=== PATIENT | female | born 1960 | race Caucasian/White ===

== ENCOUNTER → 2016-07-04 | Outpatient (CLI) | payer OTHER ==
[~2016-07-04] MED LIST: OMEP40CA36 PO
--- NOTE | 2016-07-04 13:16 | Diagnostic Imaging Report ---
Bilateral screening mammogram. The current study was also evaluated with a Computer Aided Detection (CAD) system. INDICATION: Screening. No current complaints stated on the questionnaire. COMPARISON: 06/28/15. FINDINGS: The breasts are composed of heterogeneously dense parenchyma which may decrease mammographic sensitivity. Benign-appearing calcifications are seen. Allowing for technique and positional differences, no suspicious change is seen. IMPRESSION: No significant change. ACR BI-RADS Category 2: Benign findings. Result letter will be mailed to the patient. Note: At least 10% of breast cancer is not imaged by mammography. Dictated by: Dictated on workstation # [id number]
== END ==
LOC: RAD 07:18
PROVIDERS: ATTEND Family Medicine
DX: Z12.31 Encounter for screening mammogram for malignant neoplasm of breast (principal)
CPT/HCPCS: 77067

== ENCOUNTER → 2017-02-19 | Outpatient (CLI) | payer OTHER | LOC: CARD 10:13 | PROVIDERS: ATTEND Internal Medicine Cardiovascular Disease | DX: R07.89 Other chest pain (principal); R06.00 Dyspnea, unspecified; R00.2 Palpitations; E78.2 Mixed hyperlipidemia | CPT/HCPCS: 93306 ==

== ENCOUNTER → 2017-07-05 | Outpatient (CLI) | payer OTHER ==
--- NOTE | 2017-07-06 06:51 | Diagnostic Imaging Report ---
INDICATION: Routine screening. COMPARISON: Prior exam from 08/20/2012. EXAMINATION: 2D and 3D bilateral screening mammography with CAD was performed. FINDINGS: Scattered fibroglandular densities are identified, bilaterally. The right breast is unremarkable. There has been decrease in size and number of previously noted circumscribed masses in the left breast since prior mammogram. Stable circumscribed lesion in the upper inner left breast is noted. No spiculated mass is identified. No malignant appearing microcalcifications are seen. The axillae are unremarkable. IMPRESSION: BI-RADS category 2 No mammographic features suspicious for malignancy are identified. ACR BI-RADS Category 2: Benign findings. Result letter will be mailed to the patient. Note: At least 10% of breast cancer is not imaged by mammography. Dictated by: Dictated on workstation # [id number]
== END ==
LOC: RAD 07:30
PROVIDERS: ATTEND Family Medicine
DX: Z12.31 Encounter for screening mammogram for malignant neoplasm of breast (principal)
CPT/HCPCS: 77067

== ENCOUNTER → 2018-07-08 | Outpatient (CLI) | payer OTHER ==
--- NOTE | 2018-07-08 12:37 | Diagnostic Imaging Report ---
INDICATION: Routine screening. COMPARISON: 07/05/2017 and 07/04/2016. TECHNIQUE: 2D and 3D bilateral screening mammography was performed with CAD. FINDINGS: Scattered fibroglandular densities are identified bilaterally. The parenchymal pattern is stable. No mass or malignant appearing microcalcifications are seen. The axillae are unremarkable. IMPRESSION: No mammographic features suspicious for malignancy are identified. ACR BI-RADS Category 1: Negative. Result letter will be mailed to the patient. Note: At least 10% of breast cancer is not imaged by mammography. Dictated by: Dictated on workstation # [id number]
== END ==
LOC: RAD 07:27
PROVIDERS: ATTEND Family Medicine
DX: Z12.31 Encounter for screening mammogram for malignant neoplasm of breast (principal)
CPT/HCPCS: 77067

== ENCOUNTER 2018-10-09 20:44 | Outpatient (CLI) | payer OTHER | END 2018-10-10 06:43 | disposition home or self-care (01) | LOC: SLEEP 20:44 | PROVIDERS: ATTEND Nurse Practitioner Family | DX: G47.33 Obstructive sleep apnea (adult) (pediatric) (principal); R00.2 Palpitations | CPT/HCPCS: 95811 ==

== ENCOUNTER 2019-03-07 02:27 | Emergency (ER) | payer OTHER ==
[~2019-03-07] VITALS: Ht 167.7 cm; Wt 100.9 kg
--- NOTE | 2019-03-07 02:42 | ED Chest Pain ---
General Chief Complaint: Chest Pain Stated Complaint: CP Source: patient Exam Limitations: no limitations History of Present Illness Date Seen by Provider: Mar 07, 2019 Time Seen by Provider: 02:29 Initial Comments Patient presents to ER by EMS with chief complaint of chest pain woke her up from sleep at about midnight. She describes it as cold all over her chest nonradiating. No shoulder or jaw involvement. No numbness or tingling. She did have some nausea. She has a history of GERD. No history of coronary disease but she does follow with Dr. Hess for pulmonary hypertension. She follows with Dr. Adrian for primary care. She does not take blood thinners. She was given 325 mg of aspirin and 2 doses of Zofran 4 mg each on route by [facility]. She doesn't smoke drink or use drugs. She has no history of hypertension but she does have hyperlipidemia. She does not have hypothyroidism, diabetes. No history of smoking. No history of coronary disease, stents, heart attacks, caths. No recent surgeries or trauma. Not laid up in bed. She's not been sick with anything. She does take omeprazole daily and escitalopram was started recently by her primary care doctor for anxiety. No hypoxia or tachycardia per EMS. Allergies and Home Medications Allergies Coded Allergies: No Known Allergies (Unverified Allergy, Unknown, 06/10/14) Patient Home Medication List Home Medication List Reviewed: Yes Review of Systems Review of Systems Constitutional: No chills, No fever, No malaise EENTM: No Blurred Vision, No Double Vision Respiratory: Denies Cough, Denies Orthopnea, Denies Shortness of Air Cardiovascular: See HPI, Chest Pain; Denies Edema, Denies Irregular Heart Rate, Denies Lightheadedness, Denies Palpitations, Denies Syncope Gastrointestinal: Denies Constipated, Denies Diarrhea, Denies Nausea Genitourinary: Denies Burning, Denies Discharge Musculoskeletal: No back pain, No joint pain Psychiatric/Neurological: See HPI, Anxiety; Denies Depressed Past Qfarzhk-Xxqpxj-Tccyzr Hx Patient Social History Alcohol Use: Denies Use Recreational Drug Use: No Smoking Status: Never a Smoker Recent Foreign Travel: No Contact w/Someone Who Travel: No Physical Exam Vital Signs Vital Signs - First Documented 03/07/19 02:28 Temp 36.8 Pulse 81 Resp 18 B/P (MAP) 152/77 (102) O2 Delivery Room Air Capillary Refill : Height, Weight, BMI Height: 5'6.00" Weight: 230lbs. oz. 104.613419zy; BMI Method: General Appearance: No Apparent Distress, WD/WN HEENT: PERRL/EOMI, Normal ENT Inspection, Pharynx Normal, Moist Mucous Membranes Neck: Full Range of Motion, Normal Inspection, Non Tender Respiratory: Chest Non Tender, Lungs Clear, Normal Breath Sounds, No Accessory Muscle Use, No Respiratory Distress Cardiovascular: Regular Rate, Rhythm, No Edema, Normal Peripheral Pulses Gastrointestinal: Normal Bowel Sounds, Non Tender, Soft Extremity: Normal Capillary Refill, Normal Inspection, No Pedal Edema Neurologic/Psychiatric: Alert, Oriented x3, No Motor/Sensory Deficits Skin: Normal Color, Warm/Dry Progress/Results/Core Measures Results/Orders Lab Results Laboratory Tests Test 03/07/19 02:35 03/07/19 05:35 Range/Units White Blood Count 6.2 4.3-11.0 10^3/uL Red Blood Count 4.49 4.35-5.85 10^6/uL Hemoglobin 13.3 11.5-16.0 G/DL Hematocrit 41 35-52 % Mean Corpuscular Volume 91 80-99 FL Mean Corpuscular Hemoglobin 30 25-34 PG Mean Corpuscular Hemoglobin Concent 33 32-36 G/DL Red Cell Distribution Width 12.9 10.0-14.5 % Platelet Count 234 130-400 10^3/uL Mean Platelet Volume 8.4 7.4-10.4 FL Neutrophils (%) (Auto) 63 42-75 % Lymphocytes (%) (Auto) 24 12-44 % Monocytes (%) (Auto) 8 0-12 % Eosinophils (%) (Auto) 4 0-10 % Basophils (%) (Auto) 1 0-10 % Neutrophils # (Auto) 3.9 1.8-7.8 X 10^3 Lymphocytes # (Auto) 1.5 1.0-4.0 X 10^3 Monocytes # (Auto) 0.5 0.0-1.0 X 10^3 Eosinophils # (Auto) 0.2 0.0-0.3 10^3/uL Basophils # (Auto) 0.0 0.0-0.1 10^3/uL Prothrombin Time 13.1 12.2-14.7 SEC INR Comment 1.0 0.8-1.4 Activated Partial Thromboplast Time 29 24-35 SEC Sodium Level 139 135-145 MMOL/L Potassium Level 3.6 3.6-5.0 MMOL/L Chloride Level 102 98-107 MMOL/L Carbon Dioxide Level 24 21-32 MMOL/L Anion Gap 13 5-14 MMOL/L Blood Urea Nitrogen 20 H 7-18 MG/DL Creatinine 0.82 0.60-1.30 MG/DL Estimat Glomerular Filtration Rate > 60 BUN/Creatinine Ratio 24 Glucose Level 125 H 70-105 MG/DL Calcium Level 8.9 8.5-10.1 MG/DL Corrected Calcium 8.7 8.5-10.1 MG/DL Magnesium Level 2.0 1.6-2.4 MG/DL Total Bilirubin 0.3 0.1-1.0 MG/DL Aspartate Amino Transf (AST/SGOT) 31 5-34 U/L Alanine Aminotransferase (ALT/SGPT) 36 0-55 U/L Alkaline Phosphatase 107 40-136 U/L Myoglobin 40.7 10.0-92.0 NG/ML Troponin I < 0.028 < 0.028 <0.028 NG/ML Total Protein 7.4 6.4-8.2 GM/DL Albumin 4.3 3.2-4.5 GM/DL Lipase 18 8-78 U/L My Orders Orders - LORENZO LI Cbc With Automated Diff (03/07/19 02:35) Magnesium (03/07/19 02:35) Chest 1 View, Ap/Pa Only (03/07/19 02:35) Ekg Tracing (03/07/19 02:35) Comprehensive Metabolic Panel (03/07/19 02:35) Myoglobin Serum (03/07/19 02:35) Protime With Inr (03/07/19 02:35) Partial Thromboplastin Time (03/07/19 02:35) O2 (03/07/19 02:35) Monitor-Rhythm Ecg Trace Only (03/07/19 02:35) Lipid Panel (03/08/19 06:00) Ed Iv/Invasive Line Start (03/07/19 02:35) Lipase (03/07/19 02:35) Troponin I (03/07/19 02:35) Troponin I (03/07/19 05:30) Ondansetron Injection (Zofran Injectio (03/07/19 06:30) Lidocaine 2% Viscous 15 Ml (Xylocaine Vi (03/07/19 06:30) Famotidine Tablet (Pepcid Tablet) (03/07/19 06:19) Antacid Suspension (Mylanta Suspension (03/07/19 06:30) Vital Signs/I&O 03/07/19 03/07/19 02:28 02:28 Temp 36.8 Pulse 81 Resp 18 B/P (MAP) 152/77 (102) O2 Delivery Room Air Room Air Progress Progress Note #1: Time: 02:43 Progress Note Chest pain workup. She is received aspirin. She says her pain has come and gone 3 times since calling [facility]. If she experiences pain again we will attempt a GI cocktail. She has a strong history of GERD. No history of coronary disease. She is not having any respiratory symptoms. She does not have tachycardia or hypoxia or subjective dyspnea and no previous history to support pulmonary embolism. Echocardiogram from [address] Hess demonstrates normal cavity and wall thickness with an EF 55-60%, mild regurgitation of the mitral valve and mild to moderate regurgitation and tricuspid valve. The previously noted patent foramen ovale was not seen on the study. Progress Note #2: Time: 04:01 Progress Note Patient remains asymptomatic. Low risk 0.91.7% 30-day MACE Repeat troponin at 3 hours and if negative, discharge home with outpatient follow-up. 529 Initial ECG Impression Date: Mar 07, 2019 Initial ECG Impression Time: 02:37 Initial ECG Rate: 78 Initial ECG Rhythm: Normal Sinus Initial ECG Intervals: QT (474) Initial ECG Impression: Normal, Nonspecific Changes Comment Normal sinus rhythm without ST elevation or depression EKG : EKG Time: 05:53 Rate: 63 Rhythm: Normal Sinus Intervals: QT (467) ECG Comparisson: Unchanged ECG Impression: Normal Comment No clinically relevant ST elevation or depression. Diagnostic Imaging Diagonstic Imaging: Xray Plain Films/CT/US/NM/MRI: chest (1v) Comments No acute cardiopulmonary processes on a 1 view chest x-ray Reviewed: Reviewed by Me Departure Impression Primary Impression: Chest pain Qualified Codes: R07.9 - Chest pain, unspecified Disposition: 01 HOME, SELF-CARE Condition: Stable Departure-Patient Inst. Decision time for Depature: 06:22 Referrals: KAREN GONZALEZ DO (PCP/Family) Primary Care Physician Patient Instructions: Chest Pain (DC) Add. 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 Return to the ER if you have sustained chest pain, shortness of breath or other worrisome symptoms. All discharge instructions reviewed with patient and/or family. Voiced understanding. LORENZO LI Mar 07, 2019 02:41
[2019-03-07 02:43] LABS: BASOPHILS % (AUTO) 1 % (0-10); EOSINOPHILS # (AUTO) 0.2 10^3/uL (0.0-0.3); EOSINOPHILS % (AUTO) 4 % (0-10); HEMATOCRIT 41 % (35-52); HEMOGLOBIN 13.3 G/DL (11.5-16.0); LYMPHOCYTES # (AUTO) 1.5 X 10^3 (1.0-4.0); LYMPHOCYTES % (AUTO) 24 % (12-44); MEAN CORPUSCULAR HEMOGLOBIN 30 PG (25-34); MEAN CORPUSCULAR HGB CONC 33 G/DL (32-36); MEAN CORPUSCULAR VOLUME 91 FL (80-99); MEAN PLATELET VOLUME 8.4 FL (7.4-10.4); MONOCYTES # (AUTO) 0.5 X 10^3 (0.0-1.0); MONOCYTES % (AUTO) 8 % (0-12); NEUTROPHILS # (AUTO) 3.9 X 10^3 (1.8-7.8); NEUTROPHILS % (AUTO) 63 % (42-75); PLATELET COUNT 234 10^3/uL (130-400); RED CELL DISTRIBUTION WIDTH 12.9 % (10.0-14.5); WHITE BLOOD COUNT 6.2 10^3/uL (4.3-11.0)
[2019-03-07 02:54] LABS: PROTHROMBIN TIME PATIENT 13.1 SEC (12.2-14.7)
[2019-03-07 03:04] LABS: ALANINE AMINOTRANSFERASE 36 U/L (0-55); ALBUMIN 4.3 GM/DL (3.2-4.5); ALKALINE PHOSPHATASE 107 U/L (40-136); BILIRUBIN,TOTAL 0.3 MG/DL (0.1-1.0); BUN/CREATININE RATIO 24; CALCIUM 8.9 MG/DL (8.5-10.1); CARBON DIOXIDE 24 MMOL/L (21-32); CHLORIDE 102 MMOL/L (98-107); CREATININE SERUM 0.82 MG/DL (0.60-1.30); GFR ESTIMATED > 60; GLUCOSE 125 MG/DL (70-105); LIPASE 18 U/L (8-78); POTASSIUM 3.6 MMOL/L (3.6-5.0); SODIUM 139 MMOL/L (135-145); TOTAL PROTEIN 7.4 GM/DL (6.4-8.2)
[2019-03-07] MEDS ORDERED: FAMOTIDINE 20 MG (PEPCID) TABLET PO STA (06:19)
[2019-03-07] MEDS ORDERED: ONDANSETRON 4 MG/2 ML (SDV) Z0FRAN IVP ONE (06:30)
[2019-03-07] MEDS ORDERED: ANTACID SUSP 30 ML UDC (MYLANTA) PO ONE (06:30)
[2019-03-07] MEDS ORDERED: LIDOCAINE 2% VISCOUS 15 ML UDC PO ONE (06:30)
--- NOTE | 2019-03-07 06:40 | Diagnostic Imaging Report ---
INDICATION: Chest pain. Portable chest 2:55 AM Heart size and pulmonary vascularity are normal. Lungs are clear. There are no effusions or pneumothoraces. IMPRESSION: Negative chest. Dictated by: Dictated on workstation # [id number]
[2019-03-07 07:00] VITALS: BP 65/77
== END 2019-03-07 07:04 | disposition home or self-care (01) ==
LOC: EDUNIT# 02:27 → ER 02:28
DX: R07.9 Chest pain, unspecified (principal); K21.9 Gastro-esophageal reflux disease without esophagitis
CPT/HCPCS: 36415; 71045; 80053; 83690; 83735; 83874; 84484; 85025; 85610; 85730; 93005; 93041; 96374

== ENCOUNTER 2019-06-29 06:45 | Emergency (ER) | payer OTHER ==
[~2019-06-29] VITALS: Ht 170.1 cm; Wt 98.8 kg
[2019-06-29] MEDS ORDERED: LIDOCAINE 2% VISCOUS 15 ML UDC PO ONE (07:00)
[2019-06-29] MEDS ORDERED: ONDANSETRON 4 MG/2 ML (SDV) Z0FRAN IVP ONE (07:00)
[2019-06-29] MEDS ORDERED: ANTACID SUSP 30 ML UDC (MYLANTA) PO ONE (07:00)
[2019-06-29] MEDS ORDERED: ASPIRIN 81 MG CHEW (CHILDREN'S ASA) PO ONE (07:00)
[2019-06-29 07:03] LABS: BASOPHILS % (AUTO) 0 % (0-10); EOSINOPHILS # (AUTO) 0.1 10^3/uL (0.0-0.3); EOSINOPHILS % (AUTO) 2 % (0-10); HEMATOCRIT 44 % (35-52); HEMOGLOBIN 14.4 G/DL (11.5-16.0); LYMPHOCYTES # (AUTO) 1.2 X 10^3 (1.0-4.0); LYMPHOCYTES % (AUTO) 25 % (12-44); MEAN CORPUSCULAR HEMOGLOBIN 30 PG (25-34); MEAN CORPUSCULAR HGB CONC 33 G/DL (32-36); MEAN CORPUSCULAR VOLUME 92 FL (80-99); MEAN PLATELET VOLUME 8.4 FL (7.4-10.4); MONOCYTES # (AUTO) 0.3 X 10^3 (0.0-1.0); MONOCYTES % (AUTO) 5 % (0-12); NEUTROPHILS # (AUTO) 3.2 X 10^3 (1.8-7.8); NEUTROPHILS % (AUTO) 67 % (42-75); PLATELET COUNT 260 10^3/uL (130-400); RED CELL DISTRIBUTION WIDTH 13.4 % (10.0-14.5); WHITE BLOOD COUNT 4.7 10^3/uL (4.3-11.0)
[2019-06-29 07:13] LABS: INR 0.8 (0.8-1.4); PROTHROMBIN TIME PATIENT 11.7 SEC (12.2-14.7)
[2019-06-29 07:20] LABS: ALANINE AMINOTRANSFERASE 26 U/L (0-55); ALBUMIN 4.5 GM/DL (3.2-4.5); ALKALINE PHOSPHATASE 94 U/L (40-136); BILIRUBIN,TOTAL 0.4 MG/DL (0.1-1.0); BUN/CREATININE RATIO 17; CALCIUM 9.5 MG/DL (8.5-10.1); CARBON DIOXIDE 28 MMOL/L (21-32); CHLORIDE 103 MMOL/L (98-107); CREATININE SERUM 0.88 MG/DL (0.60-1.30); GFR ESTIMATED > 60; GLUCOSE 122 MG/DL (70-105); MAGNESIUM 2.2 MG/DL (1.6-2.4); POTASSIUM 3.8 MMOL/L (3.6-5.0); SODIUM 142 MMOL/L (135-145)
--- NOTE | 2019-06-29 07:24 | ED Chest Pain ---
General Chief Complaint: Chest Pain Stated Complaint: CP, ARM NUMBNESS Nursing Triage Note: Pt c/o chest pain that began at approximately 0230 this morning. Pt reports nausea and radiating pain into back. 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 Pt does reports feeling extra anxious at this time due to multiple reasons. Nursing Sepsis Screen: No Definite Risk Source: patient, old records Exam Limitations: no limitations History of Present Illness Date Seen by Provider: Jun 29, 2019 Time Seen by Provider: 06:47 Initial Comments This 59-year-old woman presents to the emergency room with complaints of a chest discomfort or pressure this started around 02:30 and has been intermittent since that time. Pain radiated to her back. She reports feeling nauseated and having clammy hands at the time. She denies any fever, cough, or shortness of breath. Her pain was 9/10 at its worst and was 5/10 during initial assessment. She also reports history of acid reflux. She took aspirin 162 mg at home. She reports being under much stress recently and recently being started on Lexapro. She has history of pulmonary hypertension for which she sees Dr. Hess. Dr. Tejeda is her primary care provider. Review of chart reveals a stress test in 2015 negative for ischemia and an echocardiogram in 2015 showing diastolic dysfunction. Allergies and Home Medications Allergies Coded Allergies: No Known Allergies (Unverified Allergy, Unknown, 06/10/14) Patient Home Medication List Home Medication List Reviewed: Yes Review of Systems Review of Systems Constitutional: no symptoms reported EENTM: No Symptoms Reported Respiratory: No Symptoms Reported Cardiovascular: See HPI Gastrointestinal: See HPI Genitourinary: No Symptoms Reported Musculoskeletal: no symptoms reported Skin: no symptoms reported Psychiatric/Neurological: See HPI Endocrine: No Symptoms Reported Hematologic/Lymphatic: No Symptoms Reported Past Hkmpotf-Wkiyfq-Oxgtbs Hx Past Med/Social Hx: Reviewed Nursing Past Med/Soc Hx Patient Social History Alcohol Use: Denies Use Recreational Drug Use: No 2nd Hand Smoke Exposure: No Recent Foreign Travel: No Contact w/Someone Who Travel: No Recent Infectious Disease Expo: No Recent Hopitalizations: No Seasonal Allergies Seasonal Allergies: Yes Past Medical History Surgeries: Yes Gallbladder Respiratory: Yes (NON-COMPLIANT WITH CPAP; PULMONARY HTN) Sleep Apnea Cardiac: Yes (pulmonary hypertension) High Cholesterol Neurological: No : No Genitourinary: No Gastrointestinal: Yes Gastroesophageal Reflux, Ulcer Musculoskeletal: No Endocrine: No HEENT: No Cancer: No Psychosocial: Yes Anxiety Integumentary: No Blood Disorders: No Adverse Reaction/Blood Tranf: No Physical Exam Vital Signs Vital Signs - First Documented 06/29/19 06:50 Temp 36.8 Pulse 80 Resp 12 B/P (MAP) 149/82 (104) Pulse Ox 96 O2 Delivery Room Air Capillary Refill : Less Than 3 Seconds Height, Weight, BMI Height: 5'6.00" Weight: 230lbs. oz. 104.868116or; 34.00 BMI Method: General Appearance: WD/WN, Anxious HEENT: PERRL/EOMI, Normal ENT Inspection, Other (oropharynx somewhat dry) Neck: Normal Inspection; No JVD Respiratory: Chest Non Tender, Lungs Clear, Normal Breath Sounds, No Accessory Muscle Use, No Respiratory Distress Cardiovascular: Regular Rate, Rhythm, No Edema, No Murmur Gastrointestinal: Normal Bowel Sounds, Non Tender, Soft Extremity: Normal Inspection, No Calf Tenderness, No Pedal Edema Neurologic/Psychiatric: Alert, Oriented x3, No Motor/Sensory Deficits, wage conciliator II- XII Norm as Tested, Other (mildly anxious) Skin: Normal Color, Warm/Dry Progress/Results/Core Measures Results/Orders Lab Results Laboratory Tests Test 06/29/19 06:50 06/29/19 08:50 Range/Units White Blood Count 4.7 4.3-11.0 10^3/uL Red Blood Count 4.80 4.35-5.85 10^6/uL Hemoglobin 14.4 11.5-16.0 G/DL Hematocrit 44 35-52 % Mean Corpuscular Volume 92 80-99 FL Mean Corpuscular Hemoglobin 30 25-34 PG Mean Corpuscular Hemoglobin Concent 33 32-36 G/DL Red Cell Distribution Width 13.4 10.0-14.5 % Platelet Count 260 130-400 10^3/uL Mean Platelet Volume 8.4 7.4-10.4 FL Neutrophils (%) (Auto) 67 42-75 % Lymphocytes (%) (Auto) 25 12-44 % Monocytes (%) (Auto) 5 0-12 % Eosinophils (%) (Auto) 2 0-10 % Basophils (%) (Auto) 0 0-10 % Neutrophils # (Auto) 3.2 1.8-7.8 X 10^3 Lymphocytes # (Auto) 1.2 1.0-4.0 X 10^3 Monocytes # (Auto) 0.3 0.0-1.0 X 10^3 Eosinophils # (Auto) 0.1 0.0-0.3 10^3/uL Basophils # (Auto) 0.0 0.0-0.1 10^3/uL Prothrombin Time 11.7 L 12.2-14.7 SEC INR Comment 0.8 0.8-1.4 Activated Partial Thromboplast Time 33 24-35 SEC Sodium Level 142 135-145 MMOL/L Potassium Level 3.8 3.6-5.0 MMOL/L Chloride Level 103 98-107 MMOL/L Carbon Dioxide Level 28 21-32 MMOL/L Anion Gap 11 5-14 MMOL/L Blood Urea Nitrogen 15 7-18 MG/DL Creatinine 0.88 0.60-1.30 MG/DL Estimat Glomerular Filtration Rate > 60 BUN/Creatinine Ratio 17 Glucose Level 122 H 70-105 MG/DL Calcium Level 9.5 8.5-10.1 MG/DL Corrected Calcium 9.1 8.5-10.1 MG/DL Magnesium Level 2.2 1.6-2.4 MG/DL Total Bilirubin 0.4 0.1-1.0 MG/DL Aspartate Amino Transf (AST/SGOT) 26 5-34 U/L Alanine Aminotransferase (ALT/SGPT) 26 0-55 U/L Alkaline Phosphatase 94 40-136 U/L Myoglobin 34.4 10.0-92.0 NG/ML Troponin I < 0.028 < 0.028 <0.028 NG/ML Total Protein 8.0 6.4-8.2 GM/DL Albumin 4.5 3.2-4.5 GM/DL My Orders Orders - KT CORDOBA MD Cbc With Automated Diff (06/29/19 06:48) Magnesium (06/29/19 06:48) Chest 1 View, Ap/Pa Only (06/29/19 06:48) Ekg Tracing (06/29/19 06:48) Comprehensive Metabolic Panel (06/29/19 06:48) Myoglobin Serum (06/29/19 06:48) Protime With Inr (06/29/19 06:48) Partial Thromboplastin Time (06/29/19 06:48) O2 (06/29/19 06:48) Monitor-Rhythm Ecg Trace Only (06/29/19 06:48) Ed Iv/Invasive Line Start (06/29/19 06:48) Troponin I (06/29/19 06:48) Aspirin Chewable Tablet (Baby Aspirin Ch (06/29/19 07:00) Lidocaine 2% Viscous 15 Ml (Xylocaine Vi (06/29/19 07:00) Antacid Suspension (Mylanta Suspension (06/29/19 07:00) Ondansetron Injection (Zofran Injectio (06/29/19 07:00) Famotidine Injection (Pepcid Injection) (06/29/19 07:30) Troponin I (06/29/19 08:50) Medications Given in ED Current Medications Medications Dose Ordered Sig/Hyacinth Route Start Time Stop Time Status Last Admin Dose Admin Al Hydrox/Mg Hydrox/Simethicone 30 ml ONCE ONCE PO 06/29/19 07:00 06/29/19 07:01 DC 06/29/19 07:00 30 ML Aspirin 162 mg ONCE ONCE PO 06/29/19 07:00 06/29/19 07:01 DC 06/29/19 07:00 162 MG Famotidine 20 mg ONCE ONCE IVP 06/29/19 07:30 06/29/19 07:31 DC 06/29/19 07:23 20 MG Lidocaine HCl 15 ml ONCE ONCE PO 06/29/19 07:00 06/29/19 07:01 DC 06/29/19 07:00 15 ML Ondansetron HCl 4 mg ONCE ONCE IVP 06/29/19 07:00 06/29/19 07:01 DC 06/29/19 07:00 4 MG Vital Signs/I&O 06/29/19 06/29/19 06/29/19 06:50 06:50 09:30 Temp 36.8 36.3 Pulse 80 64 Resp 12 15 B/P (MAP) 149/82 (104) 132/77 Pulse Ox 96 97 O2 Delivery Room Air Room Air Room Air Blood Pressure Mean: 104 Progress Progress Note #1: Time: 07:21 Progress Note Patient received aspirin 162 mg to chew. She also received Zofran and a GI cocktail. This reduced her pain down to 2/10. Workup is pending. Pepcid was added. Progress Note #2: Time: 07:47 Progress Note Workup so far is unremarkable. I have discussed findings with the patient. She is still feeling well. We will obtain a 2 hour troponin and anticipate discharge home if normal. Progress Note #3: Progress Note 2 hour troponin was normal. Patient was feeling well and ready for discharge. Initial ECG Impression Date: Jun 29, 2019 Initial ECG Impression Time: 06:53 Initial ECG Rate: 71 Initial ECG Rhythm: Normal Sinus Initial ECG Impression: Normal Comment Normal sinus rhythm with no ST elevation or depression. No axis deviation. Automated read states nonspecific intraventricular conduction delay. Diagnostic Imaging Diagonstic Imaging: Xray Plain Films/CT/US/NM/MRI: chest Comments Chest x-ray viewed by me and report reviewed. See report below: NAME: SURESH NIELSON [facility] REC#: [id number] PT STATUS: REG ER : 1960 PHYSICIAN: KT CORDOBA MD ADMIT DATE: 06/29/19/ER Draft Date of Exam:06/29/19 CHEST 1 VIEW, AP/PA ONLY INDICATION: Chest pain FINDINGS: The heart and lungs appeared normal. No pleural pathology. IMPRESSION: Negative Dictated on workstation # [id number] Dict: [id number]/29/[id number] Trans: 06/29/19 0726 [id number] Interpreted by: MADIHA GARCIA Departure Impression Primary Impression: Chest pain Qualified Codes: R07.9 - Chest pain, unspecified Disposition: 01 HOME, SELF-CARE Condition: Improved Departure-Patient Inst. Referrals: KAREN TEJEDA DO (PCP/Family) Primary Care Physician Patient Instructions: Chest Pain, Acid Reflux (Gastroesophageal Reflux Disease), Adult (DC) Add. Discharge Instructions: It is possible your pain is related to acid reflux. Add Pepcid (famotidine) 20 mg twice daily to your medications for the next 2 weeks. Avoid the following: Eating large meals, eating close to bedtime, caffeine, carbonation, citrus fruits and juices, tomato products, alcohol, tobacco, chocolate, spicy foods, fatty or greasy foods, mints, NSAID medications such as ibuprofen or naproxen, or anything else you know irritates your stomach. Follow-up with your primary care provider and video player mechanic within the next week. Return to care if you have worsening or persistent symptoms. All discharge instructions reviewed with patient and/or family. Voiced understanding. Copy Copies To 1: KAREN TEJEDA DO Copies To 2: REMIGIO HESS MD, JOSHUA T MD Jun 29, 2019 07:24
--- NOTE | 2019-06-29 07:27 | Diagnostic Imaging Report ---
INDICATION: Chest pain FINDINGS: The heart and lungs appeared normal. No pleural pathology. IMPRESSION: Negative Dictated by: Dictated on workstation # [id number]
[2019-06-29] MEDS ORDERED: FAMOTIDINE 20MG/2ML IV (PEPCID) IVP ONE (07:30)
[2019-06-29 09:30] VITALS: BP 132/77
== END 2019-06-29 09:30 | disposition home or self-care (01) ==
LOC: EDUNIT# 06:45 → ER 06:47
DX: R07.89 Other chest pain (principal); G47.30 Sleep apnea, unspecified; Z91.19 Patient's noncompliance with other medical treatment and regimen; Z79.82 Long term (current) use of aspirin
CPT/HCPCS: 36415; 71045; 80053; 83735; 83874; 84484; 85025; 85610; 85730; 93005; 93041

== ENCOUNTER 2019-07-01 10:09 | Observation (INO) | payer OTHER ==
[~2019-07-01] VITALS: Ht 170 cm; Wt 100.0 kg
[2019-07-01] VITALS (9 sets, daily range): BP systolic 109–154; BP diastolic 51–81
[2019-07-01] MEDS ORDERED: PATIENT MAY USE OWN MEDS, ALL PO SCH (10:15)
[2019-07-01] MEDS ORDERED: ONDANSETRON 4 MG/2 ML (SDV) Z0FRAN IVP PRN (10:15)
[2019-07-01] MEDS ORDERED: NITROGLYCERIN 0.4 MG SL TABS BTL 25'S SL PRN (10:15)
[2019-07-01] MEDS ORDERED: PANTOPRAZOLE 40 MG (PROTONIX) VIAL IV ONE (10:15)
[2019-07-01] MEDS ORDERED: ACETAMINOPHEN 325 MG TABLET PO PRN (10:30)
--- NOTE | 2019-07-01 10:49 | Consultation-Cardiology ---
HPI-Cardiology Cardiology Consultation Date of Consultation 07/01/19 Date of Admission Time Seen by Provider: 10:44 HPI Patient is a 59 year old female with history of KEKE, HTP, anxiety. Presented to Dr. Tejeda's office today with complaints of chest pain. Patient was seen and evaluated in ER on 06/29/2019 for chest pain, workup was negative at the time. Reports she has had intermittent chest pain for the past month. Describes it as dull ache in center of chest with radiation to back and both arms, rating pain 5/10. Denies any jaw pain, nausea, dizziness or lightheadedness. Last episode of chest pain was while walking into hospital. Denies any active chest pain at this time. Home Medications & Allergies Allergies: Coded Allergies: No Known Allergies (Unverified Allergy, Unknown, 06/10/14) Home Medication List Reviewed: Yes LAF-[id number]-Kfjsyw Hx Patient Social History Alcohol Use: Denies Use Smoking Status: Never a Smoker 2nd Hand Smoke Exposure: No Recent Foreign Travel: No Recent Hopitalizations: No Past Medical History KEKE, HTP, Anxiety Family Medical History Significant Family History: No Pertinent Family Hx Review of Systems-General Review of Systems Constitutional: no symptoms reported, see HPI; No diaphoresis, No dizziness, No fever, No malaise, No weakness EENTM: see HPI, no symptoms reported; No blurred vision, No double vision, No vision loss Respiratory: see HPI; No cough, No dyspnea on exertion, No short of breath Cardiovascular: see HPI, chest pain, palpitations; No syncope Gastrointestinal: No abdominal pain, No constipation Genitourinary: No dysuria, No frequency Musculoskeletal: No back pain, No joint pain Skin: No lesions, No rash Psychiatric/Neurological: Anxiety Physical Exam Physical Exam Vital Signs Vital Signs - First Documented 07/01/19 10:30 Temp 37.2 Pulse 75 Resp 33 B/P (MAP) 154/81 (105) Pulse Ox 99 O2 Delivery Room Air Capillary Refill : Height, Weight, BMI Height: 5'6.00" Weight: 230lbs. oz. 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 Was evaluated in the ER on 06/29/2019. Reports continued to have frequent episodes of chest pain over the past 48 hours. Last stress test done in 2014. EKG did not show any acute abnormality, patient still having recurrent chest pain, discussed the management plan recommended cardiac catheterization possible PTCA Palpitations, infrequent. Holter monitor done in the past did not show any arrhythmia at this time, echocardiogram was done in February 2017 at was normal. Anxiety-managed by PCP Possible atrial septal defect with [id number] shunt noted on echocardiogram from May 2013. Asymptomatic. Repeat echocardiogram in 2014 and 2017 did not show the presence of ASD, continue to monitor Pulmonary hypertension, PA pressure was 30 mmHg February 2017. Patient has had pulmonary evaluation with normal PFTs. Diagnosed with obstructive sleep apnea, maintained on C Pap. Followed and managed by Dr. Leiva Mild obstructive sleep apnea, on C Pap Hyperlipidemia, patient is maintained on simvastatin, I will evaluate lipid profile Gastroesophageal reflux disease, managed by primary care physician. Thank you for allowing us to participate in the management of Ms. Luna. This is Maryam Kitchen PA-C, as a scribe for Dr. Hess. Patient was seen and evaluated with Maryam, examination performed, management plan was discussed, agree with the current scribed note, I made few changes to the note using Italic font Patient was seen and evaluated, still having active chest pain on and off, discussed with Dr. TEJEDA the management plan, this is her second trip to the hospital for recurrent chest pain over the past 48 hours. On examination lungs were clear to auscultation, heart is regular, recommended cardiac catheterization possible PTCA Cardiac catheterization was carried out showing nonobstructive disease, normal left ventricular function, normal aortic arch Okay for discharge from cardiology standpoint MARYAM GABRIEL Jul 01, 2019 10:49 am REMIGIO HESS MD Jul 01, 2019 12:56 pm
[2019-07-01 10:51] LABS: BASOPHILS % (AUTO) 1 % (0-10); EOSINOPHILS # (AUTO) 0.1 10^3/uL (0.0-0.3); EOSINOPHILS % (AUTO) 3 % (0-10); HEMATOCRIT 43 % (35-52); LYMPHOCYTES % (AUTO) 26 % (12-44); MEAN CORPUSCULAR HEMOGLOBIN 30 PG (25-34); MEAN CORPUSCULAR HGB CONC 32 G/DL (32-36); MEAN CORPUSCULAR VOLUME 92 FL (80-99); MEAN PLATELET VOLUME 8.6 FL (7.4-10.4); MONOCYTES # (AUTO) 0.4 X 10^3 (0.0-1.0); MONOCYTES % (AUTO) 9 % (0-12); NEUTROPHILS # (AUTO) 2.4 X 10^3 (1.8-7.8); NEUTROPHILS % (AUTO) 62 % (42-75); PLATELET COUNT 247 10^3/uL (130-400); RED CELL DISTRIBUTION WIDTH 13.4 % (10.0-14.5); WHITE BLOOD COUNT 3.8 10^3/uL (4.3-11.0)
--- NOTE | 2019-07-01 10:57 | Diagnostic Imaging Report ---
EXAMINATION: Chest 1 view HISTORY: Chest pain COMPARISON: 06/29/2019 FINDINGS: The lungs are clear without edema or pneumonia. No pleural effusion or pneumothorax. Heart size is normal. IMPRESSION: 1. Clear lungs. Dictated by: Dictated on workstation # [id number]
[2019-07-01 11:07] LABS: INR 0.9 (0.8-1.4); PROTHROMBIN TIME PATIENT 12.5 SEC (12.2-14.7)
[2019-07-01 11:16] LABS: BUN/CREATININE RATIO 19; CARBON DIOXIDE 26 MMOL/L (21-32); CHLORIDE 101 MMOL/L (98-107); POTASSIUM 3.9 MMOL/L (3.6-5.0); SODIUM 140 MMOL/L (135-145)
[2019-07-01 11:17] LABS: ALANINE AMINOTRANSFERASE 25 U/L (0-55); ALBUMIN 4.4 GM/DL (3.2-4.5); ALKALINE PHOSPHATASE 87 U/L (40-136); BILIRUBIN,TOTAL 0.8 MG/DL (0.1-1.0); CALCIUM 9.6 MG/DL (8.5-10.1); CREATINE KINASE 38 U/L (29-168); GFR ESTIMATED > 60; GLUCOSE 108 MG/DL (70-105); TOTAL PROTEIN 7.9 GM/DL (6.4-8.2)
[2019-07-01] MEDS: NS IV 1000 ML 1,000 ML IV SCH ×2 (11:30→13:51)
[2019-07-01] MEDS ORDERED: fentaNYL INJECTION 100 MCG/2 ML AMP ONE (11:43)
[2019-07-01] MEDS ORDERED: MIDAZOLAM 5 MG/5 ML (VERSED) VIAL ONE (11:43)
[2019-07-01] MEDS: ENOXAPARIN 40 MG/0.4 ML (LOVENOX) SYR SC SCH ×2 (11:44→11:55)
[2019-07-01] MEDS ORDERED: HEParin (CATH LAB) 2,000 ML IV ONE (11:50)
[2019-07-01] MEDS ORDERED: LIDOCAINE 1% INJ 20 ML 20 ML VIAL ONE (11:50)
[2019-07-01] MEDS ORDERED: ALPRAZolam 0.25 MG (XANAX) TAB PO PRN (12:00)
[2019-07-01] MEDS ORDERED: NS IV 1000 ML 1,000 ML ONE (12:09)
[2019-07-01] MEDS ORDERED: VERAPAMIL 5 MG/2 ML (CALAN) VIAL IV ONE (12:18)
[2019-07-01] MEDS ORDERED: HEParin 1000 UNIT/ML (10ML VIAL) FOR BOLUS ONE (12:18)
[2019-07-01] MEDS ORDERED: NITRO DRIP 25000 MCG/D5W 250 ML IV ONE (12:18)
--- NOTE | 2019-07-01 12:57 | Cardiac Procedure Note-CS/ASA ---
Pre-Procedure Note Pre-Op Procedure Note H&P Reviewed The H&P was reviewed, patient examined and no changes noted. Date H&P Reviewed: Jul 01, 2019 Time H&P Reviewed: 12:56 Conscious Sedation Pre-Proced Time 12:57 ASA Score 3 For ASA 3 and 4: Consider anesthesia and medical clearance. Also, for patients with a history of failed moderate sedation consider anesthesia. Airway Lungs Heart ASA score ASA 1: a normal healthy patient ASA 2: a patient with a mild systemic disease (mid diabetes, controlled hypertension, obesity x ASA 3: a patient with a severe systemic disease that limits activity (angina, COPD, prior Myocardial infarction) ASA 4: a patient with an incapacitating disease that is a constant threat to life (CHF, renal failure) ASA 5: a moribund patient not expected to survive 24 hrs. (ruptured aneurysm) ASA 6: a declared brain- patient whose organs are being harvested. For emergent operations, add the letter E after the classification Mallampati Classification Grade 3 Sedation Plan Analgesia, Amnesia, Plan communicated to team members, Discussed options with patient/fam, Discussed risks with patient/fam The patient is an appropriate candidate to undergo the planned procedure, sedation, and anesthesia. The patient immediately re-assessed prior to indication. REMIGIO JOINER MD Jul 01, 2019 12:57 pm
--- NOTE | 2019-07-01 13:03 | Cardiac Cath Report ---
Cardiac Cath Report Physician (s)/Fiberglass Autobody Repairer (s) Physician REMIGIO JOINER MD Pre-Procedure Diagnosis Pre-Procedure Diagnosis: chest pain Post-Procedure Note Procedure Start Date: Jul 01, 2019 Procedure Start Time: 12:58 Name of Procedure: Left heart catheterization Left ventriculogram Aortic arch angiogram Findings/Procedure Note PROCEDURE NOTE: 59-year-old lady with history of hypertension, seen in the emergency room on June 28 for chest pain radiating to her arm, went to Dr. Ileana sales and has been having recurrent chest pain, sent for direct admission on my evaluation she was still having waxing and waning chest pain, decided to proceed with cardiac catheterization, after evaluating her coronary anatomy and noticing that her coronaries are normal I was concerned about having aortic cause for her significant chest pain, I evaluated aortic arch angiogram. After explaining the procedure to the patient, all pros and cons were explained, all questions were answered. The patient signed the consent and then she was placed on the cardiac catheterization laboratory. Groin was prepped SL fashion local anesthesia was used. Sheath placed in the right radial, [place] catheter was used advanced to the left ventricular cavity, left ventricular gram was done, we'll to the coronaries and selective angiogram to the left and right coronary system was done and then it was pulled to the aortic arch and aortic arch angiogram was done At the end of the procedure the sheath was removed. Vascular bandage was used FINDINGS: Hemodynamics LV 116/9, end-diastolic pressure of 9 Aorta on mean of 72 ANATOMY: Left Main is free of obstructive disease Left Anterior Descending is slightly tortuous with no obstructive disease Left Circumflex has no significant obstructive disease Right Coronory Artery is dominant artery with mild disease nonobstructive disease LV Gram was done showing normal left ventricular size and systolic function estimated ejection fraction 60 percent Aorta evaluation done with aortic arch arteriogram showing normal aortic arch, no dissection or aneurysm, normal origin of the right innominate artery, left carotid and left subclavian arteries CONCLUSION: 1. Mild coronary artery disease nonobstructive disease 2. Normal left ventricular size and systolic function estimated ejection fraction 60 percent, normal left ventricular end-diastolic pressure 3. Normal aortic arch and great vessels of the neck DISCUSSION AND RECOMMENDATION: Mild coronary artery disease nonobstructive disease does not explain the recurrent chest pain, her pain is probably noncardiac Anesthesia Type: Conscious Sedation Estimated blood loss (mL): 5 ml Contrast Amount: 50 ml Total Radiation Dose: 99 mGy Post-Procedure Diagnosis Post-operative diagnosis: Chest pain Hypertension Anxiety Palpitation REMIGIO JOINER MD Jul 01, 2019 1:02 pm
[2019-07-01] MEDS ORDERED: ELDE1CAP PO (14:11)
[2019-07-01] MEDS ORDERED: SIMV20TA26 PO (14:11)
[2019-07-01] MEDS ORDERED: FEXO1TAB43 PO (14:11)
[2019-07-01] MEDS ORDERED: CALC-987 PO (14:11)
[2019-07-01] MEDS ORDERED: ESCI10TA55 PO (14:11)
[2019-07-01] MEDS ORDERED: PANT40TA3 PO (14:11)
[2019-07-01] MEDS ORDERED: INUL1TAB4 PO (14:11)
[2019-07-01] MEDS ORDERED: ASPI-983 PO (14:11)
--- NOTE | 2019-07-01 14:13 | NUR ---
SPOKE WITH THE PT AND WENT THRU THE EXT MED HISTORY TO COMPLETE THE MED REC TRAZODONE 50MG IS LISTED ON THE EXT MED HISTORY FROM FEB 2019- HOWEVER THE PT SAID SHE WAS NOT CURRENTLY USING AT THIS TIME. OTC MEDS MERRITT D PRN ASPIRIN ELDERBERRY CALCIUM W/ VIT D FIBER GUMMY
--- NOTE | 2019-07-01 16:40 | Short Stay Summary ---
History of Present Illness History of Present Illness Reason for visit/HPI This is a 59 year old female seen in my office for an ER followup for chest pain. She was instructed to add pepcid at bedtime and a followup appointment to rule out a cardiac etiology was scheduled with Dr. Hess for later this week. However, on her way home, she started experiencing chest pain radiating down both arms so she returned to my office and was directly admitted to the cardiac floor with cardiac consult. Date of Admission Jul 01, 2019 at 10:17 Date of Discharge Time Seen by Provider: 11:00 Attending Physician Naya Gonzalez DO Admitting Physician Naya Gonzalez DO Consult Allergies and Home Medications Allergies Coded Allergies: No Known Allergies (Unverified Allergy, Unknown, 06/10/14) Home Medications Aspirin 81 Mg Tablet.dr, 81 MG PO DAILY, (Reported) Escitalopram Oxalate 10 Mg Tablet, 10 MG PO 1200, (Reported) Fexofenadine/Pseudoephedrine 1 Each Tab.er.24h, 1 EACH PO DAILY PRN for CONGESTION/ALLERGIES, (Reported) Pantoprazole Sodium 40 Mg Tablet.dr, 40 MG PO BID, (Reported) Simvastatin 20 Mg Tablet, 20 MG PO HS, (Reported) Patient Home Medication List Home Medication List Reviewed: Yes Past Zytlfxe-Otwdez-Amjoac Hx Patient Social History Marrital Status: single Employed/Student: employed Alcohol Use: Denies Use Recreational Drug Use: No Smoking Status: Never a Smoker 2nd Hand Smoke Exposure: No Physical Abuse Screen: No Sexual Abuse: No Recent Foreign Travel: No Contact w/other who traveled: No Recent Hopitalizations: No Recent Infectious Disease Expo: No Seasonal Allergies Seasonal Allergies: Yes Surgeries Yes (CARPAL TUNNEL R) Gallbladder Respiratory Yes (NON-COMPLIANT WITH CPAP; PULMONARY HTN) Cardiovascular Yes (pulmonary hypertension) High Cholesterol Neurological No Genitourinary No Gastrointestinal Yes Gastroesophageal Reflux, Ulcer Musculoskeletal Yes Arthritis Endocrine History of Endocrine Disorders: No HEENT History of HEENT Disorders: No Cancer No Psychosocial History of Psychiatric Problem: Yes Behavioral Health Disorders: Anxiety Integumentary History of Skin or Integumenta: No Blood Transfusions History of Blood Disorders: No Adverse Reaction to a Blood Tr: No Family Medical History Significant Family History: No Pertinent Family Hx Family Hx: Alzheimer's disease 19 FATHER Hypertension 19 MOTHER Thyroid disease 19 MOTHER Review of Systems Constitutional: weakness EENTM: No see HPI, No no symptoms reported, No ear discharge, No hearing loss, No ear pain, No blurred vision, No double vision, No eye pain, No tearing, No vision loss, No dental problems, No hoarseness, No mouth pain, No mouth swelling, No epistaxis, No nose congestion, No nose pain, No throat pain, No throat swelling, No other Respiratory: No no symptoms reported, No see HPI, No cough, No dyspnea on exertion, No hemoptysis, No orthopnea, No phlegm, No short of breath, No stridor, No wheezing, No other Cardiovascular: chest pain Gastrointestinal: heartburn Genitourinary: No no symptoms reported, No see HPI, No decreased output, No discharge, No dysuria, No frequency, No hematuria, No hesitancy, No incontinence, No nocturia, No pain, No other Musculoskeletal: back pain Skin: No no symptoms reported, No see HPI, No change in color, No change in hair/nails, No dryness, No hx of skin cancer, No lesions, No lumps, No pruritus, No rash, No other Psychiatric/Neurological: Anxiety Physical Exam Vital Signs Vital Signs - First Documented 07/01/19 10:30 Temp 37.2 Pulse 75 Resp 33 B/P (MAP) 154/81 (105) Pulse Ox 99 O2 Delivery Room Air Capillary Refill : Height, Weight, BMI Height: 5'6.00" Weight: 230lbs. oz. 104.920473jp; 34.60 BMI Method: General Appearance: Mild Distress HEENT: Normal ENT Inspection Neck: Supple Respiratory: Lungs Clear Cardiovascular: Regular Rate, Rhythm Gastrointestinal: Normal Bowel Sounds, Non Tender, Soft Rectal: Deferred Back: No CVA Tenderness Extremity: Non Tender, No Calf Tenderness, No Pedal Edema Neurologic/Psychiatric: Alert, Oriented x3 Skin: Warm/Dry Comments Laboratory Tests 07/01/19 10:44: White Blood Count 3.8L, Red Blood Count 4.69, Hemoglobin 14.0, Hematocrit 43, Mean Corpuscular Volume 92, Mean Corpuscular Hemoglobin 30, Mean Corpuscular Hemoglobin Concent 32, Red Cell Distribution Width 13.4, Platelet Count 247, Mean Platelet Volume 8.6, Neutrophils (%) (Auto) 62, Lymphocytes (%) (Auto) 26, Monocytes (%) (Auto) 9, Eosinophils (%) (Auto) 3, Basophils (%) (Auto) 1, Neutrophils # (Auto) 2.4, Lymphocytes # (Auto) 1.0, Monocytes # (Auto) 0.4, Eosinophils # (Auto) 0.1, Basophils # (Auto) 0.0, Prothrombin Time 12.5, INR Comment 0.9, Activated Partial Thromboplast Time 29, Sodium Level 140, Potassium Level 3.9, Chloride Level 101, Carbon Dioxide Level 26, Anion Gap 13, Blood Urea Nitrogen 17, Creatinine 0.90, Estimat Glomerular Filtration Rate > 60, BUN/Creatinine Ratio 19, Glucose Level 108H, Calcium Level 9.6, Corrected Calcium 9.3, Total Bilirubin 0.8, Aspartate Amino Transf (AST/SGOT) 30, Alanine Aminotransferase (ALT/SGPT) 25, Alkaline Phosphatase 87, Total Creatine Kinase 38, Myoglobin 38.1, Troponin I < 0.028, Total Protein 7.9, Albumin 4.4 Clinical Quality Measures DVT/VTE Risk/Contraindication: Risk Factor Score Per Nursin RFS Level Per Nursing on Admit: 2=Moderate Short Stay Diagnosis Discharge Diagnosis-Short Stay Final Discharge Diagnosis: 1. Chest Pain, noncardiac in etiology--likely GI or anxiety 2. Nonobstructive Coronary Artery Disease--medical management 3. Hypertension 4. GERD 5. Anxiety Conclusion Labs Laboratory Tests 07/01/19 10:44: White Blood Count 3.8L, Red Blood Count 4.69, Hemoglobin 14.0, Hematocrit 43, Mean Corpuscular Volume 92, Mean Corpuscular Hemoglobin 30, Mean Corpuscular Hemoglobin Concent 32, Red Cell Distribution Width 13.4, Platelet Count 247, Mean Platelet Volume 8.6, Neutrophils (%) (Auto) 62, Lymphocytes (%) (Auto) 26, Monocytes (%) (Auto) 9, Eosinophils (%) (Auto) 3, Basophils (%) (Auto) 1, Neutrophils # (Auto) 2.4, Lymphocytes # (Auto) 1.0, Monocytes # (Auto) 0.4, Eosinophils # (Auto) 0.1, Basophils # (Auto) 0.0, Prothrombin Time 12.5, INR Comment 0.9, Activated Partial Thromboplast Time 29, Sodium Level 140, Potassium Level 3.9, Chloride Level 101, Carbon Dioxide Level 26, Anion Gap 13, Blood Urea Nitrogen 17, Creatinine 0.90, Estimat Glomerular Filtration Rate > 60, BUN/Creatinine Ratio 19, Glucose Level 108H, Calcium Level 9.6, Corrected Calcium 9.3, Total Bilirubin 0.8, Aspartate Amino Transf (AST/SGOT) 30, Alanine Aminotransferase (ALT/SGPT) 25, Alkaline Phosphatase 87, Total Creatine Kinase 38, Myoglobin 38.1, Troponin I < 0.028, Total Protein 7.9, Albumin 4.4 Conclusion/Plan This is a 59 year old female directly admitted from my office with complaint of chest pain radiating to both arms. She was admitted to the cardiac stepdown floor with negative EKG and negative cardiac enzymes. However, due to this being her second visit in 2 days for chest pain with ongoing symptoms, she was taken directly for a cardiac catheterization. This showed mild nonobstructive coronary artery disease so it was decided she could be discharged home. She was given IV protonix to cover for GI etiology and we did discuss further workup to include EGD at a later date. She will add pepcid at bedtime until her followup. We did discuss anxiety as an etiology as well and may need to increase her lexapro dose if she continues to have symptoms. NAYA GONZALEZ DO Jul 01, 2019 16:40
[2019-07-02] MEDS ORDERED: ASPIRIN E.C. 81 MG (ECOTRIN) TAB PO SCH (09:00)
[2019-07-02] MEDS ORDERED: PANTOPRAZOLE 40 MG (PROTONIX) VIAL IV SCH (09:00)
== END 2019-07-01 17:15 | disposition home or self-care (01) ==
LOC: ICU 10:17
PROVIDERS: ADMIT Family Medicine; ATTEND Family Medicine
DX: R07.9 Chest pain, unspecified (principal); I25.10 Atherosclerotic heart disease of native coronary artery without angina pectoris; I10 Essential (primary) hypertension; I27.20 Pulmonary hypertension, unspecified; K21.9 Gastro-esophageal reflux disease without esophagitis; G47.33 Obstructive sleep apnea (adult) (pediatric); E78.00 Pure hypercholesterolemia, unspecified; E78.5 Hyperlipidemia, unspecified; M19.90 Unspecified osteoarthritis, unspecified site; F41.9 Anxiety disorder, unspecified; Z99.89 Dependence on other enabling machines and devices; Z79.82 Long term (current) use of aspirin; Z79.899 Other long term (current) drug therapy
CPT/HCPCS: 36221; 36415; 71045; 80053; 82550; 83874; 84484; 85025; 85610; 85730; 93005; 93306; 93458

== ENCOUNTER → 2019-08-12 | Outpatient (CLI) | payer OTHER ==
[~2019-08-12] MED LIST changes: +ASPI-983 PO; +CALC-987 PO; +ELDE1CAP PO; +ESCI10TA55 PO; +FEXO1TAB43 PO; +INUL1TAB4 PO; +PANT40TA3 PO; +SIMV20TA26 PO
--- NOTE | 2019-08-12 13:55 | Diagnostic Imaging Report ---
INDICATION: Routine screening. COMPARISON: 07/08/2018 and 07/05/2017. TECHNIQUE: 2D and 3D bilateral screening mammography was performed with CAD. FINDINGS: Both breasts remain heterogeneously dense, limiting the sensitivity of mammography. The parenchymal pattern is stable. No mass or malignant appearing microcalcifications are seen. The axillae are unremarkable. IMPRESSION: No mammographic features suspicious for malignancy are identified. ACR BI-RADS Category 1: Negative. Result letter will be mailed to the patient. Note: At least 10% of breast cancer is not imaged by mammography. Dictated by: Dictated on workstation # [id number]
== END ==
LOC: RAD 07:23
PROVIDERS: ATTEND Family Medicine
DX: Z12.31 Encounter for screening mammogram for malignant neoplasm of breast (principal)
CPT/HCPCS: 77063; 77067

== ENCOUNTER 2019-09-22 05:31 | Outpatient (RCR) | payer OTHER ==
[~2019-09-22] VITALS: Ht 170.2 cm; Wt 102.7 kg
[~2019-09-22 05:31] MED LIST changes: +FAMO-119 PO; +FLUO10CA29 PO
== END 2019-09-22 11:02 | disposition home or self-care (01) ==
LOC: PREOP 05:31
PROVIDERS: ATTEND Surgery
DX: Z01.812 Encounter for preprocedural laboratory examination (principal); K21.9 Gastro-esophageal reflux disease without esophagitis; Z20.828 Contact with and (suspected) exposure to other viral communicable diseases
CPT/HCPCS: 87635

== ENCOUNTER 2019-09-24 09:31 | Day surgery (SDC) | payer OTHER ==
--- NOTE | 2019-09-10 22:17 | HISTORY AND PHYSICAL ---
DATE OF SERVICE: ADMITTING PRIMARY CARE PHYSICIAN: Dr. Tejeda. HISTORY OF PRESENT ILLNESS: The patient is a 59-year-old female who has had a longstanding history of gastroesophageal reflux disease; however, has worsened significantly in the past year. She states that she has had chest pain that was so severe that she went to the Emergency Department on three separate occasions and underwent a cardiac workup, which has been negative. She then underwent a cardiac catheterization 07/01/2019 which did not show any significant stenosis. She states that she also has developed a mild dysphagia and does have difficulty swallowing of some specific types of foods on occasion. PAST MEDICAL HISTORY: Gastroesophageal reflux disease, sleep apnea, pulmonary hypertension, hypercholesterolemia. PAST SURGICAL HISTORY: Laparoscopic cholecystectomy in 1998. Bilateral carpal tunnel release in 2019. ALLERGIES: No known drug allergies. MEDICATIONS: Protonix 40 mg daily, Pepcid 20 mg b.i.d., simvastatin daily, Prozac 10 mg daily, aspirin 81 mg daily. SOCIAL HISTORY: Negative smoke, negative alcohol. FAMILY HISTORY: Mother, sister, brother, hypertension. VITAL SIGNS: Stable, currently 226.7 pounds at 5 feet 7 inches. REVIEW OF SYSTEMS: Well-nourished female, in no acute distress. She is not experiencing any shortness of breath or difficulty breathing. No chest pain, palpitations, diaphoresis. No nausea, vomiting with intermittent episodes of epigastric sharp pain as well as intermittent episodes of dysphagia. No hematemesis, no coffee ground emesis. No diarrhea or constipation. No red blood per rectum, no dark tarry stools. No fever or chills. No recent inadvertent weight loss. All other review of systems negative. PHYSICAL EXAMINATION: CHEST: Clear. Good breath sounds bilaterally. HEART: Regular, no murmurs. EXTREMITIES: No lower extremity edema, negative Homans sign. HEENT: No scleral icterus. NECK: No cervical lymphadenopathy. ABDOMEN: Soft, nontender, nondistended. No hernias. SKIN: Warm, dry. ASSESSMENT AND PLAN: A 59-year-old female with significant gastroesophageal reflux disease as well as dysphagia. We will proceed with an EGD as well as biopsies and possible balloon dilatation. Job ID: [id number] DocumentID: [id number] Dictated Date: 09/09/2019 15:49:20 Rails Developer Date: 09/09/2019 16:10:00 Dictated By: FÁTIMA VEE MD
[~2019-09-24] VITALS: Ht 170.2 cm; Wt 102.7 kg
[2019-09-24] MEDS ORDERED: LACTATED RINGERS 1,000 ML IV STA (09:37)
[2019-09-24] MEDS ORDERED: LACTATED RINGERS 1,000 ML IV ONE (09:38)
[2019-09-24] MEDS ORDERED: HURRICAINE EXT TUBE (BENZOCAINE) XX PRN (09:45)
--- NOTE | 2019-09-24 09:46 | Progress Note-Pre Operative ---
Pre-Operative Progress Note H&P Reviewed The H&P was reviewed, patient examined and no changes noted. Date Seen by Provider: Sep 24, 2019 Time Seen by Provider: :40 Date H&P Reviewed: Sep 24, 2019 Time H&P Reviewed: 09:40 Pre-Operative Diagnosis: GERD, dysphagia FÁTIMA VEE MD Sep 24, 2019 09:46
--- NOTE | 2019-09-24 09:47 | Discharge Inst-Surgical ---
D/C Lap Instructions-NANDA Follow Up Activity as tolerated High Fiber Diet 25g or more per day Avoid Alcohol, Caffeine, Spicy [place] and Acid foods. Drink 64 fluid oz or more of fluids per day. Symptoms to Report: Fever over 101 degree F, Nausea/Vomiting If any problems/questions: Contact your physician or go to Emergency Room FÁTIMA VEE MD Sep 24, 2019 09:47
[2019-09-24 09:55] VITALS: BP 135/73
[2019-09-24] MEDS ORDERED: HYDROcodone/APAP 5 MG/325 MG (LORTAB) TAB PO PRN (10:00)
[2019-09-24] MEDS ORDERED: ACETAMINOPHEN 325 MG TABLET PO PRN (10:00)
[2019-09-24] MEDS ORDERED: morphine INJ 10 MG/ML 1ML (SYR OR VIAL) IVP PRN ×2 (10:00)
[2019-09-24] MEDS ORDERED: ONDANSETRON 4 MG/2 ML (SDV) Z0FRAN IVP PRN (10:00)
[2019-09-24] MEDS ORDERED: MIDAZOLAM 2 MG/2 ML (VERSED) VIAL ONE (10:09)
[2019-09-24] MEDS ORDERED: PROPOFOL INJECTION 50 ML IV ONE (10:09)
--- OUTSIDE RECORDS SUMMARY | 2019-09-24 10:27 | XMS REPORT | CCD ---
Author Author Nadya Tejeda D.O. 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 Technician Name Role Phone PP Unavailable CCM Unavailable Summary Purpose Interface Exchange Insurance Providers Payer name Policy type / Coverage type Covered green party ID Effective Begin Date Effective End Date [employer] Commercial Insurance [id number] Unknown Family history Sister Diagnosis Age At Onset Hyperthyroidism Unknown Brother Diagnosis Age At Onset Hypothryroidism Unknown Grandfather Diagnosis Age At Onset Myocardial infarction Unknown Mother Diagnosis Age At Onset Hypertension Unknown Hypothryroidism Unknown Osteoarthritis Unknown Parkinson's disease Unknown Dementia Unknown Grandfather Diagnosis Age At Onset Myocardial infarction Unknown Father Diagnosis Age At Onset Alzheimer's Disease Unknown Social History Social History Element Codes Description Effective Dates Marital status Unknown 11/10/2015 Number of children Unknown 1 11/10/2015 Employment Unknown Currently employed [employer] 11/10/[address]: 996761623 Has never smoked or chewed tobacco 11/10/[address]: 603502550 Never drinks alcohol 2015 Has the patient ever used illegal drugs? Unknown Has nev er used illegal drugs 11/10/2015 Allergies, Adverse Reactions, Alerts Substance Reaction Codes Entered Date Inactivated Date Status * NO KNOWN DRUG ALLERGIES Unknown 11/10/2015 No Inactiv e Date Active * NO KNOWN FOOD ALLERGIES Unknown 11/10/2015 No Inactiv e Date Active * NO KNOWN ENVIRONMENTAL ALLERGIES Unknown 11/10/2015 N o Inactive Date Active Problems Condition Codes Effective Dates Condition Status Encounter for screening mammogram for malignant neopla sm of breast ICD-9: V76.12 ICD-10: Z12.31 06/08/2016 Active Epigastric pain ICD-9: 789.06 ICD-10: R10.13 03/11/2019 Active Chest pain ICD-9: 786.50 ICD-10: R07.9 07/01/2019 Active Gastro-esophageal reflux disease without esophagitis I CD-9: 530.81 ICD-10: K21.9 11/09/2015 Active Generalized anxiety disorder ICD-9: 300.02 ICD-10: F41.1 05/15/2019 Active Influenza A ICD-9: 487.1 ICD-10: J10.1 04/21/2019 Active Insomnia ICD-9: 780.52 ICD-10: G47.00 01/02/2019 Active Stress reaction ICD-9: 308.9 ICD-10: F43.0 01/02/2019 Active Encounter for general adult medical examination withou t abnormal findings ICD-9: V70.9 ICD-10: Z00.00 02/23/2016 Active Obstructive sleep apnea (adult) (pediatric) ICD-9: 327 .23 ICD-10: G47.33 11/09/2015 Active URI, ACUTE ICD-9: 465.9 ICD-10: J06.9 02/23/2016 Active Dizziness and giddiness ICD-9: 780.4 ICD-10: R42 02/13/2018 Active Mixed hyperlipidemia ICD-9: 272.4 ICD-10: E78.2 11/09/2015 Active Acute sinusitis, unspecified ICD-9: 461.9 ICD-10: J01.90 04/24/2017 Active Viral infection, unspecified ICD-9: 079.99 ICD-10: B34.9 04/24/2017 Active Encounter for gynecological examination (general) (routine) without abnormal findings ICD-9: V72.31 ICD-10: Z01.419 02/23/2016 Active Other seasonal allergic rhinitis ICD-9: 477.9 ICD-10: J30.2 11/29/2015 Active Allergic rhinitis due to pollen ICD-9: 477.9 ICD-10: J30.1 11/09/2015 Active Medications Medication Codes Instructions Start Date Stop Date Status Fill Instructions pantoprazole 40 mg tablet,delayed release RxNorm: 335051 1 Tablet(s) Oral two times a day 08/06/2019 10/04/2019 Active famotidine 20 mg tablet RxNorm: 888207 2 Tablet(s) Oral QPM rep laces 40mg dose 07/31/2019 10/28/2019 Active famotidine 20 mg tablet RxNorm: 052254 2 Tablet(s) Oral QPM rep laces 40mg dose 07/31/2019 07/30/2019 Inactive famotidine 40 mg tablet RxNorm: 704276 TAKE 1 TABLET BY MOUTH I N THE EVENING 07/23/2019 09/20/2019 Active famotidine 40 mg tablet RxNorm: 712101 1 Tablet(s) Oral QPM 020 07/22/2019 Inactive pantoprazole 40 mg tablet,delayed release RxNorm: 912724 TAKE 1 TABLET BY MOUTH TWICE DAILY 06/03/2019 08/05/2019 Inactive Tamiflu 75 mg capsule RxNorm: 692664 1 Capsule(s) Oral two time s a day 04/21/2019 04/26/2019 Inactive pantoprazole 40 mg tablet,delayed release RxNorm: 128084 1 Tablet(s) Oral two times a day replaces omeprazole 03/11/2019 05/10/2019 Inactive escitalopram 10 mg tablet RxNorm: 480155 1 Tablet(s) Oral QD re places 5mg dose 02/06/2019 08/05/2019 Inactive trazodone 50 mg tablet RxNorm: 343662 1-2 Tablet(s) Ora l QPM as needed for sleep 02/06/2019 03/07/2019 Inactive escitalopram 5 mg tablet RxNorm: 878309 1 Tablet(s) Oral QAM 201802/05/2019 Inactive trazodone 50 mg tablet RxNorm: 936776 1-2 Tablet(s) Ora l QPM as needed for sleep 01/02/2019 02/05/2019 Inactive omeprazole 20 mg capsule,delayed release RxNorm: 716534 1 Capsu le(s) PO QD 07/04/2018 06/30/2019 Inactive omeprazole 20 mg capsule,delayed release RxNorm: 724987 1 Capsu le(s) PO QD 04/03/2018 07/01/2018 Inactive omeprazole 20 mg capsule,delayed release RxNorm: 637118 1 Capsu le(s) PO QD 04/03/2018 01/01/2019 Inactive omeprazole 20 mg capsule,delayed release RxNorm: 033493 1 Capsu le(s) PO QD 12/05/2017 03/04/2018 Inactive omeprazole 20 mg capsule,delayed release RxNorm: 255054 1 Capsu le(s) PO QD 09/06/2017 04/03/2018 Inactive Augmentin 875 mg-125 mg tablet RxNorm: 776880 1 Tablet(s) PO BID 05/03/2017 Inactive omeprazole 20 mg capsule,delayed release RxNorm: 920912 1 Capsu le(s) PO QD 04/19/2017 08/16/2017 Inactive omeprazole 20 mg capsule,delayed release RxNorm: 777603 1 Capsule(s) PO QD replaces 40mg daily- due for refill 03/14/2017 04/19/2017 Inactive omeprazole 20 mg capsule,delayed release RxNorm: 126601 1 Capsule(s) PO QD replaces 40mg daily 11/30/2016 02/27/2017 Inactive omeprazole 20 mg capsule,delayed release RxNorm: 351137 1 Capsule(s) PO QD replaces 40mg daily 05/03/2016 10/29/2016 Inactive cetirizine 1 mg/mL oral solution RxNorm: 3807866 1.25 Mi lliliter(s) PO QHS for runny nose 02/24/2016 02/23/2016 Inactive Ce-D 12 Hour 60 mg-120 mg tablet,extended release RxNor m: 508356 1 Tablet(s) PO BID as needed 11/30/2015 No Stop Date Active omeprazole 20 mg capsule,delayed release RxNorm: 565594 1 Capsule(s) PO QD replaces 40mg daily 11/10/2015 03/08/2016 Inactive Ce Allergy 180 mg tablet RxNorm: 234496 1 Tablet(s) PO QD No Sta rt Date Active Aspirin Child 81 mg chewable tablet RxNorm: 072828 1 Tablet(s) PO QD No Start Date Active simvastatin 20 mg tablet RxNorm: 771632 1 Tablet(s) PO QD No Start Da te Active omeprazole 40 mg capsule,delayed release RxNorm: 131846 1 Capsu le(s) PO QD No Start Date 11/09/2015 Inactive Medication Administered No Medication Administered data Immunizations No Immunization data Results Observation Observation Code Item Item Code Result Date S ervice Location THYROID STIMULATING HORMONE 09084 TSH 3.245 uIU/mL 12/27/2018 Unknown GFR CALC 1304210 GFR Afr Amr >60 mL/min 12/27/2018 Unknow n GFR CALC 6784903 GFR Non Afr Amr >60 mL/min 12/27/2018 Un known FREE T4 86404 T4 Free 0.88 ng/dL 12/27/2018 Unknown [facility] 62110 Cholesterol 157 mg/dL 12/27/2018 Unkno wn [facility] GROUP 52413 Triglyceride 44 mg/dL 12/27/2018 Unkn own [facility] 48449 HDL CHOLESTEROL 61 mg/dL 12/27/2018 U nknown [facility] 92743 Chol/HDL Ratio 2.57 ratio 12/27/2018 U nknown [facility] 08600 NON-HDL Chol 96 mg/dL 12/27/2018 Unkn own [facility] 30790 LDL Cholesterol 87 mg/dL 12/27/2018 U nknown COMPREHENSIVE METABOLIC 75385 AST 19 U/L 2018 Unknown COMPREHENSIVE METABOLIC 27277 ALT 13 U/L 2018 Unknown COMPREHENSIVE METABOLIC 25654 BUN 22 mg/dL 2018 Unknown COMPREHENSIVE METABOLIC 56308 ALBUMIN 4.2 g/dL 2018 Unknown COMPREHENSIVE METABOLIC 98596 CHLORIDE 103 mmol/L 12/27 Unknown COMPREHENSIVE METABOLIC 57998 Bili Total 0.5 mg/dL 12/27 Unknown COMPREHENSIVE METABOLIC 09561 ALK PHOS 101 U/L 2018 Unknown COMPREHENSIVE METABOLIC 76271 SODIUM 141 mmol/L 12/27 Unknown COMPREHENSIVE METABOLIC 34403 CREATININE 0.76 mg/dL 12/04 Unknown COMPREHENSIVE METABOLIC 30352 CALCIUM 9.3 mg/dL 2018 Unknown COMPREHENSIVE METABOLIC 64451 POTASSIUM 3.6 mmol/L 12/27 Unknown COMPREHENSIVE METABOLIC 72444 Total Protein 7.4 g/dL Unknown COMPREHENSIVE METABOLIC 35248 Glucose 86 mg/dL 2018 Unknown COMPREHENSIVE METABOLIC 54821 Bicarbonate 31 mmol/L 12/04 Unknown COMPREHENSIVE METABOLIC 19906 AGAP 7 mmol/L 2018 Unknown COMPLETE BLOOD COUNT 4015655 WBC 4.2 10e9/L 12/28/19 19 Unknown COMPLETE BLOOD COUNT [id number] RBC 4.55 10e12/L 2018 Unknown COMPLETE BLOOD COUNT 5805560 HEMOGLOBIN 13.7 g/dL 12/28/19 19 Unknown COMPLETE BLOOD COUNT 3577229 HEMATOCRIT 42.4 % 12/28/19 19 Unknown COMPLETE BLOOD COUNT [id number] MCV 93.2 fL 9 Unknown COMPLETE BLOOD COUNT 5998212 MCH 30.1 pg 9 Unknown COMPLETE BLOOD COUNT 4692912 MCHC 32.3 g/dL 9 Unknown COMPLETE BLOOD COUNT 8304110 PLATELET COUNT 272 10e9/L Unknown COMPLETE BLOOD COUNT 9212092 Mean Plt Volume 8.9 fL Unknown COMPLETE BLOOD COUNT 0443922 Neut Auto 50.9 % 9 Unknown COMPLETE BLOOD COUNT [id number] Lymph Auto 35.1 % 12/28/19 19 Unknown COMPLETE BLOOD COUNT 9353704 [place] Auto 9.6 % 9 Unknown COMPLETE BLOOD COUNT 2414700 RDW 12.7 % 9 Unknown COMPLETE BLOOD COUNT 0565667 Eos Auto 4.2 % 9 Unknown COMPLETE BLOOD COUNT 4166213 Baso Auto 0.2 % 9 Unknown COMPLETE BLOOD COUNT 8417743 Neutrophil Abs 2.14 10e9/L Unknown COMPLETE BLOOD COUNT 0310149 Lymphocyte Abs 1.47 10e9/L Unknown COMPLETE BLOOD COUNT 8000134 Monocyte Abs 0.40 10e9/L 12/04 Unknown COMPLETE BLOOD COUNT [id number] Eosinophil Abs 0.18 10e9/L Unknown COMPLETE BLOOD COUNT 6464983 RDW-SD 42.1 fL 9 Unknown COMPLETE BLOOD COUNT 6396529 Basophil Abs 0.01 10e9/L 12/04 Unknown GFR CALC 3106829 GFR Non Afr Amr >60 mL/min 12/21/2016 Un known GFR CALC 3964118 GFR Afr Amr >60 mL/min 12/21/2016 Unknow n COMPLETE BLOOD COUNT 8119038 WBC 3.6 10e9/L 12/22/19 17 Unknown COMPLETE BLOOD COUNT 3298891 RBC 4.57 10e12/L 2016 Unknown COMPLETE BLOOD COUNT 2851629 HEMOGLOBIN 13.8 g/dL 12/22/19 17 Unknown COMPLETE BLOOD COUNT 1706697 HEMATOCRIT 42.4 % 12/22/19 17 Unknown COMPLETE BLOOD COUNT 1988763 MCV 92.8 fL 7 Unknown COMPLETE BLOOD COUNT 8541114 MCH 30.2 pg 7 Unknown COMPLETE BLOOD COUNT 7092934 MCHC 32.5 g/dL 7 Unknown COMPLETE BLOOD COUNT 5498793 PLATELET COUNT 225 10e9/L Unknown COMPLETE BLOOD COUNT 4332952 Mean Plt Volume 9.0 fL Unknown COMPLETE BLOOD COUNT 3452478 Neut Auto 45.6 % 7 Unknown COMPLETE BLOOD COUNT 0766648 Lymph Auto 37.3 % 12/22/19 17 Unknown COMPLETE BLOOD COUNT 7664709 [place] Auto 11.0 % 7 Unknown COMPLETE BLOOD COUNT 7432419 Eos Auto 5.5 % 7 Unknown COMPLETE BLOOD COUNT 0790739 RDW 12.6 % 7 Unknown COMPLETE BLOOD COUNT 2647032 Baso Auto 0.6 % 7 Unknown COMPLETE BLOOD COUNT 0296125 Neutrophil Abs 1.64 10e9/L Unknown COMPLETE BLOOD COUNT 3931030 Lymphocyte Abs 1.34 10e9/L Unknown COMPLETE BLOOD COUNT 9085106 Monocyte Abs 0.40 10e9/L 12/03 Unknown COMPLETE BLOOD COUNT 5785845 Eosinophil Abs 0.20 10e9/L Unknown COMPLETE BLOOD COUNT 8986989 Basophil Abs 0.02 10e9/L 12/03 Unknown COMPLETE BLOOD COUNT 0986838 RDW-SD 42.0 fL 7 Unknown THYROID STIMULATING HORMONE 14439 TSH 3.423 uIU/mL 12/21/2016 Unknown COMPREHENSIVE METABOLIC 01693 AST 23 U/L 2016 Unknown COMPREHENSIVE METABOLIC 38208 ALT 18 U/L 2016 Unknown COMPREHENSIVE METABOLIC 77055 BUN 21 mg/dL 2016 Unknown COMPREHENSIVE METABOLIC 63667 ALBUMIN 4.4 g/dL 2016 Unknown COMPREHENSIVE METABOLIC 22185 CHLORIDE 103 mmol/L 12/21 Unknown COMPREHENSIVE METABOLIC 51246 Bili Total 0.7 mg/dL 12/21 Unknown COMPREHENSIVE METABOLIC 61725 ALK PHOS 86 U/L 2016 Unknown COMPREHENSIVE METABOLIC 71402 SODIUM 141 mmol/L 12/21 Unknown COMPREHENSIVE METABOLIC 83281 CREATININE 0.75 mg/dL 12/03 Unknown COMPREHENSIVE METABOLIC 82858 CALCIUM 9.2 mg/dL 2016 Unknown COMPREHENSIVE METABOLIC 64139 POTASSIUM 3.8 mmol/L 12/21 Unknown COMPREHENSIVE METABOLIC 49115 Total Protein 7.3 g/dL Unknown COMPREHENSIVE METABOLIC 26689 Glucose 95 mg/dL 2016 Unknown COMPREHENSIVE METABOLIC 55446 Bicarbonate 32 mmol/L 12/03 Unknown COMPREHENSIVE METABOLIC 27844 AGAP 6 mmol/L 2016 Unknown LIPID GROUP 88189 Cholesterol 154 mg/dL 12/21/2016 Unkno wn LIPID GROUP 31708 Triglyceride 51 mg/dL 12/21/2016 Unkn own LIPID GROUP 79696 HDL CHOLESTEROL 61 mg/dL 12/21/2016 U nknown LIPID GROUP 25931 Chol/HDL Ratio 2.52 ratio 12/21/2016 U nknown LIPID GROUP 02410 NON-HDL Chol 93 mg/dL 12/21/2016 Unkn own LIPID GROUP 56315 LDL Cholesterol 83 mg/dL 12/21/2016 U nknown Procedures Procedure Codes Date INFLUENZA ASSAY W/OPTIC CPT-4: 77846 04/21/2019 INFLUENZA ASSAY W/OPTIC CPT-4: 35401 04/24/2017 SPECIMEN HANDLING OFFICE-LAB CPT-4: 18508 02/24/2016 THER/PROPH/DIAG INJ SC/IM CPT-4: 15409 11/30/2015 TRIAMCINOLONE ACET INJ NOS CPT-4: J3301 11/30/2015 DEXAMETHASONE SODIUM PHOS CPT-4: J1100 11/30/2015 Vital Signs Date Vital 07/01/2019 Blood Pressure 1: 130/86 Code: 8480-6 BMI: 35.0 Code: 91838-1 Heart Rate 1: 60 bpm Height: 5'6" Respiratory Rate: 20 bpm SpO2: 98% Tempera ture: 36.8 (C) / 98.2 (F) Weight: 220 lbs 05/15/2019 Heart Rate 1: 64 bpm Respiratory Rate: 20 bpm Te mperature: 36.8 (C) / 98.2 (F) Weight: 218 lbs 04/21/2019 Blood Pressure 1: 128/78 Code: 8480-6 Heart Rate 1: 80 bpm Respiratory Rate: 20 bpm SpO2: 94% Temperature: 38.0 (C) / 100.4 (F) W eight: 216 lbs 03/11/2019 Blood Pressure 1: 130/68 Code: 8480-6 Heart Rate 1: 72 bpm Respiratory Rate: 20 bpm SpO2: 97% Temperature: 37.3 (C) / 99.2 (F) We ight: 219 lbs 02/06/2019 Blood Pressure 1: 132/78 Code: 8480-6 Heart Rate 1: 60 bpm Respiratory Rate: 16 bpm SpO2: 98% Temperature: 36.7 (C) / 98.1 (F) We ight: 218 lbs 01/02/2019 Blood Pressure 1: 124/72 Code: 8480-6 BMI: 35.1 Code: 74189-6 Heart Rate 1: 64 bpm Height: 5'6" Respiratory Rate: 18 bpm SpO2: 96% Tempera ture: 36.8 (C) / 98.2 (F) Weight: 221 lbs 02/13/2018 Blood Pressure 1: 138/82 Code: 8480-6 BMI: 34.5 Code: 23015-2 Heart Rate 1: 68 bpm Height: 5'7" Respiratory Rate: 18 bpm SpO2: 97% Tempera ture: 36.8 (C) / 98.2 (F) Weight: 220 lbs 04/24/2017 Blood Pressure 1: 126/78 Code: 8480-6 BMI: 35.4 Code: 14875-1 Heart Rate 1: 84 bpm Height: 5'7" Respiratory Rate: 22 bpm SpO2: 95% Tempera ture: 36.9 (C) / 98.4 (F) Weight: 226 lbs 02/24/2016 Blood Pressure 1: 128/78 Code: 8480-6 BMI: 35.6 Code: 97746-1 Heart Rate 1: 68 bpm Height: 5'7" Respiratory Rate: 20 bpm SpO2: 97% Tempera ture: 36.7 (C) / 98.1 (F) Weight: 227 lbs 11/30/2015 Blood Pressure 1: 128/78 Code: 8480-6 BMI: 36.0 Code: 27334-2 Heart Rate 1: 76 bpm Height: 5'7" Respiratory Rate: 20 bpm SpO2: 97% Tempera ture: 37.1 (C) / 98.7 (F) Weight: 230 lbs 11/10/2015 Blood Pressure 1: 136/82 Code: 8480-6 BMI: 36.0 Code: 82595-8 Heart Rate 1: 80 bpm Height: 5'7" Respiratory Rate: 20 bpm Temperature: 36 .6 (C) / 97.9 (F) Weight: 230 lbs Functional Status No Functional Status data Reason For Visit Reason For Visit Effective Dates Notes follow up 07/03/2019 Hospital fwup follow up 07/01/2019 ER fwup follow up 05/15/2019 cough 04/21/2019 follow up 03/11/2019 ER fwup insomnia 02/06/2019 well woman exam (40-65 years) 01/02/2019 Annual Wel lness, last normal mammogram 5-7-19 well woman exam (40-65 years) 02/13/2018 Last nikko l mammogram 5-3-18 postnasal drip 04/24/2017 well woman exam (40-65 years) 02/24/2016 Last nikko l mammogram June 2015 sinus congestion 11/30/2015 ~generic 11/10/2015 New Patient---establ ishing visit Encounters Encounter Performer Location Codes Date ([id number]) OFFICE/OUTPATIENT VISIT EST Diagnosis: Epigastric pain[ICD10: R10.13] [facility] CPT[facility]: 33008 07/03/2019 ([id number]) OFFICE/OUTPATIENT VISIT EST Diagnosis: Generalized anxiety disorder[ICD10: F41.1] Karen CAMACHO [facility] CPT-4: 61687 05/15/2019 ([id number]) OFFICE/OUTPATIENT VISIT EST Diagnosis: Influenza A[ICD10: J10.1] Karen MCCLELLAND [facility] CPT-4: 97834 04/21/2019 ([id number]) OFFICE/OUTPATIENT VISIT EST Diagnosis: Epigastric pain[ICD10: R10.13] Diagnosis: Gastro-esophageal reflux disease without esophagitis[ICD10: K21.9] Karen TEJEDA [facility] CPT-4: 13234 03/11/2019 ([id number]) OFFICE/OUTPATIENT VISIT EST Diagnosis: Stress reaction[ICD10: F43.0] Diagnosis: Insomnia[ICD10: G47.00] Karen CAMARILLO [facility] CPT-4: 69821 02/06/2019 ([id number]) PREV VISIT EST AGE 40-64 Diagnosis: Encounter for general adult medical examination without abnormal findings[ICD10: Z00.00] Diagnosis: Obstructive sleep apnea (adult) (pediatric)[ICD10: G47.33] Diagnosis: Stress reaction[ICD10: F43.0] Diagnosis: URI, ACUTE[ICD10: J06.9] Diagnosis: Insomnia[ICD10: G47.00] Karen JONES JocelinRuss JANICE SIMI [facility] CPT-4: 15232 01/02/2019 ([id number]) PREV VISIT EST AGE 40-64 Diagnosis: Encounter for general adult medical examination without abnormal findings[ICD10: Z00.00] Diagnosis: Gastro-esophageal reflux disease without esophagitis[ICD10: K21.9] Diagnosis: Obstructive sleep apnea (adult) (pediatric)[ICD10: G47.33] Diagnosis: Mixed hyperlipidemia[ICD10: E78.2] Diagnosis: Dizziness and giddiness[ICD10: R42] Karen STANLEY JocelinRuss JANICE SIMI [facility] CPT-4: 32896 02/13/2018 OFFICE/OUTPATIENT VISIT EST Diagnosis: Acute sinusitis, unspecified[ICD10: J01.90] Diagnosis: Viral infection, unspecified[ICD10: B34.9] Jodie Tran KAREN JocelinRuss JANICE SIMI [facility] CPT-4: 69808 04/24/2017 ([id number]) PREV VISIT EST AGE 40-64 Diagnosis: Encounter for general adult medical examination without abnormal findings[ICD10: Z00.00] Diagnosis: Encounter for gynecological examination (general) (routine) without abnormal findings[ICD10: Z01.419] Diagnosis: URI, ACUTE[ICD10: J06.9] Karen Kingsley [facility] CPT-4: 06551 02/24/2016 ([id number]) OFFICE/OUTPATIENT VISIT EST Diagnosis: Other seasonal allergic rhinitis[ICD10: J30.2] Regina Sagastume KAREN JocelinRuss JANICE SIMI [facility] CPT-4: 91645 11/30/2015 OFFICE/OUTPATIENT VISIT NEW Diagnosis: Mixed hyperlipidemia[ICD10: E78.2] Diagnosis: Gastro-esophageal reflux disease without esophagitis[ICD10: K21.9] Diagnosis: Allergic rhinitis due to pollen[ICD10: J30.1] Diagnosis: Obstructive sleep apnea (adult) (pediatric)[ICD10: G47.33] Karen JONES JocelinRuss TEJEDA DO [facility] CPT-4: 95228 11/10/2015 Plan of Care Planned Activity Notes Codes Status Date Care Plan: MAMMOGRAM SCREENING LOINC : 2 6347-5 Pending 08/05/2019 Visit Diagnosis Plan: Epigastric pain Discussion: Cont inue pantoprazole and pepcid q HS May use maalox prn Referral for EGD ICD-9 : 789.06 ICD-10 : R10.13 07/03/2019 Appointment: Karen Tejeda WPtel: [address] [place], [place] [phone] TELEMEDICINE 07/03/2019 Care Plan: Referral Order SNOMED-CT : 30 0564202 Pending 07/03/2019 Visit Diagnosis Plan: Gastro-esophageal reflux disease without esophagitis Discussion: Add Pepcid 40mg po q PM May need EGD if Cardiac Workup normal ICD-9 : 530.81 ICD-10 : K21.9 07/01/2019 Visit Diagnosis Plan: Chest pain Discussion: To Dr. Babatunde cid for any further workup Addendum: Came back to office with chest pain so was directly admitted to the hospital with Dr. Hess to consult Discussion: To Dr. Hess for any further workup ICD-9 : 786.50 ICD-10 : R07.9 07/01/2019 Appointment: Karen Tejedatel: [address] [place], [place] [phone] confirmed FOLLOW UP 07/01/2019 Patient Education: famotidine- [employer] Coupon [id number] https://www.[employer]!.[employer]/resources/getResource/61/[email or web address]-jl Completed 07/01/2019 Visit Diagnosis Plan: Generalized anxiety disorder Dis cussion: Restart lexapro at 5mg daily for 4 days then go to 10mg daily Recheck at end of school year ICD-9 : 300.02 ICD-10 : F41.1 05/15/2019 Appointment: [facility]eda [facility]el[facility] [facility] 05/15/2019 Visit Diagnosis Plan: Influenza A Discussion: Tamiflu Supportive card Notify if worsening No work for full 5 days from symptoms and fever free at least 24hrs ICD-9 : 487.1 ICD-10 : J10.1 04/21/2019 Appointment: Karen Tejeda WPtel: [address] [place], [place] [phone] ACUTE ILLNESS 04/21/2019 Patient Education: Tamiflu- [employer] Coupon [id number] https://www.[employer]!/resources/getResource/61/[email or web address] Completed 04/21/2019 Visit Diagnosis Plan: Gastro-esophageal reflux disease without esophagitis Diet: GERD diet ICD-9 : 530.81 ICD-10 : K21.9 03/11/2019 Visit Diagnosis Plan: Epigastric pain Discussion: Baron ge omeprazole to pantoprazole 40mg po BID ICD-9 : 789.06 ICD-10 : R10.13 03/11/2019 Appointment: Karen Tejeda WPtel: [address] [place], [place] [phone] US FOLLOW UP 03/11/2019 Patient Education: pantoprazole- [employer] Coupon [phone] https://www.[employer]!/resources/getResource/61/[email or web address]-i9 Completed 03/11/2019 Visit Diagnosis Plan: Insomnia Discussion: Stable on t razadone ICD-9 : 780.52 ICD-10 : G47.00 02/06/2019 Visit Diagnosis Plan: Stress reaction Discussion: Incr ease escitalopram to 10mg daily Follow Up: 3 months ICD-9 : 308.9 ICD-10 : F43.0 02/06/2019 Appointment: Karen Tejeda WPtel: [address] [place], [place] [address] US FOLLOW UP 02/06/2019 Patient Education: escitalopram oxalate- [employer] Co upon [id number] https://www.[employer]!/resources/getResource/61/7q917n79-[email or web address]-517a-[email or web address] Completed 02/06/2019 Patient Education: trazodone- [employer] Coupon [phone] [id number] https://www.[employer]/sample[employer]ine/resources/getResource/61/y8h54zw3-c29n-0322-fv Completed 02/06/2019 Patient Education: escitalopram oxalate- [employer] Co upon [id number] https://www.[employer]/resources/getResource/61/[email or web address]-u6 Completed 02/06/2019 Visit Diagnosis Plan: Obstructive sleep apnea (adult) (pediatric) Discussion: Retry CPAP once sleeping pills helping ICD-9 : 327.23 ICD-10 : G47.33 01/02/2019 Visit Diagnosis Plan: Stress reaction Discussion: Lewis pro 5mg po q AM Follow Up: 1 months ICD-9 : 308.9 ICD-10 : F43.0 01/02/2019 Visit Diagnosis Plan: URI, ACUTE Discussion: Supportiv e care Restart ce daily ICD-9 : 465.9 ICD-10 : J06.9 01/02/2019 Visit Diagnosis Plan: Encounter for [facility] adult medical examination without abnormal findings Discussion: Mediterranean diet Combinati on of cardio and weight bearing exercise Defers flu shot Fasting lab discussed ICD-9 : V70.9 ICD-10 : Z00.00 01/02/2019 Visit Diagnosis Plan: Insomnia Discussion: Trial of tr azadone 50mg 1-2 po q HS prn sleep ICD-9 : 780.52 ICD-10 : G47.00 01/02/2019 Appointment: Karen Tejeda WPtel: [address] [facility] Annual Well Visit 01/02/2019 Patient Education: trazodone- [employer] Coupon [id number] https://www.[employer]!/resources/getResource/61/[email or web address]-nv Completed 01/02/2019 Patient Education: escitalopram oxalate- [employer] Co upon [id number] https://www.[employer]/sample[employer]ine/resources/getResource/61/3224613q-[email or web address]-45 Completed 01/02/2019 Visit Diagnosis Plan: Gastro-esophageal reflux disease without esophagitis Discussion: Stable on omeprazole ICD-9 : 530.81 ICD-10 : K21.9 02/13/2018 Visit Diagnosis Plan: Encounter for gene ral adult medical examination without abnormal findings Discussion: Mammo up to date Defers flu shot Mediterranean diet Recommend add weght bearing exercise Update fasting lab Had Mammogram in July Colonoscopy up to date ICD-9 : V70.9 ICD-10 : Z00.00 02/13/2018 Visit Diagnosis Plan: Obstructive sleep apnea (adult) (pediatric) Discussion: Discussed importance of using this routinely ICD-9 : 327.23 ICD-10 : G47.33 02/13/2018 Visit Diagnosis Plan: Dizziness and giddiness Discussi on: Discussed may be BP or BS related Will await lab results ICD-9 : 780.4 ICD-10 : R42 02/13/2018 Appointment: Karen Tejeda WPtel: [facility] Well Visit 02/13/2018 Patient Education: Patient Medication Summary Completed 06/06/2017 Care Plan: MAMMOGRAM BOTH BREASTS LOINC : 89478-2 Pending 06/06/2017 Visit Diagnosis Plan: Acute sinusitis, unspecified Dis cussion: augmentin for symptom relief. instructed to use humidifier at home, hot steam from shower for relief and tylenol/ibuprofen for pain or fever. saline up nares often. take probiotic or consume yogurt to reduce risk of yeast infection. call or rtc if new or worsening symptoms. take ce d to assist with drainage production. ICD-9 : 461.9 ICD-10 : J01.90 04/24/2017 Appointment: Jodie Tran [address] [place], [place] [id number] ACUTE ILLNESS 04/24/2017 Patient Education: Patient Medication Summary Completed 04/24/2017 Patient Education: Patient Medication Summary Completed 12/08/2016 Care Plan: COMPREH[place] : 92521-2 Pending 12/08/2016 Care Plan: ASSAY THYROID STIM HORMONE Pen ding 12/08/2016 Care Plan: LIPID PANEL LOINC : [id number] Pending 12/08/2016 Care Plan: CBC Pending 12/08/2016 Patient Education: Patient Medication Summary Completed 06/08/2016 Care Plan: MAMMOGRAM SCREENING LOINC : 2 6347-5 Pending 06/08/2016 Visit Plan: Supportive care. Rest, Fluid s, Tylenol/Motrin prn fever or bodyaches. Notify if worsening symptoms. Pap done Due for Mammogram in June Obtain fasting lab from December Fwup prn and 1 year for yearly 02/24/2016 Appointment: Karen Tejeda WPtel: [address] [place] [address] 02/22 confirmed~sl PAP 02/24/2016 Patient Education: Patient Medication Summary Completed 02/24/2016 Visit Plan: Injection as above Rx for al legra-d Benadryl at HS Nasal rinses, steroid nasal sprays Mucinex Vicks, humidifier, vitamin C, rest, fluids Follow up PRN 11/30/2015 Appointment: Regina Sagastume [address] [place] [address] ACUTE ILLNESS 11/30/2015 Patient Education: Patient Medication Summary Completed 11/30/2015 Patient Education: [facility] - Saving AutoInj - 18-64 - Dynamic Maura l ID Completed 11/30/2015 Referral: Sunil Hatch WPtel: [address] [place] [address] Referral Appointment Confirmed 11/23/2015 Visit Plan: Needs pap Mammogram is up-to -date Due for fasting lab in December Colonoscopy referral to Dr. Hatch Decrease omeprazole to 40mg alternating with 20mg every other day for 1month then decrease to 20mg daily--notify if reflux symptoms increase with decreased dose Return in February for Pap smear Fwup with Dr. Leiva and Dr. Hess in December as scheduled Discused diet/exercise weight loss 11/10/2015 Appointment: Karen Tejeda WPtel: [address] 11/08lm ~sl11/09 CONFIRMED~sl NEW PATIENT 11/09 Patient Education: Patient Medication Summary Completed 11/10/2015 Patient Education: [facility] - Saving AutoInj - 18-64 - Dynamic Maura l ID Completed 11/10/2015 Referral: Sunil Hatch WPtel: [address] [place], [place] [id number] [place] Referral Appointment Requested Instructions Comment . Supportive care. Rest, Fluids, Tyleno l/Motrin prn fever or bodyaches. Notify if worsening symptoms. Pap done Due for Mammogram in June Obtain fasting lab from December Fwup prn and 1 year for yearly . Injection as above Rx for ce-d Benadryl at HS Nasal rinses, steroid nasal sprays Mucinex Vicks, humidifier, vitamin C, rest, fluids Follow up PRN . Needs pap Mammogram is up-to-date Due for fasting lab in December Colonoscopy referral to Dr. Hatch Decrease omeprazole to 40mg alternating with 20mg every other day for 1month then decrease to 20mg daily--notify if reflux symptoms increase with decreased dose Return in February for Pap smear Fwup with Dr. Leiva and Dr. Hess in December as scheduled Discused diet/exercise weight loss Medical Equipment No Medical Equipment data Health Concerns Section Health Concerns data not found Goals Section Goals data not found Interventions Section Interventions data not found Health Status Evaluations/Outcomes Section Health Status Evaluations/Outcomes data not found Advance Directives No Advance Directive data
--- OUTSIDE RECORDS SUMMARY | 2019-09-24 10:28 | XMS REPORT | CCD ---
Author Author Nadya Tejeda D.O. Organization [facility] Address [address] [place] [address] Phone Care Team Providers Care Digital Sales Planner Name Role Phone PP Unavailable CCM Unavailable Summary Purpose Interface Exchange Insurance Providers Payer name Policy type / Coverage type Covered republican ID Effective Begin Date Effective End Date AETNA Commercial Insurance [id number] Unknown Family history Sister Diagnosis Age At [...] Unknown 1 11/10/2015 Employment Unknown Currently employed [employer] 11/10/[address]: 299540265 Has never smoked or chewed tobacco 11/10/[address]: 322842178 Never drinks alcohol 2015 Has the patient [...] Start Date Stop Date Status Fill Instructions famotidine 20 mg tablet RxNorm: 401765 2 Tablet(s) Oral QPM rep laces 40mg dose 07/31/2019 10/28/2019 Active famotidine 20 mg tablet RxNorm: 952420 2 Tablet(s) Oral QPM rep laces 40mg dose 07/31/2019 07/30/2019 Inactive famotidine 40 mg tablet RxNorm: 910030 TAKE 1 TABLET BY MOUTH I N THE EVENING 07/23/2019 09/20/2019 Active famotidine 40 mg tablet RxNorm: 014682 1 Tablet(s) Oral QPM 020 07/22/2019 Inactive pantoprazole 40 mg tablet,delayed release RxNorm: 344664 TAKE 1 TABLET BY MOUTH TWICE DAILY 06/03/2019 08/01/2019 Inactive Tamiflu 75 mg capsule RxNorm: 815910 1 Capsule(s) Oral two time s a day 04/21/2019 04/26/2019 Inactive pantoprazole 40 mg tablet,delayed release RxNorm: 301894 1 Tablet(s) Oral two times a day replaces omeprazole 03/11/2019 05/10/2019 Inactive escitalopram 10 mg tablet RxNorm: 284738 1 Tablet(s) Oral QD re places 5mg dose 02/06/2019 08/05/2019 Inactive trazodone 50 mg tablet RxNorm: 639199 1-2 Tablet(s) Ora l QPM as needed for sleep 02/06/2019 03/07/2019 Inactive escitalopram 5 mg tablet RxNorm: 476487 1 Tablet(s) Oral QAM 201802/05/2019 Inactive trazodone 50 mg tablet RxNorm: 860629 1-2 Tablet(s) Ora l QPM as needed for sleep 01/02/2019 02/05/2019 Inactive omeprazole 20 mg capsule,delayed release RxNorm: 215497 1 Capsu le(s) PO QD 07/04/2018 06/30/2019 Inactive omeprazole 20 mg capsule,delayed release RxNorm: 578020 1 Capsu le(s) PO QD 04/03/2018 07/01/2018 Inactive omeprazole 20 mg capsule,delayed release RxNorm: 626989 1 Capsu le(s) PO QD 04/03/2018 01/01/2019 Inactive omeprazole 20 mg capsule,delayed release RxNorm: 448738 1 Capsu le(s) PO QD 12/05/2017 03/04/2018 Inactive omeprazole 20 mg capsule,delayed release RxNorm: 631974 1 Capsu le(s) PO QD 09/06/2017 04/03/2018 Inactive Augmentin 875 mg-125 mg tablet RxNorm: 282667 1 Tablet(s) PO BID 05/03/2017 Inactive omeprazole 20 mg capsule,delayed release RxNorm: 770078 1 Capsu le(s) PO QD 04/19/2017 08/16/2017 Inactive omeprazole 20 mg capsule,delayed release RxNorm: 722282 1 Capsule(s) PO QD replaces 40mg daily- due for refill 03/14/2017 04/19/2017 Inactive omeprazole 20 mg capsule,delayed release RxNorm: 190558 1 Capsule(s) PO QD replaces 40mg daily 11/30/2016 02/27/2017 Inactive omeprazole 20 mg capsule,delayed release RxNorm: 391214 1 Capsule(s) PO QD replaces 40mg daily 05/03/2016 10/29/2016 Inactive cetirizine 1 mg/mL oral solution RxNorm: 7312639 1.25 Mi lliliter(s) PO QHS for runny nose 02/24/2016 02/23/2016 Inactive Ce-D 12 Hour 60 mg-120 mg tablet,extended release RxNor m: 217793 1 Tablet(s) PO BID as needed 11/30/2015 No Stop Date Active omeprazole 20 mg capsule,delayed release RxNorm: 735157 1 Capsule(s) PO QD replaces 40mg daily 11/10/2015 03/08/2016 Inactive Ce Allergy 180 mg tablet RxNorm: 421366 1 Tablet(s) PO QD No Sta rt Date Active Aspirin Child 81 mg chewable tablet RxNorm: 134983 1 Tablet(s) PO QD No Start Date Active simvastatin 20 mg tablet RxNorm: 635296 1 Tablet(s) PO QD No Start Da te Active omeprazole 40 mg capsule,delayed release RxNorm: 981146 1 Capsu le(s) PO QD No Start Date 11/09/2015 Inactive Medication Administered No Medication Administered data Immunizations No Immunization data Results Observation Observation Code Item Item Code Result Date S ervice Location THYROID STIMULATING HORMONE 13343 TSH 3.245 uIU/mL 12/27/2018 Unknown GFR CALC 8515322 GFR Non Afr Amr >60 mL/min 12/27/2018 Un known GFR CALC 6804024 GFR Afr Amr >60 mL/min 12/27/2018 Unknow n FREE T4 14266 T4 Free 0.88 ng/dL 12/27/2018 Unknown L[facility] GROUP 21624 Cholesterol 157 mg/dL 12/27/2018 Unkno wn [facility] 98663 Triglyceride 44 mg/dL 12/27/2018 Unkn own [facility] 04650 HDL CHOLESTEROL 61 mg/dL 12/27/2018 U nknown [facility] 16298 Chol/HDL Ratio 2.57 ratio 12/27/2018 U nknown [facility] 78224 NON-HDL Chol 96 mg/dL 12/27/2018 Unkn own [facility] 94380 LDL Cholesterol 87 mg/dL 12/27/2018 U nknown COMPREHENSIVE METABOLIC 88140 AST 19 U/L 2018 Unknown COMPREHENSIVE METABOLIC 65169 ALT 13 U/L 2018 Unknown COMPREHENSIVE METABOLIC 86214 BUN 22 mg/dL 2018 Unknown COMPREHENSIVE METABOLIC 27432 ALBUMIN 4.2 g/dL 2018 Unknown COMPREHENSIVE METABOLIC 14958 CHLORIDE 103 mmol/L 12/27 Unknown COMPREHENSIVE METABOLIC 32531 Bili Total 0.5 mg/dL 12/27 Unknown COMPREHENSIVE METABOLIC 41553 ALK PHOS 101 U/L 2018 Unknown COMPREHENSIVE METABOLIC 04758 SODIUM 141 mmol/L 12/27 Unknown COMPREHENSIVE METABOLIC 29205 CREATININE 0.76 mg/dL 12/04 Unknown COMPREHENSIVE METABOLIC 38601 CALCIUM 9.3 mg/dL 2018 Unknown COMPREHENSIVE METABOLIC 31322 POTASSIUM 3.6 mmol/L 12/27 Unknown COMPREHENSIVE METABOLIC 76240 Total Protein 7.4 g/dL Unknown COMPREHENSIVE METABOLIC 86044 Glucose 86 mg/dL 2018 Unknown COMPREHENSIVE METABOLIC 66037 Bicarbonate 31 mmol/L 12/04 Unknown COMPREHENSIVE METABOLIC 38765 AGAP 7 mmol/L 2018 Unknown COMPLETE BLOOD COUNT 8232033 WBC 4.2 10e9/L 12/28/19 19 Unknown COMPLETE BLOOD COUNT [id number] RBC 4.55 10e12/L 2018 Unknown COMPLETE BLOOD COUNT 0298424 HEMOGLOBIN 13.7 g/dL 12/28/19 19 Unknown COMPLETE BLOOD COUNT 8733162 HEMATOCRIT 42.4 % 12/28/19 19 Unknown COMPLETE BLOOD COUNT 9230846 MCV 93.2 fL 9 Unknown COMPLETE BLOOD COUNT 1378308 MCH 30.1 pg 9 Unknown COMPLETE BLOOD COUNT 0347538 MCHC 32.3 g/dL 9 Unknown COMPLETE BLOOD COUNT 6435047 PLATELET COUNT 272 10e9/L Unknown COMPLETE BLOOD COUNT 0263484 Mean Plt Volume 8.9 fL Unknown COMPLETE BLOOD COUNT 6556032 Neut Auto 50.9 % 9 Unknown COMPLETE BLOOD COUNT 0839608 Lymph Auto 35.1 % 12/28/19 19 Unknown COMPLETE BLOOD COUNT [id number] [place] Auto 9.6 % 9 Unknown COMPLETE BLOOD COUNT 8624304 RDW 12.7 % 9 Unknown COMPLETE BLOOD COUNT 4678653 Eos Auto 4.2 % 9 Unknown COMPLETE BLOOD COUNT 0825963 Baso Auto 0.2 % 9 Unknown COMPLETE BLOOD COUNT 0666269 Neutrophil Abs 2.14 10e9/L Unknown COMPLETE BLOOD COUNT 2436117 Lymphocyte Abs 1.47 10e9/L Unknown COMPLETE BLOOD COUNT 7555363 Monocyte Abs 0.40 10e9/L 12/04 Unknown COMPLETE BLOOD COUNT 6472575 Eosinophil Abs 0.18 10e9/L Unknown COMPLETE BLOOD COUNT 6910615 RDW-SD 42.1 fL 9 Unknown COMPLETE BLOOD COUNT 8850863 Basophil Abs 0.01 10e9/L 12/04 Unknown GFR CALC 2878749 GFR Afr Amr >60 mL/min 12/21/2016 Unknow n GFR CALC 1417978 GFR Non Afr Amr >60 mL/min 12/21/2016 Un known COMPLETE BLOOD COUNT 4018081 WBC 3.6 10e9/L 12/22/19 17 Unknown COMPLETE BLOOD COUNT 7618118 RBC 4.57 10e12/L 2016 Unknown COMPLETE BLOOD COUNT 8700830 HEMOGLOBIN 13.8 g/dL 12/22/19 17 Unknown COMPLETE BLOOD COUNT 8496053 HEMATOCRIT 42.4 % 12/22/19 17 Unknown COMPLETE BLOOD COUNT 0284024 MCV 92.8 fL 7 Unknown COMPLETE BLOOD COUNT 1669555 MCH 30.2 pg 7 Unknown COMPLETE BLOOD COUNT 0378385 MCHC 32.5 g/dL 7 Unknown COMPLETE BLOOD COUNT 1725200 PLATELET COUNT 225 10e9/L Unknown COMPLETE BLOOD COUNT 4815435 Mean Plt Volume 9.0 fL Unknown COMPLETE BLOOD COUNT 4121755 Neut Auto 45.6 % 7 Unknown COMPLETE BLOOD COUNT 7771148 Lymph Auto 37.3 % 12/22/19 17 Unknown COMPLETE BLOOD COUNT 5369750 [place] Auto 11.0 % 7 Unknown COMPLETE BLOOD COUNT 6247440 Eos Auto 5.5 % 7 Unknown COMPLETE BLOOD COUNT 7930183 RDW 12.6 % 7 Unknown COMPLETE BLOOD COUNT 6849906 Baso Auto 0.6 % 7 Unknown COMPLETE BLOOD COUNT 2808335 Neutrophil Abs 1.64 10e9/L Unknown COMPLETE BLOOD COUNT 0935615 Lymphocyte Abs 1.34 10e9/L Unknown COMPLETE BLOOD COUNT 8793998 Monocyte Abs 0.40 10e9/L 12/03 Unknown COMPLETE BLOOD COUNT 6997612 Eosinophil Abs 0.20 10e9/L Unknown COMPLETE BLOOD COUNT 4471558 RDW-SD 42.0 fL 7 Unknown COMPLETE BLOOD COUNT 4253430 Basophil Abs 0.02 10e9/L 12/03 Unknown THYROID STIMULATING HORMONE 74322 TSH 3.423 uIU/mL 12/21/2016 Unknown COMPREHENSIVE METABOLIC 70966 AST 23 U/L 2016 Unknown COMPREHENSIVE METABOLIC 38978 ALT 18 U/L 2016 Unknown COMPREHENSIVE METABOLIC 30276 BUN 21 mg/dL 2016 Unknown COMPREHENSIVE METABOLIC 60386 ALBUMIN 4.4 g/dL 2016 Unknown COMPREHENSIVE METABOLIC 47726 CHLORIDE 103 mmol/L 12/21 Unknown COMPREHENSIVE METABOLIC 24002 Bili Total 0.7 mg/dL 12/21 Unknown COMPREHENSIVE METABOLIC 32412 ALK PHOS 86 U/L 2016 Unknown COMPREHENSIVE METABOLIC 75263 SODIUM 141 mmol/L 12/21 Unknown COMPREHENSIVE METABOLIC 84040 CREATININE 0.75 mg/dL 12/03 Unknown COMPREHENSIVE METABOLIC 53990 CALCIUM 9.2 mg/dL 2016 Unknown COMPREHENSIVE METABOLIC 82842 POTASSIUM 3.8 mmol/L 12/21 Unknown COMPREHENSIVE METABOLIC 47681 Total Protein 7.3 g/dL Unknown COMPREHENSIVE METABOLIC 90326 Glucose 95 mg/dL 2016 Unknown COMPREHENSIVE METABOLIC 14790 Bicarbonate 32 mmol/L 12/03 Unknown COMPREHENSIVE METABOLIC 66290 AGAP 6 mmol/L 2016 Unknown LIPID GROUP 44529 Cholesterol 154 mg/dL 12/21/2016 Unkno wn LIPID GROUP 68457 Triglyceride 51 mg/dL 12/21/2016 Unkn own LIPID GROUP 44573 HDL CHOLESTEROL 61 mg/dL 12/21/2016 U nknown LIPID GROUP 38502 Chol/HDL Ratio 2.52 ratio 12/21/2016 U nknown LIPID GROUP 41558 NON-HDL Chol 93 mg/dL 12/21/2016 Unkn own LIPID GROUP 48405 LDL Cholesterol 83 mg/dL 12/21/2016 U nknown Procedures Procedure Codes Date INFLUENZA ASSAY W/OPTIC CPT-4: 38044 04/21/2019 INFLUENZA ASSAY W/OPTIC CPT-4: 19547 04/24/2017 SPECIMEN HANDLING OFFICE-LAB CPT-4: 27674 02/24/2016 THER/PROPH/DIAG INJ SC/IM CPT-4: 84266 11/30/2015 TRIAMCINOLONE ACET INJ NOS CPT-4: J3301 11/30/2015 DEXAMETHASONE SODIUM PHOS CPT-4: J1100 11/30/2015 Vital Signs Date Vital 07/01/2019 Blood Pressure 1: 130/86 Code: 8480-6 BMI: 35.0 Code: 56270-8 Heart Rate 1: 60 bpm Height: 5'6" [...] 1: 124/72 Code: 8480-6 BMI: 35.1 Code: 12324-2 Heart Rate 1: 64 bpm Height: 5'6" Respiratory Rate: 18 bpm SpO2: 96% Tempera ture: 36.8 (C) / 98.2 (F) Weight: 221 lbs 02/13/2018 Blood Pressure 1: 138/82 Code: 8480-6 BMI: 34.5 Code: 82783-4 Heart Rate 1: 68 bpm Height: 5'7" Respiratory Rate: 18 bpm SpO2: 97% Tempera ture: 36.8 (C) / 98.2 (F) Weight: 220 lbs 04/24/2017 Blood Pressure 1: 126/78 Code: 8480-6 BMI: 35.4 Code: 79468-4 Heart Rate 1: 84 bpm Height: 5'7" Respiratory Rate: 22 bpm SpO2: 95% Tempera ture: 36.9 (C) / 98.4 (F) Weight: 226 lbs 02/24/2016 Blood Pressure 1: 128/78 Code: 8480-6 BMI: 35.6 Code: 88114-3 Heart Rate 1: 68 bpm Height: 5'7" Respiratory Rate: 20 bpm SpO2: 97% Tempera ture: 36.7 (C) / 98.1 (F) Weight: 227 lbs 11/30/2015 Blood Pressure 1: 128/78 Code: 8480-6 BMI: 36.0 Code: 60733-1 Heart Rate 1: 76 bpm Height: 5'7" Respiratory Rate: 20 bpm SpO2: 97% Tempera ture: 37.1 (C) / 98.7 (F) Weight: 230 lbs 11/10/2015 Blood Pressure 1: 136/82 Code: 8480-6 BMI: 36.0 Code: 70621-4 Heart Rate 1: 80 bpm Height: 5'7" [...] visit Encounters Encounter Performer Location Codes Date (63886) OFFICE/OUTPATIENT VISIT EST Diagnosis: Epigastric pain[ICD10: R10.13] Naya Tejeda [facility] CPT-4: 95297 07/03/2019 ([id number]) OFFICE/OUTPATIENT VISIT EST Diagnosis: Generalized anxiety disorder[ICD10: F41.1] Naya Kingsley SALAZARKACIER [employer] CPT-4: 35193 05/15/2019 ([id number]) OFFICE/OUTPATIENT VISIT EST Diagnosis: Influenza A[ICD10: J10.1] Naya JONES SRuss SALAZAR NDEChristiane [employer] [place] CPT-4: 44789 04/21/2019 ([id number]) OFFICE/OUTPATIENT VISIT EST Diagnosis: Epigastric pain[ICD10: R10.13] Diagnosis: Gastro-esophageal reflux disease without esophagitis[ICD10: K21.9] Naya Kingsley SooliganNDER [employer] [place] CPT-4: 08804 03/11/2019 ([id number]) OFFICE/OUTPATIENT VISIT EST Diagnosis: Stress reaction[ICD10: F43.0] Diagnosis: Insomnia[ICD10: G47.00] Naya JONES JocelinRuss SALAZARND [employer] CPT-4: 67786 02/06/2019 ([id number]) PREV VISIT EST AGE 40-64 Diagnosis: Encounter for general adult medical examination without abnormal findings[ICD10: Z00.00] Diagnosis: Obstructive sleep apnea (adult) (pediatric)[ICD10: G47.33] Diagnosis: Stress reaction[ICD10: F43.0] Diagnosis: URI, ACUTE[ICD10: J06.9] Diagnosis: Insomnia[ICD10: G47.00] Naya Salazarkacirosy CAMARILLO [employer] CPT-4: 56544 01/02/2019 ([id number]) PREV VISIT EST AGE 40-64 Diagnosis: Encounter for general adult medical examination without abnormal findings[ICD10: Z00.00] Diagnosis: Gastro-esophageal reflux disease without esophagitis[ICD10: K21.9] Diagnosis: Obstructive sleep apnea (adult) (pediatric)[ICD10: G47.33] Diagnosis: Mixed hyperlipidemia[ICD10: E78.2] Diagnosis: Dizziness and giddiness[ICD10: R42] Naya CEDEÑOLokesh TEJEDA [employer] [place] CPT-4: 59206 02/13/2018 OFFICE/OUTPATIENT VISIT EST Diagnosis: Acute sinusitis, unspecified[ICD10: J01.90] Diagnosis: Viral infection, unspecified[ICD10: B34.9] Jodie CAMACHO [employer] [place] CPT-4: 63292 04/24/2017 ([id number]) PREV VISIT EST AGE 40-64 Diagnosis: Encounter for general adult medical examination without abnormal findings[ICD10: Z00.00] Diagnosis: Encounter for gynecological examination (general) (routine) without abnormal findings[ICD10: Z01.419] Diagnosis: URI, ACUTE[ICD10: J06.9] Naya Orendrosy CEDEÑONAYA Teetee GODOY [employer] [facility] CPT-4: 76276 02/24/2016 ([id number]) OFFICE/OUTPATIENT VISIT EST Diagnosis: Other seasonal allergic rhinitis[ICD10: J30.2] Regina Sagastume NAYA Teetee TEJEDA [employer] [place] CPT-4: 78062 11/30/2015 OFFICE/OUTPATIENT VISIT NEW Diagnosis: Mixed hyperlipidemia[ICD10: E78.2] Diagnosis: Gastro-esophageal reflux disease without esophagitis[ICD10: K21.9] Diagnosis: Allergic rhinitis due to pollen[ICD10: J30.1] Diagnosis: Obstructive sleep apnea (adult) (pediatric)[ICD10: G47.33] Naya Camachorosy CEDEÑONAYA Teetee TEJEDA [employer] [place] CPT-4: 64002 11/10/2015 Plan of Care Planned Activity Notes Codes Status Date Care Plan: MAMMOGRAM SCREENING LOINC : 2 6347-5 Pending 08/05/2019 Visit Diagnosis Plan: Epigastric pain Discussion: Cont inue pantoprazole and pepcid q HS May use maalox prn Referral for EGD ICD-9 : 789.06 ICD-10 : R10.13 07/03/2019 Appointment: Naya Tejeda WPtel: [address] [place] [address] [place] TELEMEDICINE 07/03/2019 Care Plan: Referral Order SNOMED-CT : 30 [id number] Pending 07/03/2019 Visit Diagnosis Plan: Gastro-esophageal reflux disease without esophagitis Discussion: Add Pepcid 40mg po q PM May need EGD if Cardiac Workup normal ICD-9 : 530.81 ICD-10 : K21.9 07/01/2019 Visit Diagnosis Plan: Chest pain Discussion: To Dr. Babatunde cid for any further workup Addendum: Came back to office with chest pain so was directly admitted to the hospital with Dr. Hses to consult Discussion: To Dr. Hess for any further workup ICD-9 : 786.50 ICD-10 : R07.9 07/01/2019 Appointment: Naya Tejeda WPtel: [address] [place] [address] [place] confirmed FOLLOW UP 07/01/2019 Patient Education: famotidine- [employer] Coupon [id number] https://www.[email or web address]/samplemd/resources/getResource/61/[email or web address]-cr Completed 07/01/2019 Visit Diagnosis Plan: Generalized anxiety disorder Dis cussion: Restart lexapro at 5mg daily for 4 days then go to 10mg daily Recheck at end of school year ICD-9 : 300.02 ICD-10 : F41.1 05/15/2019 Appointment: Naya Tejeda WPtel: [address] [place], [place] [phone] [place] FOLLOW UP 05/15/2019 Visit Diagnosis Plan: Influenza A Discussion: Tamiflu Supportive card Notify if worsening No work for full 5 days from symptoms and fever free at least 24hrs ICD-9 : 487.1 ICD-10 : J10.1 04/21/2019 Appointment: Naya Tejeda WPtel: [address] [place], [place] [address] ACUTE ILLNESS 04/21/2019 Patient Education: Tamiflu- [employer] Coupon [id number] https://www.[employer]/Zollo/resources/getResource/61/[email or web address] Completed 04/21/2019 Visit Diagnosis Plan: Gastro-esophageal reflux disease without esophagitis Diet: GERD diet ICD-9 : 530.81 ICD-10 : K21.9 03/11/2019 Visit Diagnosis Plan: Epigastric pain Discussion: Baron ge omeprazole to pantoprazole 40mg po BID ICD-9 : 789.06 ICD-10 : R10.13 03/11/2019 Appointment: Naya Tejeda WPtel: [address] [place] [address] FOLLOW UP 03/11/2019 Patient Education: pantoprazole- [employer] Coupon [id number] https://www.[employer]/Zollo/resources/getResource/61/[email or web address]-[email or web address] Completed 03/11/2019 Visit Diagnosis Plan: Insomnia Discussion: Stable on t razadone ICD-9 : 780.52 ICD-10 : G47.00 02/06/2019 Visit Diagnosis Plan: Stress reaction Discussion: Incr ease escitalopram to 10mg daily Follow Up: 3 months ICD-9 : 308.9 ICD-10 : F43.0 02/06/2019 Appointment: Naya Tejeda WPtel: [address] [place], [place] [id number] [place] FOLLOW UP 02/06/2019 Patient Education: escitalopram oxalate- [employer] Co upon [id number] https://www.[employer]/Zollo/resources/getResource/61/2r410n02-l3jn-350j-21 Completed 02/06/2019 Patient Education: trazodone- [employer] Coupon [id number] https://www.[employer]/Zollo/resources/getResource/61/i6v97zu9-e50n-4688-iv Completed 02/06/2019 Patient Education: escitalopram oxalate- [employer] Co upon [id number] https://www.[employer]ollo/resources/getResource/61/83jw6542-8i0h-6txy-p4 Completed 02/06/2019 Visit Diagnosis Plan: Obstructive sleep apnea (adult) (pediatric) Discussion: Retry CPAP once sleeping pills helping ICD-9 : 327.23 ICD-10 : G47.33 01/02/2019 Visit Diagnosis Plan: Stress reaction Discussion: [place] pro 5mg po q AM Follow Up: 1 months ICD-9 : 308.9 ICD-10 : F43.0 01/02/2019 Visit Diagnosis Plan: URI, ACUTE Discussion: Supportiv e care Restart ce daily ICD-9 : 465.9 ICD-10 : J06.9 01/02/2019 Visit Diagnosis Plan: Encounter for [facility] adult medical examination without abnormal findings Discussion: Mediterranean diet Combinati on of cardio and weight bearing exercise Defers flu shot Fasting lab discussed ICD-9 : V70.9 ICD-10 : Z00.00 01/02/2019 Visit Diagnosis Plan: Insomnia Discussion: Trial of tr azadone 50mg 1-2 po q HS prn sleep ICD-9 : 780.52 ICD-10 : G47.00 01/02/2019 Appointment: Naya Tejeda WPtel: [phone] [facility] Annual Well Visit 01/02/2019 Patient Education: trazodone- [employer] Coupon [id number] https://www.[employer]ollo/resources/getResource/61/9b3r46g5-h58g-57ua-vy Completed 01/02/2019 Patient Education: escitalopram oxalate- [employer] Co upon [id number] https://www.[employer]/Zollo/resources/getResource/61/9205648b-2617-981o-58 Completed 01/02/2019 Visit Diagnosis Plan: Gastro-esophageal reflux [...] : 780.4 ICD-10 : R42 02/13/2018 Appointment: Naya Tejeda WPtel: [phone] [facility] Annual Well Visit 02/13/2018 Patient Education: Patient Medication Summary Completed 06/06/2017 Care Plan: MAMMOGRAM BOTH BREASTS LOINC : 11226-9 Pending 06/06/2017 Visit Diagnosis Plan: Acute sinusitis, [...] ICD-10 : J01.90 04/24/2017 Appointment: Jodie Tran [address] [place], [place] [id number] ACUTE ILLNESS 04/24/2017 Patient Education: Patient Medication Summary Completed 04/24/2017 Patient Education: Patient Medication Summary Completed 12/08/2016 Care Plan: COMPREHEN METABOLIC PANEL [place] NC : 00513-7 Pending 12/08/2016 Care Plan: ASSAY THYROID STIM HORMONE Pen ding 12/08/2016 Care Plan: LIPID PANEL LOINC : 01993-6 Pending 12/08/2016 Care Plan: CBC Pending 12/08/2016 Patient Education: Patient Medication Summary Completed 06/08/2016 Care Plan: MAMMOGRAM SCREENING LOINC : 2 6347-5 Pending 06/08/2016 Visit Plan: Supportive care. Rest, Fluid s, Tylenol/Motrin prn fever or bodyaches. Notify if worsening symptoms. Pap done Due for Mammogram in June Obtain fasting lab from December Fwup prn and 1 year for yearly 02/24/2016 Appointment: Naya Tejeda WPtel: [phone] [facility] [place] 02/22 confirmed~sl PAP 02/24/2016 Patient Education: Patient Medication Summary Completed 02/24/2016 Visit Plan: Injection as above Rx for al legra-d Benadryl at HS Nasal rinses, steroid nasal sprays Mucinex Vicks, humidifier, vitamin C, rest, fluids Follow up PRN 11/30/2015 Appointment: Regina Sagastume [address] ACUTE ILLNESS 11/30/2015 Patient Education: Patient Medication Summary Completed 11/30/2015 Patient Education: [facility] - Saving AutoInj - 18-64 - Dynamic Maura l ID Completed 11/30/2015 Referral: Sunil Hatch WPtel: [address] Referral Appointment Confirmed 11/23/2015 Visit Plan: Needs [...] scheduled Discused diet/exercise weight loss 11/10/2015 Appointment: Naya Tejeda WPtel: [phone] [facility] [place] 11/08lm ~sl11/09 CONFIRMED~sl NEW PATIENT 11/09 Patient Education: Patient Medication Summary Completed 11/10/2015 Patient Education: [facility] - Saving AutoInj - 18-64 - Dynamic Maura l ID Completed 11/10/2015 Referral: Sunil Hatch WPtel: [address] Referral Appointment Requested Instructions Comment . Supportive [...]
--- OUTSIDE RECORDS SUMMARY | 2019-09-24 10:28 | XMS REPORT | CCD ---
Author Author Naday Tejeda D.O. Organization [facility]JEDA DO [facility] Address [address] [place] [address] Phone Care Team Providers Care Road Conductor Name Role Phone PP Unavailable CCM Unavailable Summary Purpose Interface Exchange Insurance Providers Payer name Policy type / Coverage type Covered green party ID Effective Begin Date Effective End Date [employer] Commercial Insurance [id number] Unknown Family history Sister Diagnosis Age At [...] Unknown 1 11/10/2015 Employment Unknown Currently employed Plated 11/10/[address]: 577705815 Has never smoked or chewed tobacco 11/10/[address]: 012794195 Never drinks alcohol 2015 Has the patient [...] Problems Condition Codes Effective Dates Condition Status Epigastric pain ICD-9: 789.06 ICD-10: R10.13 03/11/2019 [...] ACUTE ICD-9: 465.9 ICD-10: J06.9 02/23/2016 Active Encounter for screening mammogram for malignant neopla sm of breast ICD-9: V76.12 ICD-10: Z12.31 06/08/2016 Active Dizziness and giddiness ICD-9: 780.4 ICD-10: [...] Date Stop Date Status Fill Instructions famotidine 40 mg tablet RxNorm: 685434 TAKE 1 TABLET BY MOUTH I N THE EVENING 07/23/2019 09/20/2019 Active famotidine 40 mg tablet RxNorm: 899253 1 Tablet(s) Oral QPM 06/30/ 020 07/22/2019 Inactive pantoprazole 40 mg tablet,delayed release RxNorm: 904461 TAKE 1 TABLET BY MOUTH TWICE DAILY 06/03/2019 08/01/2019 Active Tamiflu 75 mg capsule RxNorm: 203466 1 Capsule(s) Oral two time s a day 04/21/2019 04/26/2019 Inactive pantoprazole 40 mg tablet,delayed release RxNorm: 018342 1 Tablet(s) Oral two times a day replaces omeprazole 03/11/2019 05/10/2019 Inactive escitalopram 10 mg tablet RxNorm: 718957 1 Tablet(s) Oral QD re places 5mg dose 02/06/2019 08/05/2019 Active trazodone 50 mg tablet RxNorm: 977579 1-2 Tablet(s) Ora l QPM as needed for sleep 02/06/2019 03/07/2019 Inactive escitalopram 5 mg tablet RxNorm: 624790 1 Tablet(s) Oral QAM 201802/05/2019 Inactive trazodone 50 mg tablet RxNorm: 014061 1-2 Tablet(s) Ora l QPM as needed for sleep 01/02/2019 02/05/2019 Inactive omeprazole 20 mg capsule,delayed release RxNorm: 804027 1 Capsu le(s) PO QD 07/04/2018 06/30/2019 Inactive omeprazole 20 mg capsule,delayed release RxNorm: 363748 1 Capsu le(s) PO QD 04/03/2018 07/01/2018 Inactive omeprazole 20 mg capsule,delayed release RxNorm: 610285 1 Capsu le(s) PO QD 04/03/2018 01/01/2019 Inactive omeprazole 20 mg capsule,delayed release RxNorm: 320265 1 Capsu le(s) PO QD 12/05/2017 03/04/2018 Inactive omeprazole 20 mg capsule,delayed release RxNorm: 079308 1 Capsu le(s) PO QD 09/06/2017 04/03/2018 Inactive Augmentin 875 mg-125 mg tablet RxNorm: 066137 1 Tablet(s) PO BID 05/03/2017 Inactive omeprazole 20 mg capsule,delayed release RxNorm: 472917 1 Capsu le(s) PO QD 04/19/2017 08/16/2017 Inactive omeprazole 20 mg capsule,delayed release RxNorm: 571755 1 Capsule(s) PO QD replaces 40mg daily- due for refill 03/14/2017 04/19/2017 Inactive omeprazole 20 mg capsule,delayed release RxNorm: 256848 1 Capsule(s) PO QD replaces 40mg daily 11/30/2016 02/27/2017 Inactive omeprazole 20 mg capsule,delayed release RxNorm: 196775 1 Capsule(s) PO QD replaces 40mg daily 05/03/2016 10/29/2016 Inactive cetirizine 1 mg/mL oral solution RxNorm: 1654683 1.25 Mi lliliter(s) PO QHS for runny nose 02/24/2016 02/23/2016 Inactive Ce-D 12 Hour 60 mg-120 mg tablet,extended release RxNor m: 971497 1 Tablet(s) PO BID as needed 11/30/2015 No Stop Date Active omeprazole 20 mg capsule,delayed release RxNorm: 378559 1 Capsule(s) PO QD replaces 40mg daily 11/10/2015 03/08/2016 Inactive Ce Allergy 180 mg tablet RxNorm: 790855 1 Tablet(s) PO QD No Sta rt Date Active Aspirin Child 81 mg chewable tablet RxNorm: 010534 1 Tablet(s) PO QD No Start Date Active simvastatin 20 mg tablet RxNorm: 700554 1 Tablet(s) PO QD No Start Da te Active omeprazole 40 mg capsule,delayed release RxNorm: 765162 1 Capsu le(s) PO QD No Start Date 11/09/2015 Inactive Medication Administered No Medication Administered data Immunizations No Immunization data Results Observation Observation Code Item Item Code Result Date S [facility] Location THYROID STIMULATING HORMONE 05316 TSH 3.245 uIU/mL 12/27/2018 Unknown GFR CALC 5734865 GFR Non Afr Amr >60 mL/min 12/27/2018 Un known GFR CALC 2907207 GFR Afr Amr >60 mL/min 12/27/2018 Unknow n FREE T4 91326 T4 Free 0.88 ng/dL 12/27/2018 Unknown [facility] 22570 Cholesterol 157 mg/dL 12/27/2018 Unkno wn [facility] 38509 Triglyceride 44 mg/dL 12/27/2018 Unkn own [facility] 54129 HDL CHOLESTEROL 61 mg/dL 12/27/2018 U nknown [facility] 45776 Chol/HDL Ratio 2.57 ratio 12/27/2018 U nknown [facility] 00649 NON-HDL Chol 96 mg/dL 12/27/2018 Unkn own [facility] 01485 LDL Cholesterol 87 mg/dL 12/27/2018 U nknown COMPREHENSIVE METABOLIC 24128 AST 19 U/L 2018 Unknown COMPREHENSIVE METABOLIC 60811 ALT 13 U/L 2018 Unknown COMPREHENSIVE METABOLIC 46783 BUN 22 mg/dL 2018 Unknown COMPREHENSIVE METABOLIC 22005 ALBUMIN 4.2 g/dL 2018 Unknown COMPREHENSIVE METABOLIC 24067 CHLORIDE 103 mmol/L 12/27 Unknown COMPREHENSIVE METABOLIC 61875 Bili Total 0.5 mg/dL 12/27 Unknown COMPREHENSIVE METABOLIC 38184 ALK PHOS 101 U/L 2018 Unknown COMPREHENSIVE METABOLIC 47095 SODIUM 141 mmol/L 12/27 Unknown COMPREHENSIVE METABOLIC 93796 CREATININE 0.76 mg/dL 12/04 Unknown COMPREHENSIVE METABOLIC 17947 CALCIUM 9.3 mg/dL 2018 Unknown COMPREHENSIVE METABOLIC 37808 POTASSIUM 3.6 mmol/L 12/27 Unknown COMPREHENSIVE METABOLIC 04430 Total Protein 7.4 g/dL Unknown COMPREHENSIVE METABOLIC 37877 Glucose 86 mg/dL 2018 Unknown COMPREHENSIVE METABOLIC 68928 Bicarbonate 31 mmol/L 12/04 Unknown COMPREHENSIVE METABOLIC 75775 AGAP 7 mmol/L 2018 Unknown COMPLETE BLOOD COUNT 5553101 WBC 4.2 10e9/L 12/28/19 19 Unknown COMPLETE BLOOD COUNT 5244701 RBC 4.55 10e12/L 2018 Unknown COMPLETE BLOOD COUNT 7448562 HEMOGLOBIN 13.7 g/dL 12/28/19 19 Unknown COMPLETE BLOOD COUNT 9477505 HEMATOCRIT 42.4 % 12/28/19 19 Unknown COMPLETE BLOOD COUNT 8511043 MCV 93.2 fL 9 Unknown COMPLETE BLOOD COUNT 5559863 MCH 30.1 pg 9 Unknown COMPLETE BLOOD COUNT 1801478 MCHC 32.3 g/dL 9 Unknown COMPLETE BLOOD COUNT 3690610 PLATELET COUNT 272 10e9/L Unknown COMPLETE BLOOD COUNT 2943366 Mean Plt Volume 8.9 fL Unknown COMPLETE BLOOD COUNT 6354535 Neut Auto 50.9 % 9 Unknown COMPLETE BLOOD COUNT 9020811 Lymph Auto 35.1 % 12/28/19 19 Unknown COMPLETE BLOOD COUNT 7938678 [place] Auto 9.6 % 9 Unknown COMPLETE BLOOD COUNT 1209099 RDW 12.7 % 9 Unknown COMPLETE BLOOD COUNT 9208311 Eos Auto 4.2 % 9 Unknown COMPLETE BLOOD COUNT 4646439 Baso Auto 0.2 % 9 Unknown COMPLETE BLOOD COUNT 3265817 Neutrophil Abs 2.14 10e9/L Unknown COMPLETE BLOOD COUNT 3272400 Lymphocyte Abs 1.47 10e9/L Unknown COMPLETE BLOOD COUNT 3410017 Monocyte Abs 0.40 10e9/L 12/04 Unknown COMPLETE BLOOD COUNT 5875968 Eosinophil Abs 0.18 10e9/L Unknown COMPLETE BLOOD COUNT 4776227 RDW-SD 42.1 fL 9 Unknown COMPLETE BLOOD COUNT 7940001 Basophil Abs 0.01 10e9/L 12/04 Unknown GFR CALC 9789239 GFR Non Afr Amr >60 mL/min 12/21/2016 Un known GFR CALC 3974884 GFR Afr Amr >60 mL/min 12/21/2016 Unknow n COMPLETE BLOOD COUNT 2900055 WBC 3.6 10e9/L 12/22/19 17 Unknown COMPLETE BLOOD COUNT 3154890 RBC 4.57 10e12/L 2016 Unknown COMPLETE BLOOD COUNT 3065778 HEMOGLOBIN 13.8 g/dL 12/22/19 17 Unknown COMPLETE BLOOD COUNT 3952404 HEMATOCRIT 42.4 % 12/22/19 17 Unknown COMPLETE BLOOD COUNT 2233264 MCV 92.8 fL 7 Unknown COMPLETE BLOOD COUNT 7628342 MCH 30.2 pg 7 Unknown COMPLETE BLOOD COUNT 0122468 MCHC 32.5 g/dL 7 Unknown COMPLETE BLOOD COUNT 1579733 PLATELET COUNT 225 10e9/L Unknown COMPLETE BLOOD COUNT 7610825 Mean Plt Volume 9.0 fL Unknown COMPLETE BLOOD COUNT 0392167 Neut Auto 45.6 % 7 Unknown COMPLETE BLOOD COUNT 0477638 Lymph Auto 37.3 % 12/22/19 17 Unknown COMPLETE BLOOD COUNT 5859999 [place] Auto 11.0 % 7 Unknown COMPLETE BLOOD COUNT 6737645 Eos Auto 5.5 % 7 Unknown COMPLETE BLOOD COUNT 1074207 RDW 12.6 % 7 Unknown COMPLETE BLOOD COUNT 2644832 Baso Auto 0.6 % 7 Unknown COMPLETE BLOOD COUNT 3695517 Neutrophil Abs 1.64 10e9/L Unknown COMPLETE BLOOD COUNT 6836139 Lymphocyte Abs 1.34 10e9/L Unknown COMPLETE BLOOD COUNT 1953240 Monocyte Abs 0.40 10e9/L 12/03 Unknown COMPLETE BLOOD COUNT 6138143 Eosinophil Abs 0.20 10e9/L Unknown COMPLETE BLOOD COUNT 3355681 Basophil Abs 0.02 10e9/L 12/03 Unknown COMPLETE BLOOD COUNT 6077029 RDW-SD 42.0 fL 7 Unknown THYROID STIMULATING HORMONE 86822 TSH 3.423 uIU/mL 12/21/2016 Unknown COMPREHENSIVE METABOLIC 45783 AST 23 U/L 2016 Unknown COMPREHENSIVE METABOLIC 31663 ALT 18 U/L 2016 Unknown COMPREHENSIVE METABOLIC 52441 BUN 21 mg/dL 2016 Unknown COMPREHENSIVE METABOLIC 87435 ALBUMIN 4.4 g/dL 2016 Unknown COMPREHENSIVE METABOLIC 29586 CHLORIDE 103 mmol/L 12/21 Unknown COMPREHENSIVE METABOLIC 69249 Bili Total 0.7 mg/dL 12/21 Unknown COMPREHENSIVE METABOLIC 08030 ALK PHOS 86 U/L 2016 Unknown COMPREHENSIVE METABOLIC 42182 SODIUM 141 mmol/L 12/21 Unknown COMPREHENSIVE METABOLIC 59680 CREATININE 0.75 mg/dL 12/03 Unknown COMPREHENSIVE METABOLIC 25641 CALCIUM 9.2 mg/dL 2016 Unknown COMPREHENSIVE METABOLIC 05534 POTASSIUM 3.8 mmol/L 12/21 Unknown COMPREHENSIVE METABOLIC 82148 Total Protein 7.3 g/dL Unknown COMPREHENSIVE METABOLIC 36466 Glucose 95 mg/dL 2016 Unknown COMPREHENSIVE METABOLIC 61795 Bicarbonate 32 mmol/L 12/03 Unknown COMPREHENSIVE METABOLIC 40768 AGAP 6 mmol/L 2016 Unknown LIPID GROUP 48246 Cholesterol 154 mg/dL 12/21/2016 Unkno wn LIPID GROUP 51964 Triglyceride 51 mg/dL 12/21/2016 Unkn own LIPID GROUP 09541 HDL CHOLESTEROL 61 mg/dL 12/21/2016 U nknown LIPID GROUP 81093 Chol/HDL Ratio 2.52 ratio 12/21/2016 U nknown LIP[facility] GROUP 32245 NON-HDL Chol 93 mg/dL 12/21/2016 Unkn own [facility] GROUP 98255 LDL Cholesterol 83 mg/dL 12/21/2016 U nknown Procedures Procedure Codes Date INFLUENZA ASSAY W/OPTIC CPT-4: 99078 04/21/2019 INFLUENZA ASSAY W/OPTIC CPT-4: 33751 04/24/2017 SPECIMEN HANDLING OFFICE-LAB CPT-4: 76980 02/24/2016 THER/PROPH/DIAG INJ SC/IM CPT-4: 19057 11/30/2015 TRIAMCINOLONE ACET INJ NOS CPT-4: J3301 11/30/2015 DEXAMETHASONE SODIUM PHOS CPT-4: J1100 11/30/2015 Vital Signs Date Vital 07/01/2019 Blood Pressure 1: 130/86 Code: 8480-6 BMI: 35.0 Code: 59730-2 Heart Rate 1: 60 bpm Height: 5'6" [...] 1: 124/72 Code: 8480-6 BMI: 35.1 Code: 79757-9 Heart Rate 1: 64 bpm Height: 5'6" Respiratory Rate: 18 bpm SpO2: 96% Tempera ture: 36.8 (C) / 98.2 (F) Weight: 221 lbs 02/13/2018 Blood Pressure 1: 138/82 Code: 8480-6 BMI: 34.5 Code: 85997-8 Heart Rate 1: 68 bpm Height: 5'7" Respiratory Rate: 18 bpm SpO2: 97% Tempera ture: 36.8 (C) / 98.2 (F) Weight: 220 lbs 04/24/2017 Blood Pressure 1: 126/78 Code: 8480-6 BMI: 35.4 Code: 89380-7 Heart Rate 1: 84 bpm Height: 5'7" Respiratory Rate: 22 bpm SpO2: 95% Tempera ture: 36.9 (C) / 98.4 (F) Weight: 226 lbs 02/24/2016 Blood Pressure 1: 128/78 Code: 8480-6 BMI: 35.6 Code: 74805-6 Heart Rate 1: 68 bpm Height: 5'7" Respiratory Rate: 20 bpm SpO2: 97% Tempera ture: 36.7 (C) / 98.1 (F) Weight: 227 lbs 11/30/2015 Blood Pressure 1: 128/78 Code: 8480-6 BMI: 36.0 Code: 96712-9 Heart Rate 1: 76 bpm Height: 5'7" Respiratory Rate: 20 bpm SpO2: 97% Tempera ture: 37.1 (C) / 98.7 (F) Weight: 230 lbs 11/10/2015 Blood Pressure 1: 136/82 Code: 8480-6 BMI: 36.0 Code: 50416-2 Heart Rate 1: 80 bpm Height: 5'7" [...] 01/02/2019 Annual Wel lness, last normal mammogram 07-09-19 well woman exam (40-65 years) 02/13/2018 Last nikko l mammogram 18 postnasal drip 04/24/2017 well woman exam (40-65 years) 02/24/2016 Last nikko l mammogram June 2015 sinus congestion 11/30/2015 ~generic 11/10/2015 New Patient---establ ishing visit Encounters Encounter Performer Location Codes Date ([id number]) OFFICE/OUTPATIENT VISIT EST Diagnosis: Epigastric pain[ICD10: R10.13] Naya Tejeda [facility] CPT-4: 74870 07/03/2019 ([id number]) OFFICE/OUTPATIENT VISIT EST Diagnosis: Generalized anxiety disorder[ICD10: F41.1] Naya HDEZNDER [facility] CPT-4: 14562 05/15/2019 ([id number]) OFFICE/OUTPATIENT VISIT EST Diagnosis: Influenza A[ICD10: J10.1] Naya HDEZ NDER DO [facility] CPT-4: 09294 04/21/2019 ([id number]) OFFICE/OUTPATIENT VISIT EST Diagnosis: Epigastric pain[ICD10: R10.13] Diagnosis: Gastro-esophageal reflux disease without esophagitis[ICD10: K21.9] Naya HDEZNDER [facility] CPT-4: 35800 03/11/2019 ([id number]) OFFICE/OUTPATIENT VISIT EST Diagnosis: Stress reaction[ICD10: F43.0] Diagnosis: Insomnia[ICD10: G47.00] Naya HDEZND ER [facility] CPT-4: 39970 02/06/2019 ([id number]) PREV VISIT EST AGE 40-64 Diagnosis: Encounter for general adult medical examination without abnormal findings[ICD10: Z00.00] Diagnosis: Obstructive sleep apnea (adult) (pediatric)[ICD10: G47.33] Diagnosis: Stress reaction[ICD10: F43.0] Diagnosis: URI, ACUTE[ICD10: J06.9] Diagnosis: Insomnia[ICD10: G47.00] Naya HDEZND ER [facility] CPT-4: 07948 01/02/2019 ([id number]) PREV VISIT EST AGE 40-64 Diagnosis: Encounter for general adult medical examination without abnormal findings[ICD10: Z00.00] Diagnosis: Gastro-esophageal reflux disease without esophagitis[ICD10: K21.9] Diagnosis: Obstructive sleep apnea (adult) (pediatric)[ICD10: G47.33] Diagnosis: Mixed hyperlipidemia[ICD10: E78.2] Diagnosis: Dizziness and giddiness[ICD10: R42] Naya STANLEY JocelinRuss CARLOS [facility] CPT-4: 19120 02/13/2018 OFFICE/OUTPATIENT VISIT EST Diagnosis: Acute sinusitis, unspecified[ICD10: J01.90] Diagnosis: Viral infection, unspecified[ICD10: B34.9] Jodie Tran NAYA JocelinRuss CARLOS [facility] CPT-4: 03424 04/24/2017 ([id number]) PREV VISIT EST AGE 40-64 Diagnosis: Encounter for general adult medical examination without abnormal findings[ICD10: Z00.00] Diagnosis: Encounter for gynecological examination (general) (routine) without abnormal findings[ICD10: Z01.419] Diagnosis: URI, ACUTE[ICD10: J06.9] Naya JONES JocelinRuss REJI GODOY [facility] CPT-4: 39213 02/24/2016 ([id number]) OFFICE/OUTPATIENT VISIT EST Diagnosis: Other seasonal allergic rhinitis[ICD10: J30.2] Regina Sagastume NAYA JocelinRuss CARLOS [facility] CPT-4: 60697 11/30/2015 OFFICE/OUTPATIENT VISIT NEW Diagnosis: Mixed hyperlipidemia[ICD10: E78.2] Diagnosis: Gastro-esophageal reflux disease without esophagitis[ICD10: K21.9] Diagnosis: Allergic rhinitis due to pollen[ICD10: J30.1] Diagnosis: Obstructive sleep apnea (adult) (pediatric)[ICD10: G47.33] Naya JONES JocelinRuss CARLOS [facility] CPT-4: 77068 11/10/2015 Plan of Care Planned Activity Notes Codes Status Date Visit Diagnosis Plan: Epigastric pain Discussion: Cont inue pantoprazole and pepcid q HS May use maalox prn Referral for EGD ICD-9 : 789.06 ICD-10 : R10.13 07/03/2019 Appointment: [facility] Tejeda [facility] [phone] [facility] [facility] 07/03/2019 Care Plan: Referral Order SNOMED-CT : 30 [id number] Pending 07/03/2019 Visit Diagnosis Plan: Gastro-esophageal reflux [...] : R07.9 07/01/2019 Appointment: Naya Tejeda WPtel: [address] [place] [address] confirmed FOLLOW UP 07/01/2019 Patient Education: famotidine- [employer] Coupon [id number] https://www.apta.me/[employer]/resources/getResource/61/53q96660-q42z-0461-ol Completed 07/01/2019 Visit Diagnosis Plan: Generalized anxiety disorder Dis cussion: Restart lexapro at 5mg daily for 4 days then go to 10mg daily Recheck at end of school year ICD-9 : 300.02 ICD-10 : F41.1 05/15/2019 Appointment: Naya Tejeda WPtel: [address] [place] [address] [place] FOLLOW UP 05/15/2019 Visit Diagnosis Plan: Influenza A Discussion: Tamiflu Supportive card Notify if worsening No work for full 5 days from symptoms and fever free at least 24hrs ICD-9 : 487.1 ICD-10 : J10.1 04/21/2019 Appointment: Naya Tejeda WPtel: [address] [place] [address] ACUTE ILLNESS 04/21/2019 Patient Education: Tamiflu- [employer] Coupon [id number] https://www.apta.me/[employer]/resources/getResource/61/o054bk6j-7701-06f3-1h Completed 04/21/2019 Visit Diagnosis Plan: Gastro-esophageal reflux disease without esophagitis Diet: GERD diet ICD-9 : 530.81 ICD-10 : K21.9 03/11/2019 Visit Diagnosis Plan: Epigastric pain Discussion: Baron ge omeprazole to pantoprazole 40mg po BID ICD-9 : 789.06 ICD-10 : R10.13 03/11/2019 Appointment: Naya Tejeda WPtel: [address] [place], [place] [id number] FOLLOW UP 03/11/2019 Patient Education: pantoprazole- [employer] Coupon [id number] https://www.apta.me/[employer]/resources/getResource/61/76482089-76a4-5b60-b9 Completed 03/11/2019 Visit Diagnosis Plan: Insomnia Discussion: Stable on t razadone ICD-9 : 780.52 ICD-10 : G47.00 02/06/2019 Visit Diagnosis Plan: Stress reaction Discussion: Incr ease escitalopram to 10mg daily Follow Up: 3 months ICD-9 : 308.9 ICD-10 : F43.0 02/06/2019 Appointment: Naya Tejeda WPtel: [address] [place], [place] [id number] [place] FOLLOW UP 02/06/2019 Patient Education: escitalopram oxalate- [employer] Co upon [id number] https://www.apta.me/[employer]/resources/getResource/61/1p984s10-g7uk-629o-48 Completed 02/06/2019 Patient Education: trazodone- [employer] Coupon [id number] https://www.apta.me/[employer]/resources/getResource/61/b4v18sv5-g63k-8935-yg Completed 02/06/2019 Patient Education: escitalopram oxalate- [employer] Co upon [id number] https://www.apta.me/[employer]/resources/getResource/61/52ds3192-1e3q-9dmm-u7 Completed 02/06/2019 Visit Diagnosis Plan: Obstructive sleep apnea (adult) (pediatric) Discussion: Retry CPAP once sleeping pills helping ICD-9 : 327.23 ICD-10 : G47.33 01/02/2019 Visit Diagnosis Plan: Stress reaction Discussion: Russell pro 5mg po q AM Follow Up: 1 months ICD-9 : 308.9 ICD-10 : F43.0 01/02/2019 Visit Diagnosis Plan: URI, ACUTE Discussion: Supportiv e care Restart ce daily ICD-9 : 465.9 ICD-10 : J06.9 01/02/2019 Visit Diagnosis Plan: Encounter for gene ral [...] G47.00 01/02/2019 Appointment: Naya Tejeda WPtel: [phone] [facility] Annual Well Visit 01/02/2019 Patient Education: trazodone- [employer] Coupon [id number] https://www.apta.me/[employer]/resources/getResource/61/3y2i66q9-r03v-85tk-fq Completed 01/02/2019 Patient Education: escitalopram oxalate- [employer] Co upon [id number] https://www.apta.me/[employer]/resources/getResource/61/6104520w-4548-315l-96 Completed 01/02/2019 Visit Diagnosis Plan: Gastro-esophageal reflux [...] R42 02/13/2018 Appointment: Naya Tejeda WPtel: [phone] [facility] Annual Well Visit 02/13/2018 Patient Education: Patient Medication Summary Completed 06/06/2017 Care Plan: MAMMOGRAM BOTH BREASTS LOINC : 35700-0 Pending 06/06/2017 Visit Diagnosis Plan: Acute sinusitis, [...] ICD-10 : J01.90 04/24/2017 Appointment: Jodie Tran [address] [place] [address] ACUTE ILLNESS 04/24/2017 Patient Education: Patient Medication Summary Completed 04/24/2017 Patient Education: Patient Medication Summary Completed 12/08/2016 Care Plan: [place] : 82[address]-0 Pending 12/08/2016 Care Plan: ASSAY THYROID STIM HORMONE Pen ding 12/08/2016 Care Plan: LIPID PANEL LOINC : 22007-2 Pending 12/08/2016 Care Plan: CBC Pending 12/08/2016 [...] yearly 02/24/2016 Appointment: Naya Tejeda WPtel: [phone] [facility] [place] 02/22 confirmed~sl PAP 02/24/2016 Patient Education: Patient Medication Summary Completed 02/24/2016 Visit Plan: Injection as above Rx for al legra-d Benadryl at HS Nasal rinses, steroid nasal sprays Mucinex Vicks, humidifier, vitamin C, rest, fluids Follow up PRN 11/30/2015 Appointment: MiteshRegina [address] ACUTE ILLNESS 11/30/2015 Patient Education: Patient Medication Summary Completed 11/30/2015 Patient Education: [facility] - Saving AutoInj - 18-64 - Dynamic Maura l ID Completed 11/30/2015 Referral: Sunil Hatch WPtel: [address] [place] [address] Referral Appointment Confirmed 11/23/2015 Visit Plan: Needs [...] weight loss 11/10/2015 Appointment: Naya Tejeda WPtel: [address] [place] [address] 11/08lm ~sl11/09 CONFIRMED~sl NEW PATIENT 11/09 Patient Education: Patient Medication Summary Completed 11/10/2015 Patient Education: [facility] - Saving AutoInj - 18-64 - Dynamic Maura l ID Completed 11/10/2015 Referral: Sunil Hatch WPtel: [phone] [address] [place] Referral Appointment Requested Instructions Comment . [...]
--- OUTSIDE RECORDS SUMMARY | 2019-09-24 10:28 | XMS REPORT | CCD ---
Author Author Nadya Tejeda D.O. Organization [facility] Address [address] [place] [address] Phone Care Team Providers Care Remote Sensing Advisor Name Role Phone PP Unavailable CCM Unavailable Summary Purpose Interface Exchange Insurance Providers Payer name Policy type / Coverage type Covered democrat ID Effective Begin Date Effective End Date A[employer] Commercial Insurance [id number] Unknown Family history Sister Diagnosis Age At [...] Unknown 1 11/10/2015 Employment Unknown Currently employed [employer] 11/10/[address]: 009486232 Has never smoked or chewed tobacco 11/10/[address]: 670633965 Never drinks alcohol 2015 Has the patient [...] Fill Instructions famotidine 20 mg tablet RxNorm: 353975 2 Tablet(s) Oral QPM rep laces 40mg dose 07/31/2019 10/28/2019 Active famotidine 20 mg tablet RxNorm: 254868 2 Tablet(s) Oral QPM rep laces 40mg dose 07/31/2019 07/30/2019 Inactive famotidine 40 mg tablet RxNorm: 826166 TAKE 1 TABLET BY MOUTH I N THE EVENING 07/23/2019 09/20/2019 Active famotidine 40 mg tablet RxNorm: 375165 1 Tablet(s) Oral QPM 020 07/22/2019 Inactive pantoprazole 40 mg tablet,delayed release RxNorm: 208873 TAKE 1 TABLET BY MOUTH TWICE DAILY 06/03/2019 08/01/2019 Active Tamiflu 75 mg capsule RxNorm: 799425 1 Capsule(s) Oral two time s a day 04/21/2019 04/26/2019 Inactive pantoprazole 40 mg tablet,delayed release RxNorm: 341500 1 Tablet(s) Oral two times a day replaces omeprazole 03/11/2019 05/10/2019 Inactive escitalopram 10 mg tablet RxNorm: 741176 1 Tablet(s) Oral QD re places 5mg dose 02/06/2019 08/05/2019 Active trazodone 50 mg tablet RxNorm: 912679 1-2 Tablet(s) Ora l QPM as needed for sleep 02/06/2019 03/07/2019 Inactive escitalopram 5 mg tablet RxNorm: 382993 1 Tablet(s) Oral QAM 201802/05/2019 Inactive trazodone 50 mg tablet RxNorm: 162068 1-2 Tablet(s) Ora l QPM as needed for sleep 01/02/2019 02/05/2019 Inactive omeprazole 20 mg capsule,delayed release RxNorm: 514798 1 Capsu le(s) PO QD 07/04/2018 06/30/2019 Inactive omeprazole 20 mg capsule,delayed release RxNorm: 109440 1 Capsu le(s) PO QD 04/03/2018 07/01/2018 Inactive omeprazole 20 mg capsule,delayed release RxNorm: 147813 1 Capsu le(s) PO QD 04/03/2018 01/01/2019 Inactive omeprazole 20 mg capsule,delayed release RxNorm: 421657 1 Capsu le(s) PO QD 12/05/2017 03/04/2018 Inactive omeprazole 20 mg capsule,delayed release RxNorm: 178077 1 Capsu le(s) PO QD 09/06/2017 04/03/2018 Inactive Augmentin 875 mg-125 mg tablet RxNorm: 400771 1 Tablet(s) PO BID 05/03/2017 Inactive omeprazole 20 mg capsule,delayed release RxNorm: 605506 1 Capsu le(s) PO QD 04/19/2017 08/16/2017 Inactive omeprazole 20 mg capsule,delayed release RxNorm: 297789 1 Capsule(s) PO QD replaces 40mg daily- due for refill 03/14/2017 04/19/2017 Inactive omeprazole 20 mg capsule,delayed release RxNorm: 716233 1 Capsule(s) PO QD replaces 40mg daily 11/30/2016 02/27/2017 Inactive omeprazole 20 mg capsule,delayed release RxNorm: 047776 1 Capsule(s) PO QD replaces 40mg daily 05/03/2016 10/29/2016 Inactive cetirizine 1 mg/mL oral solution RxNorm: 0958010 1.25 Mi lliliter(s) PO QHS for runny nose 02/24/2016 02/23/2016 Inactive Ce-D 12 Hour 60 mg-120 mg tablet,extended release RxNor m: 246004 1 Tablet(s) PO BID as needed 11/30/2015 No Stop Date Active omeprazole 20 mg capsule,delayed release RxNorm: 084412 1 Capsule(s) PO QD replaces 40mg daily 11/10/2015 03/08/2016 Inactive Ce Allergy 180 mg tablet RxNorm: 003427 1 Tablet(s) PO QD No Sta rt Date Active Aspirin Child 81 mg chewable tablet RxNorm: 298904 1 Tablet(s) PO QD No Start Date Active simvastatin 20 mg tablet RxNorm: 459370 1 Tablet(s) PO QD No Start Da te Active omeprazole 40 mg capsule,delayed release RxNorm: 808624 1 Capsu le(s) PO QD No Start Date 11/09/2015 Inactive Medication Administered No Medication Administered data Immunizations No Immunization data Results Observation Observation Code Item Item Code Result Date S ervice Location THYROID STIMULATING HORMONE 45305 TSH 3.245 uIU/mL 12/27/2018 Unknown GFR CALC 7142062 GFR Non Afr Amr >60 mL/min 12/27/2018 Un known GFR CALC 2467507 GFR Afr Amr >60 mL/min 12/27/2018 Unknow n FREE T4 21581 T4 Free 0.88 ng/dL 12/27/2018 Unknown LIP[facility] 93727 Cholesterol 157 mg/dL 12/27/2018 Unkno wn LIP[facility] GROUP 93627 Triglyceride 44 mg/dL 12/27/2018 Unkn own LIP[facility] GROUP 68938 HDL CHOLESTEROL 61 mg/dL 12/27/2018 U nknown L[facility] GROUP 32843 Chol/HDL Ratio 2.57 ratio 12/27/2018 U nknown LIP[facility] GROUP 92935 NON-HDL Chol 96 mg/dL 12/27/2018 Unkn own [facility] 74000 LDL Cholesterol 87 mg/dL 12/27/2018 U nknown COMPREHENSIVE METABOLIC 66750 AST 19 U/L 2018 Unknown COMPREHENSIVE METABOLIC 16731 ALT 13 U/L 2018 Unknown COMPREHENSIVE METABOLIC 95321 BUN 22 mg/dL 2018 Unknown COMPREHENSIVE METABOLIC 49361 ALBUMIN 4.2 g/dL 2018 Unknown COMPREHENSIVE METABOLIC 93101 CHLORIDE 103 mmol/L 12/27 Unknown COMPREHENSIVE METABOLIC 33113 Bili Total 0.5 mg/dL 12/27 Unknown COMPREHENSIVE METABOLIC 77676 ALK PHOS 101 U/L 2018 Unknown COMPREHENSIVE METABOLIC 63914 SODIUM 141 mmol/L 12/27 Unknown COMPREHENSIVE METABOLIC 06171 CREATININE 0.76 mg/dL 12/04 Unknown COMPREHENSIVE METABOLIC 48439 CALCIUM 9.3 mg/dL 2018 Unknown COMPREHENSIVE METABOLIC 30772 POTASSIUM 3.6 mmol/L 12/27 Unknown COMPREHENSIVE METABOLIC 42841 Total Protein 7.4 g/dL Unknown COMPREHENSIVE METABOLIC 35151 Glucose 86 mg/dL 2018 Unknown COMPREHENSIVE METABOLIC 29233 Bicarbonate 31 mmol/L 12/04 Unknown COMPREHENSIVE METABOLIC 32471 AGAP 7 mmol/L 2018 Unknown COMPLETE BLOOD COUNT 6705508 WBC 4.2 10e9/L 12/28/19 19 Unknown COMPLETE BLOOD COUNT 7367946 RBC 4.55 10e12/L 2018 Unknown COMPLETE BLOOD COUNT [id number] HEMOGLOBIN 13.7 g/dL 12/28/19 19 Unknown COMPLETE BLOOD COUNT [id number] HEMATOCRIT 42.4 % 12/28/19 19 Unknown COMPLETE BLOOD COUNT 1665248 MCV 93.2 fL 9 Unknown COMPLETE BLOOD COUNT 3458331 MCH 30.1 pg 9 Unknown COMPLETE BLOOD COUNT 2072774 MCHC 32.3 g/dL 9 Unknown COMPLETE BLOOD COUNT 0603326 PLATELET COUNT 272 10e9/L Unknown COMPLETE BLOOD COUNT 8338384 Mean Plt Volume 8.9 fL Unknown COMPLETE BLOOD COUNT 5338537 Neut Auto 50.9 % 9 Unknown COMPLETE BLOOD COUNT 2268143 Lymph Auto 35.1 % 12/28/19 19 Unknown COMPLETE BLOOD COUNT 1581316 [place] Auto 9.6 % 9 Unknown COMPLETE BLOOD COUNT 0826096 Eos Auto 4.2 % 9 Unknown COMPLETE BLOOD COUNT 6819110 RDW 12.7 % 9 Unknown COMPLETE BLOOD COUNT 7056486 Baso Auto 0.2 % 9 Unknown COMPLETE BLOOD COUNT 1255794 Neutrophil Abs 2.14 10e9/L Unknown COMPLETE BLOOD COUNT 8728604 Lymphocyte Abs 1.47 10e9/L Unknown COMPLETE BLOOD COUNT 9841323 Monocyte Abs 0.40 10e9/L 12/04 Unknown COMPLETE BLOOD COUNT [id number] Eosinophil Abs 0.18 10e9/L Unknown COMPLETE BLOOD COUNT [id number] Basophil Abs 0.01 10e9/L 12/04 Unknown COMPLETE BLOOD COUNT 0288249 RDW-SD 42.1 fL 9 Unknown GFR CALC [id number] GFR Non Afr Amr >60 mL/min 12/21/2016 Un known GFR CALC 2468425 GFR Afr Amr >60 mL/min 12/21/2016 Unknow n COMPLETE BLOOD COUNT 5903433 WBC 3.6 10e9/L 12/22/19 17 Unknown COMPLETE BLOOD COUNT 3412250 RBC 4.57 10e12/L 2016 Unknown COMPLETE BLOOD COUNT 1672335 HEMOGLOBIN 13.8 g/dL 12/22/19 17 Unknown COMPLETE BLOOD COUNT [id number] HEMATOCRIT 42.4 % 12/22/19 17 Unknown COMPLETE BLOOD COUNT 7277659 MCV 92.8 fL 7 Unknown COMPLETE BLOOD COUNT 0308338 MCH 30.2 pg 7 Unknown COMPLETE BLOOD COUNT 4128029 MCHC 32.5 g/dL 7 Unknown COMPLETE BLOOD COUNT 8893439 PLATELET COUNT 225 10e9/L Unknown COMPLETE BLOOD COUNT 8941896 Mean Plt Volume 9.0 fL Unknown COMPLETE BLOOD COUNT 8965320 Neut Auto 45.6 % 7 Unknown COMPLETE BLOOD COUNT 4489780 Lymph Auto 37.3 % 12/22/19 17 Unknown COMPLETE BLOOD COUNT 9354295 [place] Auto 11.0 % 7 Unknown COMPLETE BLOOD COUNT 5438643 RDW 12.6 % 7 Unknown COMPLETE BLOOD COUNT 0148338 Eos Auto 5.5 % 7 Unknown COMPLETE BLOOD COUNT 5236471 Baso Auto 0.6 % 7 Unknown COMPLETE BLOOD COUNT 0659511 Neutrophil Abs 1.64 10e9/L Unknown COMPLETE BLOOD COUNT 8950730 Lymphocyte Abs 1.34 10e9/L Unknown COMPLETE BLOOD COUNT 8172431 Monocyte Abs 0.40 10e9/L 12/03 Unknown COMPLETE BLOOD COUNT 1654475 Eosinophil Abs 0.20 10e9/L Unknown COMPLETE BLOOD COUNT 8916944 Basophil Abs 0.02 10e9/L 12/03 Unknown COMPLETE BLOOD COUNT 4992746 RDW-SD 42.0 fL 7 Unknown THYROID STIMULATING HORMONE 21726 TSH 3.423 uIU/mL 12/21/2016 Unknown COMPREHENSIVE METABOLIC 40283 AST 23 U/L 2016 Unknown COMPREHENSIVE METABOLIC 91252 ALT 18 U/L 2016 Unknown COMPREHENSIVE METABOLIC 07864 BUN 21 mg/dL 2016 Unknown COMPREHENSIVE METABOLIC 82540 ALBUMIN 4.4 g/dL 2016 Unknown COMPREHENSIVE METABOLIC 43746 CHLORIDE 103 mmol/L 12/21 Unknown COMPREHENSIVE METABOLIC 27965 Bili Total 0.7 mg/dL 12/21 Unknown COMPREHENSIVE METABOLIC 25573 ALK PHOS 86 U/L 2016 Unknown COMPREHENSIVE METABOLIC 00155 SODIUM 141 mmol/L 12/21 Unknown COMPREHENSIVE METABOLIC 15605 CREATININE 0.75 mg/dL 12/03 Unknown COMPREHENSIVE METABOLIC 47900 CALCIUM 9.2 mg/dL 2016 Unknown COMPREHENSIVE METABOLIC 76174 POTASSIUM 3.8 mmol/L 12/21 Unknown COMPREHENSIVE METABOLIC 18558 Total Protein 7.3 g/dL Unknown COMPREHENSIVE METABOLIC 40907 Glucose 95 mg/dL 2016 Unknown COMPREHENSIVE METABOLIC 63014 Bicarbonate 32 mmol/L 12/03 Unknown COMPREHENSIVE METABOLIC 98805 AGAP 6 mmol/L 2016 Unknown LIPID GROUP 15767 Cholesterol 154 mg/dL 12/21/2016 Unkno wn LIPID GROUP 98936 Triglyceride 51 mg/dL 12/21/2016 Unkn own LIPID GROUP 10622 HDL CHOLESTEROL 61 mg/dL 12/21/2016 U nknown LIPID GROUP 03474 Chol/HDL Ratio 2.52 ratio 12/21/2016 U nknown LIPID GROUP 45009 NON-HDL Chol 93 mg/dL 12/21/2016 Unkn own LIPID GROUP 51279 LDL Cholesterol 83 mg/dL 12/21/2016 U nknown Procedures Procedure Codes Date INFLUENZA ASSAY W/OPTIC CPT-4: 42885 04/21/2019 INFLUENZA ASSAY W/OPTIC CPT-4: 40821 04/24/2017 SPECIMEN HANDLING OFFICE-LAB CPT-4: 67506 02/24/2016 THER/PROPH/DIAG INJ SC/IM CPT-4: 24361 11/30/2015 TRIAMCINOLONE ACET INJ NOS CPT-4: J3301 11/30/2015 DEXAMETHASONE SODIUM PHOS CPT-4: J1100 11/30/2015 Vital Signs Date Vital 07/01/2019 Blood Pressure 1: 130/86 Code: 8480-6 BMI: 35.0 Code: 50887-4 Heart Rate 1: 60 bpm Height: 5'6" [...] 1: 124/72 Code: 8480-6 BMI: 35.1 Code: 01883-3 Heart Rate 1: 64 bpm Height: 5'6" Respiratory Rate: 18 bpm SpO2: 96% Tempera ture: 36.8 (C) / 98.2 (F) Weight: 221 lbs 02/13/2018 Blood Pressure 1: 138/82 Code: 8480-6 BMI: 34.5 Code: 05900-7 Heart Rate 1: 68 bpm Height: 5'7" Respiratory Rate: 18 bpm SpO2: 97% Tempera ture: 36.8 (C) / 98.2 (F) Weight: 220 lbs 04/24/2017 Blood Pressure 1: 126/78 Code: 8480-6 BMI: 35.4 Code: 92122-4 Heart Rate 1: 84 bpm Height: 5'7" Respiratory Rate: 22 bpm SpO2: 95% Tempera ture: 36.9 (C) / 98.4 (F) Weight: 226 lbs 02/24/2016 Blood Pressure 1: 128/78 Code: 8480-6 BMI: 35.6 Code: 09049-3 Heart Rate 1: 68 bpm Height: 5'7" Respiratory Rate: 20 bpm SpO2: 97% Tempera ture: 36.7 (C) / 98.1 (F) Weight: 227 lbs 11/30/2015 Blood Pressure 1: 128/78 Code: 8480-6 BMI: 36.0 Code: 62055-6 Heart Rate 1: 76 bpm Height: 5'7" Respiratory Rate: 20 bpm SpO2: 97% Tempera ture: 37.1 (C) / 98.7 (F) Weight: 230 lbs 11/10/2015 Blood Pressure 1: 136/82 Code: 8480-6 BMI: 36.0 Code: 37599-9 Heart Rate 1: 80 bpm Height: 5'7" [...] visit Encounters Encounter Performer Location Codes Date ([id number]) OFFICE/OUTPATIENT VISIT EST Diagnosis: Epigastric pain[ICD10: R10.13] Naya Tejeda [facility] CPT-4: 42579 07/03/2019 ([id number]) OFFICE/OUTPATIENT VISIT EST Diagnosis: Generalized anxiety disorder[ICD10: F41.1] Naya Kingsley [employer]ETTYANNEER [employer] CPT-4: 55255 05/15/2019 ([id number]) OFFICE/OUTPATIENT VISIT EST Diagnosis: Influenza A[ICD10: J10.1] Naay JONES SRuss KETTY NDEChristiane [facility] CPT-4: 21442 04/21/2019 ([id number]) OFFICE/OUTPATIENT VISIT EST Diagnosis: Epigastric pain[ICD10: R10.13] Diagnosis: Gastro-esophageal reflux disease without esophagitis[ICD10: K21.9] Naya Kingsley [employer] CPT-4: 02343 03/11/2019 ([id number]) OFFICE/OUTPATIENT VISIT EST Diagnosis: Stress reaction[ICD10: F43.0] Diagnosis: Insomnia[ICD10: G47.00] Naya JONES JocelinRuss KETTYND [facility] CPT-4: 01276 02/06/2019 ([id number]) PREV VISIT EST AGE 40-64 Diagnosis: Encounter for general adult medical examination without abnormal findings[ICD10: Z00.00] Diagnosis: Obstructive sleep apnea (adult) (pediatric)[ICD10: G47.33] Diagnosis: Stress reaction[ICD10: F43.0] Diagnosis: URI, ACUTE[ICD10: J06.9] Diagnosis: Insomnia[ICD10: G47.00] Naya Ileana CAMARILLO [facility] CPT-4: 49513 01/02/2019 ([id number]) PREV VISIT EST AGE 40-64 Diagnosis: Encounter for general adult medical examination without abnormal findings[ICD10: Z00.00] Diagnosis: Gastro-esophageal reflux disease without esophagitis[ICD10: K21.9] Diagnosis: Obstructive sleep apnea (adult) (pediatric)[ICD10: G47.33] Diagnosis: Mixed hyperlipidemia[ICD10: E78.2] Diagnosis: Dizziness and giddiness[ICD10: R42] Naya CEDEÑOLokesh TEJEDA [facility] CPT-4: 80004 02/13/2018 OFFICE/OUTPATIENT VISIT EST Diagnosis: Acute sinusitis, unspecified[ICD10: J01.90] Diagnosis: Viral infection, unspecified[ICD10: B34.9] Jodie CAMACHO [facility] CPT-4: 52714 04/24/2017 ([id number]) PREV VISIT EST AGE 40-64 Diagnosis: Encounter for general adult medical examination without abnormal findings[ICD10: Z00.00] Diagnosis: Encounter for gynecological examination (general) (routine) without abnormal findings[ICD10: Z01.419] Diagnosis: URI, ACUTE[ICD10: J06.9] Naya Orendrosy CEDEÑONAYA [employer] [facility] CPT-4: 60621 02/24/2016 ([id number]) OFFICE/OUTPATIENT VISIT EST Diagnosis: Other seasonal allergic rhinitis[ICD10: J30.2] Regina Sagastume NAYA Teetee CAMACHO [employer] CPT-4: 91900 11/30/2015 OFFICE/OUTPATIENT VISIT NEW Diagnosis: Mixed hyperlipidemia[ICD10: E78.2] Diagnosis: Gastro-esophageal reflux disease without esophagitis[ICD10: K21.9] Diagnosis: Allergic rhinitis due to pollen[ICD10: J30.1] Diagnosis: Obstructive sleep apnea (adult) (pediatric)[ICD10: G47.33] Naya Camachorosy CEDEÑONAYA Teetee TEJEDA [facility] CPT-4: 59235 11/10/2015 Plan of Care Planned Activity Notes Codes Status Date Visit Diagnosis Plan: Epigastric pain Discussion: Cont inue pantoprazole and pepcid q HS May use maalox prn Referral for EGD ICD-9 : 789.06 ICD-10 : R10.13 07/03/2019 Appointment: Naya Tejedatel: [address] [place], [place] [phone] [place] TELEMEDICINE 07/03/2019 Care Plan: Referral Order SNOMED-CT : 30 [id number] Pending 07/03/2019 Visit Diagnosis Plan: Chest pain Discussion: To Dr. Babatunde cid for any further workup Addendum: Came back to office with chest pain so was directly admitted to the hospital with Dr. Hess to consult Discussion: To Dr. Hess for any further workup ICD-9 : 786.50 ICD-10 : R07.9 07/01/2019 Visit Diagnosis Plan: Gastro-esophageal reflux disease without esophagitis Discussion: Add Pepcid 40mg po q PM May need EGD if Cardiac Workup normal ICD-9 : 530.81 ICD-10 : K21.9 07/01/2019 Appointment: Naya Tejeda WPtel: [address] [place], [place] [phone] [place] confirmed FOLLOW UP 07/01/2019 Patient Education: famotidine- [employer] Coupon [id number] https://www.[employer]/resources/getResource/61/[email or web address]-pz Completed 07/01/2019 Visit Diagnosis Plan: Generalized anxiety disorder Dis cussion: Restart lexapro at 5mg daily for 4 days then go to 10mg daily Recheck at end of school year ICD-9 : 300.02 ICD-10 : F41.1 05/15/2019 Appointment: Naya Tejedatel: [address] [place], [place] [phone] [place] FOLLOW UP 05/15/2019 Visit Diagnosis Plan: Influenza A Discussion: Tamiflu Supportive card Notify if worsening No work for full 5 days from symptoms and fever free at least 24hrs ICD-9 : 487.1 ICD-10 : J10.1 04/21/2019 Appointment: Naya Tejeda WPtel: [address] [place], [place] [id number] ACUTE ILLNESS 04/21/2019 Patient Education: Tamiflu- [employer] Coupon [id number] https://www.[employer]/resources/getResource/61/[email or web address] Completed 04/21/2019 Visit Diagnosis Plan: Epigastric pain Discussion: Baron ge omeprazole to pantoprazole 40mg po BID ICD-9 : 789.06 ICD-10 : R10.13 03/11/2019 Visit Diagnosis Plan: Gastro-esophageal reflux disease without esophagitis Diet: GERD diet ICD-9 : 530.81 ICD-10 : K21.9 03/11/2019 Appointment: Naya Tejeda WPtel: [address] [place] [address] FOLLOW UP 03/11/2019 Patient Education: pantoprazole- [employer] Coupon [phone] [id number] https://www.[employer]/resources/getResource/61/[email or web address]-[email or web address] Completed 03/11/2019 Visit Diagnosis Plan: Stress reaction Discussion: Incr ease escitalopram to 10mg daily Follow Up: 3 months ICD-9 : 308.9 ICD-10 : F43.0 02/06/2019 Visit Diagnosis Plan: Insomnia Discussion: Stable on t razadone ICD-9 : 780.52 ICD-10 : G47.00 02/06/2019 Appointment: Naya Tejeda WPtel: [address] [place], [place] [phone] [place] FOLLOW UP 02/06/2019 Patient Education: escitalopram oxalate- [employer] Co upon [id number] https://www.[employer]/resources/getResource/61/5z714c27-r7pf-294j-[email or web address] Completed 02/06/2019 Patient Education: trazodone- [employer] Coupon [id number] https://www.[employer]/resources/getResource/61/v1v14zt9-[email or web address]-4963-ec Completed 02/06/2019 Patient Education: escitalopram oxalate- [employer] Co upon [id number] https://www.[employer]/resources/getResource/61/[email or web address]-9sry-d5 Completed 02/06/2019 Visit Diagnosis Plan: Obstructive sleep apnea (adult) (pediatric) Discussion: Retry CPAP once sleeping pills helping ICD-9 : 327.23 ICD-10 : G47.33 01/02/2019 Visit Diagnosis Plan: Insomnia Discussion: Trial of tr azadone 50mg 1-2 po q HS prn sleep ICD-9 : 780.52 ICD-10 : G47.00 01/02/2019 Visit Diagnosis Plan: Encounter for [facility] adult medical examination without abnormal findings Discussion: Mediterranean diet Combinati on of cardio and weight bearing exercise Defers flu shot Fasting lab discussed ICD-9 : V70.9 ICD-10 : Z00.00 01/02/2019 Visit Diagnosis Plan: Stress reaction Discussion: Russell pro 5mg po q AM Follow Up: 1 months ICD-9 : 308.9 ICD-10 : F43.0 01/02/2019 Visit Diagnosis Plan: URI, ACUTE Discussion: Supportiv e care Restart ce daily ICD-9 : 465.9 ICD-10 : J06.9 01/02/2019 Appointment: [facility] [phone] [id number] [facility] 01/02/2019 Patient Education: trazodone- [employer] Coupon [id number] https://www.[employer]/resources/getResource/61/[email or web address]-[email or web address]-ka Completed 01/02/2019 Patient Education: escitalopram oxalate- [employer] Co upon [id number] https://www.[employer]/resources/getResource/61/9119361f-9499-384z-29 Completed 01/02/2019 Visit Diagnosis Plan: Gastro-esophageal reflux disease without esophagitis Discussion: Stable on omeprazole ICD-9 : 530.81 ICD-10 : K21.9 02/13/2018 Visit Diagnosis Plan: Obstructive sleep apnea (adult) (pediatric) Discussion: Discussed importance of using this routinely ICD-9 : 327.23 ICD-10 : G47.33 02/13/2018 Visit Diagnosis Plan: Dizziness and giddiness Discussi on: Discussed may be BP or BS related Will await lab results ICD-9 : 780.4 ICD-10 : R42 02/13/2018 Visit Diagnosis Plan: Encounter for [facility] adult medical examination without abnormal findings Discussion: Mammo up to date Defers flu shot Mediterranean diet Recommend add weght bearing exercise Update fasting lab Had Mammogram in July Colonoscopy up to date ICD-9 : V70.9 ICD-10 : Z00.00 02/13/2018 Appointment: Naya Tejeda WPtel: [phone] Annual Well Visit 02/13/2018 Patient Education: Patient Medication Summary Completed 06/06/2017 Care Plan: MAMMOGRAM BOTH BREASTS LOINC : 36408-1 Pending 06/06/2017 Visit Diagnosis Plan: Acute sinusitis, [...] ICD-10 : J01.90 04/24/2017 Appointment: Jodie Tran [address] [place] [address] ACUTE ILLNESS 04/24/2017 Patient Education: Patient Medication Summary Completed 04/24/2017 Patient Education: Patient Medication Summary Completed 12/08/2016 Care Plan: COMPREHEN METAB[place] : 13522-6 Pending 12/08/2016 Care Plan: ASSAY THYROID STIM HORMONE Pen ding 12/08/2016 Care Plan: LIPID PANEL LOINC : 24090-8 Pending 12/08/2016 Care Plan: CBC Pending 12/08/2016 [...] for yearly 02/24/2016 Appointment: Naya Tejeda WPtel: [address] [place] [address] [place] 02/22 confirmed~sl PAP 02/24/2016 Patient Education: Patient Medication Summary Completed 02/24/2016 Visit Plan: Injection as above Rx for al legra-d Benadryl at HS Nasal rinses, steroid nasal sprays Mucinex Vicks, humidifier, vitamin C, rest, fluids Follow up PRN 11/30/2015 Appointment: Mitesh Regina [address] ACUTE ILLNESS 11/30/2015 Patient Education: Patient Medication Summary Completed 11/30/2015 Patient Education: [facility] - Saving AutoInj - 18-64 - Dynamic Maura l ID Completed 11/30/2015 Referral: Sunil Hatch WPtel: [address] [place] [address] Referral Appointment Confirmed 11/23/2015 Visit Plan: Needs [...] weight loss 11/10/2015 Appointment: Naya Tejeda WPtel: [address] [place], [place] [phone] [place] 11/08lm ~sl11/09 CONFIRMED~sl NEW PATIENT 11/09 Patient Education: Patient Medication Summary Completed 11/10/2015 Patient Education: [facility] - Saving AutoInj - 18-64 - Dynamic Maura l ID Completed 11/10/2015 Referral: Sunil Hatch WPtel: [phone] [address] [place] Referral Appointment Requested Instructions Comment . [...]
--- OUTSIDE RECORDS SUMMARY | 2019-09-24 10:28 | XMS REPORT | CCD ---
Author Author Nadya Tejeda D.O. Organization [facility] Address [address] [place] [address] Phone Care Team Providers Care Occupational Therapy Specialist Name Role Phone PP Unavailable CCM Unavailable Summary Purpose Interface Exchange Insurance Providers Payer name Policy type / Coverage type Covered alliance party ID Effective Begin Date Effective End Date [employer] Commercial Insurance [id number] Unknown Family history Sister Diagnosis Age At [...] Unknown 1 11/10/2015 Employment Unknown Currently employed [employer] 11/10/[address]: 107767938 Has never smoked or chewed tobacco 11/10/[address]: 818572959 Never drinks alcohol 2015 Has the patient [...] Fill Instructions famotidine 40 mg tablet RxNorm: 367739 1 Tablet(s) Oral QPM 020 07/31/2019 Active pantoprazole 40 mg tablet,delayed release RxNorm: 347362 TAKE 1 TABLET BY MOUTH TWICE DAILY 06/03/2019 08/01/2019 Active Tamiflu 75 mg capsule RxNorm: 004564 1 Capsule(s) Oral two time s a day 04/21/2019 04/26/2019 Inactive pantoprazole 40 mg tablet,delayed release RxNorm: 894814 1 Tablet(s) Oral two times a day replaces omeprazole 03/11/2019 05/10/2019 Inactive escitalopram 10 mg tablet RxNorm: 108018 1 Tablet(s) Oral QD re places 5mg dose 02/06/2019 08/05/2019 Active trazodone 50 mg tablet RxNorm: 368406 1-2 Tablet(s) Ora l QPM as needed for sleep 02/06/2019 03/07/2019 Inactive escitalopram 5 mg tablet RxNorm: 227799 1 Tablet(s) Oral QAM 201802/05/2019 Inactive trazodone 50 mg tablet RxNorm: 010358 1-2 Tablet(s) Ora l QPM as needed for sleep 01/02/2019 02/05/2019 Inactive omeprazole 20 mg capsule,delayed release RxNorm: 323457 1 Capsu le(s) PO QD 07/04/2018 06/30/2019 Inactive omeprazole 20 mg capsule,delayed release RxNorm: 499347 1 Capsu le(s) PO QD 04/03/2018 07/01/2018 Inactive omeprazole 20 mg capsule,delayed release RxNorm: 215916 1 Capsu le(s) PO QD 04/03/2018 01/01/2019 Inactive omeprazole 20 mg capsule,delayed release RxNorm: 322326 1 Capsu le(s) PO QD 12/05/2017 03/04/2018 Inactive omeprazole 20 mg capsule,delayed release RxNorm: 807378 1 Capsu le(s) PO QD 09/06/2017 04/03/2018 Inactive Augmentin 875 mg-125 mg tablet RxNorm: 594812 1 Tablet(s) PO BID 05/03/2017 Inactive omeprazole 20 mg capsule,delayed release RxNorm: 203862 1 Capsu le(s) PO QD 04/19/2017 08/16/2017 Inactive omeprazole 20 mg capsule,delayed release RxNorm: 429300 1 Capsule(s) PO QD replaces 40mg daily- due for refill 03/14/2017 04/19/2017 Inactive omeprazole 20 mg capsule,delayed release RxNorm: 632804 1 Capsule(s) PO QD replaces 40mg daily 11/30/2016 02/27/2017 Inactive omeprazole 20 mg capsule,delayed release RxNorm: 498635 1 Capsule(s) PO QD replaces 40mg daily 05/03/2016 10/29/2016 Inactive cetirizine 1 mg/mL oral solution RxNorm: 8380815 1.25 Mi lliliter(s) PO QHS for runny nose 02/24/2016 02/23/2016 Inactive Mary-D 12 Hour 60 mg-120 mg tablet,extended release RxNor m: 571757 1 Tablet(s) PO BID as needed 11/30/2015 No Stop Date Active omeprazole 20 mg capsule,delayed release RxNorm: 625799 1 Capsule(s) PO QD replaces 40mg daily 11/10/2015 03/08/2016 Inactive Mary Allergy 180 mg tablet RxNorm: 989063 1 Tablet(s) PO QD No Sta rt Date Active Aspirin Child 81 mg chewable tablet RxNorm: 426891 1 Tablet(s) PO QD No Start Date Active simvastatin 20 mg tablet RxNorm: 847908 1 Tablet(s) PO QD No Start Da te Active omeprazole 40 mg capsule,delayed release RxNorm: 665347 1 Capsu le(s) PO QD No Start Date 11/09/2015 Inactive Medication Administered No Medication Administered data Immunizations No Immunization data Results Observation Observation Code Item Item Code Result Date S vice Location THYROID STIMULATING HORMONE 20948 TSH 3.245 uIU/mL 12/27/2018 Unknown GFR CALC 4576071 GFR Non Afr Amr >60 mL/min 12/27/2018 Un known GFR CALC 2999040 GFR Afr Amr >60 mL/min 12/27/2018 Unknow n FREE T4 61397 T4 Free 0.88 ng/dL 12/27/2018 Unknown [facility] 58586 Cholesterol 157 mg/dL 12/27/2018 Unkno wn [facility] 65353 Triglyceride 44 mg/dL 12/27/2018 Unkn own [facility] 71714 HDL CHOLESTEROL 61 mg/dL 12/27/2018 U nknown [facility] 59276 Chol/HDL Ratio 2.57 ratio 12/27/2018 U nknown [facility] 94406 NON-HDL Chol 96 mg/dL 12/27/2018 Unkn own [facility] 90966 LDL Cholesterol 87 mg/dL 12/27/2018 U nknown COMPREHENSIVE METABOLIC 50438 AST 19 U/L 2018 Unknown COMPREHENSIVE METABOLIC 74865 ALT 13 U/L 2018 Unknown COMPREHENSIVE METABOLIC 08346 BUN 22 mg/dL 2018 Unknown COMPREHENSIVE METABOLIC 87264 ALBUMIN 4.2 g/dL 2018 Unknown COMPREHENSIVE METABOLIC 00975 CHLORIDE 103 mmol/L 12/27 Unknown COMPREHENSIVE METABOLIC 29072 Bili Total 0.5 mg/dL 12/27 Unknown COMPREHENSIVE METABOLIC 69326 ALK PHOS 101 U/L 2018 Unknown COMPREHENSIVE METABOLIC 96595 SODIUM 141 mmol/L 12/27 Unknown COMPREHENSIVE METABOLIC 39040 CREATININE 0.76 mg/dL 12/04 Unknown COMPREHENSIVE METABOLIC 41174 CALCIUM 9.3 mg/dL 2018 Unknown COMPREHENSIVE METABOLIC 99602 POTASSIUM 3.6 mmol/L 12/27 Unknown COMPREHENSIVE METABOLIC 24122 Total Protein 7.4 g/dL Unknown COMPREHENSIVE METABOLIC 62506 Glucose 86 mg/dL 2018 Unknown COMPREHENSIVE METABOLIC 75034 Bicarbonate 31 mmol/L 12/04 Unknown COMPREHENSIVE METABOLIC 90722 AGAP 7 mmol/L 2018 Unknown COMPLETE BLOOD COUNT 2592477 WBC 4.2 10e9/L 12/28/19 19 Unknown COMPLETE BLOOD COUNT [id number] RBC 4.55 10e12/L 2018 Unknown COMPLETE BLOOD COUNT 9682468 HEMOGLOBIN 13.7 g/dL 12/28/19 19 Unknown COMPLETE BLOOD COUNT [id number] HEMATOCRIT 42.4 % 12/28/19 19 Unknown COMPLETE BLOOD COUNT 5379772 MCV 93.2 fL 9 Unknown COMPLETE BLOOD COUNT 3387396 MCH 30.1 pg 9 Unknown COMPLETE BLOOD COUNT 7716116 MCHC 32.3 g/dL 9 Unknown COMPLETE BLOOD COUNT 1194504 PLATELET COUNT 272 10e9/L Unknown COMPLETE BLOOD COUNT 6188458 Mean Plt Volume 8.9 fL Unknown COMPLETE BLOOD COUNT 1336425 Neut Auto 50.9 % 9 Unknown COMPLETE BLOOD COUNT 2811156 Lymph Auto 35.1 % 12/28/19 19 Unknown COMPLETE BLOOD COUNT 9031824 [place] Auto 9.6 % 9 Unknown COMPLETE BLOOD COUNT 1145389 RDW 12.7 % 9 Unknown COMPLETE BLOOD COUNT 2432410 Eos Auto 4.2 % 9 Unknown COMPLETE BLOOD COUNT 0455010 Baso Auto 0.2 % 9 Unknown COMPLETE BLOOD COUNT 4040496 Neutrophil Abs 2.14 10e9/L Unknown COMPLETE BLOOD COUNT 8871430 Lymphocyte Abs 1.47 10e9/L Unknown COMPLETE BLOOD COUNT 6092436 Monocyte Abs 0.40 10e9/L 12/04 Unknown COMPLETE BLOOD COUNT 5996717 Eosinophil Abs 0.18 10e9/L Unknown COMPLETE BLOOD COUNT 1100255 RDW-SD 42.1 fL 9 Unknown COMPLETE BLOOD COUNT 7623644 Basophil Abs 0.01 10e9/L 12/04 Unknown GFR CALC 1285351 GFR Non Afr Amr >60 mL/min 12/21/2016 Un known GFR CALC 2586386 GFR Afr Amr >60 mL/min 12/21/2016 Unknow n COMPLETE BLOOD COUNT 8564933 WBC 3.6 10e9/L 12/22/19 17 Unknown COMPLETE BLOOD COUNT 6557777 RBC 4.57 10e12/L 2016 Unknown COMPLETE BLOOD COUNT 6495251 HEMOGLOBIN 13.8 g/dL 12/22/19 17 Unknown COMPLETE BLOOD COUNT 6733746 HEMATOCRIT 42.4 % 12/22/19 17 Unknown COMPLETE BLOOD COUNT 2063048 MCV 92.8 fL 7 Unknown COMPLETE BLOOD COUNT 7339780 MCH 30.2 pg 7 Unknown COMPLETE BLOOD COUNT 0261396 MCHC 32.5 g/dL 7 Unknown COMPLETE BLOOD COUNT 1769757 PLATELET COUNT 225 10e9/L Unknown COMPLETE BLOOD COUNT 3535022 Mean Plt Volume 9.0 fL Unknown COMPLETE BLOOD COUNT 7922970 Neut Auto 45.6 % 7 Unknown COMPLETE BLOOD COUNT 7499228 Lymph Auto 37.3 % 12/22/19 17 Unknown COMPLETE BLOOD COUNT 5160158 [place] Auto 11.0 % 7 Unknown COMPLETE BLOOD COUNT 1830701 RDW 12.6 % 7 Unknown COMPLETE BLOOD COUNT 6051339 Eos Auto 5.5 % 7 Unknown COMPLETE BLOOD COUNT 0849826 Baso Auto 0.6 % 7 Unknown COMPLETE BLOOD COUNT 8755297 Neutrophil Abs 1.64 10e9/L Unknown COMPLETE BLOOD COUNT 6492585 Lymphocyte Abs 1.34 10e9/L Unknown COMPLETE BLOOD COUNT 3274312 Monocyte Abs 0.40 10e9/L 12/03 Unknown COMPLETE BLOOD COUNT 5096827 Eosinophil Abs 0.20 10e9/L Unknown COMPLETE BLOOD COUNT 9410666 RDW-SD 42.0 fL 7 Unknown COMPLETE BLOOD COUNT 9595219 Basophil Abs 0.02 10e9/L 12/03 Unknown THYROID STIMULATING HORMONE 49857 TSH 3.423 uIU/mL 12/21/2016 Unknown COMPREHENSIVE METABOLIC 27248 AST 23 U/L 2016 Unknown COMPREHENSIVE METABOLIC 44968 ALT 18 U/L 2016 Unknown COMPREHENSIVE METABOLIC 23095 BUN 21 mg/dL 2016 Unknown COMPREHENSIVE METABOLIC 50422 ALBUMIN 4.4 g/dL 2016 Unknown COMPREHENSIVE METABOLIC 62006 CHLORIDE 103 mmol/L 12/21 Unknown COMPREHENSIVE METABOLIC 80230 Bili Total 0.7 mg/dL 12/21 Unknown COMPREHENSIVE METABOLIC 00806 ALK PHOS 86 U/L 2016 Unknown COMPREHENSIVE METABOLIC 63462 SODIUM 141 mmol/L 12/21 Unknown COMPREHENSIVE METABOLIC 72271 CREATININE 0.75 mg/dL 12/03 Unknown COMPREHENSIVE METABOLIC 75764 CALCIUM 9.2 mg/dL 2016 Unknown COMPREHENSIVE METABOLIC 27904 POTASSIUM 3.8 mmol/L 12/21 Unknown COMPREHENSIVE METABOLIC 69199 Total Protein 7.3 g/dL Unknown COMPREHENSIVE METABOLIC 66481 Glucose 95 mg/dL 2016 Unknown COMPREHENSIVE METABOLIC 95328 Bicarbonate 32 mmol/L 12/03 Unknown COMPREHENSIVE METABOLIC 42651 AGAP 6 mmol/L 2016 Unknown LIPID GROUP 70464 Cholesterol 154 mg/dL 12/21/2016 Unkno wn LIPID GROUP 63820 Triglyceride 51 mg/dL 12/21/2016 Unkn own LIPID GROUP 71564 HDL CHOLESTEROL 61 mg/dL 12/21/2016 U nknown LIPID GROUP 66520 Chol/HDL Ratio 2.52 ratio 12/21/2016 U nknown LIPID GROUP 74312 NON-HDL Chol 93 mg/dL 12/21/2016 Unkn own LIPID GROUP 98995 LDL Cholesterol 83 mg/dL 12/21/2016 U nknown Procedures Procedure Codes Date INFLUENZA ASSAY W/OPTIC CPT-4: 60639 04/21/2019 INFLUENZA ASSAY W/OPTIC CPT-4: 18190 04/24/2017 SPECIMEN HANDLING OFFICE-LAB CPT-4: 19843 02/24/2016 THER/PROPH/DIAG INJ SC/IM CPT-4: 26711 11/30/2015 TRIAMCINOLONE ACET INJ NOS CPT-4: J3301 11/30/2015 DEXAMETHASONE SODIUM PHOS CPT-4: J1100 11/30/2015 Vital Signs Date Vital 07/01/2019 Blood Pressure 1: 130/86 Code: 8480-6 BMI: 35.0 Code: 16632-9 Heart Rate 1: 60 bpm Height: 5'6" [...] 1: 124/72 Code: 8480-6 BMI: 35.1 Code: 47663-1 Heart Rate 1: 64 bpm Height: 5'6" Respiratory Rate: 18 bpm SpO2: 96% Tempera ture: 36.8 (C) / 98.2 (F) Weight: 221 lbs 02/13/2018 Blood Pressure 1: 138/82 Code: 8480-6 BMI: 34.5 Code: 26795-8 Heart Rate 1: 68 bpm Height: 5'7" Respiratory Rate: 18 bpm SpO2: 97% Tempera ture: 36.8 (C) / 98.2 (F) Weight: 220 lbs 04/24/2017 Blood Pressure 1: 126/78 Code: 8480-6 BMI: 35.4 Code: 72177-6 Heart Rate 1: 84 bpm Height: 5'7" Respiratory Rate: 22 bpm SpO2: 95% Tempera ture: 36.9 (C) / 98.4 (F) Weight: 226 lbs 02/24/2016 Blood Pressure 1: 128/78 Code: 8480-6 BMI: 35.6 Code: 31699-3 Heart Rate 1: 68 bpm Height: 5'7" Respiratory Rate: 20 bpm SpO2: 97% Tempera ture: 36.7 (C) / 98.1 (F) Weight: 227 lbs 11/30/2015 Blood Pressure 1: 128/78 Code: 8480-6 BMI: 36.0 Code: 00420-6 Heart Rate 1: 76 bpm Height: 5'7" Respiratory Rate: 20 bpm SpO2: 97% Tempera ture: 37.1 (C) / 98.7 (F) Weight: 230 lbs 11/10/2015 Blood Pressure 1: 136/82 Code: 8480-6 BMI: 36.0 Code: 08859-0 Heart Rate 1: 80 bpm Height: 5'7" [...] visit Encounters Encounter Performer Location Codes Date ([id number]) OFFICE/OUTPATIENT VISIT EST Diagnosis: Epigastric pain[ICD10: R10.13] [facility] CPT-[facility]: 21587 07/03/2019 ([id number]) OFFICE/OUTPATIENT VISIT EST Diagnosis: Generalized anxiety disorder[ICD10: F41.1] Karen TEJEDA Quewey CPT-4: 15550 05/15/2019 ([id number]) OFFICE/OUTPATIENT VISIT EST Diagnosis: Influenza A[ICD10: J10.1] Karen [facility] CPT-4: 92797 04/21/2019 ([id number]) OFFICE/OUTPATIENT VISIT EST Diagnosis: Epigastric pain[ICD10: R10.13] Diagnosis: Gastro-esophageal reflux disease without esophagitis[ICD10: K21.9] Karen TEJEDA Quewey CPT-4: 01408 03/11/2019 ([id number]) OFFICE/OUTPATIENT VISIT EST Diagnosis: Stress reaction[ICD10: F43.0] Diagnosis: Insomnia[ICD10: G47.00] Karen CAMACHO [facility] [employer] CPT-4: 25170 02/06/2019 ([id number]) PREV VISIT EST AGE 40-64 Diagnosis: Encounter for general adult medical examination without abnormal findings[ICD10: Z00.00] Diagnosis: Obstructive sleep apnea (adult) (pediatric)[ICD10: G47.33] Diagnosis: Stress reaction[ICD10: F43.0] Diagnosis: URI, ACUTE[ICD10: J06.9] Diagnosis: Insomnia[ICD10: G47.00] Karen CAMACHO [place] CPT-4: 35711 01/02/2019 ([id number]) PREV VISIT EST AGE 40-64 Diagnosis: Encounter for general adult medical examination without abnormal findings[ICD10: Z00.00] Diagnosis: Gastro-esophageal reflux disease without esophagitis[ICD10: K21.9] Diagnosis: Obstructive sleep apnea (adult) (pediatric)[ICD10: G47.33] Diagnosis: Mixed hyperlipidemia[ICD10: E78.2] Diagnosis: Dizziness and giddiness[ICD10: R42] Karen Ileana TEJEDA [employer] [facility] CPT-4: 66175 02/13/2018 OFFICE/OUTPATIENT VISIT EST Diagnosis: Acute sinusitis, unspecified[ICD10: J01.90] Diagnosis: Viral infection, unspecified[ICD10: B34.9] Jodie TEJEDA [employer] [facility] CPT-4: 69616 04/24/2017 ([id number]) PREV VISIT EST AGE 40-64 Diagnosis: Encounter for general adult medical examination without abnormal findings[ICD10: Z00.00] Diagnosis: Encounter for gynecological examination (general) (routine) without abnormal findings[ICD10: Z01.419] Diagnosis: URI, ACUTE[ICD10: J06.9] Karen GODOY [employer] [facility] CPT-4: 94093 02/24/2016 ([id number]) OFFICE/OUTPATIENT VISIT EST Diagnosis: Other seasonal allergic rhinitis[ICD10: J30.2] Regina CAMACHO [employer] [facility] CPT-4: 61420 11/30/2015 OFFICE/OUTPATIENT VISIT NEW Diagnosis: Mixed hyperlipidemia[ICD10: E78.2] Diagnosis: Gastro-esophageal reflux disease without esophagitis[ICD10: K21.9] Diagnosis: Allergic rhinitis due to pollen[ICD10: J30.1] Diagnosis: Obstructive sleep apnea (adult) (pediatric)[ICD10: G47.33] Karen CAMACHO [employer] [facility] CPT-4: 18432 11/10/2015 Plan of Care Planned Activity Notes Codes Status Date Visit Diagnosis Plan: Epigastric pain Discussion: Cont inue pantoprazole and pepcid q HS May use maalox prn Referral for EGD ICD-9 : 789.06 ICD-10 : R10.13 07/03/2019 Care Plan: Referral Order SNOMED-CT : 30 0296200 Pending 07/03/2019 Visit Diagnosis Plan: Gastro-esophageal reflux [...] 786.50 ICD-10 : R07.9 07/01/2019 Appointment: Karen Tejeda WPtel: [address] [place] [address] confirmed FOLLOW UP 07/01/2019 Patient Education: famotidine- [employer] Coupon [id number] https://www.[employer]/sampleNASOFORM/resources/getResource/61/74d25244-v71c-7061-ie Completed 07/01/2019 Visit Diagnosis Plan: Generalized anxiety disorder Dis cussion: Restart lexapro at 5mg daily for 4 days then go to 10mg daily Recheck at end of school year ICD-9 : 300.02 ICD-10 : F41.1 05/15/2019 Appointment: Karen Tejeda WPtel: [address] [place] [address] [place] FOLLOW UP 05/15/2019 Visit Diagnosis Plan: Influenza A Discussion: Tamiflu Supportive card Notify if worsening No work for full 5 days from symptoms and fever free at least 24hrs ICD-9 : 487.1 ICD-10 : J10.1 04/21/2019 Appointment: Karen Tejeda WPtel: [address] [place] [address] ACUTE ILLNESS 04/21/2019 Patient Education: Tamiflu- [employer] Coupon [id number] https://www.[employer] Fashion/samplemd/resources/getResource/61/e200ua7f-3701-52e1-7z Completed 04/21/2019 Visit Diagnosis Plan: Gastro-esophageal reflux disease without esophagitis Diet: GERD diet ICD-9 : 530.81 ICD-10 : K21.9 03/11/2019 Visit Diagnosis Plan: Epigastric pain Discussion: Baron ge omeprazole to pantoprazole 40mg po BID ICD-9 : 789.06 ICD-10 : R10.13 03/11/2019 Appointment: Karen Tejeda WPtel: [address] [place], [place] [address] FOLLOW UP 03/11/2019 Patient Education: pantoprazole- [employer] Coupon [phone] https://www.[employer]ensity/resources/getResource/61/63808826-77c4-2n45-a7 Completed 03/11/2019 Visit Diagnosis Plan: Insomnia Discussion: Stable on t razadone ICD-9 : 780.52 ICD-10 : G47.00 02/06/2019 Visit Diagnosis Plan: Stress reaction Discussion: Incr ease escitalopram to 10mg daily Follow Up: 3 months ICD-9 : 308.9 ICD-10 : F43.0 02/06/2019 Appointment: Karen Tejeda WPtel: [facility] FOLLOW UP 02/06/2019 Patient Education: escitalopram oxalate- [employer] Co upon [id number] https://www.[employer]/Attensity/resources/getResource/61/2y601q03-h2jp-211b-54 Completed 02/06/2019 Patient Education: trazodone- [employer] Coupon [id number] 59 https://www.[employer]/Attensity/resources/getResource/61/n3c74le6-l66b-1989-km Completed 02/06/2019 Patient Education: escitalopram oxalate- [employer] Co upon [id number] https://www.[employer]/Attensity/resources/getResource/61/09ug7527-0r5u-9yze-p8 Completed 02/06/2019 Visit Diagnosis Plan: Obstructive sleep apnea (adult) (pediatric) Discussion: Retry CPAP once sleeping pills helping ICD-9 : 327.23 ICD-10 : G47.33 01/02/2019 Visit Diagnosis Plan: URI, ACUTE Discussion: Supportiv e care Restart mary daily ICD-9 : 465.9 ICD-10 : J06.9 01/02/2019 Visit Diagnosis Plan: Stress reaction Discussion: [place] pro 5mg po q AM Follow Up: 1 months ICD-9 : 308.9 ICD-10 : F43.0 01/02/2019 Visit Diagnosis Plan: Encounter for gene [...] G47.00 01/02/2019 Appointment: [facility]el[facility] [address] [facility] [facility] Well Visit 01/02/2019 Patient Education: trazodone- [employer] Coupon [id number] https://www.[employer]/Attensity/resources/getResource/61/1l1j09a2-v99y-04eb-ws Completed 01/02/2019 Patient Education: escitalopram oxalate- [employer] Co upon [id number] https://www.[employer]/sampleNASOFORM/resources/getResource/61/7583532i-6644-225v-38 Completed 01/02/2019 Visit Diagnosis Plan: Gastro-esophageal reflux [...] : R42 02/13/2018 Appointment: [facility] Te[facility]eda WPtel[facility] [address] [facility] [facility] Well Visit 02/13/2018 Patient Education: Patient Medication Summary Completed 06/06/2017 Care Plan: MAMMOGRAM BOTH BREASTS LOINC : 39534-4 Pending 06/06/2017 Visit Diagnosis Plan: Acute sinusitis, unspecified Dis cussion: augmentin for symptom relief. instructed to use humidifier at home, hot steam from shower for relief and tylenol/ibuprofen for pain or fever. saline up nares often. take probiotic or consume yogurt to reduce risk of yeast infection. call or rtc if new or worsening symptoms. take mary d to assist with drainage production. ICD-9 : 461.9 ICD-10 : J01.90 04/24/2017 Appointment: Jodie Tran [address] [place] [address] ACUTE ILLNESS 04/24/2017 Patient Education: Patient Medication Summary Completed 04/24/2017 Patient Education: Patient Medication Summary Completed 12/08/2016 Care Plan: [place] : [address]-7 Pending 12/08/2016 Care Plan: ASSAY THYROID STIM HORMONE Pen ding 12/08/2016 Care Plan: LIPID PANEL LOINC : 49910-8 Pending 12/08/2016 Care Plan: CBC Pending 12/08/2016 [...] for yearly 02/24/2016 Appointment: [facility]eda [facility]Ptel[facility] [address] [facility] 02/22 confirmed~sl PAP 02/24/2016 Patient Education: Patient Medication Summary Completed 02/24/2016 Visit Plan: Injection as above Rx for al legra-d Benadryl at HS Nasal rinses, steroid nasal sprays Mucinex Vicks, humidifier, vitamin C, rest, fluids Follow up PRN 11/30/2015 Appointment: Regina Sagastume [address] [facility] ACUTE ILLNESS 11/30/2015 Patient Education: Patient Medication Summary Completed 11/30/2015 Patient Education: [facility] - Saving AutoInj - 18-64 - Dynamic Maura l ID Completed 11/30/2015 Referral: Sunil Hatch WPtel: [address] [address] [place] Referral Appointment Confirmed 11/23/2015 Visit Plan: Needs [...] weight loss 11/10/2015 Appointment: Karen Tejeda WPtel: [address] [place] [address] 11/08lm ~sl11/09 CONFIRMED~sl NEW PATIENT 11/09 Patient Education: Patient Medication Summary Completed 11/10/2015 Patient Education: [facility] - Saving AutoInj - 18-64 - Dynamic Maura l ID Completed 11/10/2015 Referral: Sunil Hatch WPtel: [address] [address] [place] Referral Appointment Requested Instructions Comment . Supportive care. Rest, Fluids, Tyleno l/Motrin prn fever or bodyaches. Notify if worsening symptoms. Pap done Due for Mammogram in June Obtain fasting lab from December Fwup prn and 1 year for yearly . Injection as above Rx for mary-d Benadryl at HS Nasal rinses, steroid nasal [...]
--- OUTSIDE RECORDS SUMMARY | 2019-09-24 10:29 | XMS REPORT | CCD ---
Author Author Nadya Tejeda D.O. Organization KAREN TEJEDA DO [facility] Address [address] [place] [address] Phone Care Team Providers Care Field Assistant Name Role Phone PP Unavailable CCM Unavailable Summary Purpose Interface Exchange Insurance Providers Payer name Policy type / Coverage type Covered green party ID Effective Begin Date Effective End Date [employer] Commercial Insurance [id number] Unknown Family history Sister Diagnosis Age At [...] Unknown 1 11/10/2015 Employment Unknown Currently employed [employer] 11/10/[address]: 354813915 Has never smoked or chewed tobacco 11/10/[address]: 205234376 Never drinks alcohol 2015 Has the patient [...] Fill Instructions famotidine 40 mg tablet RxNorm: 830837 1 Tablet(s) Oral QPM 020 07/31/2019 Active pantoprazole 40 mg tablet,delayed release RxNorm: 534387 TAKE 1 TABLET BY MOUTH TWICE DAILY 06/03/2019 08/01/2019 Active Tamiflu 75 mg capsule RxNorm: 938574 1 Capsule(s) Oral two time s a day 04/21/2019 04/26/2019 Inactive pantoprazole 40 mg tablet,delayed release RxNorm: 009012 1 Tablet(s) Oral two times a day replaces omeprazole 03/11/2019 05/10/2019 Inactive escitalopram 10 mg tablet RxNorm: 731341 1 Tablet(s) Oral QD re places 5mg dose 02/06/2019 08/05/2019 Active trazodone 50 mg tablet RxNorm: 396324 1-2 Tablet(s) Ora l QPM as needed for sleep 02/06/2019 03/07/2019 Inactive escitalopram 5 mg tablet RxNorm: 860167 1 Tablet(s) Oral QAM 201802/05/2019 Inactive trazodone 50 mg tablet RxNorm: 959761 1-2 Tablet(s) Ora l QPM as needed for sleep 01/02/2019 02/05/2019 Inactive omeprazole 20 mg capsule,delayed release RxNorm: 680500 1 Capsu le(s) PO QD 07/04/2018 06/30/2019 Inactive omeprazole 20 mg capsule,delayed release RxNorm: 560591 1 Capsu le(s) PO QD 04/03/2018 07/01/2018 Inactive omeprazole 20 mg capsule,delayed release RxNorm: 445917 1 Capsu le(s) PO QD 04/03/2018 01/01/2019 Inactive omeprazole 20 mg capsule,delayed release RxNorm: 780934 1 Capsu le(s) PO QD 12/05/2017 03/04/2018 Inactive omeprazole 20 mg capsule,delayed release RxNorm: 640203 1 Capsu le(s) PO QD 09/06/2017 04/03/2018 Inactive Augmentin 875 mg-125 mg tablet RxNorm: 742641 1 Tablet(s) PO BID 05/03/2017 Inactive omeprazole 20 mg capsule,delayed release RxNorm: 505075 1 Capsu le(s) PO QD 04/19/2017 08/16/2017 Inactive omeprazole 20 mg capsule,delayed release RxNorm: 833179 1 Capsule(s) PO QD replaces 40mg daily- due for refill 03/14/2017 04/19/2017 Inactive omeprazole 20 mg capsule,delayed release RxNorm: 791558 1 Capsule(s) PO QD replaces 40mg daily 11/30/2016 02/27/2017 Inactive omeprazole 20 mg capsule,delayed release RxNorm: 779299 1 Capsule(s) PO QD replaces 40mg daily 05/03/2016 10/29/2016 Inactive cetirizine 1 mg/mL oral solution RxNorm: 8354680 1.25 Mi lliliter(s) PO QHS for runny nose 02/24/2016 02/23/2016 Inactive Mary-D 12 Hour 60 mg-120 mg tablet,extended release RxNor m: 258143 1 Tablet(s) PO BID as needed 11/30/2015 No Stop Date Active omeprazole 20 mg capsule,delayed release RxNorm: 355576 1 Capsule(s) PO QD replaces 40mg daily 11/10/2015 03/08/2016 Inactive Mary Allergy 180 mg tablet RxNorm: 995640 1 Tablet(s) PO QD No Sta rt Date Active Aspirin Child 81 mg chewable tablet RxNorm: 998827 1 Tablet(s) PO QD No Start Date Active simvastatin 20 mg tablet RxNorm: 540618 1 Tablet(s) PO QD No Start Da te Active omeprazole 40 mg capsule,delayed release RxNorm: 857482 1 Capsu le(s) PO QD No Start Date 11/09/2015 Inactive Medication Administered No Medication Administered data Immunizations No Immunization data Results Observation Observation Code Item Item Code Result Date S vice Location THYROID STIMULATING HORMONE 08609 TSH 3.245 uIU/mL 12/27/2018 Unknown GFR CALC 0681924 GFR Non Afr Amr >60 mL/min 12/27/2018 Un known GFR CALC 9553579 GFR Afr Amr >60 mL/min 12/27/2018 Unknow n FREE T4 93667 T4 Free 0.88 ng/dL 12/27/2018 Unknown LIPID GROUP 05641 Cholesterol 157 mg/dL 12/27/2018 Unkno wn LIPID GROUP 44125 Triglyceride 44 mg/dL 12/27/2018 Unkn own LIPID GROUP 44407 HDL CHOLESTEROL 61 mg/dL 12/27/2018 U nknown LIPID GROUP 76854 Chol/HDL Ratio 2.57 ratio 12/27/2018 U nknown LIPID GROUP 89961 NON-HDL Chol 96 mg/dL 12/27/2018 Unkn own LIP[facility] GROUP 07184 LDL Cholesterol 87 mg/dL 12/27/2018 U nknown COMPREHENSIVE METABOLIC 10293 AST 19 U/L 2018 Unknown COMPREHENSIVE METABOLIC 74061 ALT 13 U/L 2018 Unknown COMPREHENSIVE METABOLIC 87101 BUN 22 mg/dL 2018 Unknown COMPREHENSIVE METABOLIC 78581 ALBUMIN 4.2 g/dL 2018 Unknown COMPREHENSIVE METABOLIC 74254 CHLORIDE 103 mmol/L 12/27 Unknown COMPREHENSIVE METABOLIC 70386 Bili Total 0.5 mg/dL 12/27 Unknown COMPREHENSIVE METABOLIC 57579 ALK PHOS 101 U/L 2018 Unknown COMPREHENSIVE METABOLIC 37721 SODIUM 141 mmol/L 12/27 Unknown COMPREHENSIVE METABOLIC 64775 CREATININE 0.76 mg/dL 12/04 Unknown COMPREHENSIVE METABOLIC 17684 CALCIUM 9.3 mg/dL 2018 Unknown COMPREHENSIVE METABOLIC 91607 POTASSIUM 3.6 mmol/L 12/27 Unknown COMPREHENSIVE METABOLIC 76153 Total Protein 7.4 g/dL Unknown COMPREHENSIVE METABOLIC 77972 Glucose 86 mg/dL 2018 Unknown COMPREHENSIVE METABOLIC 81791 Bicarbonate 31 mmol/L 12/04 Unknown COMPREHENSIVE METABOLIC 20367 AGAP 7 mmol/L 2018 Unknown COMPLETE BLOOD COUNT 2679321 WBC 4.2 10e9/L 12/28/19 19 Unknown COMPLETE BLOOD COUNT [id number] RBC 4.55 10e12/L 2018 Unknown COMPLETE BLOOD COUNT 6377512 HEMOGLOBIN 13.7 g/dL 12/28/19 19 Unknown COMPLETE BLOOD COUNT 6443836 HEMATOCRIT 42.4 % 12/28/19 19 Unknown COMPLETE BLOOD COUNT 4169206 MCV 93.2 fL 9 Unknown COMPLETE BLOOD COUNT 3173211 MCH 30.1 pg 9 Unknown COMPLETE BLOOD COUNT 3630474 MCHC 32.3 g/dL 9 Unknown COMPLETE BLOOD COUNT 2521818 PLATELET COUNT 272 10e9/L Unknown COMPLETE BLOOD COUNT 5992509 Mean Plt Volume 8.9 fL Unknown COMPLETE BLOOD COUNT 4104490 Neut Auto 50.9 % 9 Unknown COMPLETE BLOOD COUNT 1015035 Lymph Auto 35.1 % 12/28/19 19 Unknown COMPLETE BLOOD COUNT 1110674 [place] Auto 9.6 % 9 Unknown COMPLETE BLOOD COUNT 8956629 RDW 12.7 % 9 Unknown COMPLETE BLOOD COUNT 1425211 Eos Auto 4.2 % 9 Unknown COMPLETE BLOOD COUNT 8451557 Baso Auto 0.2 % 9 Unknown COMPLETE BLOOD COUNT 3539565 Neutrophil Abs 2.14 10e9/L Unknown COMPLETE BLOOD COUNT 6337120 Lymphocyte Abs 1.47 10e9/L Unknown COMPLETE BLOOD COUNT 0622913 Monocyte Abs 0.40 10e9/L 12/04 Unknown COMPLETE BLOOD COUNT 0204347 Eosinophil Abs 0.18 10e9/L Unknown COMPLETE BLOOD COUNT 7805779 RDW-SD 42.1 fL 9 Unknown COMPLETE BLOOD COUNT 2436850 Basophil Abs 0.01 10e9/L 12/04 Unknown GFR CALC 8881671 GFR Non Afr Amr >60 mL/min 12/21/2016 Un known GFR CALC 8540668 GFR Afr Amr >60 mL/min 12/21/2016 Unknow n COMPLETE BLOOD COUNT 9881960 WBC 3.6 10e9/L 12/22/19 17 Unknown COMPLETE BLOOD COUNT 0598051 RBC 4.57 10e12/L 2016 Unknown COMPLETE BLOOD COUNT 7220463 HEMOGLOBIN 13.8 g/dL 12/22/19 17 Unknown COMPLETE BLOOD COUNT 4454316 HEMATOCRIT 42.4 % 12/22/19 17 Unknown COMPLETE BLOOD COUNT 9349337 MCV 92.8 fL 7 Unknown COMPLETE BLOOD COUNT 8691314 MCH 30.2 pg 7 Unknown COMPLETE BLOOD COUNT 5384855 MCHC 32.5 g/dL 7 Unknown COMPLETE BLOOD COUNT 0244374 PLATELET COUNT 225 10e9/L Unknown COMPLETE BLOOD COUNT 1942403 Mean Plt Volume 9.0 fL Unknown COMPLETE BLOOD COUNT 2927479 Neut Auto 45.6 % 7 Unknown COMPLETE BLOOD COUNT 3308440 Lymph Auto 37.3 % 12/22/19 17 Unknown COMPLETE BLOOD COUNT 6432301 [place] Auto 11.0 % 7 Unknown COMPLETE BLOOD COUNT 6679468 RDW 12.6 % 7 Unknown COMPLETE BLOOD COUNT 3215716 Eos Auto 5.5 % 7 Unknown COMPLETE BLOOD COUNT 9489437 Baso Auto 0.6 % 7 Unknown COMPLETE BLOOD COUNT 9828911 Neutrophil Abs 1.64 10e9/L Unknown COMPLETE BLOOD COUNT 1071765 Lymphocyte Abs 1.34 10e9/L Unknown COMPLETE BLOOD COUNT 9007917 Monocyte Abs 0.40 10e9/L 12/03 Unknown COMPLETE BLOOD COUNT 3361893 Eosinophil Abs 0.20 10e9/L Unknown COMPLETE BLOOD COUNT 0912312 RDW-SD 42.0 fL 7 Unknown COMPLETE BLOOD COUNT 9790462 Basophil Abs 0.02 10e9/L 12/03 Unknown THYROID STIMULATING HORMONE 01155 TSH 3.423 uIU/mL 12/21/2016 Unknown COMPREHENSIVE METABOLIC 58614 AST 23 U/L 2016 Unknown COMPREHENSIVE METABOLIC 01677 ALT 18 U/L 2016 Unknown COMPREHENSIVE METABOLIC 51728 BUN 21 mg/dL 2016 Unknown COMPREHENSIVE METABOLIC 94136 ALBUMIN 4.4 g/dL 2016 Unknown COMPREHENSIVE METABOLIC 95860 CHLORIDE 103 mmol/L 12/21 Unknown COMPREHENSIVE METABOLIC 70835 Bili Total 0.7 mg/dL 12/21 Unknown COMPREHENSIVE METABOLIC 73053 ALK PHOS 86 U/L 2016 Unknown COMPREHENSIVE METABOLIC 38782 SODIUM 141 mmol/L 12/21 Unknown COMPREHENSIVE METABOLIC 46848 CREATININE 0.75 mg/dL 12/03 Unknown COMPREHENSIVE METABOLIC 78547 CALCIUM 9.2 mg/dL 2016 Unknown COMPREHENSIVE METABOLIC 47066 POTASSIUM 3.8 mmol/L 12/21 Unknown COMPREHENSIVE METABOLIC 66323 Total Protein 7.3 g/dL Unknown COMPREHENSIVE METABOLIC 69044 Glucose 95 mg/dL 2016 Unknown COMPREHENSIVE METABOLIC 94183 Bicarbonate 32 mmol/L 12/03 Unknown COMPREHENSIVE METABOLIC 82727 AGAP 6 mmol/L 2016 Unknown LIPID GROUP 46687 Cholesterol 154 mg/dL 12/21/2016 Unkno wn LIPID GROUP 53387 Triglyceride 51 mg/dL 12/21/2016 Unkn own LIPID GROUP 33487 HDL CHOLESTEROL 61 mg/dL 12/21/2016 U nknown LIPID GROUP 85913 Chol/HDL Ratio 2.52 ratio 12/21/2016 U nknown LIPID GROUP 42656 NON-HDL Chol 93 mg/dL 12/21/2016 Unkn own LIPID GROUP 61393 LDL Cholesterol 83 mg/dL 12/21/2016 U nknown Procedures Procedure Codes Date INFLUENZA ASSAY W/OPTIC CPT-4: 02238 04/21/2019 INFLUENZA ASSAY W/OPTIC CPT-4: 62125 04/24/2017 SPECIMEN HANDLING OFFICE-LAB CPT-4: 09879 02/24/2016 THER/PROPH/DIAG INJ SC/IM CPT-4: 36619 11/30/2015 TRIAMCINOLONE ACET INJ NOS CPT-4: J3301 11/30/2015 DEXAMETHASONE SODIUM PHOS CPT-4: J1100 11/30/2015 Vital Signs Date Vital 07/01/2019 Blood Pressure 1: 130/86 Code: 8480-6 BMI: 35.0 Code: 69381-8 Heart Rate 1: 60 bpm Height: 5'6" [...] 1: 124/72 Code: 8480-6 BMI: 35.1 Code: 86675-2 Heart Rate 1: 64 bpm Height: 5'6" Respiratory Rate: 18 bpm SpO2: 96% Tempera ture: 36.8 (C) / 98.2 (F) Weight: 221 lbs 02/13/2018 Blood Pressure 1: 138/82 Code: 8480-6 BMI: 34.5 Code: 47768-2 Heart Rate 1: 68 bpm Height: 5'7" Respiratory Rate: 18 bpm SpO2: 97% Tempera ture: 36.8 (C) / 98.2 (F) Weight: 220 lbs 04/24/2017 Blood Pressure 1: 126/78 Code: 8480-6 BMI: 35.4 Code: 92607-4 Heart Rate 1: 84 bpm Height: 5'7" Respiratory Rate: 22 bpm SpO2: 95% Tempera ture: 36.9 (C) / 98.4 (F) Weight: 226 lbs 02/24/2016 Blood Pressure 1: 128/78 Code: 8480-6 BMI: 35.6 Code: 56721-6 Heart Rate 1: 68 bpm Height: 5'7" Respiratory Rate: 20 bpm SpO2: 97% Tempera ture: 36.7 (C) / 98.1 (F) Weight: 227 lbs 11/30/2015 Blood Pressure 1: 128/78 Code: 8480-6 BMI: 36.0 Code: 76267-6 Heart Rate 1: 76 bpm Height: 5'7" Respiratory Rate: 20 bpm SpO2: 97% Tempera ture: 37.1 (C) / 98.7 (F) Weight: 230 lbs 11/10/2015 Blood Pressure 1: 136/82 Code: 8480-6 BMI: 36.0 Code: 38652-8 Heart Rate 1: 80 bpm Height: 5'7" [...] visit Encounters Encounter Performer Location Codes Date ([id number]) OFFICE/OUTPATIENT VISIT EST Diagnosis: Epigastric pain[ICD10: R10.13] [facility]: 09147 07/03/2019 ([id number]) OFFICE/OUTPATIENT VISIT EST Diagnosis: Generalized anxiety disorder[ICD10: F41.1] Karen TEJEDA [employer] CPT-4: 84408 05/15/2019 ([id number]) OFFICE/OUTPATIENT VISIT EST Diagnosis: Influenza A[ICD10: J10.1] Karen [facility] CPT-4: 10941 04/21/2019 ([id number]) OFFICE/OUTPATIENT VISIT EST Diagnosis: Epigastric pain[ICD10: R10.13] Diagnosis: Gastro-esophageal reflux disease without esophagitis[ICD10: K21.9] Karen TEJEDA [employer] CPT-4: 83415 03/11/2019 ([id number]) OFFICE/OUTPATIENT VISIT EST Diagnosis: Stress reaction[ICD10: F43.0] Diagnosis: Insomnia[ICD10: G47.00] Karen [facility]ACH[facility] CPT-4: 01351 02/06/2019 ([id number]) PREV VISIT EST AGE 40-64 Diagnosis: Encounter for general adult medical examination without abnormal findings[ICD10: Z00.00] Diagnosis: Obstructive sleep apnea (adult) (pediatric)[ICD10: G47.33] Diagnosis: Stress reaction[ICD10: F43.0] Diagnosis: URI, ACUTE[ICD10: J06.9] Diagnosis: Insomnia[ICD10: G47.00] Karen CAMACHO [employer] CPT-4: 96727 01/02/2019 ([id number]) PREV VISIT EST AGE 40-64 Diagnosis: Encounter for general adult medical examination without abnormal findings[ICD10: Z00.00] Diagnosis: Gastro-esophageal reflux disease without esophagitis[ICD10: K21.9] Diagnosis: Obstructive sleep apnea (adult) (pediatric)[ICD10: G47.33] Diagnosis: Mixed hyperlipidemia[ICD10: E78.2] Diagnosis: Dizziness and giddiness[ICD10: R42] Karen Ileana TEJEDA [email or web address] [facility] CPT-4: 31340 02/13/2018 OFFICE/OUTPATIENT VISIT EST Diagnosis: Acute sinusitis, unspecified[ICD10: J01.90] Diagnosis: Viral infection, unspecified[ICD10: B34.9] Jodie TEJEDA [employer] [facility] CPT-4: 61682 04/24/2017 ([id number]) PREV VISIT EST AGE 40-64 Diagnosis: Encounter for general adult medical examination without abnormal findings[ICD10: Z00.00] Diagnosis: Encounter for gynecological examination (general) (routine) without abnormal findings[ICD10: Z01.419] Diagnosis: URI, ACUTE[ICD10: J06.9] Karen GODOY [employer] [facility] CPT-4: 35849 02/24/2016 ([id number]) OFFICE/OUTPATIENT VISIT EST Diagnosis: Other seasonal allergic rhinitis[ICD10: J30.2] Regina CAMACHO [employer] [facility] CPT-4: 56822 11/30/2015 OFFICE/OUTPATIENT VISIT NEW Diagnosis: Mixed hyperlipidemia[ICD10: E78.2] Diagnosis: Gastro-esophageal reflux disease without esophagitis[ICD10: K21.9] Diagnosis: Allergic rhinitis due to pollen[ICD10: J30.1] Diagnosis: Obstructive sleep apnea (adult) (pediatric)[ICD10: G47.33] Karen CAMACHO [employer] [facility] CPT-4: 81895 11/10/2015 Plan of Care Planned Activity Notes Codes Status Date Visit Diagnosis Plan: Epigastric pain Discussion: Cont inue pantoprazole and pepcid q HS May use maalox prn Referral for EGD ICD-9 : 789.06 ICD-10 : R10.13 07/03/2019 Care Plan: Referral Order SNOMED-CT : 30 [id number] Pending 07/03/2019 Visit Diagnosis Plan: Gastro-esophageal reflux [...] : R07.9 07/01/2019 Appointment: Karen Tejeda WPtel: [address] [place] [address] confirmed FOLLOW UP 07/01/2019 Patient Education: famotidine- Opt[employer] Coupon [id number] https://www.[employer]/sampleKurtosys/resources/getResource/61/09l93366-g52u-2246-qa Completed 07/01/2019 Visit Diagnosis Plan: Generalized anxiety disorder Dis cussion: Restart lexapro at 5mg daily for 4 days then go to 10mg daily Recheck at end of school year ICD-9 : 300.02 ICD-10 : F41.1 05/15/2019 Appointment: Karen Tejeda WPtel: [address] [place] [address] [place] FOLLOW UP 05/15/2019 Visit Diagnosis Plan: Influenza A Discussion: Tamiflu Supportive card Notify if worsening No work for full 5 days from symptoms and fever free at least 24hrs ICD-9 : 487.1 ICD-10 : J10.1 04/21/2019 Appointment: Karen Tejeda WPtel: [address] [place] [address] ACUTE ILLNESS 04/21/2019 Patient Education: Tamiflu- [employer] Coupon [id number] https://www.[employer]/samplemd/resources/getResource/61/c213hr0w-8237-70o8-0j Completed 04/21/2019 Visit Diagnosis Plan: Gastro-esophageal reflux disease without esophagitis Diet: GERD diet ICD-9 : 530.81 ICD-10 : K21.9 03/11/2019 Visit Diagnosis Plan: Epigastric pain Discussion: Baron ge omeprazole to pantoprazole 40mg po BID ICD-9 : 789.06 ICD-10 : R10.13 03/11/2019 Appointment: Karen Tejeda WPtel: [address] [place], [place] [address] FOLLOW UP 03/11/2019 Patient Education: pantoprazole- [employer] Coupon [phone] [id number] https://www.[employer]/resources/getResource/61/59537036-28x3-4c60-w9 Completed 03/11/2019 Visit Diagnosis Plan: Insomnia Discussion: Stable on t razadone ICD-9 : 780.52 ICD-10 : G47.00 02/06/2019 Visit Diagnosis Plan: Stress reaction Discussion: Incr ease escitalopram to 10mg daily Follow Up: 3 months ICD-9 : 308.9 ICD-10 : F43.0 02/06/2019 Appointment: Karen Tejeda WPtel: [facility] FOLLOW UP 02/06/2019 Patient Education: escitalopram oxalate- [employer] Co upon [id number] https://www.[employer]/resources/getResource/61/1m864d86-a7ur-965p-19 Completed 02/06/2019 Patient Education: trazodone- [employer] Coupon [id number] 59 https://www.[employer]/resources/getResource/61/s2q53kd2-v08r-5154-fa Completed 02/06/2019 Patient Education: escitalopram oxalate- [employer] Co upon [id number] https://www.[employer]/resources/getResource/61/81kk4130-1q2y-2icv-n1 Completed 02/06/2019 Visit Diagnosis Plan: Obstructive sleep apnea (adult) (pediatric) Discussion: Retry CPAP once sleeping pills helping ICD-9 : 327.23 ICD-10 : G47.33 01/02/2019 Visit Diagnosis Plan: URI, ACUTE Discussion: Supportiv e care Restart mary daily ICD-9 : 465.9 ICD-10 : J06.9 01/02/2019 Visit Diagnosis Plan: Stress reaction Discussion: Burns pro 5mg po q AM Follow Up: [...] G47.00 01/02/2019 [facility]ointment: [facility] [address] [facility] [facility] Visit 01/02/2019 Patient Education: trazodone- [employer] Coupon [id number] https://www.[employer]/resources/getResource/61/6s1q76t8-h57f-37cf-un Completed 01/02/2019 Patient Education: escitalopram oxalate- [employer] Co upon [id number] https://www.[employer]/sampleKurtosys/resources/getResource/61/4564535k-7855-715b-14 Completed 01/02/2019 Visit Diagnosis Plan: Gastro-esophageal reflux [...] R42 02/13/2018 Appointment: [facility]eda [facility]el[facility] [address] [facility] [facility] Well Visit 02/13/2018 Patient Education: Patient Medication Summary Completed 06/06/2017 Care Plan: MAMMOGRAM BOTH BREASTS LOINC : 52146-3 Pending 06/06/2017 Visit Diagnosis Plan: Acute sinusitis, [...] ICD-10 : J01.90 04/24/2017 Appointment: Jodie Tran [address] [place] [address] ACUTE ILLNESS 04/24/2017 Patient Education: Patient Medication Summary Completed 04/24/2017 Patient Education: Patient Medication Summary Completed 12/08/2016 Care Plan: COMPREHEN METABOLIC [place] : 62304-2 Pending 12/08/2016 Care Plan: ASSAY THYROID STIM HORMONE Pen ding 12/08/2016 Care Plan: LIPID PANEL LOINC : 13533-8 Pending 12/08/2016 Care Plan: CBC Pending 12/08/2016 [...] yearly 02/24/2016 Appointment: [facility] Te[facility]eda [facility]Ptel[facility] [address] [facility] 02/22 confirmed~sl PAP 02/24/2016 Patient Education: Patient Medication Summary Completed 02/24/2016 Visit Plan: Injection as above Rx for al legra-d Benadryl at HS Nasal rinses, steroid nasal sprays Mucinex Vicks, humidifier, vitamin C, rest, fluids Follow up PRN 11/30/2015 Appointment: Regina Sagastume [address] [facility] ACUTE ILLNESS 11/30/2015 Patient Education: Patient Medication Summary Completed 11/30/2015 Patient Education: [facility] - Saving AutoInj - 18-64 - Dynamic Maura l ID Completed 11/30/2015 Referral: Sunil Hatch WPtel: [address] [address] [place] Referral Appointment Confirmed 11/23/2015 Visit Plan: [...] weight loss 11/10/2015 Appointment: Karen Tejeda WPtel: [address] [place] [address] 11/08lm ~sl11/09 CONFIRMED~sl NEW PATIENT 11/09 Patient Education: Patient Medication Summary Completed 11/10/2015 Patient Education: [facility] - Saving AutoInj - 18-64 - Dynamic Maura l ID Completed 11/10/2015 Referral: Sunil Hatch WPtel: [address] [address] [place] Referral Appointment Requested Instructions Comment . [...]
--- OUTSIDE RECORDS SUMMARY | 2019-09-24 10:29 | XMS REPORT | CCD ---
Author Author Nadya Tejeda D.O. Organization [facility] Address [address] [place] [address] Phone Care Team Providers Care Component Assembler Supervisor Name Role Phone PP Unavailable CCM Unavailable Summary Purpose Interface Exchange Insurance Providers Payer name Policy type / Coverage type Covered libertarian ID Effective Begin Date Effective End Date AET[employer] Commercial Insurance [id number] Unknown Family history Sister Diagnosis Age At [...] Unknown 1 11/10/2015 Employment Unknown Currently employed [employer] 11/10/[address]: 033868172 Has never smoked or chewed tobacco 11/10/[address]: 358492869 Never drinks alcohol 2015 Has the patient [...] Fill Instructions famotidine 40 mg tablet RxNorm: 113515 1 Tablet(s) Oral QPM 020 07/31/2019 Active pantoprazole 40 mg tablet,delayed release RxNorm: 430432 TAKE 1 TABLET BY MOUTH TWICE DAILY 06/03/2019 08/01/2019 Active Tamiflu 75 mg capsule RxNorm: 589189 1 Capsule(s) Oral two time s a day 04/21/2019 04/26/2019 Inactive pantoprazole 40 mg tablet,delayed release RxNorm: 525043 1 Tablet(s) Oral two times a day replaces omeprazole 03/11/2019 05/10/2019 Inactive escitalopram 10 mg tablet RxNorm: 036160 1 Tablet(s) Oral QD re places 5mg dose 02/06/2019 08/05/2019 Active trazodone 50 mg tablet RxNorm: 630478 1-2 Tablet(s) Ora l QPM as needed for sleep 02/06/2019 03/07/2019 Inactive escitalopram 5 mg tablet RxNorm: 639639 1 Tablet(s) Oral QAM 201802/05/2019 Inactive trazodone 50 mg tablet RxNorm: 613466 1-2 Tablet(s) Ora l QPM as needed for sleep 01/02/2019 02/05/2019 Inactive omeprazole 20 mg capsule,delayed release RxNorm: 457541 1 Capsu le(s) PO QD 07/04/2018 06/30/2019 Inactive omeprazole 20 mg capsule,delayed release RxNorm: 101478 1 Capsu le(s) PO QD 04/03/2018 07/01/2018 Inactive omeprazole 20 mg capsule,delayed release RxNorm: 840220 1 Capsu le(s) PO QD 04/03/2018 01/01/2019 Inactive omeprazole 20 mg capsule,delayed release RxNorm: 591281 1 Capsu le(s) PO QD 12/05/2017 03/04/2018 Inactive omeprazole 20 mg capsule,delayed release RxNorm: 222524 1 Capsu le(s) PO QD 09/06/2017 04/03/2018 Inactive Augmentin 875 mg-125 mg tablet RxNorm: 755585 1 Tablet(s) PO BID 05/03/2017 Inactive omeprazole 20 mg capsule,delayed release RxNorm: 651828 1 Capsu le(s) PO QD 04/19/2017 08/16/2017 Inactive omeprazole 20 mg capsule,delayed release RxNorm: 459599 1 Capsule(s) PO QD replaces 40mg daily- due for refill 03/14/2017 04/19/2017 Inactive omeprazole 20 mg capsule,delayed release RxNorm: 964979 1 Capsule(s) PO QD replaces 40mg daily 11/30/2016 02/27/2017 Inactive omeprazole 20 mg capsule,delayed release RxNorm: 953743 1 Capsule(s) PO QD replaces 40mg daily 05/03/2016 10/29/2016 Inactive cetirizine 1 mg/mL oral solution RxNorm: 9386502 1.25 Mi lliliter(s) PO QHS for runny nose 02/24/2016 02/23/2016 Inactive Mary-D 12 Hour 60 mg-120 mg tablet,extended release RxNor m: 622252 1 Tablet(s) PO BID as needed 11/30/2015 No Stop Date Active omeprazole 20 mg capsule,delayed release RxNorm: 410915 1 Capsule(s) PO QD replaces 40mg daily 11/10/2015 03/08/2016 Inactive Mary Allergy 180 mg tablet RxNorm: 717482 1 Tablet(s) PO QD No Sta rt Date Active Aspirin Child 81 mg chewable tablet RxNorm: 384826 1 Tablet(s) PO QD No Start Date Active simvastatin 20 mg tablet RxNorm: 260588 1 Tablet(s) PO QD No Start Da te Active omeprazole 40 mg capsule,delayed release RxNorm: 175458 1 Capsu le(s) PO QD No Start Date 11/09/2015 Inactive Medication Administered No Medication Administered data Immunizations No Immunization data Results Observation Observation Code Item Item Code Result Date S vice Location THYROID STIMULATING HORMONE 84956 TSH 3.245 uIU/mL 12/27/2018 Unknown GFR CALC 6377264 GFR Non Afr Amr >60 mL/min 12/27/2018 Un known GFR CALC 7612624 GFR Afr Amr >60 mL/min 12/27/2018 Unknow n FREE T4 18960 T4 Free 0.88 ng/dL 12/27/2018 Unknown LIPID GROUP 77459 Cholesterol 157 mg/dL 12/27/2018 Unkno wn LIPID GROUP 17515 Triglyceride 44 mg/dL 12/27/2018 Unkn own L[facility] GROUP 34187 HDL CHOLESTEROL 61 mg/dL 12/27/2018 U nknown LIP[facility] GROUP 99186 Chol/HDL Ratio 2.57 ratio 12/27/2018 U nknown LIP[facility] GROUP 26013 NON-HDL Chol 96 mg/dL 12/27/2018 Unkn own LIP[facility] GROUP 13700 LDL Cholesterol 87 mg/dL 12/27/2018 U nknown COMPREHENSIVE METABOLIC 35029 AST 19 U/L 2018 Unknown COMPREHENSIVE METABOLIC 12413 ALT 13 U/L 2018 Unknown COMPREHENSIVE METABOLIC 34822 BUN 22 mg/dL 2018 Unknown COMPREHENSIVE METABOLIC 65461 ALBUMIN 4.2 g/dL 2018 Unknown COMPREHENSIVE METABOLIC 00591 CHLORIDE 103 mmol/L 12/27 Unknown COMPREHENSIVE METABOLIC 58756 Bili Total 0.5 mg/dL 12/27 Unknown COMPREHENSIVE METABOLIC 50572 ALK PHOS 101 U/L 2018 Unknown COMPREHENSIVE METABOLIC 40332 SODIUM 141 mmol/L 12/27 Unknown COMPREHENSIVE METABOLIC 35013 CREATININE 0.76 mg/dL 12/04 Unknown COMPREHENSIVE METABOLIC 68279 CALCIUM 9.3 mg/dL 2018 Unknown COMPREHENSIVE METABOLIC 37511 POTASSIUM 3.6 mmol/L 12/27 Unknown COMPREHENSIVE METABOLIC 80158 Total Protein 7.4 g/dL Unknown COMPREHENSIVE METABOLIC 46906 Glucose 86 mg/dL 2018 Unknown COMPREHENSIVE METABOLIC 83115 Bicarbonate 31 mmol/L 12/04 Unknown COMPREHENSIVE METABOLIC 34678 AGAP 7 mmol/L 2018 Unknown COMPLETE BLOOD COUNT 5697059 WBC 4.2 10e9/L 12/28/19 19 Unknown COMPLETE BLOOD COUNT 5534803 RBC 4.55 10e12/L 2018 Unknown COMPLETE BLOOD COUNT 5621519 HEMOGLOBIN 13.7 g/dL 12/28/19 19 Unknown COMPLETE BLOOD COUNT 7119898 HEMATOCRIT 42.4 % 12/28/19 19 Unknown COMPLETE BLOOD COUNT 8773002 MCV 93.2 fL 9 Unknown COMPLETE BLOOD COUNT 4672952 MCH 30.1 pg 9 Unknown COMPLETE BLOOD COUNT 4138037 MCHC 32.3 g/dL 9 Unknown COMPLETE BLOOD COUNT 3043120 PLATELET COUNT 272 10e9/L Unknown COMPLETE BLOOD COUNT 1188513 Mean Plt Volume 8.9 fL Unknown COMPLETE BLOOD COUNT 4265166 Neut Auto 50.9 % 9 Unknown COMPLETE BLOOD COUNT [id number] Lymph Auto 35.1 % 12/28/19 19 Unknown COMPLETE BLOOD COUNT 1483596 [place] Auto 9.6 % 9 Unknown COMPLETE BLOOD COUNT 8630108 RDW 12.7 % 9 Unknown COMPLETE BLOOD COUNT 1716120 Eos Auto 4.2 % 9 Unknown COMPLETE BLOOD COUNT 8131376 Baso Auto 0.2 % 9 Unknown COMPLETE BLOOD COUNT 1189489 Neutrophil Abs 2.14 10e9/L Unknown COMPLETE BLOOD COUNT 1333396 Lymphocyte Abs 1.47 10e9/L Unknown COMPLETE BLOOD COUNT 5965290 Monocyte Abs 0.40 10e9/L 12/04 Unknown COMPLETE BLOOD COUNT 0531376 Eosinophil Abs 0.18 10e9/L Unknown COMPLETE BLOOD COUNT 3368344 RDW-SD 42.1 fL 9 Unknown COMPLETE BLOOD COUNT 2599043 Basophil Abs 0.01 10e9/L 12/04 Unknown GFR CALC 3019165 GFR Non Afr Amr >60 mL/min 12/21/2016 Un known GFR CALC 1051207 GFR Afr Amr >60 mL/min 12/21/2016 Unknow n COMPLETE BLOOD COUNT 1873768 WBC 3.6 10e9/L 12/22/19 17 Unknown COMPLETE BLOOD COUNT 4852351 RBC 4.57 10e12/L 2016 Unknown COMPLETE BLOOD COUNT 4421154 HEMOGLOBIN 13.8 g/dL 12/22/19 17 Unknown COMPLETE BLOOD COUNT 7800291 HEMATOCRIT 42.4 % 12/22/19 17 Unknown COMPLETE BLOOD COUNT 2756923 MCV 92.8 fL 7 Unknown COMPLETE BLOOD COUNT 8599797 MCH 30.2 pg 7 Unknown COMPLETE BLOOD COUNT 5331200 MCHC 32.5 g/dL 7 Unknown COMPLETE BLOOD COUNT 8236001 PLATELET COUNT 225 10e9/L Unknown COMPLETE BLOOD COUNT 5758110 Mean Plt Volume 9.0 fL Unknown COMPLETE BLOOD COUNT 6704320 Neut Auto 45.6 % 7 Unknown COMPLETE BLOOD COUNT 1167358 Lymph Auto 37.3 % 12/22/19 17 Unknown COMPLETE BLOOD COUNT 0008733 [place] Auto 11.0 % 7 Unknown COMPLETE BLOOD COUNT 3577877 RDW 12.6 % 7 Unknown COMPLETE BLOOD COUNT 5122905 Eos Auto 5.5 % 7 Unknown COMPLETE BLOOD COUNT 1900836 Baso Auto 0.6 % 7 Unknown COMPLETE BLOOD COUNT 7992688 Neutrophil Abs 1.64 10e9/L Unknown COMPLETE BLOOD COUNT 9379805 Lymphocyte Abs 1.34 10e9/L Unknown COMPLETE BLOOD COUNT 0570882 Monocyte Abs 0.40 10e9/L 12/03 Unknown COMPLETE BLOOD COUNT 9815510 Eosinophil Abs 0.20 10e9/L Unknown COMPLETE BLOOD COUNT 5432937 RDW-SD 42.0 fL 7 Unknown COMPLETE BLOOD COUNT 6165411 Basophil Abs 0.02 10e9/L 12/03 Unknown THYROID STIMULATING HORMONE 81071 TSH 3.423 uIU/mL 12/21/2016 Unknown COMPREHENSIVE METABOLIC 92140 AST 23 U/L 2016 Unknown COMPREHENSIVE METABOLIC 91338 ALT 18 U/L 2016 Unknown COMPREHENSIVE METABOLIC 21840 BUN 21 mg/dL 2016 Unknown COMPREHENSIVE METABOLIC 74697 ALBUMIN 4.4 g/dL 2016 Unknown COMPREHENSIVE METABOLIC 44286 CHLORIDE 103 mmol/L 12/21 Unknown COMPREHENSIVE METABOLIC 34143 Bili Total 0.7 mg/dL 12/21 Unknown COMPREHENSIVE METABOLIC 52365 ALK PHOS 86 U/L 2016 Unknown COMPREHENSIVE METABOLIC 69885 SODIUM 141 mmol/L 12/21 Unknown COMPREHENSIVE METABOLIC 71880 CREATININE 0.75 mg/dL 12/03 Unknown COMPREHENSIVE METABOLIC 17911 CALCIUM 9.2 mg/dL 2016 Unknown COMPREHENSIVE METABOLIC 95988 POTASSIUM 3.8 mmol/L 12/21 Unknown COMPREHENSIVE METABOLIC 93982 Total Protein 7.3 g/dL Unknown COMPREHENSIVE METABOLIC 91036 Glucose 95 mg/dL 2016 Unknown COMPREHENSIVE METABOLIC 70660 Bicarbonate 32 mmol/L 12/03 Unknown COMPREHENSIVE METABOLIC 21647 AGAP 6 mmol/L 2016 Unknown LIPID GROUP 33053 Cholesterol 154 mg/dL 12/21/2016 Unkno wn LIPID GROUP 77078 Triglyceride 51 mg/dL 12/21/2016 Unkn own LIPID GROUP 75462 HDL CHOLESTEROL 61 mg/dL 12/21/2016 U nknown LIPID GROUP 49033 Chol/HDL Ratio 2.52 ratio 12/21/2016 U nknown LIPID GROUP 79906 NON-HDL Chol 93 mg/dL 12/21/2016 Unkn own LIPID GROUP 06519 LDL Cholesterol 83 mg/dL 12/21/2016 U nknown Procedures Procedure Codes Date INFLUENZA ASSAY W/OPTIC CPT-4: 72247 04/21/2019 INFLUENZA ASSAY W/OPTIC CPT-4: 44791 04/24/2017 SPECIMEN HANDLING OFFICE-LAB CPT-4: 84492 02/24/2016 THER/PROPH/DIAG INJ SC/IM CPT-4: 69279 11/30/2015 TRIAMCINOLONE ACET INJ NOS CPT-4: J3301 11/30/2015 DEXAMETHASONE SODIUM PHOS CPT-4: J1100 11/30/2015 Vital Signs Date Vital 07/01/2019 Blood Pressure 1: 130/86 Code: 8480-6 BMI: 35.0 Code: 79884-9 Heart Rate 1: 60 bpm Height: 5'6" [...] 1: 124/72 Code: 8480-6 BMI: 35.1 Code: 83014-1 Heart Rate 1: 64 bpm Height: 5'6" Respiratory Rate: 18 bpm SpO2: 96% Tempera ture: 36.8 (C) / 98.2 (F) Weight: 221 lbs 02/13/2018 Blood Pressure 1: 138/82 Code: 8480-6 BMI: 34.5 Code: 55025-3 Heart Rate 1: 68 bpm Height: 5'7" Respiratory Rate: 18 bpm SpO2: 97% Tempera ture: 36.8 (C) / 98.2 (F) Weight: 220 lbs 04/24/2017 Blood Pressure 1: 126/78 Code: 8480-6 BMI: 35.4 Code: 23410-1 Heart Rate 1: 84 bpm Height: 5'7" Respiratory Rate: 22 bpm SpO2: 95% Tempera ture: 36.9 (C) / 98.4 (F) Weight: 226 lbs 02/24/2016 Blood Pressure 1: 128/78 Code: 8480-6 BMI: 35.6 Code: 41040-3 Heart Rate 1: 68 bpm Height: 5'7" Respiratory Rate: 20 bpm SpO2: 97% Tempera ture: 36.7 (C) / 98.1 (F) Weight: 227 lbs 11/30/2015 Blood Pressure 1: 128/78 Code: 8480-6 BMI: 36.0 Code: 66222-4 Heart Rate 1: 76 bpm Height: 5'7" Respiratory Rate: 20 bpm SpO2: 97% Tempera ture: 37.1 (C) / 98.7 (F) Weight: 230 lbs 11/10/2015 Blood Pressure 1: 136/82 Code: 8480-6 BMI: 36.0 Code: 82373-3 Heart Rate 1: 80 bpm Height: 5'7" [...] visit Encounters Encounter Performer Location Codes Date ([id number]) OFFICE/OUTPATIENT VISIT EST Diagnosis: Epigastric pain[ICD10: R10.13] [facility] CPT-[facility]: 37181 07/03/2019 ([id number]) OFFICE/OUTPATIENT VISIT EST Diagnosis: Generalized anxiety disorder[ICD10: F41.1] Karen TEJEDA [employer] CPT-4: 35687 05/15/2019 ([id number]) OFFICE/OUTPATIENT VISIT EST Diagnosis: Influenza A[ICD10: J10.1] Karen [facility] CPT-4: 12169 04/21/2019 ([id number]) OFFICE/OUTPATIENT VISIT EST Diagnosis: Epigastric pain[ICD10: R10.13] Diagnosis: Gastro-esophageal reflux disease without esophagitis[ICD10: K21.9] Karen TEJEDA [employer] CPT-4: 92455 03/11/2019 ([id number]) OFFICE/OUTPATIENT VISIT EST Diagnosis: Stress reaction[ICD10: F43.0] Diagnosis: Insomnia[ICD10: G47.00] Karen [facility] CPT-4: 64345 02/06/2019 ([id number]) PREV VISIT EST AGE 40-64 Diagnosis: Encounter for general adult medical examination without abnormal findings[ICD10: Z00.00] Diagnosis: Obstructive sleep apnea (adult) (pediatric)[ICD10: G47.33] Diagnosis: Stress reaction[ICD10: F43.0] Diagnosis: URI, ACUTE[ICD10: J06.9] Diagnosis: Insomnia[ICD10: G47.00] Karen CAMACHO [employer] CPT-4: 84006 01/02/2019 ([id number]) PREV VISIT EST AGE 40-64 Diagnosis: Encounter for general adult medical examination without abnormal findings[ICD10: Z00.00] Diagnosis: Gastro-esophageal reflux disease without esophagitis[ICD10: K21.9] Diagnosis: Obstructive sleep apnea (adult) (pediatric)[ICD10: G47.33] Diagnosis: Mixed hyperlipidemia[ICD10: E78.2] Diagnosis: Dizziness and giddiness[ICD10: R42] Karen TEJEDA [employer] CPT-4: 43972 02/13/2018 OFFICE/OUTPATIENT VISIT EST Diagnosis: Acute sinusitis, unspecified[ICD10: J01.90] Diagnosis: Viral infection, unspecified[ICD10: B34.9] Jodie TEJEDA [employer] [facility] CPT-4: 42677 04/24/2017 ([id number]) PREV VISIT EST AGE 40-64 Diagnosis: Encounter for general adult medical examination without abnormal findings[ICD10: Z00.00] Diagnosis: Encounter for gynecological examination (general) (routine) without abnormal findings[ICD10: Z01.419] Diagnosis: URI, ACUTE[ICD10: J06.9] Karen GODOY [employer] CPT-4: 73086 02/24/2016 ([id number]) OFFICE/OUTPATIENT VISIT EST Diagnosis: Other seasonal allergic rhinitis[ICD10: J30.2] Regina TEJEDA [employer] CPT-4: 34958 11/30/2015 OFFICE/OUTPATIENT VISIT NEW Diagnosis: Mixed hyperlipidemia[ICD10: E78.2] Diagnosis: Gastro-esophageal reflux disease without esophagitis[ICD10: K21.9] Diagnosis: Allergic rhinitis due to pollen[ICD10: J30.1] Diagnosis: Obstructive sleep apnea (adult) (pediatric)[ICD10: G47.33] Karen TEJEDA [employer] CPT-4: 62669 11/10/2015 Plan of Care Planned Activity Notes Codes Status Date Visit Diagnosis Plan: Epigastric pain Discussion: Cont inue pantoprazole and pepcid q HS May use maalox prn Referral for EGD ICD-9 : 789.06 ICD-10 : R10.13 07/03/2019 Care Plan: Referral Order SNOMED-CT : 30 9306526 Pending 07/03/2019 Visit Diagnosis Plan: Chest pain [...] : 530.81 ICD-10 : K21.9 07/01/2019 Appointment: Karen Tejeda WPtel: [address] [place] [address] confirmed FOLLOW UP 07/01/2019 Patient Education: famotidine- [employer] Coupon [id number] https://www.[email or web address]/Issuu/resources/getResource/61/[email or web address]-5895-wq Completed 07/01/2019 Visit Diagnosis Plan: Generalized anxiety disorder Dis cussion: Restart lexapro at 5mg daily for 4 days then go to 10mg daily Recheck at end of school year ICD-9 : 300.02 ICD-10 : F41.1 05/15/2019 Appointment: Karen Tejeda WPtel: [address] [place] [address] [place] FOLLOW UP 05/15/2019 Visit Diagnosis Plan: Influenza A Discussion: Tamiflu Supportive card Notify if worsening No work for full 5 days from symptoms and fever free at least 24hrs ICD-9 : 487.1 ICD-10 : J10.1 04/21/2019 Appointment: Karen Tejeda WPtel: [address] [place] [address] ACUTE ILLNESS 04/21/2019 Patient Education: Tamiflu- [employer] Coupon [id number] https://[email or web address]/sampleAssurz/resources/getResource/61/[email or web address] Completed 04/21/2019 Visit Diagnosis Plan: Epigastric pain Discussion: Baron ge omeprazole to pantoprazole 40mg po BID ICD-9 : 789.06 ICD-10 : R10.13 03/11/2019 Visit Diagnosis Plan: Gastro-esophageal reflux disease without esophagitis Diet: GERD diet ICD-9 : 530.81 ICD-10 : K21.9 03/11/2019 Appointment: Karen Tejeda WPtel: [address] [place], [place] [phone] FOLLOW UP 03/11/2019 Patient Education: pantoprazole- [employer] Coupon [phone] https://www.[email or web address]/Issuu/resources/getResource/61/[email or web address]-z6 Completed 03/11/2019 Visit Diagnosis Plan: Stress reaction Discussion: Incr ease escitalopram to 10mg daily Follow Up: 3 months ICD-9 : 308.9 ICD-10 : F43.0 02/06/2019 Visit Diagnosis Plan: Insomnia Discussion: Stable on t razadone ICD-9 : 780.52 ICD-10 : G47.00 02/06/2019 Appointment: Karen Tejeda WPtel: [facility] FOLLOW UP 02/06/2019 Patient Education: escitalopram oxalate- [employer] Co upon [id number] https://www.swiftQueue/Issuu/resources/getResource/61/9m416p14-r6yb-015k-73 Completed 02/06/2019 Patient Education: trazodone- [employer] Coupon [id number] [id number] https://www.swiftQueue/Issuu/resources/getResource/61/v1z22oz2-u35s-4389-lw Completed 02/06/2019 Patient Education: escitalopram oxalate- [employer] Co upon [id number] https://www.swiftQueue/Issuu/resources/getResource/61/30ip3147-7e7w-8gae-o6 Completed 02/06/2019 Visit Diagnosis Plan: Obstructive sleep [...] 01/02/2019 Visit Diagnosis Plan: Stress reaction Discussion: [place] pro 5mg po q AM Follow Up: 1 months ICD-9 : 308.9 ICD-10 : F43.0 01/02/2019 Visit Diagnosis Plan: URI, ACUTE Discussion: Supportiv e care Restart mary daily ICD-9 : 465.9 ICD-10 : J06.9 01/02/2019 Appointment: Karen Tejeda WPtel: [phone] [facility] Annual Well Visit 01/02/2019 Patient Education: trazodone- [employer] Coupon [id number] https://www.swiftQueue/Issuu/resources/getResource/61/4f4a34x1-l67x-57po-vi Completed 01/02/2019 Patient Education: escitalopram oxalate- [employer] Co upon [id number] https://www.swiftQueue/Issuu/resources/getResource/61/8426782m-1792-639p-09 Completed 01/02/2019 Visit Diagnosis Plan: Gastro-esophageal reflux [...] : V70.9 ICD-10 : Z00.00 02/13/2018 [facility]ment[facility] [phone] [facility] [facility] 02/13/2018 Patient Education: Patient Medication Summary Completed 06/06/2017 Care Plan: MAMMOGRAM BOTH BREASTS LOINC : 20962-1 Pending 06/06/2017 Visit Diagnosis Plan: Acute sinusitis, [...] ICD-10 : J01.90 04/24/2017 Appointment: Jodie Tran [address] [place] [address] ACUTE ILLNESS 04/24/2017 Patient Education: Patient Medication Summary Completed 04/24/2017 Patient Education: Patient Medication Summary Completed 12/08/2016 Care Plan: COMPREH[place] : 389[address]-1 Pending 12/08/2016 Care Plan: ASSAY THYROID STIM HORMONE Pen ding 12/08/2016 Care Plan: LIPID PANEL LOINC : 49224-2 Pending 12/08/2016 Care Plan: CBC Pending 12/08/2016 [...] yearly 02/24/2016 Appointment: [facility]eda [facility]el[facility] [address] [facility] 02/22 confirmed~sl PAP 02/24/2016 Patient Education: Patient Medication Summary Completed 02/24/2016 Visit Plan: Injection as above Rx for al legra-d Benadryl at HS Nasal rinses, steroid nasal sprays Mucinex Vicks, humidifier, vitamin C, rest, fluids Follow up PRN 11/30/2015 Appointment: Regina Sagastume [address] [facility] ACUTE ILLNESS 11/30/2015 Patient Education: Patient Medication Summary Completed 11/30/2015 Patient Education: [facility] - Saving AutoInj - 18-64 - Dynamic Maura l ID Completed 11/30/2015 Referral: Sunil Hatch WPtel: [phone] [address] [place] Referral Appointment Confirmed 11/23/2015 Visit Plan: [...] weight loss 11/10/2015 Appointment: Karen Tejeda WPtel: [address] [place] [address] 11/08lm ~sl11/09 CONFIRMED~sl NEW PATIENT 11/09 Patient Education: Patient Medication Summary Completed 11/10/2015 Patient Education: [facility] - Saving AutoInj - 18-64 - Dynamic Maura l ID Completed 11/10/2015 Referral: Sunil Hatch WPtel: [address] [address] [place] Referral Appointment Requested Instructions Comment . [...]
--- OUTSIDE RECORDS SUMMARY | 2019-09-24 10:29 | XMS REPORT | CCD ---
Author Author Nadya Tejeda D.O. 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 Name Role Phone PP Unavailable CCM Unavailable Summary Purpose Interface Exchange Insurance Providers Payer name Policy type / Coverage type Covered green party ID Effective Begin Date Effective End Date [employer] Commercial Insurance [id number] Unknown Family history Sister Diagnosis Age At [...] Unknown 1 11/10/2015 Employment Unknown Currently employed [employer] 11/10/[address]: 912418729 Has never smoked or chewed tobacco 11/10/[address]: 420116694 Never drinks alcohol 2015 Has the patient [...] Fill Instructions famotidine 40 mg tablet RxNorm: 639438 1 Tablet(s) Oral QPM 020 07/31/2019 Active pantoprazole 40 mg tablet,delayed release RxNorm: 748731 TAKE 1 TABLET BY MOUTH TWICE DAILY 06/03/2019 08/01/2019 Active Tamiflu 75 mg capsule RxNorm: 828171 1 Capsule(s) Oral two time s a day 04/21/2019 04/26/2019 Inactive pantoprazole 40 mg tablet,delayed release RxNorm: 279818 1 Tablet(s) Oral two times a day replaces omeprazole 03/11/2019 05/10/2019 Inactive escitalopram 10 mg tablet RxNorm: 317836 1 Tablet(s) Oral QD re places 5mg dose 02/06/2019 08/05/2019 Active trazodone 50 mg tablet RxNorm: 765567 1-2 Tablet(s) Ora l QPM as needed for sleep 02/06/2019 03/07/2019 Inactive escitalopram 5 mg tablet RxNorm: 959599 1 Tablet(s) Oral QAM 201802/05/2019 Inactive trazodone 50 mg tablet RxNorm: 021456 1-2 Tablet(s) Ora l QPM as needed for sleep 01/02/2019 02/05/2019 Inactive omeprazole 20 mg capsule,delayed release RxNorm: 651607 1 Capsu le(s) PO QD 07/04/2018 06/30/2019 Inactive omeprazole 20 mg capsule,delayed release RxNorm: 896879 1 Capsu le(s) PO QD 04/03/2018 07/01/2018 Inactive omeprazole 20 mg capsule,delayed release RxNorm: 320650 1 Capsu le(s) PO QD 04/03/2018 01/01/2019 Inactive omeprazole 20 mg capsule,delayed release RxNorm: 031229 1 Capsu le(s) PO QD 12/05/2017 03/04/2018 Inactive omeprazole 20 mg capsule,delayed release RxNorm: 239545 1 Capsu le(s) PO QD 09/06/2017 04/03/2018 Inactive Augmentin 875 mg-125 mg tablet RxNorm: 991599 1 Tablet(s) PO BID 05/03/2017 Inactive omeprazole 20 mg capsule,delayed release RxNorm: 908793 1 Capsu le(s) PO QD 04/19/2017 08/16/2017 Inactive omeprazole 20 mg capsule,delayed release RxNorm: 309346 1 Capsule(s) PO QD replaces 40mg daily- due for refill 03/14/2017 04/19/2017 Inactive omeprazole 20 mg capsule,delayed release RxNorm: 863310 1 Capsule(s) PO QD replaces 40mg daily 11/30/2016 02/27/2017 Inactive omeprazole 20 mg capsule,delayed release RxNorm: 583348 1 Capsule(s) PO QD replaces 40mg daily 05/03/2016 10/29/2016 Inactive cetirizine 1 mg/mL oral solution RxNorm: 0506594 1.25 Mi lliliter(s) PO QHS for runny nose 02/24/2016 02/23/2016 Inactive Mary-D 12 Hour 60 mg-120 mg tablet,extended release RxNor m: 975085 1 Tablet(s) PO BID as needed 11/30/2015 No Stop Date Active omeprazole 20 mg capsule,delayed release RxNorm: 098906 1 Capsule(s) PO QD replaces 40mg daily 11/10/2015 03/08/2016 Inactive Mary Allergy 180 mg tablet RxNorm: 617529 1 Tablet(s) PO QD No Sta rt Date Active Aspirin Child 81 mg chewable tablet RxNorm: 565752 1 Tablet(s) PO QD No Start Date Active simvastatin 20 mg tablet RxNorm: 568546 1 Tablet(s) PO QD No Start Da te Active omeprazole 40 mg capsule,delayed release RxNorm: 031896 1 Capsu le(s) PO QD No Start Date 11/09/2015 Inactive Medication Administered No Medication Administered data Immunizations No Immunization data Results Observation Observation Code Item Item Code Result Date S vice Location THYROID STIMULATING HORMONE 72170 TSH 3.245 uIU/mL 12/27/2018 Unknown GFR CALC 9137181 GFR Non Afr Amr >60 mL/min 12/27/2018 Un known GFR CALC 6746009 GFR Afr Amr >60 mL/min 12/27/2018 Unknow n FREE T4 47841 T4 Free 0.88 ng/dL 12/27/2018 Unknown LIP[facility] GROUP 14399 Cholesterol 157 mg/dL 12/27/2018 Unkno wn LIP[facility] GROUP 06242 Triglyceride 44 mg/dL 12/27/2018 Unkn own [facility] GROUP 43535 HDL CHOLESTEROL 61 mg/dL 12/27/2018 U nknown [facility] GROUP 30688 Chol/HDL Ratio 2.57 ratio 12/27/2018 U nknown L[facility] GROUP 47609 NON-HDL Chol 96 mg/dL 12/27/2018 Unkn own [facility] GROUP 33147 LDL Cholesterol 87 mg/dL 12/27/2018 U nknown COMPREHENSIVE METABOLIC 93887 AST 19 U/L 2018 Unknown COMPREHENSIVE METABOLIC 08163 ALT 13 U/L 2018 Unknown COMPREHENSIVE METABOLIC 49523 BUN 22 mg/dL 2018 Unknown COMPREHENSIVE METABOLIC 32742 ALBUMIN 4.2 g/dL 2018 Unknown COMPREHENSIVE METABOLIC 27690 CHLORIDE 103 mmol/L 12/27 Unknown COMPREHENSIVE METABOLIC 84193 Bili Total 0.5 mg/dL 12/27 Unknown COMPREHENSIVE METABOLIC 95790 ALK PHOS 101 U/L 2018 Unknown COMPREHENSIVE METABOLIC 00880 SODIUM 141 mmol/L 12/27 Unknown COMPREHENSIVE METABOLIC 46396 CREATININE 0.76 mg/dL 12/04 Unknown COMPREHENSIVE METABOLIC 75448 CALCIUM 9.3 mg/dL 2018 Unknown COMPREHENSIVE METABOLIC 24843 POTASSIUM 3.6 mmol/L 12/27 Unknown COMPREHENSIVE METABOLIC 72709 Total Protein 7.4 g/dL Unknown COMPREHENSIVE METABOLIC 65786 Glucose 86 mg/dL 2018 Unknown COMPREHENSIVE METABOLIC 40905 Bicarbonate 31 mmol/L 12/04 Unknown COMPREHENSIVE METABOLIC 74046 AGAP 7 mmol/L 2018 Unknown COMPLETE BLOOD COUNT 5418955 WBC 4.2 10e9/L 12/28/19 19 Unknown COMPLETE BLOOD COUNT 1509037 RBC 4.55 10e12/L 2018 Unknown COMPLETE BLOOD COUNT 5598293 HEMOGLOBIN 13.7 g/dL 12/28/19 19 Unknown COMPLETE BLOOD COUNT 3619041 HEMATOCRIT 42.4 % 12/28/19 19 Unknown COMPLETE BLOOD COUNT 9378565 MCV 93.2 fL 9 Unknown COMPLETE BLOOD COUNT 7506085 MCH 30.1 pg 9 Unknown COMPLETE BLOOD COUNT 2699155 MCHC 32.3 g/dL 9 Unknown COMPLETE BLOOD COUNT 3383793 PLATELET COUNT 272 10e9/L Unknown COMPLETE BLOOD COUNT 5835863 Mean Plt Volume 8.9 fL Unknown COMPLETE BLOOD COUNT 7231482 Neut Auto 50.9 % 9 Unknown COMPLETE BLOOD COUNT 4617405 Lymph Auto 35.1 % 12/28/19 19 Unknown COMPLETE BLOOD COUNT 1144433 [place] Auto 9.6 % 9 Unknown COMPLETE BLOOD COUNT 1449861 RDW 12.7 % 9 Unknown COMPLETE BLOOD COUNT 6570060 Eos Auto 4.2 % 9 Unknown COMPLETE BLOOD COUNT 4762399 Baso Auto 0.2 % 9 Unknown COMPLETE BLOOD COUNT 4774862 Neutrophil Abs 2.14 10e9/L Unknown COMPLETE BLOOD COUNT 0453699 Lymphocyte Abs 1.47 10e9/L Unknown COMPLETE BLOOD COUNT 6389422 Monocyte Abs 0.40 10e9/L 12/04 Unknown COMPLETE BLOOD COUNT 5409747 Eosinophil Abs 0.18 10e9/L Unknown COMPLETE BLOOD COUNT 0026322 RDW-SD 42.1 fL 9 Unknown COMPLETE BLOOD COUNT 5264219 Basophil Abs 0.01 10e9/L 12/04 Unknown GFR CALC 2118963 GFR Non Afr Amr >60 mL/min 12/21/2016 Un known GFR CALC 6957318 GFR Afr Amr >60 mL/min 12/21/2016 Unknow n COMPLETE BLOOD COUNT 1147845 WBC 3.6 10e9/L 12/22/19 17 Unknown COMPLETE BLOOD COUNT 7098584 RBC 4.57 10e12/L 2016 Unknown COMPLETE BLOOD COUNT 6436153 HEMOGLOBIN 13.8 g/dL 12/22/19 17 Unknown COMPLETE BLOOD COUNT 8815568 HEMATOCRIT 42.4 % 12/22/19 17 Unknown COMPLETE BLOOD COUNT 1444594 MCV 92.8 fL 7 Unknown COMPLETE BLOOD COUNT 5069511 MCH 30.2 pg 7 Unknown COMPLETE BLOOD COUNT 5371767 MCHC 32.5 g/dL 7 Unknown COMPLETE BLOOD COUNT 7438780 PLATELET COUNT 225 10e9/L Unknown COMPLETE BLOOD COUNT 8102921 Mean Plt Volume 9.0 fL Unknown COMPLETE BLOOD COUNT 6277188 Neut Auto 45.6 % 7 Unknown COMPLETE BLOOD COUNT 9075062 Lymph Auto 37.3 % 12/22/19 17 Unknown COMPLETE BLOOD COUNT 0502146 [place] Auto 11.0 % 7 Unknown COMPLETE BLOOD COUNT 0847231 RDW 12.6 % 7 Unknown COMPLETE BLOOD COUNT 9247314 Eos Auto 5.5 % 7 Unknown COMPLETE BLOOD COUNT 8581334 Baso Auto 0.6 % 7 Unknown COMPLETE BLOOD COUNT 5873374 Neutrophil Abs 1.64 10e9/L Unknown COMPLETE BLOOD COUNT 2664470 Lymphocyte Abs 1.34 10e9/L Unknown COMPLETE BLOOD COUNT 0617051 Monocyte Abs 0.40 10e9/L 12/03 Unknown COMPLETE BLOOD COUNT 5871606 Eosinophil Abs 0.20 10e9/L Unknown COMPLETE BLOOD COUNT 2187190 RDW-SD 42.0 fL 7 Unknown COMPLETE BLOOD COUNT 5090114 Basophil Abs 0.02 10e9/L 12/03 Unknown THYROID STIMULATING HORMONE 49505 TSH 3.423 uIU/mL 12/21/2016 Unknown COMPREHENSIVE METABOLIC 40336 AST 23 U/L 2016 Unknown COMPREHENSIVE METABOLIC 14017 ALT 18 U/L 2016 Unknown COMPREHENSIVE METABOLIC 54536 BUN 21 mg/dL 2016 Unknown COMPREHENSIVE METABOLIC 19743 ALBUMIN 4.4 g/dL 2016 Unknown COMPREHENSIVE METABOLIC 34007 CHLORIDE 103 mmol/L 12/21 Unknown COMPREHENSIVE METABOLIC 14444 Bili Total 0.7 mg/dL 12/21 Unknown COMPREHENSIVE METABOLIC 75114 ALK PHOS 86 U/L 2016 Unknown COMPREHENSIVE METABOLIC 32671 SODIUM 141 mmol/L 12/21 Unknown COMPREHENSIVE METABOLIC 37986 CREATININE 0.75 mg/dL 12/03 Unknown COMPREHENSIVE METABOLIC 43440 CALCIUM 9.2 mg/dL 2016 Unknown COMPREHENSIVE METABOLIC 15340 POTASSIUM 3.8 mmol/L 12/21 Unknown COMPREHENSIVE METABOLIC 55155 Total Protein 7.3 g/dL Unknown COMPREHENSIVE METABOLIC 67184 Glucose 95 mg/dL 2016 Unknown COMPREHENSIVE METABOLIC 64806 Bicarbonate 32 mmol/L 12/03 Unknown COMPREHENSIVE METABOLIC 69839 AGAP 6 mmol/L 2016 Unknown LIPID GROUP 86335 Cholesterol 154 mg/dL 12/21/2016 Unkno wn LIPID GROUP 84414 Triglyceride 51 mg/dL 12/21/2016 Unkn own LIPID GROUP 71728 HDL CHOLESTEROL 61 mg/dL 12/21/2016 U nknown LIPID GROUP 01643 Chol/HDL Ratio 2.52 ratio 12/21/2016 U nknown LIPID GROUP 70929 NON-HDL Chol 93 mg/dL 12/21/2016 Unkn own LIPID GROUP 23706 LDL Cholesterol 83 mg/dL 12/21/2016 U nknown Procedures Procedure Codes Date INFLUENZA ASSAY W/OPTIC CPT-4: 52367 04/21/2019 INFLUENZA ASSAY W/OPTIC CPT-4: 58937 04/24/2017 SPECIMEN HANDLING OFFICE-LAB CPT-4: 51923 02/24/2016 THER/PROPH/DIAG INJ SC/IM CPT-4: 73443 11/30/2015 TRIAMCINOLONE ACET INJ NOS CPT-4: J3301 11/30/2015 DEXAMETHASONE SODIUM PHOS CPT-4: J1100 11/30/2015 Vital Signs Date Vital 07/01/2019 Blood Pressure 1: 130/86 Code: 8480-6 BMI: 35.0 Code: 27610-7 Heart Rate 1: 60 bpm Height: 5'6" [...] 1: 124/72 Code: 8480-6 BMI: 35.1 Code: 20135-7 Heart Rate 1: 64 bpm Height: 5'6" Respiratory Rate: 18 bpm SpO2: 96% Tempera ture: 36.8 (C) / 98.2 (F) Weight: 221 lbs 02/13/2018 Blood Pressure 1: 138/82 Code: 8480-6 BMI: 34.5 Code: 57782-6 Heart Rate 1: 68 bpm Height: 5'7" Respiratory Rate: 18 bpm SpO2: 97% Tempera ture: 36.8 (C) / 98.2 (F) Weight: 220 lbs 04/24/2017 Blood Pressure 1: 126/78 Code: 8480-6 BMI: 35.4 Code: 23349-6 Heart Rate 1: 84 bpm Height: 5'7" Respiratory Rate: 22 bpm SpO2: 95% Tempera ture: 36.9 (C) / 98.4 (F) Weight: 226 lbs 02/24/2016 Blood Pressure 1: 128/78 Code: 8480-6 BMI: 35.6 Code: 47735-2 Heart Rate 1: 68 bpm Height: 5'7" Respiratory Rate: 20 bpm SpO2: 97% Tempera ture: 36.7 (C) / 98.1 (F) Weight: 227 lbs 11/30/2015 Blood Pressure 1: 128/78 Code: 8480-6 BMI: 36.0 Code: 05302-3 Heart Rate 1: 76 bpm Height: 5'7" Respiratory Rate: 20 bpm SpO2: 97% Tempera ture: 37.1 (C) / 98.7 (F) Weight: 230 lbs 11/10/2015 Blood Pressure 1: 136/82 Code: 8480-6 BMI: 36.0 Code: 38296-6 Heart Rate 1: 80 bpm Height: 5'7" [...] visit Encounters Encounter Performer Location Codes Date ([id number]) OFFICE/OUTPATIENT VISIT EST Diagnosis: Epigastric pain[ICD10: R10.13] [facility] C[facility]: 72160 07/03/2019 ([id number]) OFFICE/OUTPATIENT VISIT EST Diagnosis: Generalized anxiety disorder[ICD10: F41.1] Karen TEJEDA [employer] CPT-4: 78710 05/15/2019 ([id number]) OFFICE/OUTPATIENT VISIT EST Diagnosis: Influenza A[ICD10: J10.1] Karen MCCLELLAND [facility] CPT-4: 24598 04/21/2019 ([id number]) OFFICE/OUTPATIENT VISIT EST Diagnosis: Epigastric pain[ICD10: R10.13] Diagnosis: Gastro-esophageal reflux disease without esophagitis[ICD10: K21.9] Karen TEJEDA [employer] CPT-4: 11275 03/11/2019 ([id number]) OFFICE/OUTPATIENT VISIT EST Diagnosis: Stress reaction[ICD10: F43.0] Diagnosis: Insomnia[ICD10: G47.00] Karen CAMACHO [facility] [place] CPT-4: 13640 02/06/2019 ([id number]) PREV VISIT EST AGE 40-64 Diagnosis: Encounter for general adult medical examination without abnormal findings[ICD10: Z00.00] Diagnosis: Obstructive sleep apnea (adult) (pediatric)[ICD10: G47.33] Diagnosis: Stress reaction[ICD10: F43.0] Diagnosis: URI, ACUTE[ICD10: J06.9] Diagnosis: Insomnia[ICD10: G47.00] Karen CAMACHO [employer] CPT-4: 24296 01/02/2019 ([id number]) PREV VISIT EST AGE 40-64 Diagnosis: Encounter for general adult medical examination without abnormal findings[ICD10: Z00.00] Diagnosis: Gastro-esophageal reflux disease without esophagitis[ICD10: K21.9] Diagnosis: Obstructive sleep apnea (adult) (pediatric)[ICD10: G47.33] Diagnosis: Mixed hyperlipidemia[ICD10: E78.2] Diagnosis: Dizziness and giddiness[ICD10: R42] Karen Ileana TEJEDA [employer] [facility] CPT-4: 55250 02/13/2018 OFFICE/OUTPATIENT VISIT EST Diagnosis: Acute sinusitis, unspecified[ICD10: J01.90] Diagnosis: Viral infection, unspecified[ICD10: B34.9] Jodie TEJEDA [employer] [facility] CPT-4: 65006 04/24/2017 ([id number]) PREV VISIT EST AGE 40-64 Diagnosis: Encounter for general adult medical examination without abnormal findings[ICD10: Z00.00] Diagnosis: Encounter for gynecological examination (general) (routine) without abnormal findings[ICD10: Z01.419] Diagnosis: URI, ACUTE[ICD10: J06.9] Karen GODOY [employer] [facility] CPT-4: 07929 02/24/2016 ([id number]) OFFICE/OUTPATIENT VISIT EST Diagnosis: Other seasonal allergic rhinitis[ICD10: J30.2] Regina CAMACHO [employer] [facility] CPT-4: 57770 11/30/2015 OFFICE/OUTPATIENT VISIT NEW Diagnosis: Mixed hyperlipidemia[ICD10: E78.2] Diagnosis: Gastro-esophageal reflux disease without esophagitis[ICD10: K21.9] Diagnosis: Allergic rhinitis due to pollen[ICD10: J30.1] Diagnosis: Obstructive sleep apnea (adult) (pediatric)[ICD10: G47.33] Karen CAMACHO [employer] [facility] CPT-4: 29105 11/10/2015 Plan of Care Planned Activity Notes Codes Status Date Visit Diagnosis Plan: Epigastric pain Discussion: Cont inue pantoprazole and pepcid q HS May use maalox prn Referral for EGD ICD-9 : 789.06 ICD-10 : R10.13 07/03/2019 Care Plan: Referral Order SNOMED-CT : 30 6596208 Pending 07/03/2019 Visit Diagnosis Plan: Gastro-esophageal reflux [...] : R07.9 07/01/2019 Appointment: Karen Tejeda WPtel: [address] [place] [address] confirmed FOLLOW UP 07/01/2019 Patient Education: famotidine- [employer] Coupon [id number] https://www.[employer]/sampleEpisencial/resources/getResource/61/12s15475-h80o-3653-ak Completed 07/01/2019 Visit Diagnosis Plan: Generalized anxiety disorder Dis cussion: Restart lexapro at 5mg daily for 4 days then go to 10mg daily Recheck at end of school year ICD-9 : 300.02 ICD-10 : F41.1 05/15/2019 Appointment: Karen Tejeda WPtel: [address] [place] [address] [place] FOLLOW UP 05/15/2019 Visit Diagnosis Plan: Influenza A Discussion: Tamiflu Supportive card Notify if worsening No work for full 5 days from symptoms and fever free at least 24hrs ICD-9 : 487.1 ICD-10 : J10.1 04/21/2019 Appointment: Karen Tejeda WPtel: [address] [place] [address] ACUTE ILLNESS 04/21/2019 Patient Education: Tamiflu- [employer] Coupon [id number] https://www.[employer].Vedantu/samplemd/resources/getResource/61/g400it6a-4271-06c7-5c Completed 04/21/2019 Visit Diagnosis Plan: Gastro-esophageal reflux disease without esophagitis Diet: GERD diet ICD-9 : 530.81 ICD-10 : K21.9 03/11/2019 Visit Diagnosis Plan: Epigastric pain Discussion: Baron ge omeprazole to pantoprazole 40mg po BID ICD-9 : 789.06 ICD-10 : R10.13 03/11/2019 Appointment: Karen Tejeda WPtel: [address] [place], [place] [address] FOLLOW UP 03/11/2019 Patient Education: pantoprazole- [employer] Coupon [phone] [id number] https://www.[employer]/resources/getResource/61/77288840-82k9-1q54-u0 Completed 03/11/2019 Visit Diagnosis Plan: Insomnia Discussion: Stable on t razadone ICD-9 : 780.52 ICD-10 : G47.00 02/06/2019 Visit Diagnosis Plan: Stress reaction Discussion: Incr ease escitalopram to 10mg daily Follow Up: 3 months ICD-9 : 308.9 ICD-10 : F43.0 02/06/2019 Appointment: Karen Tejeda WPtel: [facility] FOLLOW UP 02/06/2019 Patient Education: escitalopram oxalate- [employer] Co upon [id number] https://www.[employer]/resources/getResource/61/2m719s29-p4gw-838e-58 Completed 02/06/2019 Patient Education: trazodone- [employer] Coupon [id number] https://www.[employer]/resources/getResource/61/t9w13ky5-l35l-5991-wi Completed 02/06/2019 Patient Education: escitalopram oxalate- [employer] Co upon [id number] https://www.[employer]/resources/getResource/61/36ml7660-9w9r-6fjw-b4 Completed 02/06/2019 Visit Diagnosis Plan: Obstructive sleep apnea (adult) (pediatric) Discussion: Retry CPAP once sleeping pills helping ICD-9 : 327.23 ICD-10 : G47.33 01/02/2019 Visit Diagnosis Plan: URI, ACUTE Discussion: Supportiv e care Restart mary daily ICD-9 : 465.9 ICD-10 : J06.9 01/02/2019 Visit Diagnosis Plan: Stress reaction Discussion: [place] pro 5mg po q AM Follow Up: [...] G47.00 01/02/2019 Appointment: [facility]el[facility] [address] [facility] [facility] Visit 01/02/2019 Patient Education: trazodone- [employer] Coupon [id number] https://www.[employer]/resources/getResource/61/0u7p38m5-g46m-38kn-bx Completed 01/02/2019 Patient Education: escitalopram oxalate- [employer] Co upon [id number] https://www.[employer]/sampleEpisencial/resources/getResource/61/0919699b-8696-718f-75 Completed 01/02/2019 Visit Diagnosis Plan: Gastro-esophageal reflux [...] R42 02/13/2018 Appointment: [facility]el[facility] [address] [facility] [facility] Visit 02/13/2018 Patient Education: Patient Medication Summary Completed 06/06/2017 Care Plan: MAMMOGRAM BOTH BREASTS LOINC : 54445-6 Pending 06/06/2017 Visit Diagnosis Plan: Acute sinusitis, [...] ICD-10 : J01.90 04/24/2017 Appointment: Jodie Tran [address] [place] [address] ACUTE ILLNESS 04/24/2017 Patient Education: Patient Medication Summary Completed 04/24/2017 Patient Education: Patient Medication Summary Completed 12/08/2016 Care Plan: COMPREHEN METABOLIC PANEL [place] : 55488-1 Pending 12/08/2016 Care Plan: ASSAY THYROID STIM HORMONE Pen ding 12/08/2016 Care Plan: LIPID PANEL LOINC : 62778-0 Pending 12/08/2016 Care Plan: CBC Pending 12/08/2016 [...] yearly 02/24/2016 Appointment: [facility]eda [facility]Ptel[facility] [address] [facility] 02/22 confirmed~sl PAP 02/24/2016 Patient Education: Patient Medication Summary Completed 02/24/2016 Visit Plan: Injection as above Rx for al legra-d Benadryl at HS Nasal rinses, steroid nasal sprays Mucinex Vicks, humidifier, vitamin C, rest, fluids Follow up PRN 11/30/2015 Appointment: Regina Sagastume [address] [facility] ACUTE ILLNESS 11/30/2015 Patient Education: Patient Medication Summary Completed 11/30/2015 Patient Education: [facility] - Saving AutoInj - 18-64 - Dynamic Maura l ID Completed 11/30/2015 Referral: Sunil Hatch WPtel: [address] [address] [place] Referral Appointment Confirmed 11/23/2015 Visit Plan: [...] weight loss 11/10/2015 Appointment: Karen Tejeda WPtel: [address] [place] [address] 11/08lm ~sl11/09 CONFIRMED~sl NEW PATIENT 11/09 Patient Education: Patient Medication Summary Completed 11/10/2015 Patient Education: [facility] - Saving AutoInj - 18-64 - Dynamic Maura l ID Completed 11/10/2015 Referral: Sunil Hatch WPtel: [address] [address] [place] Referral Appointment Requested Instructions Comment . [...]
--- OUTSIDE RECORDS SUMMARY | 2019-09-24 10:30 | XMS REPORT | CCD ---
Author Author Nadya Tejeda D.O. Organization [facility] Address [address] [place] [address] Phone Care Team Providers Care Sleeve Sewer Name Role Phone PP Unavailable CCM Unavailable Summary Purpose Interface Exchange Insurance Providers Payer name Policy type / Coverage type Covered libertarian ID Effective Begin Date Effective End Date [employer] Commercial Insurance [id number] Unknown Family history Sister Diagnosis Age At [...] Unknown 1 11/10/2015 Employment Unknown Currently employed [employer] 11/10/[address]: 007914024 Has never smoked or chewed tobacco 11/10/[address]: 764929556 Never drinks alcohol 2015 Has the patient [...] Problems Condition Codes Effective Dates Condition Status Chest pain ICD-9: 786.50 ICD-10: R07.9 07/01/2019 Active Gastro-esophageal reflux disease without esophagitis I CD-9: 530.81 ICD-10: K21.9 11/09/2015 Active Generalized anxiety disorder ICD-9: 300.02 ICD-10: F41.1 05/15/2019 Active Influenza A ICD-9: 487.1 ICD-10: J10.1 04/21/2019 Active Epigastric pain ICD-9: 789.06 ICD-10: R10.13 03/11/2019 Active Insomnia ICD-9: 780.52 ICD-10: G47.00 01/02/2019 [...] Fill Instructions famotidine 40 mg tablet RxNorm: 615641 1 Tablet(s) Oral QPM 020 07/31/2019 Active pantoprazole 40 mg tablet,delayed release RxNorm: 641646 TAKE 1 TABLET BY MOUTH TWICE DAILY 06/03/2019 08/01/2019 Active Tamiflu 75 mg capsule RxNorm: 075854 1 Capsule(s) Oral two time s a day 04/21/2019 04/26/2019 Inactive pantoprazole 40 mg tablet,delayed release RxNorm: 604190 1 Tablet(s) Oral two times a day replaces omeprazole 03/11/2019 05/10/2019 Inactive escitalopram 10 mg tablet RxNorm: 728191 1 Tablet(s) Oral QD re places 5mg dose 02/06/2019 08/05/2019 Active trazodone 50 mg tablet RxNorm: 734919 1-2 Tablet(s) Ora l QPM as needed for sleep 02/06/2019 03/07/2019 Inactive escitalopram 5 mg tablet RxNorm: 790871 1 Tablet(s) Oral QAM 201802/05/2019 Inactive trazodone 50 mg tablet RxNorm: 165647 1-2 Tablet(s) Ora l QPM as needed for sleep 01/02/2019 02/05/2019 Inactive omeprazole 20 mg capsule,delayed release RxNorm: 899564 1 Capsu le(s) PO QD 07/04/2018 06/30/2019 Inactive omeprazole 20 mg capsule,delayed release RxNorm: 790628 1 Capsu le(s) PO QD 04/03/2018 07/01/2018 Inactive omeprazole 20 mg capsule,delayed release RxNorm: 948948 1 Capsu le(s) PO QD 04/03/2018 01/01/2019 Inactive omeprazole 20 mg capsule,delayed release RxNorm: 921029 1 Capsu le(s) PO QD 12/05/2017 03/04/2018 Inactive omeprazole 20 mg capsule,delayed release RxNorm: 016179 1 Capsu le(s) PO QD 09/06/2017 04/03/2018 Inactive Augmentin 875 mg-125 mg tablet RxNorm: 796336 1 Tablet(s) PO BID 05/03/2017 Inactive omeprazole 20 mg capsule,delayed release RxNorm: 786607 1 Capsu le(s) PO QD 04/19/2017 08/16/2017 Inactive omeprazole 20 mg capsule,delayed release RxNorm: 550441 1 Capsule(s) PO QD replaces 40mg daily- due for refill 03/14/2017 04/19/2017 Inactive omeprazole 20 mg capsule,delayed release RxNorm: 346831 1 Capsule(s) PO QD replaces 40mg daily 11/30/2016 02/27/2017 Inactive omeprazole 20 mg capsule,delayed release RxNorm: 681232 1 Capsule(s) PO QD replaces 40mg daily 05/03/2016 10/29/2016 Inactive cetirizine 1 mg/mL oral solution RxNorm: 9359183 1.25 Mi lliliter(s) PO QHS for runny nose 02/24/2016 02/23/2016 Inactive Ce-D 12 Hour 60 mg-120 mg tablet,extended release RxNor m: 826633 1 Tablet(s) PO BID as needed 11/30/2015 No Stop Date Active omeprazole 20 mg capsule,delayed release RxNorm: 707154 1 Capsule(s) PO QD replaces 40mg daily 11/10/2015 03/08/2016 Inactive Ce Allergy 180 mg tablet RxNorm: 615526 1 Tablet(s) PO QD No Sta rt Date Active Aspirin Child 81 mg chewable tablet RxNorm: 910259 1 Tablet(s) PO QD No Start Date Active simvastatin 20 mg tablet RxNorm: 624764 1 Tablet(s) PO QD No Start Da te Active omeprazole 40 mg capsule,delayed release RxNorm: 852745 1 Capsu le(s) PO QD No Start Date 11/09/2015 Inactive Medication Administered No Medication Administered data Immunizations No Immunization data Results Observation Observation Code Item Item Code Result Date S vice Location THYROID STIMULATING HORMONE 06295 TSH 3.245 uIU/mL 12/27/2018 Unknown GFR CALC 4401813 GFR Non Afr Amr >60 mL/min 12/27/2018 Un known GFR CALC 7207670 GFR Afr Amr >60 mL/min 12/27/2018 Unknow n FREE T4 15235 T4 Free 0.88 ng/dL 12/27/2018 Unknown LIPID GROUP 99329 Cholesterol 157 mg/dL 12/27/2018 Unkno wn L[facility] GROUP 42848 Triglyceride 44 mg/dL 12/27/2018 Unkn own [facility] 33941 HDL CHOLESTEROL 61 mg/dL 12/27/2018 U nknown L[facility] GROUP 31453 Chol/HDL Ratio 2.57 ratio 12/27/2018 U nknown L[facility] GROUP 37389 NON-HDL Chol 96 mg/dL 12/27/2018 Unkn own [facility] GROUP 70092 LDL Cholesterol 87 mg/dL 12/27/2018 U nknown COMPREHENSIVE METABOLIC 77424 AST 19 U/L 2018 Unknown COMPREHENSIVE METABOLIC 38914 ALT 13 U/L 2018 Unknown COMPREHENSIVE METABOLIC 18981 BUN 22 mg/dL 2018 Unknown COMPREHENSIVE METABOLIC 39622 ALBUMIN 4.2 g/dL 2018 Unknown COMPREHENSIVE METABOLIC 57929 CHLORIDE 103 mmol/L 12/27 Unknown COMPREHENSIVE METABOLIC 63944 Bili Total 0.5 mg/dL 12/27 Unknown COMPREHENSIVE METABOLIC 92944 ALK PHOS 101 U/L 2018 Unknown COMPREHENSIVE METABOLIC 10748 SODIUM 141 mmol/L 12/27 Unknown COMPREHENSIVE METABOLIC 58213 CREATININE 0.76 mg/dL 12/04 Unknown COMPREHENSIVE METABOLIC 89505 CALCIUM 9.3 mg/dL 2018 Unknown COMPREHENSIVE METABOLIC 94248 POTASSIUM 3.6 mmol/L 12/27 Unknown COMPREHENSIVE METABOLIC 51289 Total Protein 7.4 g/dL Unknown COMPREHENSIVE METABOLIC 86285 Glucose 86 mg/dL 2018 Unknown COMPREHENSIVE METABOLIC 56723 Bicarbonate 31 mmol/L 12/04 Unknown COMPREHENSIVE METABOLIC 31849 AGAP 7 mmol/L 2018 Unknown COMPLETE BLOOD COUNT 2397010 WBC 4.2 10e9/L 12/28/19 19 Unknown COMPLETE BLOOD COUNT 5108487 RBC 4.55 10e12/L 2018 Unknown COMPLETE BLOOD COUNT 9687813 HEMOGLOBIN 13.7 g/dL 12/28/19 19 Unknown COMPLETE BLOOD COUNT 0875954 HEMATOCRIT 42.4 % 12/28/19 19 Unknown COMPLETE BLOOD COUNT 1093223 MCV 93.2 fL 9 Unknown COMPLETE BLOOD COUNT 6218801 MCH 30.1 pg 9 Unknown COMPLETE BLOOD COUNT 4232200 MCHC 32.3 g/dL 9 Unknown COMPLETE BLOOD COUNT 8893824 PLATELET COUNT 272 10e9/L Unknown COMPLETE BLOOD COUNT 9036883 Mean Plt Volume 8.9 fL Unknown COMPLETE BLOOD COUNT 8381208 Neut Auto 50.9 % 9 Unknown COMPLETE BLOOD COUNT 5030287 Lymph Auto 35.1 % 12/28/19 19 Unknown COMPLETE BLOOD COUNT 1457453 Lynn Auto 9.6 % 9 Unknown COMPLETE BLOOD COUNT 6827439 RDW 12.7 % 9 Unknown COMPLETE BLOOD COUNT 1345554 Eos Auto 4.2 % 9 Unknown COMPLETE BLOOD COUNT 2783206 Baso Auto 0.2 % 9 Unknown COMPLETE BLOOD COUNT 1530666 Neutrophil Abs 2.14 10e9/L Unknown COMPLETE BLOOD COUNT [id number] Lymphocyte Abs 1.47 10e9/L Unknown COMPLETE BLOOD COUNT 8598133 Monocyte Abs 0.40 10e9/L 12/04 Unknown COMPLETE BLOOD COUNT 1021896 Eosinophil Abs 0.18 10e9/L Unknown COMPLETE BLOOD COUNT 8235988 RDW-SD 42.1 fL 9 Unknown COMPLETE BLOOD COUNT 6044926 Basophil Abs 0.01 10e9/L 12/04 Unknown GFR CALC 1310577 GFR Non Afr Amr >60 mL/min 12/21/2016 Un known GFR CALC 5963466 GFR Afr Amr >60 mL/min 12/21/2016 Unknow n COMPLETE BLOOD COUNT 0029819 WBC 3.6 10e9/L 12/22/19 17 Unknown COMPLETE BLOOD COUNT 6751055 RBC 4.57 10e12/L 2016 Unknown COMPLETE BLOOD COUNT 5172207 HEMOGLOBIN 13.8 g/dL 12/22/19 17 Unknown COMPLETE BLOOD COUNT 9485201 HEMATOCRIT 42.4 % 12/22/19 17 Unknown COMPLETE BLOOD COUNT 4342243 MCV 92.8 fL 7 Unknown COMPLETE BLOOD COUNT 4892442 MCH 30.2 pg 7 Unknown COMPLETE BLOOD COUNT 1123283 MCHC 32.5 g/dL 7 Unknown COMPLETE BLOOD COUNT 4175344 PLATELET COUNT 225 10e9/L Unknown COMPLETE BLOOD COUNT 0509543 Mean Plt Volume 9.0 fL Unknown COMPLETE BLOOD COUNT 4796901 Neut Auto 45.6 % 7 Unknown COMPLETE BLOOD COUNT 8691350 Lymph Auto 37.3 % 12/22/19 17 Unknown COMPLETE BLOOD COUNT 4350496 Lynn Auto 11.0 % 7 Unknown COMPLETE BLOOD COUNT 4484710 RDW 12.6 % 7 Unknown COMPLETE BLOOD COUNT 4744263 Eos Auto 5.5 % 7 Unknown COMPLETE BLOOD COUNT 3624867 Baso Auto 0.6 % 7 Unknown COMPLETE BLOOD COUNT 9314788 Neutrophil Abs 1.64 10e9/L Unknown COMPLETE BLOOD COUNT 0820883 Lymphocyte Abs 1.34 10e9/L Unknown COMPLETE BLOOD COUNT 2685215 Monocyte Abs 0.40 10e9/L 12/03 Unknown COMPLETE BLOOD COUNT 1086550 Eosinophil Abs 0.20 10e9/L Unknown COMPLETE BLOOD COUNT 2661513 RDW-SD 42.0 fL 7 Unknown COMPLETE BLOOD COUNT [id number] Basophil Abs 0.02 10e9/L 12/03 Unknown THYROID STIMULATING HORMONE 37867 TSH 3.423 uIU/mL 12/21/2016 Unknown COMPREHENSIVE METABOLIC 06128 AST 23 U/L 2016 Unknown COMPREHENSIVE METABOLIC 00551 ALT 18 U/L 2016 Unknown COMPREHENSIVE METABOLIC 30804 BUN 21 mg/dL 2016 Unknown COMPREHENSIVE METABOLIC 30964 ALBUMIN 4.4 g/dL 2016 Unknown COMPREHENSIVE METABOLIC 98523 CHLORIDE 103 mmol/L 12/21 Unknown COMPREHENSIVE METABOLIC 94054 Bili Total 0.7 mg/dL 12/21 Unknown COMPREHENSIVE METABOLIC 80860 ALK PHOS 86 U/L 2016 Unknown COMPREHENSIVE METABOLIC 20317 SODIUM 141 mmol/L 12/21 Unknown COMPREHENSIVE METABOLIC 50526 CREATININE 0.75 mg/dL 12/03 Unknown COMPREHENSIVE METABOLIC 83653 CALCIUM 9.2 mg/dL 2016 Unknown COMPREHENSIVE METABOLIC 35538 POTASSIUM 3.8 mmol/L 12/21 Unknown COMPREHENSIVE METABOLIC 08455 Total Protein 7.3 g/dL Unknown COMPREHENSIVE METABOLIC 71651 Glucose 95 mg/dL 2016 Unknown COMPREHENSIVE METABOLIC 03488 Bicarbonate 32 mmol/L 12/03 Unknown COMPREHENSIVE METABOLIC 40041 AGAP 6 mmol/L 2016 Unknown LIPID GROUP 45971 Cholesterol 154 mg/dL 12/21/2016 Unkno wn LIPID GROUP 28697 Triglyceride 51 mg/dL 12/21/2016 Unkn own LIPID GROUP 01491 HDL CHOLESTEROL 61 mg/dL 12/21/2016 U nknown LIPID GROUP 64961 Chol/HDL Ratio 2.52 ratio 12/21/2016 U nknown LIPID GROUP 70596 NON-HDL Chol 93 mg/dL 12/21/2016 Unkn own LIPID GROUP 22341 LDL Cholesterol 83 mg/dL 12/21/2016 U nknown Procedures Procedure Codes Date INFLUENZA ASSAY W/OPTIC CPT-4: 54247 04/21/2019 INFLUENZA ASSAY W/OPTIC CPT-4: 82119 04/24/2017 SPECIMEN HANDLING OFFICE-LAB CPT-4: 96553 02/24/2016 THER/PROPH/DIAG INJ SC/IM CPT-4: 52004 11/30/2015 TRIAMCINOLONE ACET INJ NOS CPT-4: J3301 11/30/2015 DEXAMETHASONE SODIUM PHOS CPT-4: J1100 11/30/2015 Vital Signs Date Vital 07/01/2019 Blood Pressure 1: 130/86 Code: 8480-6 BMI: 35.0 Code: 47647-3 Heart Rate 1: 60 bpm Height: 5'6" [...] 1: 124/72 Code: 8480-6 BMI: 35.1 Code: 23119-3 Heart Rate 1: 64 bpm Height: 5'6" Respiratory Rate: 18 bpm SpO2: 96% Tempera ture: 36.8 (C) / 98.2 (F) Weight: 221 lbs 02/13/2018 Blood Pressure 1: 138/82 Code: 8480-6 BMI: 34.5 Code: 12203-0 Heart Rate 1: 68 bpm Height: 5'7" Respiratory Rate: 18 bpm SpO2: 97% Tempera ture: 36.8 (C) / 98.2 (F) Weight: 220 lbs 04/24/2017 Blood Pressure 1: 126/78 Code: 8480-6 BMI: 35.4 Code: 71170-1 Heart Rate 1: 84 bpm Height: 5'7" Respiratory Rate: 22 bpm SpO2: 95% Tempera ture: 36.9 (C) / 98.4 (F) Weight: 226 lbs 02/24/2016 Blood Pressure 1: 128/78 Code: 8480-6 BMI: 35.6 Code: 70812-2 Heart Rate 1: 68 bpm Height: 5'7" Respiratory Rate: 20 bpm SpO2: 97% Tempera ture: 36.7 (C) / 98.1 (F) Weight: 227 lbs 11/30/2015 Blood Pressure 1: 128/78 Code: 8480-6 BMI: 36.0 Code: 51134-0 Heart Rate 1: 76 bpm Height: 5'7" Respiratory Rate: 20 bpm SpO2: 97% Tempera ture: 37.1 (C) / 98.7 (F) Weight: 230 lbs 11/10/2015 Blood Pressure 1: 136/82 Code: 8480-6 BMI: 36.0 Code: 99887-2 Heart Rate 1: 80 bpm Height: 5'7" Respiratory Rate: 20 bpm Temperature: 36 .6 (C) / 97.9 (F) Weight: 230 lbs Functional Status No Functional Status data Reason For Visit Reason For Visit Effective Dates Notes follow up 07/01/2019 ER fwup follow up [...] visit Encounters Encounter Performer Location Codes Date ([id number]) OFFICE/OUTPATIENT VISIT EST Diagnosis: Gastro-esophageal reflux disease without esophagitis[ICD10: K21.9] Diagnosis: Chest pain[ICD10: R07.9] Naya [facility] CPT-4: 19793 07/01/2019 ([id number]) OFFICE/OUTPATIENT VISIT EST Diagnosis: Generalized anxiety disorder[ICD10: F41.1] Naya TEJEDA DO [facility] CPT-4: 42322 05/15/2019 ([id number]) OFFICE/OUTPATIENT VISIT EST Diagnosis: Influenza A[ICD10: J10.1] Naya MCCLELLAND DO [facility] CPT-4: 98692 04/21/2019 ([id number]) OFFICE/OUTPATIENT VISIT EST Diagnosis: Epigastric pain[ICD10: R10.13] Diagnosis: Gastro-esophageal reflux disease without esophagitis[ICD10: K21.9] Naya TEJEDA DO [facility] CPT-4: 67669 03/11/2019 ([id number]) OFFICE/OUTPATIENT VISIT EST Diagnosis: Stress reaction[ICD10: F43.0] Diagnosis: Insomnia[ICD10: G47.00] Naya CAMARILLO [facility] [place] CPT-4: 46227 02/06/2019 ([id number]) PREV VISIT EST AGE 40-64 Diagnosis: Encounter for general adult medical examination without abnormal findings[ICD10: Z00.00] Diagnosis: Obstructive sleep apnea (adult) (pediatric)[ICD10: G47.33] Diagnosis: Stress reaction[ICD10: F43.0] Diagnosis: URI, ACUTE[ICD10: J06.9] Diagnosis: Insomnia[ICD10: G47.00] Naya [facility] CPT-4: 66691 01/02/2019 ([id number]) PREV VISIT EST AGE 40-64 Diagnosis: Encounter for general adult medical examination without abnormal findings[ICD10: Z00.00] Diagnosis: Gastro-esophageal reflux disease without esophagitis[ICD10: K21.9] Diagnosis: Obstructive sleep apnea (adult) (pediatric)[ICD10: G47.33] Diagnosis: Mixed hyperlipidemia[ICD10: E78.2] Diagnosis: Dizziness and giddiness[ICD10: R42] Naya CEDEÑOLokesh TEJEDA [employer] CPT-4: 88366 02/13/2018 OFFICE/OUTPATIENT VISIT EST Diagnosis: Acute sinusitis, unspecified[ICD10: J01.90] Diagnosis: Viral infection, unspecified[ICD10: B34.9] Jodie CEDEÑOLINE Teetee CAMACHO [employer] CPT-4: 85346 04/24/2017 ([id number]) PREV VISIT EST AGE 40-64 Diagnosis: Encounter for general adult medical examination without abnormal findings[ICD10: Z00.00] Diagnosis: Encounter for gynecological examination (general) (routine) without abnormal findings[ICD10: Z01.419] Diagnosis: URI, ACUTE[ICD10: J06.9] Nayaiain Camachorosy CEDEÑONAYA Teetee GODOY [employer] CPT-4: 96016 02/24/2016 ([id number]) OFFICE/OUTPATIENT VISIT EST Diagnosis: Other seasonal allergic rhinitis[ICD10: J30.2] Regina CAMACHO [employer] CPT-4: 01046 11/30/2015 OFFICE/OUTPATIENT VISIT NEW Diagnosis: Mixed hyperlipidemia[ICD10: E78.2] Diagnosis: Gastro-esophageal reflux disease without esophagitis[ICD10: K21.9] Diagnosis: Allergic rhinitis due to pollen[ICD10: J30.1] Diagnosis: Obstructive sleep apnea (adult) (pediatric)[ICD10: G47.33] Naya CAMACHO [employer] CPT-4: 23408 11/10/2015 Plan of Care Planned Activity Notes Codes Status Date Visit Diagnosis Plan: Gastro-esophageal reflux disease without esophagitis Discussion: Add Pepcid 40mg po q PM May need EGD if Cardiac Workup normal ICD-9 : 530.81 ICD-10 : K21.9 07/01/2019 Visit Diagnosis Plan: Chest pain Discussion: To Dr. Babatunde cid for any further workup ICD-9 : 786.50 ICD-10 : R07.9 07/01/2019 Patient Education: famotidine- [employer] Coupon [phone] [email or web address] Completed 07/01/2019 Visit Diagnosis Plan: Generalized anxiety disorder Dis cussion: Restart lexapro at 5mg daily for 4 days then go to 10mg daily Recheck at end of school year ICD-9 : 300.02 ICD-10 : F41.1 05/15/2019 Appointment: Naya Tejeda WPtel: [address] [place] [address] [place] FOLLOW UP 05/15/2019 Visit Diagnosis Plan: Influenza A Discussion: Tamiflu Supportive card Notify if worsening No work for full 5 days from symptoms and fever free at least 24hrs ICD-9 : 487.1 ICD-10 : J10.1 04/21/2019 Appointment: Naya Tejeda WPtel: [address] [place] [address] ACUTE ILLNESS 04/21/2019 Patient Education: Tamiflu- [employer] Coupon [id number] [email or web address] Completed 04/21/2019 Visit Diagnosis Plan: Gastro-esophageal reflux disease without esophagitis Diet: GERD diet ICD-9 : 530.81 ICD-10 : K21.9 03/11/2019 Visit Diagnosis Plan: Epigastric pain Discussion: Baron ge omeprazole to pantoprazole 40mg po BID ICD-9 : 789.06 ICD-10 : R10.13 03/11/2019 Appointment: Naya Tejeda WPtel: [address] [place], [place] [address] [place] FOLLOW UP 03/11/2019 Patient Education: pantoprazole- [employer] Coupon [phone] [email or web address]/getResource/[email or web address] Completed 03/11/2019 Visit Diagnosis Plan: Insomnia Discussion: Stable on t razadone ICD-9 : 780.52 ICD-10 : G47.00 02/06/2019 Visit Diagnosis Plan: Stress reaction Discussion: Incr ease escitalopram to 10mg daily Follow Up: 3 months ICD-9 : 308.9 ICD-10 : F43.0 02/06/2019 Appointment: Naya Tejedatel: [id number] FOLLOW UP 02/06/2019 Patient Education: escitalopram oxalate- [employer] Co upon [id number] https://[email or web address]/getResource/61/[email or web address] Completed 02/06/2019 Patient Education: trazodone- [employer] Coupon [id number] https://[email or web address]/resources/getResource/61/[email or web address]-we Completed 02/06/2019 Patient Education: escitalopram oxalate- [employer] Co upon [id number] https://[email or web address]/resources/getResource/61/[email or web address] Completed 02/06/2019 Visit Diagnosis Plan: Obstructive sleep [...] 01/02/2019 Visit Diagnosis Plan: Encounter for [facility] adult medical examination without abnormal findings Discussion: Mediterranean diet Combinati on of cardio and weight bearing exercise Defers flu shot Fasting lab discussed ICD-9 : V70.9 ICD-10 : Z00.00 01/02/2019 Visit Diagnosis Plan: Insomnia Discussion: Trial of tr azadone 50mg 1-2 po q HS prn sleep ICD-9 : 780.52 ICD-10 : G47.00 01/02/2019 Appointment[facility] [address] [facility] [facility] 01/02/2019 Patient Education: trazodone- [employer] Coupon [id number] [email or web address]://[email or web address]/resources/getResource/61/[email or web address] Completed 01/02/2019 Patient Education: escitalopram oxalate- [employer] Co upon [id number] https://[email or web address]/resources/getResource/61/[email or web address] Completed 01/02/2019 Visit Diagnosis Plan: Gastro-esophageal reflux disease without esophagitis Discussion: Stable on omeprazole ICD-9 : 530.81 ICD-10 : K21.9 02/13/2018 Visit Diagnosis Plan: Encounter for [facility] adult medical examination without abnormal findings [...] R42 02/13/2018 Appointment: [facility]aya Te[facility]eda [facility]el[facility] [phone] [facility] [facility] Well Visit 02/13/2018 Patient Education: Patient Medication Summary Completed 06/06/2017 Care Plan: MAMMOGRAM BOTH BREASTS LOINC : 89726-3 Pending 06/06/2017 Visit Diagnosis Plan: Acute sinusitis, [...] ICD-10 : J01.90 04/24/2017 Appointment: Jodie Tran [address] ACUTE ILLNESS 04/24/2017 Patient Education: Patient Medication Summary Completed 04/24/2017 Patient Education: Patient Medication Summary Completed 12/08/2016 Care Plan: COMPREH[place] METAB[place] : 92603-8 Pending 12/08/2016 Care Plan: ASSAY THYROID STIM HORMONE Pen ding 12/08/2016 Care Plan: LIPID PANEL LOINC : 51173-0 Pending 12/08/2016 Care Plan: CBC Pending 12/08/2016 [...] for yearly 02/24/2016 Appointment: Naya Tejeda WPtel: [address] [place] [address] 02/22 confirmed~sl PAP 02/24/2016 Patient Education: Patient Medication Summary Completed 02/24/2016 Visit Plan: Injection as above Rx for al legra-d Benadryl at HS Nasal rinses, steroid nasal sprays Mucinex Vicks, humidifier, vitamin C, rest, fluids Follow up PRN 11/30/2015 Appointment: Regina Sagastume [address] ACUTE ILLNESS 11/30/2015 Patient Education: Patient Medication Summary Completed 11/30/2015 Patient Education: [facility] - Saving AutoInj - 18-64 - Dynamic Maura l ID Completed 11/30/2015 Referral: Sunil Hatch WPtel: [phone] [address] [place] Referral Appointment Confirmed 11/23/2015 Visit Plan: [...] loss 11/10/2015 Appointment: Naya Tejeda WPtel: [phone] [place] [place] 11/08lm ~sl11/09 CONFIRMED~sl NEW PATIENT 11/09 Patient Education: Patient Medication Summary Completed 11/10/2015 Patient Education: [facility] - Saving AutoInj - 18-64 - Dynamic Maura l ID Completed 11/10/2015 Instructions Comment . Supportive care. Rest, Fluids, [...]
--- OUTSIDE RECORDS SUMMARY | 2019-09-24 10:30 | XMS REPORT | CCD ---
Author Author Nadya Tejeda D.O. Organization [facility] Address [address] [place] [address] Phone Care Team Providers Care Sawmill Hand Name Role Phone PP Unavailable CCM Unavailable Summary Purpose Interface Exchange Insurance Providers Payer name Policy type / Coverage type Covered constitution party ID Effective Begin Date Effective End Date [employer] Commercial Insurance [id number] Unknown Family history Sister Diagnosis Age At [...] Unknown 1 11/10/2015 Employment Unknown Currently employed [employer] 11/10/[address]: 373278520 Has never smoked or chewed tobacco 11/10/[address]: 351337002 Never drinks alcohol 2015 Has the patient [...] Fill Instructions famotidine 40 mg tablet RxNorm: 448291 1 Tablet(s) Oral QPM 020 07/31/2019 Active pantoprazole 40 mg tablet,delayed release RxNorm: 132815 TAKE 1 TABLET BY MOUTH TWICE DAILY 06/03/2019 08/01/2019 Active Tamiflu 75 mg capsule RxNorm: 396777 1 Capsule(s) Oral two time s a day 04/21/2019 04/26/2019 Inactive pantoprazole 40 mg tablet,delayed release RxNorm: 150621 1 Tablet(s) Oral two times a day replaces omeprazole 03/11/2019 05/10/2019 Inactive escitalopram 10 mg tablet RxNorm: 954721 1 Tablet(s) Oral QD re places 5mg dose 02/06/2019 08/05/2019 Active trazodone 50 mg tablet RxNorm: 307559 1-2 Tablet(s) Ora l QPM as needed for sleep 02/06/2019 03/07/2019 Inactive escitalopram 5 mg tablet RxNorm: 351849 1 Tablet(s) Oral QAM 201802/05/2019 Inactive trazodone 50 mg tablet RxNorm: 081257 1-2 Tablet(s) Ora l QPM as needed for sleep 01/02/2019 02/05/2019 Inactive omeprazole 20 mg capsule,delayed release RxNorm: 130384 1 Capsu le(s) PO QD 07/04/2018 06/30/2019 Inactive omeprazole 20 mg capsule,delayed release RxNorm: 470933 1 Capsu le(s) PO QD 04/03/2018 07/01/2018 Inactive omeprazole 20 mg capsule,delayed release RxNorm: 469328 1 Capsu le(s) PO QD 04/03/2018 01/01/2019 Inactive omeprazole 20 mg capsule,delayed release RxNorm: 277248 1 Capsu le(s) PO QD 12/05/2017 03/04/2018 Inactive omeprazole 20 mg capsule,delayed release RxNorm: 123502 1 Capsu le(s) PO QD 09/06/2017 04/03/2018 Inactive Augmentin 875 mg-125 mg tablet RxNorm: 660637 1 Tablet(s) PO BID 05/03/2017 Inactive omeprazole 20 mg capsule,delayed release RxNorm: 684350 1 Capsu le(s) PO QD 04/19/2017 08/16/2017 Inactive omeprazole 20 mg capsule,delayed release RxNorm: 343605 1 Capsule(s) PO QD replaces 40mg daily- due for refill 03/14/2017 04/19/2017 Inactive omeprazole 20 mg capsule,delayed release RxNorm: 160235 1 Capsule(s) PO QD replaces 40mg daily 11/30/2016 02/27/2017 Inactive omeprazole 20 mg capsule,delayed release RxNorm: 011869 1 Capsule(s) PO QD replaces 40mg daily 05/03/2016 10/29/2016 Inactive cetirizine 1 mg/mL oral solution RxNorm: 5947382 1.25 Mi lliliter(s) PO QHS for runny nose 02/24/2016 02/23/2016 Inactive Ce-D 12 Hour 60 mg-120 mg tablet,extended release RxNor m: 119465 1 Tablet(s) PO BID as needed 11/30/2015 No Stop Date Active omeprazole 20 mg capsule,delayed release RxNorm: 460372 1 Capsule(s) PO QD replaces 40mg daily 11/10/2015 03/08/2016 Inactive Ce Allergy 180 mg tablet RxNorm: 429025 1 Tablet(s) PO QD No Sta rt Date Active Aspirin Child 81 mg chewable tablet RxNorm: 765664 1 Tablet(s) PO QD No Start Date Active simvastatin 20 mg tablet RxNorm: 895348 1 Tablet(s) PO QD No Start Da te Active omeprazole 40 mg capsule,delayed release RxNorm: 572427 1 Capsu le(s) PO QD No Start Date 11/09/2015 Inactive Medication Administered No Medication Administered data Immunizations No Immunization data Results Observation Observation Code Item Item Code Result Date S vice Location THYROID STIMULATING HORMONE 61055 TSH 3.245 uIU/mL 12/27/2018 Unknown GFR CALC 1067523 GFR Non Afr Amr >60 mL/min 12/27/2018 Un known GFR CALC 8825994 GFR Afr Amr >60 mL/min 12/27/2018 Unknow n FREE T4 46109 T4 Free 0.88 ng/dL 12/27/2018 Unknown [facility] 34646 Cholesterol 157 mg/dL 12/27/2018 Unkno wn [facility] 72214 Triglyceride 44 mg/dL 12/27/2018 Unkn own [facility] 04285 HDL CHOLESTEROL 61 mg/dL 12/27/2018 U nknown L[facility] GROUP 50120 Chol/HDL Ratio 2.57 ratio 12/27/2018 U nknown [facility] GROUP 57404 NON-HDL Chol 96 mg/dL 12/27/2018 Unkn own [facility] GROUP 93703 LDL Cholesterol 87 mg/dL 12/27/2018 U nknown COMPREHENSIVE METABOLIC 08132 AST 19 U/L 2018 Unknown COMPREHENSIVE METABOLIC 81895 ALT 13 U/L 2018 Unknown COMPREHENSIVE METABOLIC 71716 BUN 22 mg/dL 2018 Unknown COMPREHENSIVE METABOLIC 73518 ALBUMIN 4.2 g/dL 2018 Unknown COMPREHENSIVE METABOLIC 20161 CHLORIDE 103 mmol/L 12/27 Unknown COMPREHENSIVE METABOLIC 81567 Bili Total 0.5 mg/dL 12/27 Unknown COMPREHENSIVE METABOLIC 43603 ALK PHOS 101 U/L 2018 Unknown COMPREHENSIVE METABOLIC 35964 SODIUM 141 mmol/L 12/27 Unknown COMPREHENSIVE METABOLIC 54759 CREATININE 0.76 mg/dL 12/04 Unknown COMPREHENSIVE METABOLIC 19222 CALCIUM 9.3 mg/dL 2018 Unknown COMPREHENSIVE METABOLIC 81201 POTASSIUM 3.6 mmol/L 12/27 Unknown COMPREHENSIVE METABOLIC 23277 Total Protein 7.4 g/dL Unknown COMPREHENSIVE METABOLIC 00595 Glucose 86 mg/dL 2018 Unknown COMPREHENSIVE METABOLIC 15414 Bicarbonate 31 mmol/L 12/04 Unknown COMPREHENSIVE METABOLIC 98283 AGAP 7 mmol/L 2018 Unknown COMPLETE BLOOD COUNT 7961127 WBC 4.2 10e9/L 12/28/19 19 Unknown COMPLETE BLOOD COUNT [id number] RBC 4.55 10e12/L 2018 Unknown COMPLETE BLOOD COUNT 8986193 HEMOGLOBIN 13.7 g/dL 12/28/19 19 Unknown COMPLETE BLOOD COUNT 9775205 HEMATOCRIT 42.4 % 12/28/19 19 Unknown COMPLETE BLOOD COUNT [id number] MCV 93.2 fL 9 Unknown COMPLETE BLOOD COUNT 8590328 MCH 30.1 pg 9 Unknown COMPLETE BLOOD COUNT 0741222 MCHC 32.3 g/dL 9 Unknown COMPLETE BLOOD COUNT 6623383 PLATELET COUNT 272 10e9/L Unknown COMPLETE BLOOD COUNT 4156195 Mean Plt Volume 8.9 fL Unknown COMPLETE BLOOD COUNT 6701953 Neut Auto 50.9 % 9 Unknown COMPLETE BLOOD COUNT [id number] Lymph Auto 35.1 % 12/28/19 19 Unknown COMPLETE BLOOD COUNT 5769199 [place] Auto 9.6 % 9 Unknown COMPLETE BLOOD COUNT 2875332 RDW 12.7 % 9 Unknown COMPLETE BLOOD COUNT 5183718 Eos Auto 4.2 % 9 Unknown COMPLETE BLOOD COUNT 5097306 Baso Auto 0.2 % 9 Unknown COMPLETE BLOOD COUNT 0804841 Neutrophil Abs 2.14 10e9/L Unknown COMPLETE BLOOD COUNT 8425558 Lymphocyte Abs 1.47 10e9/L Unknown COMPLETE BLOOD COUNT 2413800 Monocyte Abs 0.40 10e9/L 12/04 Unknown COMPLETE BLOOD COUNT 7841572 Eosinophil Abs 0.18 10e9/L Unknown COMPLETE BLOOD COUNT 3793299 RDW-SD 42.1 fL 9 Unknown COMPLETE BLOOD COUNT 0922022 Basophil Abs 0.01 10e9/L 12/04 Unknown GFR CALC 3182243 GFR Non Afr Amr >60 mL/min 12/21/2016 Un known GFR CALC 1680727 GFR Afr Amr >60 mL/min 12/21/2016 Unknow n COMPLETE BLOOD COUNT 0684248 WBC 3.6 10e9/L 12/22/19 17 Unknown COMPLETE BLOOD COUNT [id number] RBC 4.57 10e12/L 2016 Unknown COMPLETE BLOOD COUNT 1804866 HEMOGLOBIN 13.8 g/dL 12/22/19 17 Unknown COMPLETE BLOOD COUNT 0139677 HEMATOCRIT 42.4 % 12/22/19 17 Unknown COMPLETE BLOOD COUNT 5277419 MCV 92.8 fL 7 Unknown COMPLETE BLOOD COUNT 4947583 MCH 30.2 pg 7 Unknown COMPLETE BLOOD COUNT 9501196 MCHC 32.5 g/dL 7 Unknown COMPLETE BLOOD COUNT 2041423 PLATELET COUNT 225 10e9/L Unknown COMPLETE BLOOD COUNT 9174432 Mean Plt Volume 9.0 fL Unknown COMPLETE BLOOD COUNT 7767780 Neut Auto 45.6 % 7 Unknown COMPLETE BLOOD COUNT 0015068 Lymph Auto 37.3 % 12/22/19 17 Unknown COMPLETE BLOOD COUNT 1225275 [place] Auto 11.0 % 7 Unknown COMPLETE BLOOD COUNT 0149657 RDW 12.6 % 7 Unknown COMPLETE BLOOD COUNT 3069726 Eos Auto 5.5 % 7 Unknown COMPLETE BLOOD COUNT 4552782 Baso Auto 0.6 % 7 Unknown COMPLETE BLOOD COUNT 6717389 Neutrophil Abs 1.64 10e9/L Unknown COMPLETE BLOOD COUNT 5112017 Lymphocyte Abs 1.34 10e9/L Unknown COMPLETE BLOOD COUNT 5765762 Monocyte Abs 0.40 10e9/L 12/03 Unknown COMPLETE BLOOD COUNT [id number] Eosinophil Abs 0.20 10e9/L Unknown COMPLETE BLOOD COUNT 3507799 RDW-SD 42.0 fL 7 Unknown COMPLETE BLOOD COUNT 6240409 Basophil Abs 0.02 10e9/L 12/03 Unknown THYROID STIMULATING HORMONE 67730 TSH 3.423 uIU/mL 12/21/2016 Unknown COMPREHENSIVE METABOLIC 95038 AST 23 U/L 2016 Unknown COMPREHENSIVE METABOLIC 47225 ALT 18 U/L 2016 Unknown COMPREHENSIVE METABOLIC 04039 BUN 21 mg/dL 2016 Unknown COMPREHENSIVE METABOLIC 88795 ALBUMIN 4.4 g/dL 2016 Unknown COMPREHENSIVE METABOLIC 20869 CHLORIDE 103 mmol/L 12/21 Unknown COMPREHENSIVE METABOLIC 82672 Bili Total 0.7 mg/dL 12/21 Unknown COMPREHENSIVE METABOLIC 45825 ALK PHOS 86 U/L 2016 Unknown COMPREHENSIVE METABOLIC 22101 SODIUM 141 mmol/L 12/21 Unknown COMPREHENSIVE METABOLIC 80801 CREATININE 0.75 mg/dL 12/03 Unknown COMPREHENSIVE METABOLIC 15777 CALCIUM 9.2 mg/dL 2016 Unknown COMPREHENSIVE METABOLIC 85894 POTASSIUM 3.8 mmol/L 12/21 Unknown COMPREHENSIVE METABOLIC 91443 Total Protein 7.3 g/dL Unknown COMPREHENSIVE METABOLIC 60113 Glucose 95 mg/dL 2016 Unknown COMPREHENSIVE METABOLIC 54426 Bicarbonate 32 mmol/L 12/03 Unknown COMPREHENSIVE METABOLIC 25239 AGAP 6 mmol/L 2016 Unknown LIPID GROUP 20940 Cholesterol 154 mg/dL 12/21/2016 Unkno wn LIPID GROUP 80068 Triglyceride 51 mg/dL 12/21/2016 Unkn own LIPID GROUP 45486 HDL CHOLESTEROL 61 mg/dL 12/21/2016 U nknown LIPID GROUP 63445 Chol/HDL Ratio 2.52 ratio 12/21/2016 U nknown LIPID GROUP 65424 NON-HDL Chol 93 mg/dL 12/21/2016 Unkn own LIPID GROUP 05085 LDL Cholesterol 83 mg/dL 12/21/2016 U nknown Procedures Procedure Codes Date INFLUENZA ASSAY W/OPTIC CPT-4: 47622 04/21/2019 INFLUENZA ASSAY W/OPTIC CPT-4: 18548 04/24/2017 SPECIMEN HANDLING OFFICE-LAB CPT-4: 52327 02/24/2016 THER/PROPH/DIAG INJ SC/IM CPT-4: 22253 11/30/2015 TRIAMCINOLONE ACET INJ NOS CPT-4: J3301 11/30/2015 DEXAMETHASONE SODIUM PHOS CPT-4: J1100 11/30/2015 Vital Signs Date Vital 07/01/2019 Blood Pressure 1: 130/86 Code: 8480-6 BMI: 35.0 Code: 04589-1 Heart Rate 1: 60 bpm Height: 5'6" [...] 1: 124/72 Code: 8480-6 BMI: 35.1 Code: 13051-2 Heart Rate 1: 64 bpm Height: 5'6" Respiratory Rate: 18 bpm SpO2: 96% Tempera ture: 36.8 (C) / 98.2 (F) Weight: 221 lbs 02/13/2018 Blood Pressure 1: 138/82 Code: 8480-6 BMI: 34.5 Code: 79265-9 Heart Rate 1: 68 bpm Height: 5'7" Respiratory Rate: 18 bpm SpO2: 97% Tempera ture: 36.8 (C) / 98.2 (F) Weight: 220 lbs 04/24/2017 Blood Pressure 1: 126/78 Code: 8480-6 BMI: 35.4 Code: 39504-0 Heart Rate 1: 84 bpm Height: 5'7" Respiratory Rate: 22 bpm SpO2: 95% Tempera ture: 36.9 (C) / 98.4 (F) Weight: 226 lbs 02/24/2016 Blood Pressure 1: 128/78 Code: 8480-6 BMI: 35.6 Code: 20162-7 Heart Rate 1: 68 bpm Height: 5'7" Respiratory Rate: 20 bpm SpO2: 97% Tempera ture: 36.7 (C) / 98.1 (F) Weight: 227 lbs 11/30/2015 Blood Pressure 1: 128/78 Code: 8480-6 BMI: 36.0 Code: 80449-5 Heart Rate 1: 76 bpm Height: 5'7" Respiratory Rate: 20 bpm SpO2: 97% Tempera ture: 37.1 (C) / 98.7 (F) Weight: 230 lbs 11/10/2015 Blood Pressure 1: 136/82 Code: 8480-6 BMI: 36.0 Code: 22199-5 Heart Rate 1: 80 bpm Height: 5'7" [...] visit Encounters Encounter Performer Location Codes Date ([id number]) OFFICE/OUTPATIENT VISIT EST Diagnosis: Gastro-esophageal reflux disease without esophagitis[ICD10: K21.9] Diagnosis: Chest pain[ICD10: R07.9] Naya GODOY [facility] CPT-4: 23158 07/01/2019 ([id number]) OFFICE/OUTPATIENT VISIT EST Diagnosis: Generalized anxiety disorder[ICD10: F41.1] Naya TEJEDA DO [facility] CPT-4: 22897 05/15/2019 ([id number]) OFFICE/OUTPATIENT VISIT EST Diagnosis: Influenza A[ICD10: J10.1] Naya MCCLELLAND [facility] CPT-4: 95263 04/21/2019 ([id number]) OFFICE/OUTPATIENT VISIT EST Diagnosis: Epigastric pain[ICD10: R10.13] Diagnosis: Gastro-esophageal reflux disease without esophagitis[ICD10: K21.9] Naya TEJEDA [facility] CPT-4: 20885 03/11/2019 ([id number]) OFFICE/OUTPATIENT VISIT EST Diagnosis: Stress reaction[ICD10: F43.0] Diagnosis: Insomnia[ICD10: G47.00] Naya CAMARILLO [facility] CPT-4: 41015 02/06/2019 ([id number]) PREV VISIT EST AGE 40-64 Diagnosis: Encounter for general adult medical examination without abnormal findings[ICD10: Z00.00] Diagnosis: Obstructive sleep apnea (adult) (pediatric)[ICD10: G47.33] Diagnosis: Stress reaction[ICD10: F43.0] Diagnosis: URI, ACUTE[ICD10: J06.9] Diagnosis: Insomnia[ICD10: G47.00] Naya CAMACHO [facility] CPT-4: 43745 01/02/2019 ([id number]) PREV VISIT EST AGE 40-64 Diagnosis: Encounter for general adult medical examination without abnormal findings[ICD10: Z00.00] Diagnosis: Gastro-esophageal reflux disease without esophagitis[ICD10: K21.9] Diagnosis: Obstructive sleep apnea (adult) (pediatric)[ICD10: G47.33] Diagnosis: Mixed hyperlipidemia[ICD10: E78.2] Diagnosis: Dizziness and giddiness[ICD10: R42] Naya CEDEÑOLokesh [facility] CPT-4: 11492 02/13/2018 OFFICE/OUTPATIENT VISIT EST Diagnosis: Acute sinusitis, unspecified[ICD10: J01.90] Diagnosis: Viral infection, unspecified[ICD10: B34.9] Jodie CEDEÑOLINE Teetee [facility] CPT-4: 16368 04/24/2017 ([id number]) PREV VISIT EST AGE 40-64 Diagnosis: Encounter for general adult medical examination without abnormal findings[ICD10: Z00.00] Diagnosis: Encounter for gynecological examination (general) (routine) without abnormal findings[ICD10: Z01.419] Diagnosis: URI, ACUTE[ICD10: J06.9] Nayaiain Camachorosy CEDEÑONAYA Teetee [facility] CPT-4: 98515 02/24/2016 ([id number]) OFFICE/OUTPATIENT VISIT EST Diagnosis: Other seasonal allergic rhinitis[ICD10: J30.2] Regina [facility] CPT-4: 80761 11/30/2015 OFFICE/OUTPATIENT VISIT NEW Diagnosis: Mixed hyperlipidemia[ICD10: E78.2] Diagnosis: Gastro-esophageal reflux disease without esophagitis[ICD10: K21.9] Diagnosis: Allergic rhinitis due to pollen[ICD10: J30.1] Diagnosis: Obstructive sleep apnea (adult) (pediatric)[ICD10: G47.33] Naya [facility] CPT-4: 58357 11/10/2015 Plan of Care Planned Activity Notes [...] R07.9 07/01/2019 Patient Education: famotidine- [employer] Coupon [phone] https://www.samplemd.com/[employer]/resources/getResource/61/00v12021-l00w-1729-dy Completed 07/01/2019 Visit Diagnosis Plan: Generalized anxiety disorder Dis cussion: Restart lexapro at 5mg daily for 4 days then go to 10mg daily Recheck at end of school year ICD-9 : 300.02 ICD-10 : F41.1 05/15/2019 Appointment: Naya Tejeda WPtel: [address] [place] [address] [place] FOLLOW UP 05/15/2019 Visit Diagnosis Plan: Influenza A Discussion: Tamiflu Supportive card Notify if worsening No work for full 5 days from symptoms and fever free at least 24hrs ICD-9 : 487.1 ICD-10 : J10.1 04/21/2019 Appointment: Naya Tejeda WPtel: [address] [place] [address] ACUTE ILLNESS 04/21/2019 Patient Education: Tamiflu- [employer] Coupon [id number] https://www.PageBites/[employer]/resources/getResource/61/e788nb0c-1520-10a6-3j Completed 04/21/2019 Visit Diagnosis Plan: Gastro-esophageal reflux disease without esophagitis Diet: GERD diet ICD-9 : 530.81 ICD-10 : K21.9 03/11/2019 Visit Diagnosis Plan: Epigastric pain Discussion: Baron ge omeprazole to pantoprazole 40mg po BID ICD-9 : 789.06 ICD-10 : R10.13 03/11/2019 Appointment: Naya Tejeda WPtel: [address] [place], [place] [address] [place] FOLLOW UP 03/11/2019 Patient Education: pantoprazole- [employer] Coupon [phone] https://www.PageB[employer]/samplemd/resources/getResource/61/34687075-56w7-0d05-w5 Completed 03/11/2019 Visit Diagnosis Plan: Insomnia Discussion: Stable on t razadone ICD-9 : 780.52 ICD-10 : G47.00 02/06/2019 Visit Diagnosis Plan: Stress reaction Discussion: Incr ease escitalopram to 10mg daily Follow Up: 3 months ICD-9 : 308.9 ICD-10 : F43.0 02/06/2019 Appointment: Naya Tejedatel: [address] [id number] FOLLOW UP 02/06/2019 Patient Education: escitalopram oxalate- [employer] Co upon [id number] https://www.PageBites/[employer]/resources/getResource/61/4t438v91-t9le-574n-57 Completed 02/06/2019 Patient Education: trazodone- [employer] Coupon [phone] https://www.PageBites/[employer]/resources/getResource/61/s1j20to7-u38p-2705-dj Completed 02/06/2019 Patient Education: escitalopram oxalate- [employer] Co upon [id number] https://www.PageB[employer]/resources/getResource/61/47jf2115-5w6l-8eit-s7 Completed 02/06/2019 Visit Diagnosis Plan: Obstructive sleep [...] 01/02/2019 Visit Diagnosis Plan: Encounter for gene [facility] adult medical examination without abnormal findings Discussion: Mediterranean diet Combinati on of cardio and weight bearing exercise Defers flu shot Fasting lab discussed ICD-9 : V70.9 ICD-10 : Z00.00 01/02/2019 Visit Diagnosis Plan: Insomnia Discussion: Trial of tr azadone 50mg 1-2 po q HS prn sleep ICD-9 : 780.52 ICD-10 : G47.00 01/02/2019 Appointment[facility] [address] [id number] [facility] 01/02/2019 Patient Education: trazodone- [employer] Coupon [id number] https://www.PageBites/[employer]/resources/getResource/61/6i5z51w4-n86j-44wl-qh Completed 01/02/2019 Patient Education: escitalopram oxalate- [employer] Co upon [id number] https://www.PageBites/[employer]/resources/getResource/61/2648642h-1992-139x-52 Completed 01/02/2019 Visit Diagnosis Plan: Gastro-esophageal reflux disease without esophagitis Discussion: Stable on omeprazole ICD-9 : 530.81 ICD-10 : K21.9 02/13/2018 Visit Diagnosis Plan: Encounter for [facility] adult medical examination without abnormal findings [...] R42 02/13/2018 Appointment: [facility]eda [facility]el[facility] [address] [facility] [facility] Visit 02/13/2018 Patient Education: Patient Medication Summary Completed 06/06/2017 Care Plan: MAMMOGRAM BOTH BREASTS LOINC : 77807-1 Pending 06/06/2017 Visit Diagnosis Plan: Acute sinusitis, [...] : J01.90 04/24/2017 Appointment: Jodie Tran [address] ACUTE ILLNESS 04/24/2017 Patient Education: Patient Medication Summary Completed 04/24/2017 Patient Education: Patient Medication Summary Completed 12/08/2016 Care Plan: COMPREHEN METABOLIC PANEL [place] : 67018-4 Pending 12/08/2016 Care Plan: ASSAY THYROID STIM HORMONE Pen ding 12/08/2016 Care Plan: LIPID PANEL LOINC : 30467-0 Pending 12/08/2016 Care Plan: CBC Pending 12/08/2016 [...] for yearly 02/24/2016 Appointment: Naya Tejeda WPtel: [address] [place] [address] 02/22 confirmed~sl PAP 02/24/2016 Patient Education: Patient Medication Summary Completed 02/24/2016 Visit Plan: Injection as above Rx for al legra-d Benadryl at HS Nasal rinses, steroid nasal sprays Mucinex Vicks, humidifier, vitamin C, rest, fluids Follow up PRN 11/30/2015 Appointment: Regina Sagastume [address] ACUTE ILLNESS 11/30/2015 Patient Education: Patient Medication Summary Completed 11/30/2015 Patient Education: [facility] - Saving AutoInj - 18-64 - Dynamic Maura l ID Completed 11/30/2015 Referral: Sunil Hatch WPtel: [address] [address] [place] Referral Appointment Confirmed 11/23/2015 Visit Plan: Needs pap Mammogram is up-to -date Due for fasting lab in December Colonoscopy referral to Dr. Htach Decrease omeprazole to 40mg alternating with 20mg [...] Patient Medication Summary Completed 11/10/2015 Patient Education: [facility] - Saving AutoInj - 18-64 - Dynamic [...]
--- OUTSIDE RECORDS SUMMARY | 2019-09-24 10:30 | XMS REPORT | CCD ---
Author Author Nadya Tejeda D.O. Organization [facility] Address [address] [place] [address] Phone Care Team Providers Care Protein Chemist Name Role Phone PP Unavailable CCM Unavailable Summary Purpose Interface Exchange Insurance Providers Payer name Policy type / Coverage type Covered green party ID Effective Begin Date Effective End Date [employer] Commercial Insurance [id number] Unknown Family history Sister Diagnosis Age At [...] Unknown 1 11/10/2015 Employment Unknown Currently employed [employer] 11/10/[address]: 534762647 Has never smoked or chewed tobacco 11/10/[address]: 311733463 Never drinks alcohol 2015 Has the patient [...] Fill Instructions famotidine 40 mg tablet RxNorm: 088091 1 Tablet(s) Oral QPM 020 07/31/2019 Active pantoprazole 40 mg tablet,delayed release RxNorm: 275124 TAKE 1 TABLET BY MOUTH TWICE DAILY 06/03/2019 08/01/2019 Active Tamiflu 75 mg capsule RxNorm: 840578 1 Capsule(s) Oral two time s a day 04/21/2019 04/26/2019 Inactive pantoprazole 40 mg tablet,delayed release RxNorm: 502447 1 Tablet(s) Oral two times a day replaces omeprazole 03/11/2019 05/10/2019 Inactive escitalopram 10 mg tablet RxNorm: 063944 1 Tablet(s) Oral QD re places 5mg dose 02/06/2019 08/05/2019 Active trazodone 50 mg tablet RxNorm: 291260 1-2 Tablet(s) Ora l QPM as needed for sleep 02/06/2019 03/07/2019 Inactive escitalopram 5 mg tablet RxNorm: 208777 1 Tablet(s) Oral QAM 201802/05/2019 Inactive trazodone 50 mg tablet RxNorm: 139027 1-2 Tablet(s) Ora l QPM as needed for sleep 01/02/2019 02/05/2019 Inactive omeprazole 20 mg capsule,delayed release RxNorm: 495606 1 Capsu le(s) PO QD 07/04/2018 06/30/2019 Inactive omeprazole 20 mg capsule,delayed release RxNorm: 767675 1 Capsu le(s) PO QD 04/03/2018 07/01/2018 Inactive omeprazole 20 mg capsule,delayed release RxNorm: 421645 1 Capsu le(s) PO QD 04/03/2018 01/01/2019 Inactive omeprazole 20 mg capsule,delayed release RxNorm: 186683 1 Capsu le(s) PO QD 12/05/2017 03/04/2018 Inactive omeprazole 20 mg capsule,delayed release RxNorm: 951892 1 Capsu le(s) PO QD 09/06/2017 04/03/2018 Inactive Augmentin 875 mg-125 mg tablet RxNorm: 198821 1 Tablet(s) PO BID 05/03/2017 Inactive omeprazole 20 mg capsule,delayed release RxNorm: 710031 1 Capsu le(s) PO QD 04/19/2017 08/16/2017 Inactive omeprazole 20 mg capsule,delayed release RxNorm: 562092 1 Capsule(s) PO QD replaces 40mg daily- due for refill 03/14/2017 04/19/2017 Inactive omeprazole 20 mg capsule,delayed release RxNorm: 733618 1 Capsule(s) PO QD replaces 40mg daily 11/30/2016 02/27/2017 Inactive omeprazole 20 mg capsule,delayed release RxNorm: 655841 1 Capsule(s) PO QD replaces 40mg daily 05/03/2016 10/29/2016 Inactive cetirizine 1 mg/mL oral solution RxNorm: 0600965 1.25 Mi lliliter(s) PO QHS for runny nose 02/24/2016 02/23/2016 Inactive Mary-D 12 Hour 60 mg-120 mg tablet,extended release RxNor m: 128658 1 Tablet(s) PO BID as needed 11/30/2015 No Stop Date Active omeprazole 20 mg capsule,delayed release RxNorm: 448994 1 Capsule(s) PO QD replaces 40mg daily 11/10/2015 03/08/2016 Inactive Mary Allergy 180 mg tablet RxNorm: 700925 1 Tablet(s) PO QD No Sta rt Date Active Aspirin Child 81 mg chewable tablet RxNorm: 317005 1 Tablet(s) PO QD No Start Date Active simvastatin 20 mg tablet RxNorm: 949280 1 Tablet(s) PO QD No Start Da te Active omeprazole 40 mg capsule,delayed release RxNorm: 160594 1 Capsu le(s) PO QD No Start Date 11/09/2015 Inactive Medication Administered No Medication Administered data Immunizations No Immunization data Results Observation Observation Code Item Item Code Result Date S vice Location THYROID STIMULATING HORMONE 06379 TSH 3.245 uIU/mL 12/27/2018 Unknown GFR CALC 9349507 GFR Non Afr Amr >60 mL/min 12/27/2018 Un known GFR CALC 5047847 GFR Afr Amr >60 mL/min 12/27/2018 Unknow n FREE T4 92553 T4 Free 0.88 ng/dL 12/27/2018 Unknown LIPID GROUP 43145 Cholesterol 157 mg/dL 12/27/2018 Unkno wn LIP[facility] GROUP 11001 Triglyceride 44 mg/dL 12/27/2018 Unkn own LIP[facility] GROUP 01323 HDL CHOLESTEROL 61 mg/dL 12/27/2018 U nknown LIP[facility] GROUP 09760 Chol/HDL Ratio 2.57 ratio 12/27/2018 U nknown LIP[facility] GROUP 30100 NON-HDL Chol 96 mg/dL 12/27/2018 Unkn own LIP[facility] GROUP 51299 LDL Cholesterol 87 mg/dL 12/27/2018 U nknown COMPREHENSIVE METABOLIC 64086 AST 19 U/L 2018 Unknown COMPREHENSIVE METABOLIC 39141 ALT 13 U/L 2018 Unknown COMPREHENSIVE METABOLIC 11314 BUN 22 mg/dL 2018 Unknown COMPREHENSIVE METABOLIC 66796 ALBUMIN 4.2 g/dL 2018 Unknown COMPREHENSIVE METABOLIC 34320 CHLORIDE 103 mmol/L 12/27 Unknown COMPREHENSIVE METABOLIC 64627 Bili Total 0.5 mg/dL 12/27 Unknown COMPREHENSIVE METABOLIC 68263 ALK PHOS 101 U/L 2018 Unknown COMPREHENSIVE METABOLIC 14997 SODIUM 141 mmol/L 12/27 Unknown COMPREHENSIVE METABOLIC 54835 CREATININE 0.76 mg/dL 12/04 Unknown COMPREHENSIVE METABOLIC 65217 CALCIUM 9.3 mg/dL 2018 Unknown COMPREHENSIVE METABOLIC 31013 POTASSIUM 3.6 mmol/L 12/27 Unknown COMPREHENSIVE METABOLIC 52787 Total Protein 7.4 g/dL Unknown COMPREHENSIVE METABOLIC 96386 Glucose 86 mg/dL 2018 Unknown COMPREHENSIVE METABOLIC 37375 Bicarbonate 31 mmol/L 12/04 Unknown COMPREHENSIVE METABOLIC 57797 AGAP 7 mmol/L 2018 Unknown COMPLETE BLOOD COUNT 0282540 WBC 4.2 10e9/L 12/28/19 19 Unknown COMPLETE BLOOD COUNT 4850494 RBC 4.55 10e12/L 2018 Unknown COMPLETE BLOOD COUNT 6553413 HEMOGLOBIN 13.7 g/dL 12/28/19 19 Unknown COMPLETE BLOOD COUNT 0895141 HEMATOCRIT 42.4 % 12/28/19 19 Unknown COMPLETE BLOOD COUNT 4241523 MCV 93.2 fL 9 Unknown COMPLETE BLOOD COUNT 4841224 MCH 30.1 pg 9 Unknown COMPLETE BLOOD COUNT 5317800 MCHC 32.3 g/dL 9 Unknown COMPLETE BLOOD COUNT 6579302 PLATELET COUNT 272 10e9/L Unknown COMPLETE BLOOD COUNT 9258020 Mean Plt Volume 8.9 fL Unknown COMPLETE BLOOD COUNT 7698189 Neut Auto 50.9 % 9 Unknown COMPLETE BLOOD COUNT 6525257 Lymph Auto 35.1 % 12/28/19 19 Unknown COMPLETE BLOOD COUNT 1429026 Barnes Auto 9.6 % 9 Unknown COMPLETE BLOOD COUNT 0380547 RDW 12.7 % 9 Unknown COMPLETE BLOOD COUNT 2748347 Eos Auto 4.2 % 9 Unknown COMPLETE BLOOD COUNT 8108988 Baso Auto 0.2 % 9 Unknown COMPLETE BLOOD COUNT 7016567 Neutrophil Abs 2.14 10e9/L Unknown COMPLETE BLOOD COUNT 2383415 Lymphocyte Abs 1.47 10e9/L Unknown COMPLETE BLOOD COUNT 8843745 Monocyte Abs 0.40 10e9/L 12/04 Unknown COMPLETE BLOOD COUNT 3482712 Eosinophil Abs 0.18 10e9/L Unknown COMPLETE BLOOD COUNT 3844164 RDW-SD 42.1 fL 9 Unknown COMPLETE BLOOD COUNT 4153085 Basophil Abs 0.01 10e9/L 12/04 Unknown GFR CALC 2302971 GFR Non Afr Amr >60 mL/min 12/21/2016 Un known GFR CALC 3009260 GFR Afr Amr >60 mL/min 12/21/2016 Unknow n COMPLETE BLOOD COUNT 9498537 WBC 3.6 10e9/L 12/22/19 17 Unknown COMPLETE BLOOD COUNT 5564661 RBC 4.57 10e12/L 2016 Unknown COMPLETE BLOOD COUNT 1352316 HEMOGLOBIN 13.8 g/dL 12/22/19 17 Unknown COMPLETE BLOOD COUNT 4232209 HEMATOCRIT 42.4 % 12/22/19 17 Unknown COMPLETE BLOOD COUNT 0808912 MCV 92.8 fL 7 Unknown COMPLETE BLOOD COUNT 1362760 MCH 30.2 pg 7 Unknown COMPLETE BLOOD COUNT 3533813 MCHC 32.5 g/dL 7 Unknown COMPLETE BLOOD COUNT 5923130 PLATELET COUNT 225 10e9/L Unknown COMPLETE BLOOD COUNT 8682491 Mean Plt Volume 9.0 fL Unknown COMPLETE BLOOD COUNT 3529274 Neut Auto 45.6 % 7 Unknown COMPLETE BLOOD COUNT 8692156 Lymph Auto 37.3 % 12/22/19 17 Unknown COMPLETE BLOOD COUNT 5599545 Barnes Auto 11.0 % 7 Unknown COMPLETE BLOOD COUNT 3020750 RDW 12.6 % 7 Unknown COMPLETE BLOOD COUNT 2643428 Eos Auto 5.5 % 7 Unknown COMPLETE BLOOD COUNT 4331723 Baso Auto 0.6 % 7 Unknown COMPLETE BLOOD COUNT 2446262 Neutrophil Abs 1.64 10e9/L Unknown COMPLETE BLOOD COUNT 6550239 Lymphocyte Abs 1.34 10e9/L Unknown COMPLETE BLOOD COUNT 2883355 Monocyte Abs 0.40 10e9/L 12/03 Unknown COMPLETE BLOOD COUNT 0739482 Eosinophil Abs 0.20 10e9/L Unknown COMPLETE BLOOD COUNT 6073207 RDW-SD 42.0 fL 7 Unknown COMPLETE BLOOD COUNT 5876984 Basophil Abs 0.02 10e9/L 12/03 Unknown THYROID STIMULATING HORMONE 06512 TSH 3.423 uIU/mL 12/21/2016 Unknown COMPREHENSIVE METABOLIC 69023 AST 23 U/L 2016 Unknown COMPREHENSIVE METABOLIC 89867 ALT 18 U/L 2016 Unknown COMPREHENSIVE METABOLIC 55774 BUN 21 mg/dL 2016 Unknown COMPREHENSIVE METABOLIC 37910 ALBUMIN 4.4 g/dL 2016 Unknown COMPREHENSIVE METABOLIC 66883 CHLORIDE 103 mmol/L 12/21 Unknown COMPREHENSIVE METABOLIC 09388 Bili Total 0.7 mg/dL 12/21 Unknown COMPREHENSIVE METABOLIC 61488 ALK PHOS 86 U/L 2016 Unknown COMPREHENSIVE METABOLIC 35202 SODIUM 141 mmol/L 12/21 Unknown COMPREHENSIVE METABOLIC 22300 CREATININE 0.75 mg/dL 12/03 Unknown COMPREHENSIVE METABOLIC 38090 CALCIUM 9.2 mg/dL 2016 Unknown COMPREHENSIVE METABOLIC 50223 POTASSIUM 3.8 mmol/L 12/21 Unknown COMPREHENSIVE METABOLIC 80547 Total Protein 7.3 g/dL Unknown COMPREHENSIVE METABOLIC 50738 Glucose 95 mg/dL 2016 Unknown COMPREHENSIVE METABOLIC 29366 Bicarbonate 32 mmol/L 12/03 Unknown COMPREHENSIVE METABOLIC 95146 AGAP 6 mmol/L 2016 Unknown LIPID GROUP 74158 Cholesterol 154 mg/dL 12/21/2016 Unkno wn LIPID GROUP 29782 Triglyceride 51 mg/dL 12/21/2016 Unkn own LIPID GROUP 96127 HDL CHOLESTEROL 61 mg/dL 12/21/2016 U nknown LIPID GROUP 01626 Chol/HDL Ratio 2.52 ratio 12/21/2016 U nknown LIPID GROUP 12976 NON-HDL Chol 93 mg/dL 12/21/2016 Unkn own LIPID GROUP 66252 LDL Cholesterol 83 mg/dL 12/21/2016 U nknown Procedures Procedure Codes Date INFLUENZA ASSAY W/OPTIC CPT-4: 91310 04/21/2019 INFLUENZA ASSAY W/OPTIC CPT-4: 83647 04/24/2017 SPECIMEN HANDLING OFFICE-LAB CPT-4: 83331 02/24/2016 THER/PROPH/DIAG INJ SC/IM CPT-4: 55415 11/30/2015 TRIAMCINOLONE ACET INJ NOS CPT-4: J3301 11/30/2015 DEXAMETHASONE SODIUM PHOS CPT-4: J1100 11/30/2015 Vital Signs Date Vital 07/01/2019 Blood Pressure 1: 130/86 Code: 8480-6 BMI: 35.0 Code: 93585-6 Heart Rate 1: 60 bpm Height: 5'6" [...] 1: 124/72 Code: 8480-6 BMI: 35.1 Code: 62780-1 Heart Rate 1: 64 bpm Height: 5'6" Respiratory Rate: 18 bpm SpO2: 96% Tempera ture: 36.8 (C) / 98.2 (F) Weight: 221 lbs 02/13/2018 Blood Pressure 1: 138/82 Code: 8480-6 BMI: 34.5 Code: 96449-0 Heart Rate 1: 68 bpm Height: 5'7" Respiratory Rate: 18 bpm SpO2: 97% Tempera ture: 36.8 (C) / 98.2 (F) Weight: 220 lbs 04/24/2017 Blood Pressure 1: 126/78 Code: 8480-6 BMI: 35.4 Code: 28859-2 Heart Rate 1: 84 bpm Height: 5'7" Respiratory Rate: 22 bpm SpO2: 95% Tempera ture: 36.9 (C) / 98.4 (F) Weight: 226 lbs 02/24/2016 Blood Pressure 1: 128/78 Code: 8480-6 BMI: 35.6 Code: 06031-9 Heart Rate 1: 68 bpm Height: 5'7" Respiratory Rate: 20 bpm SpO2: 97% Tempera ture: 36.7 (C) / 98.1 (F) Weight: 227 lbs 11/30/2015 Blood Pressure 1: 128/78 Code: 8480-6 BMI: 36.0 Code: 80781-1 Heart Rate 1: 76 bpm Height: 5'7" Respiratory Rate: 20 bpm SpO2: 97% Tempera ture: 37.1 (C) / 98.7 (F) Weight: 230 lbs 11/10/2015 Blood Pressure 1: 136/82 Code: 8480-6 BMI: 36.0 Code: 77999-4 Heart Rate 1: 80 bpm Height: 5'7" [...] visit Encounters Encounter Performer Location Codes Date ([id number]) OFFICE/OUTPATIENT VISIT EST Diagnosis: Generalized anxiety disorder[ICD10: F41.1] Karen [facility]EDA [facility] CPT-4: 62232 05/15/2019 ([id number]) OFFICE/OUTPATIENT VISIT EST Diagnosis: Influenza A[ICD10: J10.1] Karen MCCLELLAND [facility] CPT-4: 70560 04/21/2019 ([id number]) OFFICE/OUTPATIENT VISIT EST Diagnosis: Epigastric pain[ICD10: R10.13] Diagnosis: Gastro-esophageal reflux disease without esophagitis[ICD10: K21.9] Karen TE[facility]EDA [facility] CPT-4: 98276 03/11/2019 ([id number]) OFFICE/OUTPATIENT VISIT EST Diagnosis: Stress reaction[ICD10: F43.0] Diagnosis: Insomnia[ICD10: G47.00] Karen CAMARILLO [facility] CPT-4: 41217 02/06/2019 ([id number]) PREV VISIT EST AGE 40-64 Diagnosis: Encounter for general adult medical examination without abnormal findings[ICD10: Z00.00] Diagnosis: Obstructive sleep apnea (adult) (pediatric)[ICD10: G47.33] Diagnosis: Stress reaction[ICD10: F43.0] Diagnosis: URI, ACUTE[ICD10: J06.9] Diagnosis: Insomnia[ICD10: G47.00] Karen CAMARILLO [facility] CPT-4: 13435 01/02/2019 ([id number]) PREV VISIT EST AGE 40-64 Diagnosis: Encounter for general adult medical examination without abnormal findings[ICD10: Z00.00] Diagnosis: Gastro-esophageal reflux disease without esophagitis[ICD10: K21.9] Diagnosis: Obstructive sleep apnea (adult) (pediatric)[ICD10: G47.33] Diagnosis: Mixed hyperlipidemia[ICD10: E78.2] Diagnosis: Dizziness and giddiness[ICD10: R42] Karen SKINNERJOSE L TEJEDA [facility] CPT-4: 25145 02/13/2018 OFFICE/OUTPATIENT VISIT EST Diagnosis: Acute sinusitis, unspecified[ICD10: J01.90] Diagnosis: Viral infection, unspecified[ICD10: B34.9] Jodie TEJEDA [facility] CPT-4: 79253 04/24/2017 ([id number]) PREV VISIT EST AGE 40-64 Diagnosis: Encounter for general adult medical examination without abnormal findings[ICD10: Z00.00] Diagnosis: Encounter for gynecological examination (general) (routine) without abnormal findings[ICD10: Z01.419] Diagnosis: URI, ACUTE[ICD10: J06.9] Karen GODOY [facility] CPT-4: 70643 02/24/2016 ([id number]) OFFICE/OUTPATIENT VISIT EST Diagnosis: Other seasonal allergic rhinitis[ICD10: J30.2] Regina TEJEDA [facility] CPT-4: 69096 11/30/2015 OFFICE/OUTPATIENT VISIT NEW Diagnosis: Mixed hyperlipidemia[ICD10: E78.2] Diagnosis: Gastro-esophageal reflux disease without esophagitis[ICD10: K21.9] Diagnosis: Allergic rhinitis due to pollen[ICD10: J30.1] Diagnosis: Obstructive sleep apnea (adult) (pediatric)[ICD10: G47.33] Karen TEJEDA [facility] CPT-4: 46262 11/10/2015 Plan of Care Planned Activity Notes [...] R07.9 07/01/2019 Patient Education: famotidine- [facility] Coupon [id number] https://www.Accord.[employer] the [employer]/sampleClipboard/resources/getResource/61/99y47298-i14f-5527-pm Completed 07/01/2019 Visit Diagnosis Plan: Generalized anxiety disorder Dis cussion: Restart lexapro at 5mg daily for 4 days then go to 10mg daily Recheck at end of school year ICD-9 : 300.02 ICD-10 : F41.1 05/15/2019 Appointment: Karen Tejeda WPtel: [address] [place] [address] US FOLLOW UP 05/15/2019 Visit Diagnosis Plan: Influenza A Discussion: Tamiflu Supportive card Notify if worsening No work for full 5 days from symptoms and fever free at least 24hrs ICD-9 : 487.1 ICD-10 : J10.1 04/21/2019 Appointment: Karen Tejeda WPtel: [address] [place] [address] ACUTE ILLNESS 04/21/2019 Patient Education: Tamiflu- [facility] Coupon [id number] https://www.Vigme/[employer]ord/resources/getResource/61/r090do2x-0567-09x8-9e Completed 04/21/2019 Visit Diagnosis Plan: Gastro-esophageal reflux disease without esophagitis Diet: GERD diet ICD-9 : 530.81 ICD-10 : K21.9 03/11/2019 Visit Diagnosis Plan: Epigastric pain Discussion: Baron ge omeprazole to pantoprazole 40mg po BID ICD-9 : 789.06 ICD-10 : R10.13 03/11/2019 Appointment: Karen Tejeda WPtel: [address] [place], [place] [id number] [place] FOLLOW UP 03/11/2019 Patient Education: pantoprazole- [facility] Coupon [phone] [id number] https://www.Vigme/Kakoonamd/resources/getResource/61/72816849-41w4-0g39-e8 Completed 03/11/2019 Visit Diagnosis Plan: Insomnia Discussion: Stable on t razadone ICD-9 : 780.52 ICD-10 : G47.00 02/06/2019 Visit Diagnosis Plan: Stress reaction Discussion: Incr ease escitalopram to 10mg daily Follow Up: 3 months ICD-9 : 308.9 ICD-10 : F43.0 02/06/2019 Appointment: Karen Tejeda WPtel: [phone] [facility] FOLLOW UP 02/06/2019 Patient Education: escitalopram oxalate- [facility] Co upon [id number] https://www.Vigme/sampleClipboard/resources/getResource/61/1l272i55-p7ql-684h-97 Completed 02/06/2019 Patient Education: trazodone- [employer] Coupon [id number] https://www.Vigme/[employer]ord/resources/getResource/61/d5z23ol1-n44k-7068-et Completed 02/06/2019 Patient Education: escitalopram oxalate- [facility] Co upon [id number] https://www.Vigme/[employer]/resources/getResource/61/52be2425-9r1d-5ulv-s9 Completed 02/06/2019 Visit Diagnosis Plan: Obstructive sleep [...] F43.0 01/02/2019 Visit Diagnosis Plan: [facility] without abnormal findings Discussion: Mediterranean diet Combinati on of cardio and weight bearing exercise Defers flu shot Fasting lab discussed ICD-9 : V70.9 ICD-10 : Z00.00 01/02/2019 Visit Diagnosis Plan: Insomnia Discussion: Trial of tr azadone 50mg 1-2 po q HS prn sleep ICD-9 : 780.52 ICD-10 : G47.00 01/02/2019 Appointment: [facility] [phone] [facility] [facility] 01/02/2019 Patient Education: trazodone- [employer] Coupon [id number] https://www.[employer]ord.[employer]/samplemd/resources/getResource/61/6v0l96i5-w19p-58it-ti Completed 01/02/2019 Patient Education: escitalopram oxalate- [employer] Co upon [id number] https://www.[employer]ord.[employer]/sampleClipboard/resources/getResource/61/4618323g-1314-901v-67 Completed 01/02/2019 Visit Diagnosis Plan: Gastro-esophageal reflux disease without esophagitis Discussion: Stable on omeprazole ICD-9 : 530.81 ICD-10 : K21.9 02/13/2018 Visit Diagnosis Plan: Encounter for gene [facility] adult medical examination without abnormal findings Discussion: [...] R42 02/13/2018 Appointment: [facility]eda [facility]el[facility] [phone] [facility] [facility] Visit 02/13/2018 Patient Education: Patient Medication Summary Completed 06/06/2017 Care Plan: MAMMOGRAM BOTH BREASTS LOINC : 66745-0 Pending 06/06/2017 Visit Diagnosis Plan: Acute sinusitis, [...] : J01.90 04/24/2017 Appointment: Jodie Tran [address] ACUTE ILLNESS 04/24/2017 Patient Education: Patient Medication Summary Completed 04/24/2017 Patient Education: Patient Medication Summary Completed 12/08/2016 Care Plan: COMPREHEN METABOL[place] : 62304-1 Pending 12/08/2016 Care Plan: ASSAY THYROID STIM HORMONE Pen ding 12/08/2016 Care Plan: LIPID PANEL LOINC : 56429-5 Pending 12/08/2016 Care Plan: CBC Pending 12/08/2016 [...] for yearly 02/24/2016 Appointment: Karen Tejeda WPtel: [address] [place] [address] 02/22 confirmed~sl PAP 02/24/2016 Patient Education: Patient Medication Summary Completed 02/24/2016 Visit Plan: Injection as above Rx for al legra-d Benadryl at HS Nasal rinses, steroid nasal sprays Mucinex Vicks, humidifier, vitamin C, rest, fluids Follow up PRN 11/30/2015 Appointment: Regina Sagastume [address] ACUTE ILLNESS 11/30/2015 Patient Education: Patient Medication Summary Completed 11/30/2015 Patient Education: [facility] - Saving AutoInj - 18-64 - Dynamic Maura l ID Completed 11/30/2015 Referral: Sunil Hatch WPtel: [address] Referral Appointment Confirmed 11/23/2015 Visit Plan: [...] scheduled Discused diet/exercise weight loss 11/10/2015 Appointment[facility] LeonardorosyKaren [facility]el[phone] [id number] 11/08lm ~sl11/09 CONFIRMED~sl NEW PATIENT 11/09 Patient Education: Patient Medication Summary Completed 11/10/2015 Patient Education: [facility] - Saving AutoInj - 18-64 - Dynamic [...]
--- OUTSIDE RECORDS SUMMARY | 2019-09-24 10:30 | XMS REPORT | CCD ---
Author Author Nadya Tejeda D.O. Organization [facility] Address [address] [place] [address] Phone Care Team Providers Care Infant Nanny Name Role Phone PP Unavailable CCM Unavailable Summary Purpose Interface Exchange Insurance Providers Payer name Policy type / Coverage type Covered republican ID Effective Begin Date Effective End Date A[employer] Commercial Insurance [id number] Unknown Family history Sister Diagnosis Age At [...] Unknown 1 11/10/2015 Employment Unknown Currently employed [employer] 11/10/[address]: 760107018 Has never smoked or chewed tobacco 11/10/[address]: 280551183 Never drinks alcohol 2015 Has the patient [...] Fill Instructions famotidine 40 mg tablet RxNorm: 737207 1 Tablet(s) Oral QPM 020 07/31/2019 Active pantoprazole 40 mg tablet,delayed release RxNorm: 721634 TAKE 1 TABLET BY MOUTH TWICE DAILY 06/03/2019 08/01/2019 Active Tamiflu 75 mg capsule RxNorm: 126381 1 Capsule(s) Oral two time s a day 04/21/2019 04/26/2019 Inactive pantoprazole 40 mg tablet,delayed release RxNorm: 680115 1 Tablet(s) Oral two times a day replaces omeprazole 03/11/2019 05/10/2019 Inactive escitalopram 10 mg tablet RxNorm: 218706 1 Tablet(s) Oral QD re places 5mg dose 02/06/2019 08/05/2019 Active trazodone 50 mg tablet RxNorm: 746686 1-2 Tablet(s) Ora l QPM as needed for sleep 02/06/2019 03/07/2019 Inactive escitalopram 5 mg tablet RxNorm: 558476 1 Tablet(s) Oral QAM 201802/05/2019 Inactive trazodone 50 mg tablet RxNorm: 309546 1-2 Tablet(s) Ora l QPM as needed for sleep 01/02/2019 02/05/2019 Inactive omeprazole 20 mg capsule,delayed release RxNorm: 932244 1 Capsu le(s) PO QD 07/04/2018 06/30/2019 Inactive omeprazole 20 mg capsule,delayed release RxNorm: 257676 1 Capsu le(s) PO QD 04/03/2018 07/01/2018 Inactive omeprazole 20 mg capsule,delayed release RxNorm: 727034 1 Capsu le(s) PO QD 04/03/2018 01/01/2019 Inactive omeprazole 20 mg capsule,delayed release RxNorm: 327622 1 Capsu le(s) PO QD 12/05/2017 03/04/2018 Inactive omeprazole 20 mg capsule,delayed release RxNorm: 625092 1 Capsu le(s) PO QD 09/06/2017 04/03/2018 Inactive Augmentin 875 mg-125 mg tablet RxNorm: 360547 1 Tablet(s) PO BID 05/03/2017 Inactive omeprazole 20 mg capsule,delayed release RxNorm: 672470 1 Capsu le(s) PO QD 04/19/2017 08/16/2017 Inactive omeprazole 20 mg capsule,delayed release RxNorm: 034837 1 Capsule(s) PO QD replaces 40mg daily- due for refill 03/14/2017 04/19/2017 Inactive omeprazole 20 mg capsule,delayed release RxNorm: 085973 1 Capsule(s) PO QD replaces 40mg daily 11/30/2016 02/27/2017 Inactive omeprazole 20 mg capsule,delayed release RxNorm: 493427 1 Capsule(s) PO QD replaces 40mg daily 05/03/2016 10/29/2016 Inactive cetirizine 1 mg/mL oral solution RxNorm: 2806882 1.25 Mi lliliter(s) PO QHS for runny nose 02/24/2016 02/23/2016 Inactive Ce-D 12 Hour 60 mg-120 mg tablet,extended release RxNor m: 551225 1 Tablet(s) PO BID as needed 11/30/2015 No Stop Date Active omeprazole 20 mg capsule,delayed release RxNorm: 827098 1 Capsule(s) PO QD replaces 40mg daily 11/10/2015 03/08/2016 Inactive Ce Allergy 180 mg tablet RxNorm: 141376 1 Tablet(s) PO QD No Sta rt Date Active Aspirin Child 81 mg chewable tablet RxNorm: 296065 1 Tablet(s) PO QD No Start Date Active simvastatin 20 mg tablet RxNorm: 192657 1 Tablet(s) PO QD No Start Da te Active omeprazole 40 mg capsule,delayed release RxNorm: 206250 1 Capsu le(s) PO QD No Start Date 11/09/2015 Inactive Medication Administered No Medication Administered data Immunizations No Immunization data Results Observation Observation Code Item Item Code Result Date S vice Location THYROID STIMULATING HORMONE 19243 TSH 3.245 uIU/mL 12/27/2018 Unknown GFR CALC 5004123 GFR Non Afr Amr >60 mL/min 12/27/2018 Un known GFR CALC [id number] GFR Afr Amr >60 mL/min 12/27/2018 Unknow n FREE T4 31594 T4 Free 0.88 ng/dL 12/27/2018 Unknown [facility] 52368 Cholesterol 157 mg/dL 12/27/2018 Unkno wn LIPID GROUP 00434 Triglyceride 44 mg/dL 12/27/2018 Unkn own [facility] 94245 HDL CHOLESTEROL 61 mg/dL 12/27/2018 U nknown [facility] 98896 Chol/HDL Ratio 2.57 ratio 12/27/2018 U nknown [facility] 74760 NON-HDL Chol 96 mg/dL 12/27/2018 Unkn own [facility] 38017 LDL Cholesterol 87 mg/dL 12/27/2018 U nknown COMPREHENSIVE METABOLIC 58767 AST 19 U/L 2018 Unknown COMPREHENSIVE METABOLIC 02019 ALT 13 U/L 2018 Unknown COMPREHENSIVE METABOLIC 45454 BUN 22 mg/dL 2018 Unknown COMPREHENSIVE METABOLIC 87934 ALBUMIN 4.2 g/dL 2018 Unknown COMPREHENSIVE METABOLIC 15578 CHLORIDE 103 mmol/L 12/27 Unknown COMPREHENSIVE METABOLIC 77419 Bili Total 0.5 mg/dL 12/27 Unknown COMPREHENSIVE METABOLIC 23545 ALK PHOS 101 U/L 2018 Unknown COMPREHENSIVE METABOLIC 38807 SODIUM 141 mmol/L 12/27 Unknown COMPREHENSIVE METABOLIC 88137 CREATININE 0.76 mg/dL 12/04 Unknown COMPREHENSIVE METABOLIC 96755 CALCIUM 9.3 mg/dL 2018 Unknown COMPREHENSIVE METABOLIC 09258 POTASSIUM 3.6 mmol/L 12/27 Unknown COMPREHENSIVE METABOLIC 93346 Total Protein 7.4 g/dL Unknown COMPREHENSIVE METABOLIC 62949 Glucose 86 mg/dL 2018 Unknown COMPREHENSIVE METABOLIC 65256 Bicarbonate 31 mmol/L 12/04 Unknown COMPREHENSIVE METABOLIC 45083 AGAP 7 mmol/L 2018 Unknown COMPLETE BLOOD COUNT [id number] WBC 4.2 10e9/L 12/28/19 19 Unknown COMPLETE BLOOD COUNT [id number] RBC 4.55 10e12/L 2018 Unknown COMPLETE BLOOD COUNT 3207604 HEMOGLOBIN 13.7 g/dL 12/28/19 19 Unknown COMPLETE BLOOD COUNT 1360813 HEMATOCRIT 42.4 % 12/28/19 19 Unknown COMPLETE BLOOD COUNT 2834921 MCV 93.2 fL 9 Unknown COMPLETE BLOOD COUNT 2392542 MCH 30.1 pg 9 Unknown COMPLETE BLOOD COUNT 6028111 MCHC 32.3 g/dL 9 Unknown COMPLETE BLOOD COUNT 6120800 PLATELET COUNT 272 10e9/L Unknown COMPLETE BLOOD COUNT 4642516 Mean Plt Volume 8.9 fL Unknown COMPLETE BLOOD COUNT 1369551 Neut Auto 50.9 % 9 Unknown COMPLETE BLOOD COUNT 8805603 Lymph Auto 35.1 % 12/28/19 19 Unknown COMPLETE BLOOD COUNT 1747116 Barrow Auto 9.6 % 9 Unknown COMPLETE BLOOD COUNT 7983527 RDW 12.7 % 9 Unknown COMPLETE BLOOD COUNT 5326735 Eos Auto 4.2 % 9 Unknown COMPLETE BLOOD COUNT 0500725 Baso Auto 0.2 % 9 Unknown COMPLETE BLOOD COUNT 2753430 Neutrophil Abs 2.14 10e9/L Unknown COMPLETE BLOOD COUNT 8062659 Lymphocyte Abs 1.47 10e9/L Unknown COMPLETE BLOOD COUNT [id number] Monocyte Abs 0.40 10e9/L 12/04 Unknown COMPLETE BLOOD COUNT 0909854 Eosinophil Abs 0.18 10e9/L Unknown COMPLETE BLOOD COUNT 7446215 RDW-SD 42.1 fL 9 Unknown COMPLETE BLOOD COUNT 1487059 Basophil Abs 0.01 10e9/L 12/04 Unknown GFR CALC 2348489 GFR Non Afr Amr >60 mL/min 12/21/2016 Un known GFR CALC [id number] GFR Afr Amr >60 mL/min 12/21/2016 Unknow n COMPLETE BLOOD COUNT 5701330 WBC 3.6 10e9/L 12/22/19 17 Unknown COMPLETE BLOOD COUNT 0481384 RBC 4.57 10e12/L 2016 Unknown COMPLETE BLOOD COUNT 8438809 HEMOGLOBIN 13.8 g/dL 12/22/19 17 Unknown COMPLETE BLOOD COUNT 0845613 HEMATOCRIT 42.4 % 12/22/19 17 Unknown COMPLETE BLOOD COUNT 4529473 MCV 92.8 fL 7 Unknown COMPLETE BLOOD COUNT 0760412 MCH 30.2 pg 7 Unknown COMPLETE BLOOD COUNT 0301251 MCHC 32.5 g/dL 7 Unknown COMPLETE BLOOD COUNT 6760848 PLATELET COUNT 225 10e9/L Unknown COMPLETE BLOOD COUNT 3552292 Mean Plt Volume 9.0 fL Unknown COMPLETE BLOOD COUNT 4507135 Neut Auto 45.6 % 7 Unknown COMPLETE BLOOD COUNT 4255594 Lymph Auto 37.3 % 12/22/19 17 Unknown COMPLETE BLOOD COUNT 0108915 Barrow Auto 11.0 % 7 Unknown COMPLETE BLOOD COUNT 9164654 RDW 12.6 % 7 Unknown COMPLETE BLOOD COUNT 6596163 Eos Auto 5.5 % 7 Unknown COMPLETE BLOOD COUNT 0465841 Baso Auto 0.6 % 7 Unknown COMPLETE BLOOD COUNT 6381363 Neutrophil Abs 1.64 10e9/L Unknown COMPLETE BLOOD COUNT 1086067 Lymphocyte Abs 1.34 10e9/L Unknown COMPLETE BLOOD COUNT 4291102 Monocyte Abs 0.40 10e9/L 12/03 Unknown COMPLETE BLOOD COUNT 5011366 Eosinophil Abs 0.20 10e9/L Unknown COMPLETE BLOOD COUNT 9417595 RDW-SD 42.0 fL 7 Unknown COMPLETE BLOOD COUNT 5257210 Basophil Abs 0.02 10e9/L 12/03 Unknown THYROID STIMULATING HORMONE 40662 TSH 3.423 uIU/mL 12/21/2016 Unknown COMPREHENSIVE METABOLIC 08076 AST 23 U/L 2016 Unknown COMPREHENSIVE METABOLIC 41093 ALT 18 U/L 2016 Unknown COMPREHENSIVE METABOLIC 35792 BUN 21 mg/dL 2016 Unknown COMPREHENSIVE METABOLIC 06215 ALBUMIN 4.4 g/dL 2016 Unknown COMPREHENSIVE METABOLIC 97060 CHLORIDE 103 mmol/L 12/21 Unknown COMPREHENSIVE METABOLIC 29649 Bili Total 0.7 mg/dL 12/21 Unknown COMPREHENSIVE METABOLIC 00839 ALK PHOS 86 U/L 2016 Unknown COMPREHENSIVE METABOLIC 32879 SODIUM 141 mmol/L 12/21 Unknown COMPREHENSIVE METABOLIC 70831 CREATININE 0.75 mg/dL 12/03 Unknown COMPREHENSIVE METABOLIC 60900 CALCIUM 9.2 mg/dL 2016 Unknown COMPREHENSIVE METABOLIC 57733 POTASSIUM 3.8 mmol/L 12/21 Unknown COMPREHENSIVE METABOLIC 93358 Total Protein 7.3 g/dL Unknown COMPREHENSIVE METABOLIC 62175 Glucose 95 mg/dL 2016 Unknown COMPREHENSIVE METABOLIC 42298 Bicarbonate 32 mmol/L 12/03 Unknown COMPREHENSIVE METABOLIC 59393 AGAP 6 mmol/L 2016 Unknown LIPID GROUP 91521 Cholesterol 154 mg/dL 12/21/2016 Unkno wn LIPID GROUP 79420 Triglyceride 51 mg/dL 12/21/2016 Unkn own LIPID GROUP 11019 HDL CHOLESTEROL 61 mg/dL 12/21/2016 U nknown LIPID GROUP 30919 Chol/HDL Ratio 2.52 ratio 12/21/2016 U nknown LIPID GROUP 23410 NON-HDL Chol 93 mg/dL 12/21/2016 Unkn own LIPID GROUP 78623 LDL Cholesterol 83 mg/dL 12/21/2016 U nknown Procedures Procedure Codes Date INFLUENZA ASSAY W/OPTIC CPT-4: 68883 04/21/2019 INFLUENZA ASSAY W/OPTIC CPT-4: 86868 04/24/2017 SPECIMEN HANDLING OFFICE-LAB CPT-4: 99995 02/24/2016 THER/PROPH/DIAG INJ SC/IM CPT-4: 70625 11/30/2015 TRIAMCINOLONE ACET INJ NOS CPT-4: J3301 11/30/2015 DEXAMETHASONE SODIUM PHOS CPT-4: J1100 11/30/2015 Vital Signs Date Vital 07/01/2019 Blood Pressure 1: 130/86 Code: 8480-6 BMI: 35.0 Code: 53505-6 Heart Rate 1: 60 bpm Height: 5'6" [...] 1: 124/72 Code: 8480-6 BMI: 35.1 Code: 21020-6 Heart Rate 1: 64 bpm Height: 5'6" Respiratory Rate: 18 bpm SpO2: 96% Tempera ture: 36.8 (C) / 98.2 (F) Weight: 221 lbs 02/13/2018 Blood Pressure 1: 138/82 Code: 8480-6 BMI: 34.5 Code: 21530-2 Heart Rate 1: 68 bpm Height: 5'7" Respiratory Rate: 18 bpm SpO2: 97% Tempera ture: 36.8 (C) / 98.2 (F) Weight: 220 lbs 04/24/2017 Blood Pressure 1: 126/78 Code: 8480-6 BMI: 35.4 Code: 32897-8 Heart Rate 1: 84 bpm Height: 5'7" Respiratory Rate: 22 bpm SpO2: 95% Tempera ture: 36.9 (C) / 98.4 (F) Weight: 226 lbs 02/24/2016 Blood Pressure 1: 128/78 Code: 8480-6 BMI: 35.6 Code: 41048-1 Heart Rate 1: 68 bpm Height: 5'7" Respiratory Rate: 20 bpm SpO2: 97% Tempera ture: 36.7 (C) / 98.1 (F) Weight: 227 lbs 11/30/2015 Blood Pressure 1: 128/78 Code: 8480-6 BMI: 36.0 Code: 77037-2 Heart Rate 1: 76 bpm Height: 5'7" Respiratory Rate: 20 bpm SpO2: 97% Tempera ture: 37.1 (C) / 98.7 (F) Weight: 230 lbs 11/10/2015 Blood Pressure 1: 136/82 Code: 8480-6 BMI: 36.0 Code: 41230-5 Heart Rate 1: 80 bpm Height: 5'7" [...] visit Encounters Encounter Performer Location Codes Date ([id number]) OFFICE/OUTPATIENT VISIT EST Diagnosis: Gastro-esophageal reflux disease without esophagitis[ICD10: K21.9] Diagnosis: Chest pain[ICD10: R07.9] Naya [facility] CPT-4: 66454 07/01/2019 ([id number]) OFFICE/OUTPATIENT VISIT EST Diagnosis: Generalized anxiety disorder[ICD10: F41.1] [facility]aya [facility] CPT-4: 60143 05/15/2019 ([id number]) OFFICE/OUTPATIENT VISIT EST Diagnosis: Influenza A[ICD10: J10.1] Naya [facility] CPT-4: 91282 04/21/2019 ([id number]) OFFICE/OUTPATIENT VISIT EST Diagnosis: Epigastric pain[ICD10: R10.13] Diagnosis: Gastro-esophageal reflux disease without esophagitis[ICD10: K21.9] [facility] CPT-4: 32704 03/11/2019 ([id number]) OFFICE/OUTPATIENT VISIT EST Diagnosis: Stress reaction[ICD10: F43.0] Diagnosis: Insomnia[ICD10: G47.00] Naya [facility] CPT-4: 12645 02/06/2019 ([id number]) PREV VISIT EST AGE 40-64 Diagnosis: Encounter for general adult medical examination without abnormal findings[ICD10: Z00.00] Diagnosis: Obstructive sleep apnea (adult) (pediatric)[ICD10: G47.33] Diagnosis: Stress reaction[ICD10: F43.0] Diagnosis: URI, ACUTE[ICD10: J06.9] Diagnosis: Insomnia[ICD10: G47.00] Naya [facility] CPT-4: 71871 01/02/2019 ([id number]) PREV VISIT EST AGE 40-64 Diagnosis: Encounter for general adult medical examination without abnormal findings[ICD10: Z00.00] Diagnosis: Gastro-esophageal reflux disease without esophagitis[ICD10: K21.9] Diagnosis: Obstructive sleep apnea (adult) (pediatric)[ICD10: G47.33] Diagnosis: Mixed hyperlipidemia[ICD10: E78.2] Diagnosis: Dizziness and giddiness[ICD10: R42] Naya CEDEÑOLokesh [email or web address] CPT-4: 83939 02/13/2018 OFFICE/OUTPATIENT VISIT EST Diagnosis: Acute sinusitis, unspecified[ICD10: J01.90] Diagnosis: Viral infection, unspecified[ICD10: B34.9] Jodie CEDEÑOLINE Teetee [email or web address] CPT-4: 55513 04/24/2017 ([id number]) PREV VISIT EST AGE 40-64 Diagnosis: Encounter for general adult medical examination without abnormal findings[ICD10: Z00.00] Diagnosis: Encounter for gynecological examination (general) (routine) without abnormal findings[ICD10: Z01.419] Diagnosis: URI, ACUTE[ICD10: J06.9] Nayaiain Camachorosy CEDEÑONAYA Teetee [facility] [email or web address] CPT-4: 26602 02/24/2016 ([id number]) OFFICE/OUTPATIENT VISIT EST Diagnosis: Other seasonal allergic rhinitis[ICD10: J30.2] Regina [facility] [email or web address] CPT-4: 40289 11/30/2015 OFFICE/OUTPATIENT VISIT NEW Diagnosis: Mixed hyperlipidemia[ICD10: E78.2] Diagnosis: Gastro-esophageal reflux disease without esophagitis[ICD10: K21.9] Diagnosis: Allergic rhinitis due to pollen[ICD10: J30.1] Diagnosis: Obstructive sleep apnea (adult) (pediatric)[ICD10: G47.33] Naya [email or web address] CPT-4: 01584 11/10/2015 Plan of Care Planned Activity Notes [...] R07.9 07/01/2019 Patient Education: famotidine- [employer] Coupon [id number] https://www.samplemd.com/[employer]/resources/getResource/61/69o74482-m13d-4196-ol Completed 07/01/2019 Visit Diagnosis Plan: Generalized anxiety disorder Dis cussion: Restart lexapro at 5mg daily for 4 days then go to 10mg daily Recheck at end of school year ICD-9 : 300.02 ICD-10 : F41.1 05/15/2019 Appointment: Naya Tejeda WPtel: [address] [place] [address] [place] FOLLOW UP 05/15/2019 Visit Diagnosis Plan: Influenza A Discussion: Tamiflu Supportive card Notify if worsening No work for full 5 days from symptoms and fever free at least 24hrs ICD-9 : 487.1 ICD-10 : J10.1 04/21/2019 Appointment: Naya Tejeda WPtel: [address] [place] [place] [address] ACUTE ILLNESS 04/21/2019 Patient Education: Tamiflu- [employer] Coupon [id number] https://www.[employer]/resources/getResource/61/k532la4b-7113-13r3-6w Completed 04/21/2019 Visit Diagnosis Plan: Gastro-esophageal reflux disease without esophagitis Diet: GERD diet ICD-9 : 530.81 ICD-10 : K21.9 03/11/2019 Visit Diagnosis Plan: Epigastric pain Discussion: Baron ge omeprazole to pantoprazole 40mg po BID ICD-9 : 789.06 ICD-10 : R10.13 03/11/2019 Appointment: Naya Tejeda WPtel: [address] [place], [place] [address] [place] FOLLOW UP 03/11/2019 Patient Education: pantoprazole- [employer] Coupon [phone] [id number] https://www.[employer]/samplemd/resources/getResource/61/47982253-10u9-4h69-x8 Completed 03/11/2019 Visit Diagnosis Plan: Insomnia Discussion: Stable on t razadone ICD-9 : 780.52 ICD-10 : G47.00 02/06/2019 Visit Diagnosis Plan: Stress reaction Discussion: Incr ease escitalopram to 10mg daily Follow Up: 3 months ICD-9 : 308.9 ICD-10 : F43.0 02/06/2019 Appointment: Naya Tejedatel: [address] [id number] FOLLOW UP 02/06/2019 Patient Education: escitalopram oxalate- [employer] Co upon [id number] https://www.[employer]/resources/getResource/61/4v220s08-k5zc-957i-74 Completed 02/06/2019 Patient Education: trazodone- [employer] Coupon [id number] https://www.[employer]/resources/getResource/61/b2n13ov8-i18o-5107-ce Completed 02/06/2019 Patient Education: escitalopram oxalate- [employer] Co upon [id number] https://www.[employer]/resources/getResource/61/32ta4752-1b5l-6isf-e7 Completed 02/06/2019 Visit Diagnosis Plan: Obstructive sleep [...] Visit Diagnosis Plan: Encounter for [facility] adult medical examination without abnormal findings Discussion: Mediterranean diet Combinati on of cardio and weight bearing exercise Defers flu shot Fasting lab discussed ICD-9 : V70.9 ICD-10 : Z00.00 01/02/2019 Visit Diagnosis Plan: Insomnia Discussion: Trial of tr azadone 50mg 1-2 po q HS prn sleep ICD-9 : 780.52 ICD-10 : G47.00 01/02/2019 Appointment[facility] [address] [id number] [facility] 01/02/2019 Patient Education: trazodone- [employer] Coupon [id number] https://www.[employer]/resources/getResource/61/0j2o87c7-a01t-91es-pn Completed 01/02/2019 Patient Education: escitalopram oxalate- [employer] Co upon [id number] https://www.[employer]/resources/getResource/61/0770474z-8728-252j-66 Completed 01/02/2019 Visit Diagnosis Plan: Gastro-esophageal reflux disease without esophagitis Discussion: Stable on omeprazole ICD-9 : 530.81 ICD-10 : K21.9 02/13/2018 Visit Diagnosis Plan: Encounter for [facility] adult medical examination without abnormal findings Discussion: [...] R42 02/13/2018 Appointment: [facility]aya Tejeda WPtel[facility] [address] [facility] [facility] 02/13/2018 Patient Education: Patient Medication Summary Completed 06/06/2017 Care Plan: MAMMOGRAM BOTH BREASTS LOINC : 41489-6 Pending 06/06/2017 Visit Diagnosis Plan: Acute sinusitis, [...] : J01.90 04/24/2017 Appointment: Jodie Tran [address] ACUTE ILLNESS 04/24/2017 Patient Education: Patient Medication Summary Completed 04/24/2017 Patient Education: Patient Medication Summary Completed 12/08/2016 Care Plan: COMPREHEN METABOLIC [place] : 05867-6 Pending 12/08/2016 Care Plan: ASSAY THYROID STIM HORMONE Pen ding 12/08/2016 Care Plan: LIPID PANEL LOINC : 99084-7 Pending 12/08/2016 Care Plan: CBC Pending 12/08/2016 [...] for yearly 02/24/2016 Appointment: Naya Tejeda WPtel: [address] [place] [address] 02/22 confirmed~sl PAP 02/24/2016 Patient Education: Patient Medication Summary Completed 02/24/2016 Visit Plan: Injection as above Rx for al legra-d Benadryl at HS Nasal rinses, steroid nasal sprays Mucinex Vicks, humidifier, vitamin C, rest, fluids Follow up PRN 11/30/2015 Appointment: Regina Sagastume [address] ACUTE ILLNESS 11/30/2015 Patient Education: Patient Medication Summary Completed 11/30/2015 Patient Education: [facility] - Saving AutoInj - 18-64 - Dynamic Maura l ID Completed 11/30/2015 Referral: Sunil Hatch WPtel: [address] [address] [place] Referral Appointment Confirmed 11/23/2015 Visit Plan: [...] 11/10/2015 Patient Education: [facility] - Saving AutoInj - 18-64 - Dynamic [...]
--- OUTSIDE RECORDS SUMMARY | 2019-09-24 10:31 | XMS REPORT | CCD ---
Author Author Nadya Tejeda D.O. Organization [facility] Address [address] [place] [address] Phone Care Team Providers Care Audit Intern Name Role Phone PP Unavailable CCM Unavailable Summary Purpose Interface Exchange Insurance Providers Payer name Policy type / Coverage type Covered democrat ID Effective Begin Date Effective End Date AET[employer] Commercial Insurance [id number] Unknown Family history Sister Diagnosis Age At [...] Unknown 1 11/10/2015 Employment Unknown Currently employed [employer] 11/10/[address]: 087225273 Has never smoked or chewed tobacco 11/10/[address]: 800190555 Never drinks alcohol 2015 Has the patient [...] Problems Condition Codes Effective Dates Condition Status Generalized anxiety disorder ICD-9: 300.02 ICD-10: F41.1 05/15/2019 Active Influenza A ICD-9: 487.1 ICD-10: J10.1 04/21/2019 Active Epigastric pain ICD-9: 789.06 ICD-10: R10.13 03/11/2019 Active Gastro-esophageal reflux disease without esophagitis I CD-9: 530.81 ICD-10: K21.9 11/09/2015 Active Insomnia ICD-9: 780.52 ICD-10: G47.00 01/02/2019 [...] Start Date Stop Date Status Fill Instructions Tamiflu 75 mg capsule RxNorm: 496986 1 Capsule(s) Oral two time s a day 04/21/2019 04/26/2019 Inactive pantoprazole 40 mg tablet,delayed release RxNorm: 743640 1 Tablet(s) Oral two times a day replaces omeprazole 03/11/2019 05/10/2019 Inactive escitalopram 10 mg tablet RxNorm: 597927 1 Tablet(s) Oral QD re places 5mg dose 02/06/2019 08/05/2019 Active trazodone 50 mg tablet RxNorm: 463307 1-2 Tablet(s) Ora l QPM as needed for sleep 02/06/2019 03/07/2019 Inactive escitalopram 5 mg tablet RxNorm: 861060 1 Tablet(s) Oral QAM 201802/05/2019 Inactive trazodone 50 mg tablet RxNorm: 864024 1-2 Tablet(s) Ora l QPM as needed for sleep 01/02/2019 02/05/2019 Inactive omeprazole 20 mg capsule,delayed release RxNorm: 374092 1 Capsu le(s) PO QD 07/04/2018 12/30/2018 Inactive omeprazole 20 mg capsule,delayed release RxNorm: 472473 1 Capsu le(s) PO QD 04/03/2018 07/01/2018 Inactive omeprazole 20 mg capsule,delayed release RxNorm: 384849 1 Capsu le(s) PO QD 04/03/2018 01/01/2019 Inactive omeprazole 20 mg capsule,delayed release RxNorm: 190353 1 Capsu le(s) PO QD 12/05/2017 03/04/2018 Inactive omeprazole 20 mg capsule,delayed release RxNorm: 741186 1 Capsu le(s) PO QD 09/06/2017 04/03/2018 Inactive Augmentin 875 mg-125 mg tablet RxNorm: 280341 1 Tablet(s) PO BID 05/03/2017 Inactive omeprazole 20 mg capsule,delayed release RxNorm: 375473 1 Capsu le(s) PO QD 04/19/2017 08/16/2017 Inactive omeprazole 20 mg capsule,delayed release RxNorm: 045575 1 Capsule(s) PO QD replaces 40mg daily- due for refill 03/14/2017 04/19/2017 Inactive omeprazole 20 mg capsule,delayed release RxNorm: 175743 1 Capsule(s) PO QD replaces 40mg daily 11/30/2016 02/27/2017 Inactive omeprazole 20 mg capsule,delayed release RxNorm: 596422 1 Capsule(s) PO QD replaces 40mg daily 05/03/2016 10/29/2016 Inactive cetirizine 1 mg/mL oral solution RxNorm: 2973281 1.25 Mi lliliter(s) PO QHS for runny nose 02/24/2016 02/23/2016 Inactive Ce-D 12 Hour 60 mg-120 mg tablet,extended release RxNor m: 670514 1 Tablet(s) PO BID as needed 11/30/2015 No Stop Date Active omeprazole 20 mg capsule,delayed release RxNorm: 140838 1 Capsule(s) PO QD replaces 40mg daily 11/10/2015 03/08/2016 Inactive Ce Allergy 180 mg tablet RxNorm: 727760 1 Tablet(s) PO QD No Sta rt Date Active Aspirin Child 81 mg chewable tablet RxNorm: 213064 1 Tablet(s) PO QD No Start Date Active simvastatin 20 mg tablet RxNorm: 232927 1 Tablet(s) PO QD No Start Da te Active omeprazole 40 mg capsule,delayed release RxNorm: 941185 1 Capsu le(s) PO QD No Start Date 11/09/2015 Inactive Medication Administered No Medication Administered data Immunizations No Immunization data Results Observation Observation Code Item Item Code Result Date S [facility] Location THYROID STIMULATING HORMONE 39104 TSH 3.245 uIU/mL 12/27/2018 Unknown GFR CALC 3707230 GFR Non Afr Amr >60 mL/min 12/27/2018 Un known GFR CALC 8769953 GFR Afr Amr >60 mL/min 12/27/2018 Unknow n FREE T4 40613 T4 Free 0.88 ng/dL 12/27/2018 Unknown LIPID GROUP 91503 Cholesterol 157 mg/dL 12/27/2018 Unkno wn LIPID GROUP 46699 Triglyceride 44 mg/dL 12/27/2018 Unkn own LIPID GROUP 09559 HDL CHOLESTEROL 61 mg/dL 12/27/2018 U nknown LIPID GROUP 15794 Chol/HDL Ratio 2.57 ratio 12/27/2018 U nknown LIPID GROUP 45723 NON-HDL Chol 96 mg/dL 12/27/2018 Unkn own LIPID GROUP 34786 LDL Cholesterol 87 mg/dL 12/27/2018 U nknown COMPREHENSIVE METABOLIC 39860 AST 19 U/L 2018 Unknown COMPREHENSIVE METABOLIC 58894 ALT 13 U/L 2018 Unknown COMPREHENSIVE METABOLIC 47041 BUN 22 mg/dL 2018 Unknown COMPREHENSIVE METABOLIC 47384 ALBUMIN 4.2 g/dL 2018 Unknown COMPREHENSIVE METABOLIC 34593 CHLORIDE 103 mmol/L 12/27 Unknown COMPREHENSIVE METABOLIC 63943 Bili Total 0.5 mg/dL 12/27 Unknown COMPREHENSIVE METABOLIC 83443 ALK PHOS 101 U/L 2018 Unknown COMPREHENSIVE METABOLIC 38550 SODIUM 141 mmol/L 12/27 Unknown COMPREHENSIVE METABOLIC 77917 CREATININE 0.76 mg/dL 12/04 Unknown COMPREHENSIVE METABOLIC 88999 CALCIUM 9.3 mg/dL 2018 Unknown COMPREHENSIVE METABOLIC 82229 POTASSIUM 3.6 mmol/L 12/27 Unknown COMPREHENSIVE METABOLIC 06253 Total Protein 7.4 g/dL Unknown COMPREHENSIVE METABOLIC 13587 Glucose 86 mg/dL 2018 Unknown COMPREHENSIVE METABOLIC 50583 Bicarbonate 31 mmol/L 12/04 Unknown COMPREHENSIVE METABOLIC 97549 AGAP 7 mmol/L 2018 Unknown COMPLETE BLOOD COUNT 9011968 WBC 4.2 10e9/L 12/28/19 19 Unknown COMPLETE BLOOD COUNT 7741514 RBC 4.55 10e12/L 2018 Unknown COMPLETE BLOOD COUNT 5194745 HEMOGLOBIN 13.7 g/dL 12/28/19 19 Unknown COMPLETE BLOOD COUNT 2080740 HEMATOCRIT 42.4 % 12/28/19 19 Unknown COMPLETE BLOOD COUNT 8688745 MCV 93.2 fL 9 Unknown COMPLETE BLOOD COUNT 1676552 MCH 30.1 pg 9 Unknown COMPLETE BLOOD COUNT 2177586 MCHC 32.3 g/dL 9 Unknown COMPLETE BLOOD COUNT 3827530 PLATELET COUNT 272 10e9/L Unknown COMPLETE BLOOD COUNT 2361140 Mean Plt Volume 8.9 fL Unknown COMPLETE BLOOD COUNT 4095922 Neut Auto 50.9 % 9 Unknown COMPLETE BLOOD COUNT 2057134 Lymph Auto 35.1 % 12/28/19 19 Unknown COMPLETE BLOOD COUNT 9724016 Winston Auto 9.6 % 9 Unknown COMPLETE BLOOD COUNT 6399578 RDW 12.7 % 9 Unknown COMPLETE BLOOD COUNT 9875970 Eos Auto 4.2 % 9 Unknown COMPLETE BLOOD COUNT 5482459 Baso Auto 0.2 % 9 Unknown COMPLETE BLOOD COUNT 0830857 Neutrophil Abs 2.14 10e9/L Unknown COMPLETE BLOOD COUNT 3037619 Lymphocyte Abs 1.47 10e9/L Unknown COMPLETE BLOOD COUNT 7423132 Monocyte Abs 0.40 10e9/L 12/04 Unknown COMPLETE BLOOD COUNT 0391176 Eosinophil Abs 0.18 10e9/L Unknown COMPLETE BLOOD COUNT 3156635 RDW-SD 42.1 fL 9 Unknown COMPLETE BLOOD COUNT 1628454 Basophil Abs 0.01 10e9/L 12/04 Unknown GFR CALC 5202822 GFR Non Afr Amr >60 mL/min 12/21/2016 Un known GFR CALC 8473607 GFR Afr Amr >60 mL/min 12/21/2016 Unknow n COMPLETE BLOOD COUNT 8698770 WBC 3.6 10e9/L 12/22/19 17 Unknown COMPLETE BLOOD COUNT [id number] RBC 4.57 10e12/L 2016 Unknown COMPLETE BLOOD COUNT 1651284 HEMOGLOBIN 13.8 g/dL 12/22/19 17 Unknown COMPLETE BLOOD COUNT 5199147 HEMATOCRIT 42.4 % 12/22/19 17 Unknown COMPLETE BLOOD COUNT 4272165 MCV 92.8 fL 7 Unknown COMPLETE BLOOD COUNT 6343652 MCH 30.2 pg 7 Unknown COMPLETE BLOOD COUNT 6267157 MCHC 32.5 g/dL 7 Unknown COMPLETE BLOOD COUNT 5713780 PLATELET COUNT 225 10e9/L Unknown COMPLETE BLOOD COUNT 4509219 Mean Plt Volume 9.0 fL Unknown COMPLETE BLOOD COUNT 4820382 Neut Auto 45.6 % 7 Unknown COMPLETE BLOOD COUNT 9673046 Lymph Auto 37.3 % 12/22/19 17 Unknown COMPLETE BLOOD COUNT 9010789 Winston Auto 11.0 % 7 Unknown COMPLETE BLOOD COUNT 5969397 RDW 12.6 % 7 Unknown COMPLETE BLOOD COUNT 8290280 Eos Auto 5.5 % 7 Unknown COMPLETE BLOOD COUNT 5743089 Baso Auto 0.6 % 7 Unknown COMPLETE BLOOD COUNT 5896069 Neutrophil Abs 1.64 10e9/L Unknown COMPLETE BLOOD COUNT 9165455 Lymphocyte Abs 1.34 10e9/L Unknown COMPLETE BLOOD COUNT 1904853 Monocyte Abs 0.40 10e9/L 12/03 Unknown COMPLETE BLOOD COUNT 7633855 Eosinophil Abs 0.20 10e9/L Unknown COMPLETE BLOOD COUNT 9632542 RDW-SD 42.0 fL 201 7 Unknown COMPLETE BLOOD COUNT 8394425 Basophil Abs 0.02 10e9/L 12/03 Unknown THYROID STIMULATING HORMONE 78166 TSH 3.423 uIU/mL 12/21/2016 Unknown COMPREHENSIVE METABOLIC 19725 AST 23 U/L 2016 Unknown COMPREHENSIVE METABOLIC 42110 ALT 18 U/L 2016 Unknown COMPREHENSIVE METABOLIC 55947 BUN 21 mg/dL 2016 Unknown COMPREHENSIVE METABOLIC 46755 ALBUMIN 4.4 g/dL 2016 Unknown COMPREHENSIVE METABOLIC 38365 CHLORIDE 103 mmol/L 12/21 Unknown COMPREHENSIVE METABOLIC 99198 Bili Total 0.7 mg/dL 12/21 Unknown COMPREHENSIVE METABOLIC 18860 ALK PHOS 86 U/L 2016 Unknown COMPREHENSIVE METABOLIC 35474 SODIUM 141 mmol/L 12/21 Unknown COMPREHENSIVE METABOLIC 18179 CREATININE 0.75 mg/dL 12/03 Unknown COMPREHENSIVE METABOLIC 39579 CALCIUM 9.2 mg/dL 2016 Unknown COMPREHENSIVE METABOLIC 52444 POTASSIUM 3.8 mmol/L 12/21 Unknown COMPREHENSIVE METABOLIC 38019 Total Protein 7.3 g/dL Unknown COMPREHENSIVE METABOLIC 00426 Glucose 95 mg/dL 2016 Unknown COMPREHENSIVE METABOLIC 81711 Bicarbonate 32 mmol/L 12/03 Unknown COMPREHENSIVE METABOLIC 95443 AGAP 6 mmol/L 2016 Unknown LIPID GROUP 59078 Cholesterol 154 mg/dL 12/21/2016 Unkno wn LIPID GROUP 32340 Triglyceride 51 mg/dL 12/21/2016 Unkn own LIPID GROUP 60049 HDL CHOLESTEROL 61 mg/dL 12/21/2016 U nknown LIPID GROUP 17101 Chol/HDL Ratio 2.52 ratio 12/21/2016 U nknown LIPID GROUP 54135 NON-HDL Chol 93 mg/dL 12/21/2016 Unkn own LIPID GROUP 70036 LDL Cholesterol 83 mg/dL 12/21/2016 U nknown Procedures Procedure Codes Date INFLUENZA ASSAY W/OPTIC CPT-4: 14426 04/21/2019 INFLUENZA ASSAY W/OPTIC CPT-4: 89526 04/24/2017 SPECIMEN HANDLING OFFICE-LAB CPT-4: 23983 02/24/2016 THER/PROPH/DIAG INJ SC/IM CPT-4: 76827 11/30/2015 TRIAMCINOLONE ACET INJ NOS CPT-4: J3301 11/30/2015 DEXAMETHASONE SODIUM PHOS CPT-4: J1100 11/30/2015 Vital Signs Date Vital 05/15/2019 Heart Rate 1: 64 bpm Respiratory [...] 1: 124/72 Code: 8480-6 BMI: 35.1 Code: 60010-0 Heart Rate 1: 64 bpm Height: 5'6" Respiratory Rate: 18 bpm SpO2: 96% Tempera ture: 36.8 (C) / 98.2 (F) Weight: 221 lbs 02/13/2018 Blood Pressure 1: 138/82 Code: 8480-6 BMI: 34.5 Code: 75221-5 Heart Rate 1: 68 bpm Height: 5'7" Respiratory Rate: 18 bpm SpO2: 97% Tempera ture: 36.8 (C) / 98.2 (F) Weight: 220 lbs 04/24/2017 Blood Pressure 1: 126/78 Code: 8480-6 BMI: 35.4 Code: 43924-2 Heart Rate 1: 84 bpm Height: 5'7" Respiratory Rate: 22 bpm SpO2: 95% Tempera ture: 36.9 (C) / 98.4 (F) Weight: 226 lbs 02/24/2016 Blood Pressure 1: 128/78 Code: 8480-6 BMI: 35.6 Code: 65320-9 Heart Rate 1: 68 bpm Height: 5'7" Respiratory Rate: 20 bpm SpO2: 97% Tempera ture: 36.7 (C) / 98.1 (F) Weight: 227 lbs 11/30/2015 Blood Pressure 1: 128/78 Code: 8480-6 BMI: 36.0 Code: 75580-8 Heart Rate 1: 76 bpm Height: 5'7" Respiratory Rate: 20 bpm SpO2: 97% Tempera ture: 37.1 (C) / 98.7 (F) Weight: 230 lbs 11/10/2015 Blood Pressure 1: 136/82 Code: 8480-6 BMI: 36.0 Code: 06967-1 Heart Rate 1: 80 bpm Height: 5'7" Respiratory Rate: 20 bpm Temperature: 36 .6 (C) / 97.9 (F) Weight: 230 lbs Functional Status No Functional Status data Reason For Visit Reason For Visit Effective Dates Notes follow up 05/15/2019 cough 04/21/2019 follow up [...] visit Encounters Encounter Performer Location Codes Date ([id number]) OFFICE/OUTPATIENT VISIT EST Diagnosis: Generalized anxiety disorder[ICD10: F41.1] Naya TEJEDA [facility] CPT-4: 95096 05/15/2019 ([id number]) OFFICE/OUTPATIENT VISIT EST Diagnosis: Influenza A[ICD10: J10.1] Naya MCCLELLAND [facility] CPT-4: 64932 04/21/2019 ([id number]) OFFICE/OUTPATIENT VISIT EST Diagnosis: Epigastric pain[ICD10: R10.13] Diagnosis: Gastro-esophageal reflux disease without esophagitis[ICD10: K21.9] Naya TEJEDA [facility] CPT-4: 32474 03/11/2019 ([id number]) OFFICE/OUTPATIENT VISIT EST Diagnosis: Stress reaction[ICD10: F43.0] Diagnosis: Insomnia[ICD10: G47.00] Nayaiain Camachorosy CAMACHO [facility] CPT-4: 74755 02/06/2019 ([id number]) PREV VISIT EST AGE 40-64 Diagnosis: Encounter for general adult medical examination without abnormal findings[ICD10: Z00.00] Diagnosis: Obstructive sleep apnea (adult) (pediatric)[ICD10: G47.33] Diagnosis: Stress reaction[ICD10: F43.0] Diagnosis: URI, ACUTE[ICD10: J06.9] Diagnosis: Insomnia[ICD10: G47.00] Naya JONES JocelinRuss JANICE [facility] CPT-4: 20095 01/02/2019 ([id number]) PREV VISIT EST AGE 40-64 Diagnosis: Encounter for general adult medical examination without abnormal findings[ICD10: Z00.00] Diagnosis: Gastro-esophageal reflux disease without esophagitis[ICD10: K21.9] Diagnosis: Obstructive sleep apnea (adult) (pediatric)[ICD10: G47.33] Diagnosis: Mixed hyperlipidemia[ICD10: E78.2] Diagnosis: Dizziness and giddiness[ICD10: R42] Naya STANLEY Teetee [facility] CPT-4: 30205 02/13/2018 OFFICE/OUTPATIENT VISIT EST Diagnosis: Acute sinusitis, unspecified[ICD10: J01.90] Diagnosis: Viral infection, unspecified[ICD10: B34.9] Jodie CEDEÑOLINE JocelinRuss [facility]: 58961 04/24/2017 ([id number]) PREV VISIT EST AGE 40-64 Diagnosis: Encounter for general adult medical examination without abnormal findings[ICD10: Z00.00] Diagnosis: Encounter for gynecological examination (general) (routine) without abnormal findings[ICD10: Z01.419] Diagnosis: URI, ACUTE[ICD10: J06.9] Naya JONES JocelinRuss [facility] CPT-4: 02670 02/24/2016 ([id number]) OFFICE/OUTPATIENT VISIT EST Diagnosis: Other seasonal allergic rhinitis[ICD10: J30.2] Regina SKINNERQUELINE JocelinRuss CARLOS [facility] CPT-4: 26601 11/30/2015 OFFICE/OUTPATIENT VISIT NEW Diagnosis: Mixed hyperlipidemia[ICD10: E78.2] Diagnosis: Gastro-esophageal reflux disease without esophagitis[ICD10: K21.9] Diagnosis: Allergic rhinitis due to pollen[ICD10: J30.1] Diagnosis: Obstructive sleep apnea (adult) (pediatric)[ICD10: G47.33] Naya JONES JocelinRuss CARLOS [facility] CPT-4: 24428 11/10/2015 Plan of Care Planned Activity Notes Codes Status Date Visit Diagnosis Plan: Generalized anxiety disorder Dis cussion: Restart lexapro at 5mg daily for 4 days then go to 10mg daily Recheck at end of school year ICD-9 : 300.02 ICD-10 : F41.1 05/15/2019 Visit Diagnosis Plan: Influenza A Discussion: Tamiflu Supportive card Notify if worsening No work for full 5 days from symptoms and fever free at least 24hrs ICD-9 : 487.1 ICD-10 : J10.1 04/21/2019 Appointment: Naya Tejeda WPtel: [address] [place], [place] [id number] ACUTE ILLNESS 04/21/2019 Patient Education: Tamiflu- [employer] Coupon [id number] [email or web address]/resources/getResource/61/[email or web address] Completed 04/21/2019 Visit Diagnosis Plan: Gastro-esophageal reflux disease without esophagitis Diet: GERD diet ICD-9 : 530.81 ICD-10 : K21.9 03/11/2019 Visit Diagnosis Plan: Epigastric pain Discussion: Baron ge omeprazole to pantoprazole 40mg po BID ICD-9 : 789.06 ICD-10 : R10.13 03/11/2019 Appointment: Naya Tejeda WPtel[id number] [facility] 03/11/2019 Patient Education: pantoprazole- [employer] Coupon [phone] https://[email or web address]/Forter/resources/getResource/61/[email or web address]-w6 Completed 03/11/2019 Visit Diagnosis Plan: Insomnia Discussion: Stable on t razadone ICD-9 : 780.52 ICD-10 : G47.00 02/06/2019 Visit Diagnosis Plan: Stress reaction Discussion: Incr ease escitalopram to 10mg daily Follow Up: 3 months ICD-9 : 308.9 ICD-10 : F43.0 02/06/2019 Appointment: [facility]aya Tejeda WPtel: [phone] [id number] [facility] 02/06/2019 Patient Education: escitalopram oxalate- [employer] Co upon [id number] https://www.[email or web address]/Forter/resources/getResource/61/[email or web address]-d0zr-357u-55 Completed 02/06/2019 Patient Education: trazodone- [employer] Coupon [id number] https://www.[email or web address]/Forter/resources/getResource/61/z3a10yf7-j56i-2688-em Completed 02/06/2019 Patient Education: escitalopram oxalate- [employer] Co upon [id number] https://www.Sakti3/Forter/resources/getResource/61/16lo9277-8p5w-5zoc-i0 Completed 02/06/2019 Visit Diagnosis Plan: Obstructive sleep [...] Visit Diagnosis Plan: Encounter for [facility] adult medical examination without abnormal findings Discussion: Mediterranean diet Combinati on of cardio and weight bearing exercise Defers flu shot Fasting lab discussed ICD-9 : V70.9 ICD-10 : Z00.00 01/02/2019 Visit Diagnosis Plan: Insomnia Discussion: Trial of tr azadone 50mg 1-2 po q HS prn sleep ICD-9 : 780.52 ICD-10 : G47.00 01/02/2019 Appointment: Naya Tejeda WPtel: [facility] [address] Annual Well Visit 01/02/2019 Patient Education: trazodone- [employer] Coupon [id number] https://www.[email or web address]/sampleFlowMedica/resources/getResource/61/[email or web address]-t24n-53aw-bz Completed 01/02/2019 Patient Education: escitalopram oxalate- [employer] Co upon [id number] https://www.Sakti3/Forter/resources/getResource/61/6932428y-[email or web address]-28 Completed 01/02/2019 Visit Diagnosis Plan: Gastro-esophageal reflux disease without esophagitis Discussion: Stable on omeprazole ICD-9 : 530.81 ICD-10 : K21.9 02/13/2018 Visit Diagnosis Plan: Encounter for [facility] adult medical examination without abnormal [...] : R42 02/13/2018 Appointment: Naya Tejeda WPtel: [address] [place] [address] Annual Well Visit 02/13/2018 Patient Education: Patient Medication Summary Completed 06/06/2017 Care Plan: MAMMOGRAM BOTH BREASTS LOINC : 35307-6 Pending 06/06/2017 Visit Diagnosis Plan: Acute sinusitis, [...] ICD-10 : J01.90 04/24/2017 Appointment: Jodie Tran [address] [place] [address] ACUTE ILLNESS 04/24/2017 Patient Education: Patient Medication Summary Completed 04/24/2017 Patient Education: Patient Medication Summary Completed 12/08/2016 Care Plan: COMPREHEN METABOLIC [place] : 58984-4 Pending 12/08/2016 Care Plan: ASSAY THYROID STIM HORMONE Pen ding 12/08/2016 Care Plan: LIPID PANEL LOINC : 35690-3 Pending 12/08/2016 Care Plan: CBC Pending 12/08/2016 Patient Education: Patient Medication Summary Completed 06/08/2016 Care Plan: MAMMOGRAM SCREENING LOINC : 2 6347-5 Pending 06/08/2016 Visit Plan: Supportive care. Rest, Fluid s, Tylenol/Motrin prn fever or bodyaches. Notify if worsening symptoms. Pap done Due for Mammogram in June Obtain fasting lab from December Fw prn and 1 year for yearly 02/24/2016 Appointment: Naya Tejeda WPtel: [address] [place] [address] 02/22 confirmed~sl PAP 02/24/2016 Patient Education: Patient Medication Summary Completed 02/24/2016 Visit Plan: Injection as above Rx for al legra-d Benadryl at HS Nasal rinses, steroid nasal sprays Mucinex Vicks, humidifier, vitamin C, rest, fluids Follow up PRN 11/30/2015 Appointment: Regina Sagastume [address] [place] [address] ACUTE ILLNESS 11/30/2015 Patient Education: Patient Medication Summary Completed 11/30/2015 Patient Education: [facility] - Saving AutoInj - 18-64 - Dynamic Maura l ID Completed 11/30/2015 Referral: Sunil Hatch WPtel: [phone] [id number] [place] Referral Appointment Confirmed 11/23/2015 Visit Plan: [...] weight loss 11/10/2015 Appointment: Naya Tejeda WPtel: [address] [id number] [place] 11/08lm ~sl11/09 CONFIRMED~sl NEW PATIENT 11/09 Patient Education: Patient Medication Summary Completed 11/10/2015 Patient Education: [facility] - Saving AutoInj - 18-64 - [...]
--- OUTSIDE RECORDS SUMMARY | 2019-09-24 10:31 | XMS REPORT | CCD ---
Author Author Nadya Tejeda D.O. Organization [facility] Address [address] [place] [address] Phone Care Team Providers Care Customer Service Engineer Name Role Phone PP Unavailable CCM Unavailable Summary Purpose Interface Exchange Insurance Providers Payer name Policy type / Coverage type Covered constitution party ID Effective Begin Date Effective End Date [employer] Commercial Insurance [id number] Unknown Family history Sister Diagnosis Age At [...] Unknown 1 11/10/2015 Employment Unknown Currently employed [employer] 11/10/[address]: 539159148 Has never smoked or chewed tobacco 11/10/[address]: 038539938 Never drinks alcohol 2015 Has the patient [...] Instructions pantoprazole 40 mg tablet,delayed release RxNorm: 891714 TAKE 1 TABLET BY MOUTH TWICE DAILY 06/03/2019 08/01/2019 Active Tamiflu 75 mg capsule RxNorm: 965991 1 Capsule(s) Oral two time s a day 04/21/2019 04/26/2019 Inactive pantoprazole 40 mg tablet,delayed release RxNorm: 534915 1 Tablet(s) Oral two times a day replaces omeprazole 03/11/2019 05/10/2019 Inactive escitalopram 10 mg tablet RxNorm: 717267 1 Tablet(s) Oral QD re places 5mg dose 02/06/2019 08/05/2019 Active trazodone 50 mg tablet RxNorm: 488977 1-2 Tablet(s) Ora l QPM as needed for sleep 02/06/2019 03/07/2019 Inactive escitalopram 5 mg tablet RxNorm: 956699 1 Tablet(s) Oral QAM 201802/05/2019 Inactive trazodone 50 mg tablet RxNorm: 926937 1-2 Tablet(s) Ora l QPM as needed for sleep 01/02/2019 02/05/2019 Inactive omeprazole 20 mg capsule,delayed release RxNorm: 864148 1 Capsu le(s) PO QD 07/04/2018 12/30/2018 Inactive omeprazole 20 mg capsule,delayed release RxNorm: 281905 1 Capsu le(s) PO QD 04/03/2018 07/01/2018 Inactive omeprazole 20 mg capsule,delayed release RxNorm: 473028 1 Capsu le(s) PO QD 04/03/2018 01/01/2019 Inactive omeprazole 20 mg capsule,delayed release RxNorm: 062257 1 Capsu le(s) PO QD 12/05/2017 03/04/2018 Inactive omeprazole 20 mg capsule,delayed release RxNorm: 669585 1 Capsu le(s) PO QD 09/06/2017 04/03/2018 Inactive Augmentin 875 mg-125 mg tablet RxNorm: 326848 1 Tablet(s) PO BID 05/03/2017 Inactive omeprazole 20 mg capsule,delayed release RxNorm: 073425 1 Capsu le(s) PO QD 04/19/2017 08/16/2017 Inactive omeprazole 20 mg capsule,delayed release RxNorm: 826611 1 Capsule(s) PO QD replaces 40mg daily- due for refill 03/14/2017 04/19/2017 Inactive omeprazole 20 mg capsule,delayed release RxNorm: 566426 1 Capsule(s) PO QD replaces 40mg daily 11/30/2016 02/27/2017 Inactive omeprazole 20 mg capsule,delayed release RxNorm: 480816 1 Capsule(s) PO QD replaces 40mg daily 05/03/2016 10/29/2016 Inactive cetirizine 1 mg/mL oral solution RxNorm: 1010699 1.25 Mi lliliter(s) PO QHS for runny nose 02/24/2016 02/23/2016 Inactive Ce-D 12 Hour 60 mg-120 mg tablet,extended release RxNor m: 404240 1 Tablet(s) PO BID as needed 11/30/2015 No Stop Date Active omeprazole 20 mg capsule,delayed release RxNorm: 692818 1 Capsule(s) PO QD replaces 40mg daily 11/10/2015 03/08/2016 Inactive Ce Allergy 180 mg tablet RxNorm: 384608 1 Tablet(s) PO QD No Sta rt Date Active Aspirin Child 81 mg chewable tablet RxNorm: 603820 1 Tablet(s) PO QD No Start Date Active simvastatin 20 mg tablet RxNorm: 770192 1 Tablet(s) PO QD No Start Da te Active omeprazole 40 mg capsule,delayed release RxNorm: 606351 1 Capsu le(s) PO QD No Start Date 11/09/2015 Inactive Medication Administered No Medication Administered data Immunizations No Immunization data Results Observation Observation Code Item Item Code Result Date S ervice Location THYROID STIMULATING HORMONE 17987 TSH 3.245 uIU/mL 12/27/2018 Unknown GFR CALC 0952622 GFR Non Afr Amr >60 mL/min 12/27/2018 Un known GFR CALC 7433816 GFR Afr Amr >60 mL/min 12/27/2018 Unknow n FREE T4 91874 T4 Free 0.88 ng/dL 12/27/2018 Unknown [facility] 20549 Cholesterol 157 mg/dL 12/27/2018 Unkno wn [facility] 42388 Triglyceride 44 mg/dL 12/27/2018 Unkn own [facility] 32925 HDL CHOLESTEROL 61 mg/dL 12/27/2018 U nknown [facility] 08400 Chol/HDL Ratio 2.57 ratio 12/27/2018 U nknown [facility] 37545 NON-HDL Chol 96 mg/dL 12/27/2018 Unkn own [facility] 80130 LDL Cholesterol 87 mg/dL 12/27/2018 U nknown COMPREHENSIVE METABOLIC 61368 AST 19 U/L 2018 Unknown COMPREHENSIVE METABOLIC 33334 ALT 13 U/L 2018 Unknown COMPREHENSIVE METABOLIC 00321 BUN 22 mg/dL 2018 Unknown COMPREHENSIVE METABOLIC 50275 ALBUMIN 4.2 g/dL 2018 Unknown COMPREHENSIVE METABOLIC 63208 CHLORIDE 103 mmol/L 12/27 Unknown COMPREHENSIVE METABOLIC 06844 Bili Total 0.5 mg/dL 12/27 Unknown COMPREHENSIVE METABOLIC 60529 ALK PHOS 101 U/L 2018 Unknown COMPREHENSIVE METABOLIC 82102 SODIUM 141 mmol/L 12/27 Unknown COMPREHENSIVE METABOLIC 17015 CREATININE 0.76 mg/dL 12/04 Unknown COMPREHENSIVE METABOLIC 90731 CALCIUM 9.3 mg/dL 2018 Unknown COMPREHENSIVE METABOLIC 80914 POTASSIUM 3.6 mmol/L 12/27 Unknown COMPREHENSIVE METABOLIC 77453 Total Protein 7.4 g/dL Unknown COMPREHENSIVE METABOLIC 06383 Glucose 86 mg/dL 2018 Unknown COMPREHENSIVE METABOLIC 85018 Bicarbonate 31 mmol/L 12/04 Unknown COMPREHENSIVE METABOLIC 16924 AGAP 7 mmol/L 2018 Unknown COMPLETE BLOOD COUNT 4185798 WBC 4.2 10e9/L 12/28/19 19 Unknown COMPLETE BLOOD COUNT [id number] RBC 4.55 10e12/L 2018 Unknown COMPLETE BLOOD COUNT 0057303 HEMOGLOBIN 13.7 g/dL 12/28/19 19 Unknown COMPLETE BLOOD COUNT 8858467 HEMATOCRIT 42.4 % 12/28/19 19 Unknown COMPLETE BLOOD COUNT 6957833 MCV 93.2 fL 9 Unknown COMPLETE BLOOD COUNT 7472130 MCH 30.1 pg 9 Unknown COMPLETE BLOOD COUNT 1785209 MCHC 32.3 g/dL 9 Unknown COMPLETE BLOOD COUNT 2429372 PLATELET COUNT 272 10e9/L Unknown COMPLETE BLOOD COUNT 4810856 Mean Plt Volume 8.9 fL Unknown COMPLETE BLOOD COUNT 0462535 Neut Auto 50.9 % 9 Unknown COMPLETE BLOOD COUNT 2921721 Lymph Auto 35.1 % 12/28/19 19 Unknown COMPLETE BLOOD COUNT 4148532 [place] Auto 9.6 % 9 Unknown COMPLETE BLOOD COUNT 6838696 RDW 12.7 % 9 Unknown COMPLETE BLOOD COUNT 2343532 Eos Auto 4.2 % 9 Unknown COMPLETE BLOOD COUNT 4615198 Baso Auto 0.2 % 9 Unknown COMPLETE BLOOD COUNT 6000317 Neutrophil Abs 2.14 10e9/L Unknown COMPLETE BLOOD COUNT 6842715 Lymphocyte Abs 1.47 10e9/L Unknown COMPLETE BLOOD COUNT 8300074 Monocyte Abs 0.40 10e9/L 12/04 Unknown COMPLETE BLOOD COUNT 9838712 Eosinophil Abs 0.18 10e9/L Unknown COMPLETE BLOOD COUNT 1952045 RDW-SD 42.1 fL 9 Unknown COMPLETE BLOOD COUNT 3061709 Basophil Abs 0.01 10e9/L 12/04 Unknown GFR CALC 8211162 GFR Afr Amr >60 mL/min 12/21/2016 Unknow n GFR CALC 0500329 GFR Non Afr Amr >60 mL/min 12/21/2016 Un known COMPLETE BLOOD COUNT 8086362 WBC 3.6 10e9/L 12/22/19 17 Unknown COMPLETE BLOOD COUNT 1875409 RBC 4.57 10e12/L 2016 Unknown COMPLETE BLOOD COUNT 3726416 HEMOGLOBIN 13.8 g/dL 12/22/19 17 Unknown COMPLETE BLOOD COUNT 6521799 HEMATOCRIT 42.4 % 12/22/19 17 Unknown COMPLETE BLOOD COUNT 7789199 MCV 92.8 fL 7 Unknown COMPLETE BLOOD COUNT 2599698 MCH 30.2 pg 7 Unknown COMPLETE BLOOD COUNT 2369480 MCHC 32.5 g/dL 7 Unknown COMPLETE BLOOD COUNT 3392777 PLATELET COUNT 225 10e9/L Unknown COMPLETE BLOOD COUNT 9300357 Mean Plt Volume 9.0 fL Unknown COMPLETE BLOOD COUNT 6119385 Neut Auto 45.6 % 7 Unknown COMPLETE BLOOD COUNT 1665142 Lymph Auto 37.3 % 12/22/19 17 Unknown COMPLETE BLOOD COUNT 2531119 [place] Auto 11.0 % 7 Unknown COMPLETE BLOOD COUNT 6581161 RDW 12.6 % 7 Unknown COMPLETE BLOOD COUNT 3642387 Eos Auto 5.5 % 7 Unknown COMPLETE BLOOD COUNT 2975724 Baso Auto 0.6 % 7 Unknown COMPLETE BLOOD COUNT 6378481 Neutrophil Abs 1.64 10e9/L Unknown COMPLETE BLOOD COUNT 3646932 Lymphocyte Abs 1.34 10e9/L Unknown COMPLETE BLOOD COUNT 6447437 Monocyte Abs 0.40 10e9/L 12/03 Unknown COMPLETE BLOOD COUNT 4936867 Eosinophil Abs 0.20 10e9/L Unknown COMPLETE BLOOD COUNT 7876311 Basophil Abs 0.02 10e9/L 12/03 Unknown COMPLETE BLOOD COUNT 2532571 RDW-SD 42.0 fL 201 7 Unknown THYROID STIMULATING HORMONE 63897 TSH 3.423 uIU/mL 12/21/2016 Unknown COMPREHENSIVE METABOLIC 34849 AST 23 U/L 2016 Unknown COMPREHENSIVE METABOLIC 22997 ALT 18 U/L 2016 Unknown COMPREHENSIVE METABOLIC 46106 BUN 21 mg/dL 2016 Unknown COMPREHENSIVE METABOLIC 28731 ALBUMIN 4.4 g/dL 2016 Unknown COMPREHENSIVE METABOLIC 03399 CHLORIDE 103 mmol/L 12/21 Unknown COMPREHENSIVE METABOLIC 53355 Bili Total 0.7 mg/dL 12/21 Unknown COMPREHENSIVE METABOLIC 00517 ALK PHOS 86 U/L 2016 Unknown COMPREHENSIVE METABOLIC 91936 SODIUM 141 mmol/L 12/21 Unknown COMPREHENSIVE METABOLIC 91498 CREATININE 0.75 mg/dL 12/03 Unknown COMPREHENSIVE METABOLIC 42001 CALCIUM 9.2 mg/dL 2016 Unknown COMPREHENSIVE METABOLIC 68596 POTASSIUM 3.8 mmol/L 12/21 Unknown COMPREHENSIVE METABOLIC 60314 Total Protein 7.3 g/dL Unknown COMPREHENSIVE METABOLIC 13858 Glucose 95 mg/dL 2016 Unknown COMPREHENSIVE METABOLIC 59706 Bicarbonate 32 mmol/L 12/03 Unknown COMPREHENSIVE METABOLIC 93040 AGAP 6 mmol/L 2016 Unknown LIPID GROUP 51486 Cholesterol 154 mg/dL 12/21/2016 Unkno wn LIPID GROUP 89259 Triglyceride 51 mg/dL 12/21/2016 Unkn own LIPID GROUP 79337 HDL CHOLESTEROL 61 mg/dL 12/21/2016 U nknown LIPID GROUP 28682 Chol/HDL Ratio 2.52 ratio 12/21/2016 U nknown LIPID GROUP 24240 NON-HDL Chol 93 mg/dL 12/21/2016 Unkn own LIPID GROUP 08373 LDL Cholesterol 83 mg/dL 12/21/2016 U nknown Procedures Procedure Codes Date INFLUENZA ASSAY W/OPTIC CPT-4: 73890 04/21/2019 INFLUENZA ASSAY W/OPTIC CPT-4: 32634 04/24/2017 SPECIMEN HANDLING OFFICE-LAB CPT-4: 84929 02/24/2016 THER/PROPH/DIAG INJ SC/IM CPT-4: 92011 11/30/2015 TRIAMCINOLONE ACET INJ NOS CPT-4: J3301 [...] 1: 124/72 Code: 8480-6 BMI: 35.1 Code: 17863-6 Heart Rate 1: 64 bpm Height: 5'6" Respiratory Rate: 18 bpm SpO2: 96% Tempera ture: 36.8 (C) / 98.2 (F) Weight: 221 lbs 02/13/2018 Blood Pressure 1: 138/82 Code: 8480-6 BMI: 34.5 Code: 47189-2 Heart Rate 1: 68 bpm Height: 5'7" Respiratory Rate: 18 bpm SpO2: 97% Tempera ture: 36.8 (C) / 98.2 (F) Weight: 220 lbs 04/24/2017 Blood Pressure 1: 126/78 Code: 8480-6 BMI: 35.4 Code: 48904-2 Heart Rate 1: 84 bpm Height: 5'7" Respiratory Rate: 22 bpm SpO2: 95% Tempera ture: 36.9 (C) / 98.4 (F) Weight: 226 lbs 02/24/2016 Blood Pressure 1: 128/78 Code: 8480-6 BMI: 35.6 Code: 13041-5 Heart Rate 1: 68 bpm Height: 5'7" Respiratory Rate: 20 bpm SpO2: 97% Tempera ture: 36.7 (C) / 98.1 (F) Weight: 227 lbs 11/30/2015 Blood Pressure 1: 128/78 Code: 8480-6 BMI: 36.0 Code: 50190-8 Heart Rate 1: 76 bpm Height: 5'7" Respiratory Rate: 20 bpm SpO2: 97% Tempera ture: 37.1 (C) / 98.7 (F) Weight: 230 lbs 11/10/2015 Blood Pressure 1: 136/82 Code: 8480-6 BMI: 36.0 Code: 62698-5 Heart Rate 1: 80 bpm Height: 5'7" [...] visit Encounters Encounter Performer Location Codes Date (36147) OFFICE/OUTPATIENT VISIT EST Diagnosis: Generalized anxiety disorder[ICD10: F41.1] Naya TEJEDA [facility] CPT-4: 77549 05/15/2019 ([id number]) OFFICE/OUTPATIENT VISIT EST Diagnosis: Influenza A[ICD10: J10.1] Naya MCCLELLAND [facility] CPT-4: 74682 04/21/2019 ([id number]) OFFICE/OUTPATIENT VISIT EST Diagnosis: Epigastric pain[ICD10: R10.13] Diagnosis: Gastro-esophageal reflux disease without esophagitis[ICD10: K21.9] Naya Ileana SKINNERQUELINE Teetee TEJEDA [facility] CPT-4: 06198 03/11/2019 ([id number]) OFFICE/OUTPATIENT VISIT EST Diagnosis: Stress reaction[ICD10: F43.0] Diagnosis: Insomnia[ICD10: G47.00] Naya Tejeda NAYA Teetee CAMARILLO [facility] CPT-4: 51952 02/06/2019 ([id number]) PREV VISIT EST AGE 40-64 Diagnosis: Encounter for general adult medical examination without abnormal findings[ICD10: Z00.00] Diagnosis: Obstructive sleep apnea (adult) (pediatric)[ICD10: G47.33] Diagnosis: Stress reaction[ICD10: F43.0] Diagnosis: URI, ACUTE[ICD10: J06.9] Diagnosis: Insomnia[ICD10: G47.00] Naya CEDEÑOLINE Teetee CAMACHO [facility] CPT-4: 09533 01/02/2019 ([id number]) PREV VISIT EST AGE 40-64 Diagnosis: Encounter for general adult medical examination without abnormal findings[ICD10: Z00.00] Diagnosis: Gastro-esophageal reflux disease without esophagitis[ICD10: K21.9] Diagnosis: Obstructive sleep apnea (adult) (pediatric)[ICD10: G47.33] Diagnosis: Mixed hyperlipidemia[ICD10: E78.2] Diagnosis: Dizziness and giddiness[ICD10: R42] Naya STANLEY JocelinRuss ILEANA [facility] CPT-4: 78648 02/13/2018 OFFICE/OUTPATIENT VISIT EST Diagnosis: Acute sinusitis, unspecified[ICD10: J01.90] Diagnosis: Viral infection, unspecified[ICD10: B34.9] Jodie CEDEÑOLINE JocelinRuss ILEANA [facility] CPT-4: 89885 04/24/2017 ([id number]) PREV VISIT EST AGE 40-64 Diagnosis: Encounter for general adult medical examination without abnormal findings[ICD10: Z00.00] Diagnosis: Encounter for gynecological examination (general) (routine) without abnormal findings[ICD10: Z01.419] Diagnosis: URI, ACUTE[ICD10: J06.9] Naya MonrealRuss REJI RODGERS [employer] CPT-4: 07815 02/24/2016 ([id number]) OFFICE/OUTPATIENT VISIT EST Diagnosis: Other seasonal allergic rhinitis[ICD10: J30.2] Regina CEDEÑOLINE Teetee TEJEDA DO [employer] CPT-4: 27033 11/30/2015 OFFICE/OUTPATIENT VISIT NEW Diagnosis: Mixed hyperlipidemia[ICD10: E78.2] Diagnosis: Gastro-esophageal reflux disease without esophagitis[ICD10: K21.9] Diagnosis: Allergic rhinitis due to pollen[ICD10: J30.1] Diagnosis: Obstructive sleep apnea (adult) (pediatric)[ICD10: G47.33] Naya JONES JocelinRuss ILEANA VOGEL [employer] CPT-4: 19964 11/10/2015 Plan of Care Planned Activity Notes Codes Status Date Visit Diagnosis Plan: Generalized anxiety disorder Dis cussion: Restart lexapro at 5mg daily for 4 days then go to 10mg daily Recheck at end of school year ICD-9 : 300.02 ICD-10 : F41.1 05/15/2019 Appointment: Naya Tejeda WPtel: [address] [place] [address] US FOLLOW UP 05/15/2019 Visit Diagnosis Plan: Influenza A Discussion: Tamiflu Supportive card Notify if worsening No work for full 5 days from symptoms and fever free at least 24hrs ICD-9 : 487.1 ICD-10 : J10.1 04/21/2019 Appointment: Naya Tejeda WPtel: [address] [place], [place] [id number] ACUTE ILLNESS 04/21/2019 Patient Education: Tamiflu- [employer] Coupon [id number] https://www.Tamion.com/samplemd/resources/getResource/61/h764xd8o-5574-35e6-8s Completed 04/21/2019 Visit Diagnosis Plan: Gastro-esophageal reflux disease without esophagitis Diet: GERD diet ICD-9 : 530.81 ICD-10 : K21.9 03/11/2019 Visit Diagnosis Plan: Epigastric pain Discussion: Baron ge omeprazole to pantoprazole 40mg po BID ICD-9 : 789.06 ICD-10 : R10.13 03/11/2019 Appointment: Naya Tejeda WPtel: [address] [place] [address] FOLLOW UP 03/11/2019 Patient Education: pantoprazole- [employer] Coupon [phone] [id number] https://www.Optimal+/Tamion/resources/getResource/61/80743661-09i7-2h96-h2 Completed 03/11/2019 Visit Diagnosis Plan: Insomnia Discussion: Stable on t razadone ICD-9 : 780.52 ICD-10 : G47.00 02/06/2019 Visit Diagnosis Plan: Stress reaction Discussion: Incr ease escitalopram to 10mg daily Follow Up: 3 months ICD-9 : 308.9 ICD-10 : F43.0 02/06/2019 Appointment: Naya Tejeda WPtel: [id number] FOLLOW UP 02/06/2019 Patient Education: escitalopram oxalate- [employer] Co upon [id number] https://www.Optimal+/Tamion/resources/getResource/61/4u761b09-t7fm-827g-43 Completed 02/06/2019 Patient Education: trazodone- [employer] Coupon [id number] https://www.Optimal+/Tamion/resources/getResource/61/x1i29rv3-u44p-6450-qa Completed 02/06/2019 Patient Education: escitalopram oxalate- [employer] Co upon [id number] https://www.Optimal+/Tamion/resources/getResource/61/20bt1980-0a4f-1iha-b9 Completed 02/06/2019 Visit Diagnosis Plan: Obstructive sleep [...] G47.00 01/02/2019 Appointment: Naya Tejeda WPtel: [address] [facility] Annual Well Visit 01/02/2019 Patient Education: trazodone- [employer] Coupon [id number] 20 https://www.Optimal+/sampleItalia Online/resources/getResource/61/5g8b30b0-g05j-30sv-nc Completed 01/02/2019 Patient Education: escitalopram oxalate- [employer] Co upon [id number] https://www.Optimal+/sampleItalia Online/resources/getResource/61/1771195g-0076-959f-80 Completed 01/02/2019 Visit Diagnosis Plan: Gastro-esophageal reflux [...] R42 02/13/2018 Appointment: Naya Tejeda WPtel: [address] [facility] Annual Well Visit 02/13/2018 Patient Education: Patient Medication Summary Completed 06/06/2017 Care Plan: MAMMOGRAM BOTH BREASTS LOINC : 83088-0 Pending 06/06/2017 Visit Diagnosis Plan: Acute sinusitis, [...] : J01.90 04/24/2017 Appointment: Jodie Tran [address] [place] [address] ACUTE ILLNESS 04/24/2017 Patient Education: Patient Medication Summary Completed 04/24/2017 Patient Education: Patient Medication Summary Completed 12/08/2016 Care Plan: COMPREHEN METABOLIC PANEL [place] : 68194-2 Pending 12/08/2016 Care Plan: ASSAY THYROID STIM HORMONE Pen ding 12/08/2016 Care Plan: LIPID PANEL LOINC : 75743-5 Pending 12/08/2016 Care Plan: CBC Pending 12/08/2016 [...] yearly 02/24/2016 Appointment: Naya Tejeda WPtel: [address] [id number] 02/22 confirmed~sl PAP 02/24/2016 Patient Education: Patient Medication Summary Completed 02/24/2016 Visit Plan: Injection as above Rx for al legra-d Benadryl at HS Nasal rinses, steroid nasal sprays Mucinex Vicks, humidifier, vitamin C, rest, fluids Follow up PRN 11/30/2015 Appointment: [facility] [address] [facility] [facility] 11/30/2015 Patient Education: Patient Medication Summary Completed 11/30/2015 Patient Education: [facility] - Saving AutoInj - 18-64 - Dynamic Maura l ID Completed 11/30/2015 Referral: Sunil Hatch [facility] [address] [facility] Referral Appointment Confirmed 11/23/2015 Visit Plan: Needs [...] weight loss 11/10/2015 Appointment: Naya Tejeda WPtel: [address] [place], [place] [phone] 11/08lm ~sl11/09 CONFIRMED~sl NEW PATIENT 11/09 Patient Education: Patient Medication Summary Completed 11/10/2015 Patient Education: [facility] - Saving AutoInj - 18-64 - [...]
--- OUTSIDE RECORDS SUMMARY | 2019-09-24 10:31 | XMS REPORT | CCD ---
Author Author Nadya Tejeda D.O. Organization NAYA TEJEDA DO [facility] Address [address] [place] [address] Phone Care Team Providers Care Ballet Soloist Name Role Phone PP Unavailable CCM Unavailable Summary Purpose Interface Exchange Insurance Providers Payer name Policy type / Coverage type Covered green party ID Effective Begin Date Effective End Date [employer] Commercial Insurance [id number] Unknown Family history Sister Diagnosis Age At [...] Unknown 1 11/10/2015 Employment Unknown Currently employed [employer] 11/10/[address]: 923441060 Has never smoked or chewed tobacco 11/10/[address]: 730064841 Never drinks alcohol 2015 Has the patient [...] Fill Instructions famotidine 40 mg tablet RxNorm: 865923 1 Tablet(s) Oral QPM 020 07/31/2019 Active pantoprazole 40 mg tablet,delayed release RxNorm: 348510 TAKE 1 TABLET BY MOUTH TWICE DAILY 06/03/2019 08/01/2019 Active Tamiflu 75 mg capsule RxNorm: 944885 1 Capsule(s) Oral two time s a day 04/21/2019 04/26/2019 Inactive pantoprazole 40 mg tablet,delayed release RxNorm: 688336 1 Tablet(s) Oral two times a day replaces omeprazole 03/11/2019 05/10/2019 Inactive escitalopram 10 mg tablet RxNorm: 752094 1 Tablet(s) Oral QD re places 5mg dose 02/06/2019 08/05/2019 Active trazodone 50 mg tablet RxNorm: 642220 1-2 Tablet(s) Ora l QPM as needed for sleep 02/06/2019 03/07/2019 Inactive escitalopram 5 mg tablet RxNorm: 133156 1 Tablet(s) Oral QAM 201802/05/2019 Inactive trazodone 50 mg tablet RxNorm: 914183 1-2 Tablet(s) Ora l QPM as needed for sleep 01/02/2019 02/05/2019 Inactive omeprazole 20 mg capsule,delayed release RxNorm: 208382 1 Capsu le(s) PO QD 07/04/2018 06/30/2019 Inactive omeprazole 20 mg capsule,delayed release RxNorm: 083861 1 Capsu le(s) PO QD 04/03/2018 07/01/2018 Inactive omeprazole 20 mg capsule,delayed release RxNorm: 103961 1 Capsu le(s) PO QD 04/03/2018 01/01/2019 Inactive omeprazole 20 mg capsule,delayed release RxNorm: 097772 1 Capsu le(s) PO QD 12/05/2017 03/04/2018 Inactive omeprazole 20 mg capsule,delayed release RxNorm: 892554 1 Capsu le(s) PO QD 09/06/2017 04/03/2018 Inactive Augmentin 875 mg-125 mg tablet RxNorm: 007089 1 Tablet(s) PO BID 05/03/2017 Inactive omeprazole 20 mg capsule,delayed release RxNorm: 841878 1 Capsu le(s) PO QD 04/19/2017 08/16/2017 Inactive omeprazole 20 mg capsule,delayed release RxNorm: 452366 1 Capsule(s) PO QD replaces 40mg daily- due for refill 03/14/2017 04/19/2017 Inactive omeprazole 20 mg capsule,delayed release RxNorm: 167683 1 Capsule(s) PO QD replaces 40mg daily 11/30/2016 02/27/2017 Inactive omeprazole 20 mg capsule,delayed release RxNorm: 588107 1 Capsule(s) PO QD replaces 40mg daily 05/03/2016 10/29/2016 Inactive cetirizine 1 mg/mL oral solution RxNorm: 6269581 1.25 Mi lliliter(s) PO QHS for runny nose 02/24/2016 02/23/2016 Inactive Ce-D 12 Hour 60 mg-120 mg tablet,extended release RxNor m: 329356 1 Tablet(s) PO BID as needed 11/30/2015 No Stop Date Active omeprazole 20 mg capsule,delayed release RxNorm: 730808 1 Capsule(s) PO QD replaces 40mg daily 11/10/2015 03/08/2016 Inactive Ce Allergy 180 mg tablet RxNorm: 752560 1 Tablet(s) PO QD No Sta rt Date Active Aspirin Child 81 mg chewable tablet RxNorm: 850940 1 Tablet(s) PO QD No Start Date Active simvastatin 20 mg tablet RxNorm: 997974 1 Tablet(s) PO QD No Start Da te Active omeprazole 40 mg capsule,delayed release RxNorm: 590948 1 Capsu le(s) PO QD No Start Date 11/09/2015 Inactive Medication Administered No Medication Administered data Immunizations No Immunization data Results Observation Observation Code Item Item Code Result Date S vice Location THYROID STIMULATING HORMONE 99715 TSH 3.245 uIU/mL 12/27/2018 Unknown GFR CALC 8228700 GFR Non Afr Amr >60 mL/min 12/27/2018 Un known GFR CALC 6327689 GFR Afr Amr >60 mL/min 12/27/2018 Unknow n FREE T4 22010 T4 Free 0.88 ng/dL 12/27/2018 Unknown LIPID GROUP 48108 Cholesterol 157 mg/dL 12/27/2018 Unkno wn LIP[facility] GROUP 27399 Triglyceride 44 mg/dL 12/27/2018 Unkn own L[facility] GROUP 32411 HDL CHOLESTEROL 61 mg/dL 12/27/2018 U nknown LIP[facility] GROUP 81182 Chol/HDL Ratio 2.57 ratio 12/27/2018 U nknown LIPID GROUP 62272 NON-HDL Chol 96 mg/dL 12/27/2018 Unkn own LIP[facility] GROUP 31833 LDL Cholesterol 87 mg/dL 12/27/2018 U nknown COMPREHENSIVE METABOLIC 11358 AST 19 U/L 2018 Unknown COMPREHENSIVE METABOLIC 79446 ALT 13 U/L 2018 Unknown COMPREHENSIVE METABOLIC 06540 BUN 22 mg/dL 2018 Unknown COMPREHENSIVE METABOLIC 38049 ALBUMIN 4.2 g/dL 2018 Unknown COMPREHENSIVE METABOLIC 69999 CHLORIDE 103 mmol/L 12/27 Unknown COMPREHENSIVE METABOLIC 00228 Bili Total 0.5 mg/dL 12/27 Unknown COMPREHENSIVE METABOLIC 53320 ALK PHOS 101 U/L 2018 Unknown COMPREHENSIVE METABOLIC 53667 SODIUM 141 mmol/L 12/27 Unknown COMPREHENSIVE METABOLIC 69655 CREATININE 0.76 mg/dL 12/04 Unknown COMPREHENSIVE METABOLIC 05816 CALCIUM 9.3 mg/dL 2018 Unknown COMPREHENSIVE METABOLIC 17297 POTASSIUM 3.6 mmol/L 12/27 Unknown COMPREHENSIVE METABOLIC 76656 Total Protein 7.4 g/dL Unknown COMPREHENSIVE METABOLIC 98967 Glucose 86 mg/dL 2018 Unknown COMPREHENSIVE METABOLIC 46379 Bicarbonate 31 mmol/L 12/04 Unknown COMPREHENSIVE METABOLIC 27723 AGAP 7 mmol/L 2018 Unknown COMPLETE BLOOD COUNT 0999135 WBC 4.2 10e9/L 12/28/19 19 Unknown COMPLETE BLOOD COUNT 9301550 RBC 4.55 10e12/L 2018 Unknown COMPLETE BLOOD COUNT 1321110 HEMOGLOBIN 13.7 g/dL 12/28/19 19 Unknown COMPLETE BLOOD COUNT 2557232 HEMATOCRIT 42.4 % 12/28/19 19 Unknown COMPLETE BLOOD COUNT 9804523 MCV 93.2 fL 9 Unknown COMPLETE BLOOD COUNT 5376255 MCH 30.1 pg 9 Unknown COMPLETE BLOOD COUNT 9098282 MCHC 32.3 g/dL 9 Unknown COMPLETE BLOOD COUNT 5211812 PLATELET COUNT 272 10e9/L Unknown COMPLETE BLOOD COUNT 1440615 Mean Plt Volume 8.9 fL Unknown COMPLETE BLOOD COUNT 3676350 Neut Auto 50.9 % 9 Unknown COMPLETE BLOOD COUNT 9504356 Lymph Auto 35.1 % 12/28/19 19 Unknown COMPLETE BLOOD COUNT 3824744 [place] Auto 9.6 % 9 Unknown COMPLETE BLOOD COUNT 2097501 RDW 12.7 % 9 Unknown COMPLETE BLOOD COUNT 8410418 Eos Auto 4.2 % 9 Unknown COMPLETE BLOOD COUNT 4764978 Baso Auto 0.2 % 9 Unknown COMPLETE BLOOD COUNT 9292675 Neutrophil Abs 2.14 10e9/L Unknown COMPLETE BLOOD COUNT 9871563 Lymphocyte Abs 1.47 10e9/L Unknown COMPLETE BLOOD COUNT 8792480 Monocyte Abs 0.40 10e9/L 12/04 Unknown COMPLETE BLOOD COUNT 0210859 Eosinophil Abs 0.18 10e9/L Unknown COMPLETE BLOOD COUNT 4546205 RDW-SD 42.1 fL 9 Unknown COMPLETE BLOOD COUNT 2144266 Basophil Abs 0.01 10e9/L 12/04 Unknown GFR CALC 6784016 GFR Non Afr Amr >60 mL/min 12/21/2016 Un known GFR CALC 7436347 GFR Afr Amr >60 mL/min 12/21/2016 Unknow n COMPLETE BLOOD COUNT 3090273 WBC 3.6 10e9/L 12/22/19 17 Unknown COMPLETE BLOOD COUNT 7234577 RBC 4.57 10e12/L 2016 Unknown COMPLETE BLOOD COUNT 5185039 HEMOGLOBIN 13.8 g/dL 12/22/19 17 Unknown COMPLETE BLOOD COUNT 1356047 HEMATOCRIT 42.4 % 12/22/19 17 Unknown COMPLETE BLOOD COUNT 6914950 MCV 92.8 fL 7 Unknown COMPLETE BLOOD COUNT 6429117 MCH 30.2 pg 7 Unknown COMPLETE BLOOD COUNT 1882631 MCHC 32.5 g/dL 7 Unknown COMPLETE BLOOD COUNT 9636317 PLATELET COUNT 225 10e9/L Unknown COMPLETE BLOOD COUNT 8875872 Mean Plt Volume 9.0 fL Unknown COMPLETE BLOOD COUNT 5603010 Neut Auto 45.6 % 7 Unknown COMPLETE BLOOD COUNT 1925232 Lymph Auto 37.3 % 12/22/19 17 Unknown COMPLETE BLOOD COUNT 9383309 [place] Auto 11.0 % 7 Unknown COMPLETE BLOOD COUNT 2959707 RDW 12.6 % 7 Unknown COMPLETE BLOOD COUNT 1054689 Eos Auto 5.5 % 7 Unknown COMPLETE BLOOD COUNT 9789162 Baso Auto 0.6 % 7 Unknown COMPLETE BLOOD COUNT 2592719 Neutrophil Abs 1.64 10e9/L Unknown COMPLETE BLOOD COUNT 2047525 Lymphocyte Abs 1.34 10e9/L Unknown COMPLETE BLOOD COUNT 3379068 Monocyte Abs 0.40 10e9/L 12/03 Unknown COMPLETE BLOOD COUNT 1482496 Eosinophil Abs 0.20 10e9/L Unknown COMPLETE BLOOD COUNT 2004964 RDW-SD 42.0 fL 7 Unknown COMPLETE BLOOD COUNT 5636434 Basophil Abs 0.02 10e9/L 12/03 Unknown THYROID STIMULATING HORMONE 53301 TSH 3.423 uIU/mL 12/21/2016 Unknown COMPREHENSIVE METABOLIC 80399 AST 23 U/L 2016 Unknown COMPREHENSIVE METABOLIC 35440 ALT 18 U/L 2016 Unknown COMPREHENSIVE METABOLIC 54800 BUN 21 mg/dL 2016 Unknown COMPREHENSIVE METABOLIC 86988 ALBUMIN 4.4 g/dL 2016 Unknown COMPREHENSIVE METABOLIC 17916 CHLORIDE 103 mmol/L 12/21 Unknown COMPREHENSIVE METABOLIC 81764 Bili Total 0.7 mg/dL 12/21 Unknown COMPREHENSIVE METABOLIC 27825 ALK PHOS 86 U/L 2016 Unknown COMPREHENSIVE METABOLIC 06729 SODIUM 141 mmol/L 12/21 Unknown COMPREHENSIVE METABOLIC 18137 CREATININE 0.75 mg/dL 12/03 Unknown COMPREHENSIVE METABOLIC 42472 CALCIUM 9.2 mg/dL 2016 Unknown COMPREHENSIVE METABOLIC 91038 POTASSIUM 3.8 mmol/L 12/21 Unknown COMPREHENSIVE METABOLIC 02919 Total Protein 7.3 g/dL Unknown COMPREHENSIVE METABOLIC 29642 Glucose 95 mg/dL 2016 Unknown COMPREHENSIVE METABOLIC 15566 Bicarbonate 32 mmol/L 12/03 Unknown COMPREHENSIVE METABOLIC 97121 AGAP 6 mmol/L 2016 Unknown LIPID GROUP 39543 Cholesterol 154 mg/dL 12/21/2016 Unkno wn LIPID GROUP 72701 Triglyceride 51 mg/dL 12/21/2016 Unkn own LIPID GROUP 69257 HDL CHOLESTEROL 61 mg/dL 12/21/2016 U nknown LIPID GROUP 12106 Chol/HDL Ratio 2.52 ratio 12/21/2016 U nknown LIPID GROUP 06211 NON-HDL Chol 93 mg/dL 12/21/2016 Unkn own LIPID GROUP 84880 LDL Cholesterol 83 mg/dL 12/21/2016 U nknown Procedures Procedure Codes Date INFLUENZA ASSAY W/OPTIC CPT-4: 98706 04/21/2019 INFLUENZA ASSAY W/OPTIC CPT-4: 84597 04/24/2017 SPECIMEN HANDLING OFFICE-LAB CPT-4: 74615 02/24/2016 THER/PROPH/DIAG INJ SC/IM CPT-4: 26159 11/30/2015 TRIAMCINOLONE ACET INJ NOS CPT-4: J3301 11/30/2015 DEXAMETHASONE SODIUM PHOS CPT-4: J1100 11/30/2015 Vital Signs Date Vital 07/01/2019 Blood Pressure 1: 130/86 Code: 8480-6 BMI: 35.0 Code: 16824-6 Heart Rate 1: 60 bpm Height: 5'6" [...] 1: 124/72 Code: 8480-6 BMI: 35.1 Code: 09095-6 Heart Rate 1: 64 bpm Height: 5'6" Respiratory Rate: 18 bpm SpO2: 96% Tempera ture: 36.8 (C) / 98.2 (F) Weight: 221 lbs 02/13/2018 Blood Pressure 1: 138/82 Code: 8480-6 BMI: 34.5 Code: 58526-2 Heart Rate 1: 68 bpm Height: 5'7" Respiratory Rate: 18 bpm SpO2: 97% Tempera ture: 36.8 (C) / 98.2 (F) Weight: 220 lbs 04/24/2017 Blood Pressure 1: 126/78 Code: 8480-6 BMI: 35.4 Code: 45159-0 Heart Rate 1: 84 bpm Height: 5'7" Respiratory Rate: 22 bpm SpO2: 95% Tempera ture: 36.9 (C) / 98.4 (F) Weight: 226 lbs 02/24/2016 Blood Pressure 1: 128/78 Code: 8480-6 BMI: 35.6 Code: 09719-4 Heart Rate 1: 68 bpm Height: 5'7" Respiratory Rate: 20 bpm SpO2: 97% Tempera ture: 36.7 (C) / 98.1 (F) Weight: 227 lbs 11/30/2015 Blood Pressure 1: 128/78 Code: 8480-6 BMI: 36.0 Code: 06056-7 Heart Rate 1: 76 bpm Height: 5'7" Respiratory Rate: 20 bpm SpO2: 97% Tempera ture: 37.1 (C) / 98.7 (F) Weight: 230 lbs 11/10/2015 Blood Pressure 1: 136/82 Code: 8480-6 BMI: 36.0 Code: 76676-9 Heart Rate 1: 80 bpm Height: 5'7" [...] visit Encounters Encounter Performer Location Codes Date ([id number]) OFFICE/OUTPATIENT VISIT EST Diagnosis: Gastro-esophageal reflux disease without esophagitis[ICD10: K21.9] Diagnosis: Chest pain[ICD10: R07.9] Naya [facility] CPT-4: 29701 07/01/2019 ([id number]) OFFICE/OUTPATIENT VISIT EST Diagnosis: Generalized anxiety disorder[ICD10: F41.1] Naya TEJEDA DO [facility] CPT-4: 52811 05/15/2019 ([id number]) OFFICE/OUTPATIENT VISIT EST Diagnosis: Influenza A[ICD10: J10.1] Naya MCCLELLAND DO [facility] CPT-4: 07562 04/21/2019 ([id number]) OFFICE/OUTPATIENT VISIT EST Diagnosis: Epigastric pain[ICD10: R10.13] Diagnosis: Gastro-esophageal reflux disease without esophagitis[ICD10: K21.9] Naya TEJEDA DO [facility] CPT-4: 95274 03/11/2019 ([id number]) OFFICE/OUTPATIENT VISIT EST Diagnosis: Stress reaction[ICD10: F43.0] Diagnosis: Insomnia[ICD10: G47.00] Naya CAMARILLO [facility] CPT-4: 08761 02/06/2019 ([id number]) PREV VISIT EST AGE 40-64 Diagnosis: Encounter for general adult medical examination without abnormal findings[ICD10: Z00.00] Diagnosis: Obstructive sleep apnea (adult) (pediatric)[ICD10: G47.33] Diagnosis: Stress reaction[ICD10: F43.0] Diagnosis: URI, ACUTE[ICD10: J06.9] Diagnosis: Insomnia[ICD10: G47.00] Naya CAMACHO [facility] CPT-4: 57520 01/02/2019 ([id number]) PREV VISIT EST AGE 40-64 Diagnosis: Encounter for general adult medical examination without abnormal findings[ICD10: Z00.00] Diagnosis: Gastro-esophageal reflux disease without esophagitis[ICD10: K21.9] Diagnosis: Obstructive sleep apnea (adult) (pediatric)[ICD10: G47.33] Diagnosis: Mixed hyperlipidemia[ICD10: E78.2] Diagnosis: Dizziness and giddiness[ICD10: R42] Naya Salazarcorky CEDEÑOLokesh TEJEDA [facility] CPT-4: 85261 02/13/2018 OFFICE/OUTPATIENT VISIT EST Diagnosis: Acute sinusitis, unspecified[ICD10: J01.90] Diagnosis: Viral infection, unspecified[ICD10: B34.9] Jodie TEJEDA [facility] CPT-4: 86210 04/24/2017 ([id number]) PREV VISIT EST AGE 40-64 Diagnosis: Encounter for general adult medical examination without abnormal findings[ICD10: Z00.00] Diagnosis: Encounter for gynecological examination (general) (routine) without abnormal findings[ICD10: Z01.419] Diagnosis: URI, ACUTE[ICD10: J06.9] Naya Ileana CEDEÑOLINE Teetee [facility] CPT-4: 44585 02/24/2016 ([id number]) OFFICE/OUTPATIENT VISIT EST Diagnosis: Other seasonal allergic rhinitis[ICD10: J30.2] Regina CAMACHO [facility] CPT-4: 19247 11/30/2015 OFFICE/OUTPATIENT VISIT NEW Diagnosis: Mixed hyperlipidemia[ICD10: E78.2] Diagnosis: Gastro-esophageal reflux disease without esophagitis[ICD10: K21.9] Diagnosis: Allergic rhinitis due to pollen[ICD10: J30.1] Diagnosis: Obstructive sleep apnea (adult) (pediatric)[ICD10: G47.33] Naya CAMACHO [facility] CPT-4: 97886 11/10/2015 Plan of Care Planned Activity Notes Codes Status Date Visit Diagnosis Plan: Chest pain Discussion: To Dr. Babatunde cid for any further workup ICD-9 : 786.50 ICD-10 : R07.9 07/01/2019 Visit Diagnosis Plan: Gastro-esophageal reflux disease without esophagitis Discussion: Add Pepcid 40mg po q PM May need EGD if Cardiac Workup normal ICD-9 : 530.81 ICD-10 : K21.9 07/01/2019 Patient Education: famotidine- [employer] Coupon [id number] https://www.[email or web address]/[email or web address]/resources/getResource/61/[email or web address]-cg Completed 07/01/2019 Visit Diagnosis Plan: Generalized anxiety disorder Dis cussion: Restart lexapro at 5mg daily for 4 days then go to 10mg daily Recheck at end of school year ICD-9 : 300.02 ICD-10 : F41.1 05/15/2019 Appointment: Naya Tejeda WPtel: [address] [place] [address] [place] FOLLOW UP 05/15/2019 Visit Diagnosis Plan: Influenza A Discussion: Tamiflu Supportive card Notify if worsening No work for full 5 days from symptoms and fever free at least 24hrs ICD-9 : 487.1 ICD-10 : J10.1 04/21/2019 Appointment: Naya Tejeda WPtel: [address] [place] [address] ACUTE ILLNESS 04/21/2019 Patient Education: Tamiflu- [employer] Coupon [id number] https://www.PrintFu/GreenPal/resources/getResource/61/[email or web address] Completed 04/21/2019 Visit Diagnosis Plan: Epigastric pain Discussion: Baron ge omeprazole to pantoprazole 40mg po BID ICD-9 : 789.06 ICD-10 : R10.13 03/11/2019 Visit Diagnosis Plan: Gastro-esophageal reflux disease without esophagitis Diet: GERD diet ICD-9 : 530.81 ICD-10 : K21.9 03/11/2019 Appointment: Naya Tejeda WPtel: [address] [place], [place] [address] [place] FOLLOW UP 03/11/2019 Patient Education: pantoprazole- [employer] Coupon [phone] [id number] https://www.PrintFu/samplemd/resources/getResource/61/[email or web address]-p1 Completed 03/11/2019 Visit Diagnosis Plan: Stress reaction Discussion: Incr ease escitalopram to 10mg daily Follow Up: 3 months ICD-9 : 308.9 ICD-10 : F43.0 02/06/2019 Visit Diagnosis Plan: Insomnia Discussion: Stable on t razadone ICD-9 : 780.52 ICD-10 : G47.00 02/06/2019 [facility]ment[facility] [address] [id number] 02/06/2019 Patient Education: escitalopram oxalate- [employer] Co upon [id number] https://www.PrintFu/sampleSoundOut/resources/getResource/61/2x556n61-o9rw-391p-59 Completed 02/06/2019 Patient Education: trazodone- [employer] Coupon [id number] https://www.PrintFu/GreenPal/resources/getResource/61/f6d95lw6-f39g-7572-ko Completed 02/06/2019 Patient Education: escitalopram oxalate- [employer] Co upon [id number] https://www.PrintFu/GreenPal/resources/getResource/61/70sa8860-3s4e-1vei-e5 Completed 02/06/2019 Visit Diagnosis Plan: Obstructive sleep apnea (adult) (pediatric) Discussion: Retry CPAP once sleeping pills helping ICD-9 : 327.23 ICD-10 : G47.33 01/02/2019 Visit Diagnosis Plan: Insomnia Discussion: Trial of tr azadone 50mg 1-2 po q HS prn sleep ICD-9 : 780.52 ICD-10 : G47.00 01/02/2019 Visit Diagnosis Plan: Encounter for [facility] adult medical examination without abnormal findings Discussion: Mediterranean diet Combinati on of cardio and weight bearing exercise Defers flu shot Fasting lab discussed ICD-9 : V70.9 ICD-10 : Z00.00 01/02/2019 Visit Diagnosis Plan: Stress reaction Discussion: [place] pro 5mg po q AM Follow Up: 1 months ICD-9 : 308.9 ICD-10 : F43.0 01/02/2019 Visit Diagnosis Plan: URI, ACUTE Discussion: Supportiv e care Restart ce daily ICD-9 : 465.9 ICD-10 : J06.9 01/02/2019 Appointment[facility] [address] [id number] [facility] 01/02/2019 Patient Education: trazodone- [employer] Coupon [id number] https://www.PrintFu/sampleSoundOut/resources/getResource/61/5q2g28k7-o77q-66im-kn Completed 01/02/2019 Patient Education: escitalopram oxalate- [employer] Co upon [id number] https://www.PrintFu/GreenPal/resources/getResource/61/2228354z-3510-891s-82 Completed 01/02/2019 Visit Diagnosis Plan: Gastro-esophageal reflux [...] R42 02/13/2018 Visit Diagnosis Plan: Encounter for [facility] adult medical examination without abnormal findings Discussion: Mammo up to date Defers flu shot Mediterranean diet Recommend add weght bearing exercise Update fasting lab Had Mammogram in July Colonoscopy up to date ICD-9 : V70.9 ICD-10 : Z00.00 02/13/2018 Appointment: [facility] Te[facility]eda [facility]el[facility] [address] [id number] [facility] 02/13/2018 Patient Education: Patient Medication Summary Completed 06/06/2017 Care Plan: MAMMOGRAM BOTH BREASTS LOINC : 79260-5 Pending 06/06/2017 Visit Diagnosis Plan: Acute sinusitis, [...] : J01.90 04/24/2017 Appointment: Jodie Tran [address] ACUTE ILLNESS 04/24/2017 Patient Education: Patient Medication Summary Completed 04/24/2017 Patient Education: Patient Medication Summary Completed 12/08/2016 Care Plan: COMPREHEN METABOLIC [place]EL [place] : 95895-9 Pending 12/08/2016 Care Plan: ASSAY THYROID STIM HORMONE Pen ding 12/08/2016 Care Plan: LIPID PANEL LOINC : 39004-7 Pending 12/08/2016 Care Plan: CBC Pending 12/08/2016 [...] for yearly 02/24/2016 Appointment: Naya Tejeda WPtel: [address] [place] [address] 02/22 confirmed~sl PAP 02/24/2016 Patient Education: Patient Medication Summary Completed 02/24/2016 Visit Plan: Injection as above Rx for al legra-d Benadryl at HS Nasal rinses, steroid nasal sprays Mucinex Vicks, humidifier, vitamin C, rest, fluids Follow up PRN 11/30/2015 Appointment: Regina Sagastume [address] ACUTE ILLNESS 11/30/2015 Patient Education: Patient Medication Summary Completed 11/30/2015 Patient Education: [facility] [place] Saving AutoInj - 18-64 - Dynamic Maura l ID Completed 11/30/2015 Referral: Sunil Hatch WPtel: [address] [address] [place] Referral Appointment Confirmed 11/23/2015 Visit Plan: [...] Patient Medication Summary Completed 11/10/2015 Patient Education: [facility] [place] Saving AutoInj - 18-64 - Dynamic [...]
--- OUTSIDE RECORDS SUMMARY | 2019-09-24 10:31 | XMS REPORT | CCD ---
Author Author Nadya Tejeda D.O. Organization [facility] Address [address] [place] [address] Phone Care Team Providers [facility] Director Name Role Phone PP Unavailable CCM Unavailable Summary Purpose Interface Exchange Insurance Providers Payer name Policy type / Coverage type Covered republican ID Effective Begin Date Effective End Date [employer] Commercial Insurance [id number] Unknown Family history Sister Diagnosis Age At [...] Unknown 1 11/10/2015 Employment Unknown Currently employed [employer] 11/10/[address]: 751100581 Has never smoked or chewed tobacco 11/10/[address]: 554596967 Never drinks alcohol 2015 Has the patient [...] Fill Instructions Tamiflu 75 mg capsule RxNorm: 242868 1 Capsule(s) Oral two time s a day 04/21/2019 04/26/2019 Inactive pantoprazole 40 mg tablet,delayed release RxNorm: 182710 1 Tablet(s) Oral two times a day replaces omeprazole 03/11/2019 05/10/2019 Inactive escitalopram 10 mg tablet RxNorm: 587141 1 Tablet(s) Oral QD re places 5mg dose 02/06/2019 08/05/2019 Active trazodone 50 mg tablet RxNorm: 846685 1-2 Tablet(s) Ora l QPM as needed for sleep 02/06/2019 03/07/2019 Inactive escitalopram 5 mg tablet RxNorm: 213622 1 Tablet(s) Oral QAM 201802/05/2019 Inactive trazodone 50 mg tablet RxNorm: 976856 1-2 Tablet(s) Ora l QPM as needed for sleep 01/02/2019 02/05/2019 Inactive omeprazole 20 mg capsule,delayed release RxNorm: 691224 1 Capsu le(s) PO QD 07/04/2018 12/30/2018 Inactive omeprazole 20 mg capsule,delayed release RxNorm: 478637 1 Capsu le(s) PO QD 04/03/2018 07/01/2018 Inactive omeprazole 20 mg capsule,delayed release RxNorm: 878715 1 Capsu le(s) PO QD 04/03/2018 01/01/2019 Inactive omeprazole 20 mg capsule,delayed release RxNorm: 677571 1 Capsu le(s) PO QD 12/05/2017 03/04/2018 Inactive omeprazole 20 mg capsule,delayed release RxNorm: 915754 1 Capsu le(s) PO QD 09/06/2017 04/03/2018 Inactive Augmentin 875 mg-125 mg tablet RxNorm: 826383 1 Tablet(s) PO BID 05/03/2017 Inactive omeprazole 20 mg capsule,delayed release RxNorm: 812054 1 Capsu le(s) PO QD 04/19/2017 08/16/2017 Inactive omeprazole 20 mg capsule,delayed release RxNorm: 605920 1 Capsule(s) PO QD replaces 40mg daily- due for refill 03/14/2017 04/19/2017 Inactive omeprazole 20 mg capsule,delayed release RxNorm: 898616 1 Capsule(s) PO QD replaces 40mg daily 11/30/2016 02/27/2017 Inactive omeprazole 20 mg capsule,delayed release RxNorm: 548760 1 Capsule(s) PO QD replaces 40mg daily 05/03/2016 10/29/2016 Inactive cetirizine 1 mg/mL oral solution RxNorm: 8450696 1.25 Mi lliliter(s) PO QHS for runny nose 02/24/2016 02/23/2016 Inactive Ce-D 12 Hour 60 mg-120 mg tablet,extended release RxNor m: 952105 1 Tablet(s) PO BID as needed 11/30/2015 No Stop Date Active omeprazole 20 mg capsule,delayed release RxNorm: 543664 1 Capsule(s) PO QD replaces 40mg daily 11/10/2015 03/08/2016 Inactive Ce Allergy 180 mg tablet RxNorm: 657083 1 Tablet(s) PO QD No Sta rt Date Active Aspirin Child 81 mg chewable tablet RxNorm: 561862 1 Tablet(s) PO QD No Start Date Active simvastatin 20 mg tablet RxNorm: 244295 1 Tablet(s) PO QD No Start Da te Active omeprazole 40 mg capsule,delayed release RxNorm: 419776 1 Capsu le(s) PO QD No Start Date 11/09/2015 Inactive Medication Administered No Medication Administered data Immunizations No Immunization data Results Observation Observation Code Item Item Code Result Date S [facility] Location THYROID STIMULATING HORMONE 68508 TSH 3.245 uIU/mL 12/27/2018 Unknown GFR CALC 7296698 GFR Non Afr Amr >60 mL/min 12/27/2018 Un known GFR CALC 2293358 GFR Afr Amr >60 mL/min 12/27/2018 Unknow n FREE T4 34792 T4 Free 0.88 ng/dL 12/27/2018 Unknown [facility] 32458 Cholesterol 157 mg/dL 12/27/2018 Unkno wn LIP[facility] GROUP 47825 Triglyceride 44 mg/dL 12/27/2018 Unkn own [facility] GROUP 33843 HDL CHOLESTEROL 61 mg/dL 12/27/2018 U nknown LIPID GROUP 71428 Chol/HDL Ratio 2.57 ratio 12/27/2018 U nknown LIPID GROUP 89580 NON-HDL Chol 96 mg/dL 12/27/2018 Unkn own LIP[facility] GROUP 85156 LDL Cholesterol 87 mg/dL 12/27/2018 U nknown COMPREHENSIVE METABOLIC 85091 AST 19 U/L 2018 Unknown COMPREHENSIVE METABOLIC 52219 ALT 13 U/L 2018 Unknown COMPREHENSIVE METABOLIC 24880 BUN 22 mg/dL 2018 Unknown COMPREHENSIVE METABOLIC 66751 ALBUMIN 4.2 g/dL 2018 Unknown COMPREHENSIVE METABOLIC 05500 CHLORIDE 103 mmol/L 12/27 Unknown COMPREHENSIVE METABOLIC 57645 Bili Total 0.5 mg/dL 12/27 Unknown COMPREHENSIVE METABOLIC 12699 ALK PHOS 101 U/L 2018 Unknown COMPREHENSIVE METABOLIC 01177 SODIUM 141 mmol/L 12/27 Unknown COMPREHENSIVE METABOLIC 92446 CREATININE 0.76 mg/dL 12/04 Unknown COMPREHENSIVE METABOLIC 51967 CALCIUM 9.3 mg/dL 2018 Unknown COMPREHENSIVE METABOLIC 18024 POTASSIUM 3.6 mmol/L 12/27 Unknown COMPREHENSIVE METABOLIC 52326 Total Protein 7.4 g/dL Unknown COMPREHENSIVE METABOLIC 17246 Glucose 86 mg/dL 2018 Unknown COMPREHENSIVE METABOLIC 10370 Bicarbonate 31 mmol/L 12/04 Unknown COMPREHENSIVE METABOLIC 84629 AGAP 7 mmol/L 2018 Unknown COMPLETE BLOOD COUNT 5087011 WBC 4.2 10e9/L 12/28/19 19 Unknown COMPLETE BLOOD COUNT 1046996 RBC 4.55 10e12/L 2018 Unknown COMPLETE BLOOD COUNT 7458775 HEMOGLOBIN 13.7 g/dL 12/28/19 19 Unknown COMPLETE BLOOD COUNT 8922958 HEMATOCRIT 42.4 % 12/28/19 19 Unknown COMPLETE BLOOD COUNT 0249482 MCV 93.2 fL 9 Unknown COMPLETE BLOOD COUNT 6806467 MCH 30.1 pg 9 Unknown COMPLETE BLOOD COUNT 6232965 MCHC 32.3 g/dL 9 Unknown COMPLETE BLOOD COUNT 7087997 PLATELET COUNT 272 10e9/L Unknown COMPLETE BLOOD COUNT 3196879 Mean Plt Volume 8.9 fL Unknown COMPLETE BLOOD COUNT 8400278 Neut Auto 50.9 % 9 Unknown COMPLETE BLOOD COUNT 7145272 Lymph Auto 35.1 % 12/28/19 19 Unknown COMPLETE BLOOD COUNT 2837988 [place] Auto 9.6 % 9 Unknown COMPLETE BLOOD COUNT 7252503 RDW 12.7 % 9 Unknown COMPLETE BLOOD COUNT 1230802 Eos Auto 4.2 % 9 Unknown COMPLETE BLOOD COUNT 4578000 Baso Auto 0.2 % 9 Unknown COMPLETE BLOOD COUNT 4555243 Neutrophil Abs 2.14 10e9/L Unknown COMPLETE BLOOD COUNT 0223233 Lymphocyte Abs 1.47 10e9/L Unknown COMPLETE BLOOD COUNT 1689906 Monocyte Abs 0.40 10e9/L 12/04 Unknown COMPLETE BLOOD COUNT 5152556 Eosinophil Abs 0.18 10e9/L Unknown COMPLETE BLOOD COUNT 8326804 RDW-SD 42.1 fL 9 Unknown COMPLETE BLOOD COUNT 6776202 Basophil Abs 0.01 10e9/L 12/04 Unknown GFR CALC 8570310 GFR Non Afr Amr >60 mL/min 12/21/2016 Un known GFR CALC 4822676 GFR Afr Amr >60 mL/min 12/21/2016 Unknow n COMPLETE BLOOD COUNT 6594356 WBC 3.6 10e9/L 12/22/19 17 Unknown COMPLETE BLOOD COUNT 4987996 RBC 4.57 10e12/L 2016 Unknown COMPLETE BLOOD COUNT 9910509 HEMOGLOBIN 13.8 g/dL 12/22/19 17 Unknown COMPLETE BLOOD COUNT 2240546 HEMATOCRIT 42.4 % 12/22/19 17 Unknown COMPLETE BLOOD COUNT 1456957 MCV 92.8 fL 7 Unknown COMPLETE BLOOD COUNT 6485502 MCH 30.2 pg 7 Unknown COMPLETE BLOOD COUNT 5483841 MCHC 32.5 g/dL 7 Unknown COMPLETE BLOOD COUNT 8451672 PLATELET COUNT 225 10e9/L Unknown COMPLETE BLOOD COUNT 5081219 Mean Plt Volume 9.0 fL Unknown COMPLETE BLOOD COUNT 1670552 Neut Auto 45.6 % 7 Unknown COMPLETE BLOOD COUNT 2859750 Lymph Auto 37.3 % 12/22/19 17 Unknown COMPLETE BLOOD COUNT 7436609 [place] Auto 11.0 % 7 Unknown COMPLETE BLOOD COUNT 0516195 RDW 12.6 % 7 Unknown COMPLETE BLOOD COUNT 6725447 Eos Auto 5.5 % 7 Unknown COMPLETE BLOOD COUNT 1987813 Baso Auto 0.6 % 7 Unknown COMPLETE BLOOD COUNT 1390048 Neutrophil Abs 1.64 10e9/L Unknown COMPLETE BLOOD COUNT 0400235 Lymphocyte Abs 1.34 10e9/L Unknown COMPLETE BLOOD COUNT 6241055 Monocyte Abs 0.40 10e9/L 12/03 Unknown COMPLETE BLOOD COUNT 1101782 Eosinophil Abs 0.20 10e9/L Unknown COMPLETE BLOOD COUNT 2338869 RDW-SD 42.0 fL 201 7 Unknown COMPLETE BLOOD COUNT 0606739 Basophil Abs 0.02 10e9/L 12/03 Unknown THYROID STIMULATING HORMONE 16184 TSH 3.423 uIU/mL 12/21/2016 Unknown COMPREHENSIVE METABOLIC 48279 AST 23 U/L 2016 Unknown COMPREHENSIVE METABOLIC 33727 ALT 18 U/L 2016 Unknown COMPREHENSIVE METABOLIC 81325 BUN 21 mg/dL 2016 Unknown COMPREHENSIVE METABOLIC 56298 ALBUMIN 4.4 g/dL 2016 Unknown COMPREHENSIVE METABOLIC 23764 CHLORIDE 103 mmol/L 12/21 Unknown COMPREHENSIVE METABOLIC 52585 Bili Total 0.7 mg/dL 12/21 Unknown COMPREHENSIVE METABOLIC 46006 ALK PHOS 86 U/L 2016 Unknown COMPREHENSIVE METABOLIC 27512 SODIUM 141 mmol/L 12/21 Unknown COMPREHENSIVE METABOLIC 44808 CREATININE 0.75 mg/dL 12/03 Unknown COMPREHENSIVE METABOLIC 51501 CALCIUM 9.2 mg/dL 2016 Unknown COMPREHENSIVE METABOLIC 77413 POTASSIUM 3.8 mmol/L 12/21 Unknown COMPREHENSIVE METABOLIC 32899 Total Protein 7.3 g/dL Unknown COMPREHENSIVE METABOLIC 82159 Glucose 95 mg/dL 2016 Unknown COMPREHENSIVE METABOLIC 84867 Bicarbonate 32 mmol/L 12/03 Unknown COMPREHENSIVE METABOLIC 14202 AGAP 6 mmol/L 2016 Unknown LIPID GROUP 84299 Cholesterol 154 mg/dL 12/21/2016 Unkno wn LIPID GROUP 53022 Triglyceride 51 mg/dL 12/21/2016 Unkn own LIPID GROUP 30097 HDL CHOLESTEROL 61 mg/dL 12/21/2016 U nknown LIPID GROUP 60901 Chol/HDL Ratio 2.52 ratio 12/21/2016 U nknown LIPID GROUP 25066 NON-HDL Chol 93 mg/dL 12/21/2016 Unkn own LIPID GROUP 53985 LDL Cholesterol 83 mg/dL 12/21/2016 U nknown Procedures Procedure Codes Date INFLUENZA ASSAY W/OPTIC CPT-4: 89455 04/21/2019 INFLUENZA ASSAY W/OPTIC CPT-4: 28701 04/24/2017 SPECIMEN HANDLING OFFICE-LAB CPT-4: 16151 02/24/2016 THER/PROPH/DIAG INJ SC/IM CPT-4: 17998 11/30/2015 TRIAMCINOLONE ACET INJ NOS CPT-4: J3301 [...] 1: 124/72 Code: 8480-6 BMI: 35.1 Code: 52284-1 Heart Rate 1: 64 bpm Height: 5'6" Respiratory Rate: 18 bpm SpO2: 96% Tempera ture: 36.8 (C) / 98.2 (F) Weight: 221 lbs 02/13/2018 Blood Pressure 1: 138/82 Code: 8480-6 BMI: 34.5 Code: 50456-2 Heart Rate 1: 68 bpm Height: 5'7" Respiratory Rate: 18 bpm SpO2: 97% Tempera ture: 36.8 (C) / 98.2 (F) Weight: 220 lbs 04/24/2017 Blood Pressure 1: 126/78 Code: 8480-6 BMI: 35.4 Code: 56328-8 Heart Rate 1: 84 bpm Height: 5'7" Respiratory Rate: 22 bpm SpO2: 95% Tempera ture: 36.9 (C) / 98.4 (F) Weight: 226 lbs 02/24/2016 Blood Pressure 1: 128/78 Code: 8480-6 BMI: 35.6 Code: 66519-9 Heart Rate 1: 68 bpm Height: 5'7" Respiratory Rate: 20 bpm SpO2: 97% Tempera ture: 36.7 (C) / 98.1 (F) Weight: 227 lbs 11/30/2015 Blood Pressure 1: 128/78 Code: 8480-6 BMI: 36.0 Code: 81995-1 Heart Rate 1: 76 bpm Height: 5'7" Respiratory Rate: 20 bpm SpO2: 97% Tempera ture: 37.1 (C) / 98.7 (F) Weight: 230 lbs 11/10/2015 Blood Pressure 1: 136/82 Code: 8480-6 BMI: 36.0 Code: 61429-8 Heart Rate 1: 80 bpm Height: 5'7" [...] visit Encounters Encounter Performer Location Codes Date ([id number]) OFFICE/OUTPATIENT VISIT EST Diagnosis: Generalized anxiety disorder[ICD10: F41.1] Naya TEJEDA [facility] [employer] CPT-4: 94802 05/15/2019 ([id number]) OFFICE/OUTPATIENT VISIT EST Diagnosis: Influenza A[ICD10: J10.1] Naya MCCLELLAND [facility] [employer] CPT-4: 80620 04/21/2019 ([id number]) OFFICE/OUTPATIENT VISIT EST Diagnosis: Epigastric pain[ICD10: R10.13] Diagnosis: Gastro-esophageal reflux disease without esophagitis[ICD10: K21.9] Naya TEJEDA [employer] CPT-4: 98098 03/11/2019 ([id number]) OFFICE/OUTPATIENT VISIT EST Diagnosis: Stress reaction[ICD10: F43.0] Diagnosis: Insomnia[ICD10: G47.00] Nayaiain Camachorosy [facility] CPT-4: 32353 02/06/2019 ([id number]) PREV VISIT EST AGE 40-64 Diagnosis: Encounter for general adult medical examination without abnormal findings[ICD10: Z00.00] Diagnosis: Obstructive sleep apnea (adult) (pediatric)[ICD10: G47.33] Diagnosis: Stress reaction[ICD10: F43.0] Diagnosis: URI, ACUTE[ICD10: J06.9] Diagnosis: Insomnia[ICD10: G47.00] Naya JONES JocelinRuss [facility] CPT-4: 55172 01/02/2019 ([id number]) PREV VISIT EST AGE 40-64 Diagnosis: Encounter for general adult medical examination without abnormal findings[ICD10: Z00.00] Diagnosis: Gastro-esophageal reflux disease without esophagitis[ICD10: K21.9] Diagnosis: Obstructive sleep apnea (adult) (pediatric)[ICD10: G47.33] Diagnosis: Mixed hyperlipidemia[ICD10: E78.2] Diagnosis: Dizziness and giddiness[ICD10: R42] Naya STANLEY Teetee [facility] [employer] CPT-4: 19655 02/13/2018 OFFICE/OUTPATIENT VISIT EST Diagnosis: Acute sinusitis, unspecified[ICD10: J01.90] Diagnosis: Viral infection, unspecified[ICD10: B34.9] Jodie CEDEÑOLINE [facility]ocelinRuss [facility] CPT-4: 78220 04/24/2017 ([id number]) PREV VISIT EST AGE 40-64 Diagnosis: Encounter for general adult medical examination without abnormal findings[ICD10: Z00.00] Diagnosis: Encounter for gynecological examination (general) (routine) without abnormal findings[ICD10: Z01.419] Diagnosis: URI, ACUTE[ICD10: J06.9] Naya JONES JocelinRuss [facility] CPT-4: 51616 02/24/2016 ([id number]) OFFICE/OUTPATIENT VISIT EST Diagnosis: Other seasonal allergic rhinitis[ICD10: J30.2] Regina SKINNERQUELINE JocelinRuss CARLOS [employer] CPT-4: 55922 11/30/2015 OFFICE/OUTPATIENT VISIT NEW Diagnosis: Mixed hyperlipidemia[ICD10: E78.2] Diagnosis: Gastro-esophageal reflux disease without esophagitis[ICD10: K21.9] Diagnosis: Allergic rhinitis due to pollen[ICD10: J30.1] Diagnosis: Obstructive sleep apnea (adult) (pediatric)[ICD10: G47.33] Naya JONES JocelinRuss [facility] [employer] CPT-4: 15843 11/10/2015 Plan of Care Planned Activity Notes [...] : J10.1 04/21/2019 Appointment: Naya Tejeda WPtel: [address] [place], [place] [id number] ACUTE ILLNESS 04/21/2019 Patient Education: Tamiflu- [employer] Coupon [id number] https://www.[employer]ulogy/Shellcatch/resources/getResource/61/m899ps4v-8952-90s0-5p Completed 04/21/2019 Visit Diagnosis Plan: Gastro-esophageal reflux disease without esophagitis Diet: GERD diet ICD-9 : 530.81 ICD-10 : K21.9 03/11/2019 Visit Diagnosis Plan: Epigastric pain Discussion: Baron ge omeprazole to pantoprazole 40mg po BID ICD-9 : 789.06 ICD-10 : R10.13 03/11/2019 Appointment: Naya Tejeda WPtel: [id number] [facility] 03/11/2019 Patient Education: pantoprazole- [employer] Coupon [phone] https://www.[employer]ulogy/Shellcatch/resources/getResource/61/87213628-60y6-2m90-x4 Completed 03/11/2019 Visit Diagnosis Plan: Insomnia Discussion: Stable on t razadone ICD-9 : 780.52 ICD-10 : G47.00 02/06/2019 Visit Diagnosis Plan: Stress reaction Discussion: Incr ease escitalopram to 10mg daily Follow Up: 3 months ICD-9 : 308.9 ICD-10 : F43.0 02/06/2019 Appointment: [facility]aya Tejeda WPtel[facility] [phone] [id number] [facility] 02/06/2019 Patient Education: escitalopram oxalate- [employer] Co upon [id number] https://www.Nulogy/Shellcatch/resources/getResource/61/8v308m55-w9vf-390g-87 Completed 02/06/2019 Patient Education: trazodone- [employer] Coupon [id number] https://www.[employer]ul[employer]/Shellcatch/resources/getResource/61/m4b81bv5-l87q-1401-gy Completed 02/06/2019 Patient Education: escitalopram oxalate- [employer] Co upon [id number] https://www.[employer]ul[employer]/Shellcatch/resources/getResource/61/91wt0125-8l9p-5auj-g2 Completed 02/06/2019 Visit Diagnosis Plan: Obstructive sleep [...] J06.9 01/02/2019 Visit Diagnosis Plan: Encounter for [facility] adult medical examination without abnormal findings Discussion: Mediterranean diet Combinati on of cardio and weight bearing exercise Defers flu shot Fasting lab discussed ICD-9 : V70.9 ICD-10 : Z00.00 01/02/2019 Visit Diagnosis Plan: Insomnia Discussion: Trial of tr azadone 50mg 1-2 po q HS prn sleep ICD-9 : 780.52 ICD-10 : G47.00 01/02/2019 Appointment: Naya Tejeda WPtel: [facility] [address] Annual Well Visit 01/02/2019 Patient Education: trazodone- [employer] Coupon [id number] https://www.[employer]ulogy/sampleLivra Panels/resources/getResource/61/1n1r67l3-m93p-53gz-et Completed 01/02/2019 Patient Education: escitalopram oxalate- [employer] Co upon [id number] https://www.Nulogy/Shellcatch/resources/getResource/61/2972222b-3588-565a-18 Completed 01/02/2019 Visit Diagnosis Plan: Gastro-esophageal reflux disease without esophagitis Discussion: Stable on omeprazole ICD-9 : 530.81 ICD-10 : K21.9 02/13/2018 Visit Diagnosis Plan: Encounter for [facility] adult medical examination without abnormal [...] : R42 02/13/2018 Appointment: Naya Tejeda WPtel: [address] [place] [address] Annual Well Visit 02/13/2018 Patient Education: Patient Medication Summary Completed 06/06/2017 Care Plan: MAMMOGRAM BOTH BREASTS LOINC : 56319-7 Pending 06/06/2017 Visit Diagnosis Plan: Acute sinusitis, [...] ICD-10 : J01.90 04/24/2017 Appointment: Jodie Tran [address] [place] [address] ACUTE ILLNESS 04/24/2017 Patient Education: Patient Medication Summary Completed 04/24/2017 Patient Education: Patient Medication Summary Completed 12/08/2016 Care Plan: COMPREHEN METABOLIC [place] : 10231-6 Pending 12/08/2016 Care Plan: ASSAY THYROID STIM HORMONE Pen ding 12/08/2016 Care Plan: LIPID PANEL LOINC : 28811-5 Pending 12/08/2016 Care Plan: CBC Pending 12/08/2016 [...] for yearly 02/24/2016 Appointment: Naya Tejeda WPtel: [address] [place] [address] 02/22 confirmed~sl PAP 02/24/2016 Patient Education: Patient Medication Summary Completed 02/24/2016 Visit Plan: Injection as above Rx for al legra-d Benadryl at HS Nasal rinses, steroid nasal sprays Mucinex Vicks, humidifier, vitamin C, rest, fluids Follow up PRN 11/30/2015 Appointment: Regina Sagastume [address] [place] [address] ACUTE ILLNESS 11/30/2015 Patient Education: Patient Medication Summary Completed 11/30/2015 Patient Education: [facility] - Saving AutoInj - 18-64 - Dynamic Maura l ID Completed 11/30/2015 Referral: Sunil Hatch WPtel: [phone] [id number] [place] Referral Appointment Confirmed 11/23/2015 Visit Plan: [...] Discused diet/exercise weight loss 11/10/2015 Appointment: Naya Tejead WPtel: [phone] [id number] [place] 11/08lm ~sl11/09 CONFIRMED~sl NEW PATIENT 11/09 Patient Education: Patient Medication Summary Completed 11/10/2015 Patient Education: [facility] - Saving AutoInj - 18-64 - Dynamic [...]
--- OUTSIDE RECORDS SUMMARY | 2019-09-24 10:32 | XMS REPORT | CCD ---
Author Author Nadya Tejeda D.O. Organization [facility] Address [address] [place] [address] Phone Care Team Providers Care Salesperson Fashion Accessories Name Role Phone PP Unavailable CCM Unavailable Summary Purpose Interface Exchange Insurance Providers Payer name Policy type / Coverage type Covered constitution party ID Effective Begin Date Effective End Date AET[employer] Commercial Insurance [id number] Unknown Family history Sister Diagnosis Age At [...] Unknown 1 11/10/2015 Employment Unknown Currently employed [employer] 11/10/[address]: 300549705 Has never smoked or chewed tobacco 11/10/[address]: 483652268 Never drinks alcohol 2015 Has the patient [...] Fill Instructions Tamiflu 75 mg capsule RxNorm: 575703 1 Capsule(s) Oral two time s a day 04/21/2019 04/26/2019 Inactive pantoprazole 40 mg tablet,delayed release RxNorm: 183366 1 Tablet(s) Oral two times a day replaces omeprazole 03/11/2019 05/10/2019 Inactive escitalopram 10 mg tablet RxNorm: 344688 1 Tablet(s) Oral QD re places 5mg dose 02/06/2019 08/05/2019 Active trazodone 50 mg tablet RxNorm: 609414 1-2 Tablet(s) Ora l QPM as needed for sleep 02/06/2019 03/07/2019 Inactive escitalopram 5 mg tablet RxNorm: 873199 1 Tablet(s) Oral QAM 201802/05/2019 Inactive trazodone 50 mg tablet RxNorm: 325867 1-2 Tablet(s) Ora l QPM as needed for sleep 01/02/2019 02/05/2019 Inactive omeprazole 20 mg capsule,delayed release RxNorm: 457936 1 Capsu le(s) PO QD 07/04/2018 12/30/2018 Inactive omeprazole 20 mg capsule,delayed release RxNorm: 522637 1 Capsu le(s) PO QD 04/03/2018 07/01/2018 Inactive omeprazole 20 mg capsule,delayed release RxNorm: 495498 1 Capsu le(s) PO QD 04/03/2018 01/01/2019 Inactive omeprazole 20 mg capsule,delayed release RxNorm: 246178 1 Capsu le(s) PO QD 12/05/2017 03/04/2018 Inactive omeprazole 20 mg capsule,delayed release RxNorm: 451002 1 Capsu le(s) PO QD 09/06/2017 04/03/2018 Inactive Augmentin 875 mg-125 mg tablet RxNorm: 564150 1 Tablet(s) PO BID 05/03/2017 Inactive omeprazole 20 mg capsule,delayed release RxNorm: 063132 1 Capsu le(s) PO QD 04/19/2017 08/16/2017 Inactive omeprazole 20 mg capsule,delayed release RxNorm: 267962 1 Capsule(s) PO QD replaces 40mg daily- due for refill 03/14/2017 04/19/2017 Inactive omeprazole 20 mg capsule,delayed release RxNorm: 740265 1 Capsule(s) PO QD replaces 40mg daily 11/30/2016 02/27/2017 Inactive omeprazole 20 mg capsule,delayed release RxNorm: 935130 1 Capsule(s) PO QD replaces 40mg daily 05/03/2016 10/29/2016 Inactive cetirizine 1 mg/mL oral solution RxNorm: 5363909 1.25 Mi lliliter(s) PO QHS for runny nose 02/24/2016 02/23/2016 Inactive Ce-D 12 Hour 60 mg-120 mg tablet,extended release RxNor m: 206630 1 Tablet(s) PO BID as needed 11/30/2015 No Stop Date Active omeprazole 20 mg capsule,delayed release RxNorm: 561406 1 Capsule(s) PO QD replaces 40mg daily 11/10/2015 03/08/2016 Inactive Ce Allergy 180 mg tablet RxNorm: 698525 1 Tablet(s) PO QD No Sta rt Date Active Aspirin Child 81 mg chewable tablet RxNorm: 723635 1 Tablet(s) PO QD No Start Date Active simvastatin 20 mg tablet RxNorm: 510137 1 Tablet(s) PO QD No Start Da te Active omeprazole 40 mg capsule,delayed release RxNorm: 806479 1 Capsu le(s) PO QD No Start Date 11/09/2015 Inactive Medication Administered No Medication Administered data Immunizations No Immunization data Results Observation Observation Code Item Item Code Result Date S [facility] Location THYROID STIMULATING HORMONE 24004 TSH 3.245 uIU/mL 12/27/2018 Unknown GFR CALC 9228301 GFR Non Afr Amr >60 mL/min 12/27/2018 Un known GFR CALC [id number] GFR Afr Amr >60 mL/min 12/27/2018 Unknow n FREE T4 57702 T4 Free 0.88 ng/dL 12/27/2018 Unknown LIPID GROUP 82945 Cholesterol 157 mg/dL 12/27/2018 Unkno wn LIPID GROUP 19016 Triglyceride 44 mg/dL 12/27/2018 Unkn own LIPID GROUP 80637 HDL CHOLESTEROL 61 mg/dL 12/27/2018 U nknown LIPID GROUP 42856 Chol/HDL Ratio 2.57 ratio 12/27/2018 U nknown LIPID GROUP 78705 NON-HDL Chol 96 mg/dL 12/27/2018 Unkn own LIPID GROUP 46144 LDL Cholesterol 87 mg/dL 12/27/2018 U nknown COMPREHENSIVE METABOLIC 33505 AST 19 U/L 2018 Unknown COMPREHENSIVE METABOLIC 47183 ALT 13 U/L 2018 Unknown COMPREHENSIVE METABOLIC 58052 BUN 22 mg/dL 2018 Unknown COMPREHENSIVE METABOLIC 99660 ALBUMIN 4.2 g/dL 2018 Unknown COMPREHENSIVE METABOLIC 88924 CHLORIDE 103 mmol/L 12/27 Unknown COMPREHENSIVE METABOLIC 75399 Bili Total 0.5 mg/dL 12/27 Unknown COMPREHENSIVE METABOLIC 38597 ALK PHOS 101 U/L 2018 Unknown COMPREHENSIVE METABOLIC 58774 SODIUM 141 mmol/L 12/27 Unknown COMPREHENSIVE METABOLIC 26081 CREATININE 0.76 mg/dL 12/04 Unknown COMPREHENSIVE METABOLIC 28252 CALCIUM 9.3 mg/dL 2018 Unknown COMPREHENSIVE METABOLIC 48512 POTASSIUM 3.6 mmol/L 12/27 Unknown COMPREHENSIVE METABOLIC 15197 Total Protein 7.4 g/dL Unknown COMPREHENSIVE METABOLIC 41451 Glucose 86 mg/dL 2018 Unknown COMPREHENSIVE METABOLIC 93523 Bicarbonate 31 mmol/L 12/04 Unknown COMPREHENSIVE METABOLIC 92833 AGAP 7 mmol/L 2018 Unknown COMPLETE BLOOD COUNT 9390930 WBC 4.2 10e9/L 12/28/19 19 Unknown COMPLETE BLOOD COUNT 1610724 RBC 4.55 10e12/L 2018 Unknown COMPLETE BLOOD COUNT 9050884 HEMOGLOBIN 13.7 g/dL 12/28/19 19 Unknown COMPLETE BLOOD COUNT 1309564 HEMATOCRIT 42.4 % 12/28/19 19 Unknown COMPLETE BLOOD COUNT [id number] MCV 93.2 fL 9 Unknown COMPLETE BLOOD COUNT 2352589 MCH 30.1 pg 9 Unknown COMPLETE BLOOD COUNT 9941027 MCHC 32.3 g/dL 9 Unknown COMPLETE BLOOD COUNT 3285676 PLATELET COUNT 272 10e9/L Unknown COMPLETE BLOOD COUNT 4537274 Mean Plt Volume 8.9 fL Unknown COMPLETE BLOOD COUNT 8541615 Neut Auto 50.9 % 9 Unknown COMPLETE BLOOD COUNT 7351747 Lymph Auto 35.1 % 12/28/19 19 Unknown COMPLETE BLOOD COUNT 5979687 Garden Auto 9.6 % 9 Unknown COMPLETE BLOOD COUNT 6133439 RDW 12.7 % 9 Unknown COMPLETE BLOOD COUNT 4837868 Eos Auto 4.2 % 9 Unknown COMPLETE BLOOD COUNT 3557889 Baso Auto 0.2 % 9 Unknown COMPLETE BLOOD COUNT 7787864 Neutrophil Abs 2.14 10e9/L Unknown COMPLETE BLOOD COUNT 3836898 Lymphocyte Abs 1.47 10e9/L Unknown COMPLETE BLOOD COUNT 9375213 Monocyte Abs 0.40 10e9/L 12/04 Unknown COMPLETE BLOOD COUNT 3663115 Eosinophil Abs 0.18 10e9/L Unknown COMPLETE BLOOD COUNT 0368868 RDW-SD 42.1 fL 9 Unknown COMPLETE BLOOD COUNT 3962752 Basophil Abs 0.01 10e9/L 12/04 Unknown GFR CALC 7173804 GFR Non Afr Amr >60 mL/min 12/21/2016 Un known GFR CALC 6993984 GFR Afr Amr >60 mL/min 12/21/2016 Unknow n COMPLETE BLOOD COUNT 0892769 WBC 3.6 10e9/L 12/22/19 17 Unknown COMPLETE BLOOD COUNT 4453911 RBC 4.57 10e12/L 2016 Unknown COMPLETE BLOOD COUNT 2468481 HEMOGLOBIN 13.8 g/dL 12/22/19 17 Unknown COMPLETE BLOOD COUNT 4158002 HEMATOCRIT 42.4 % 12/22/19 17 Unknown COMPLETE BLOOD COUNT 7788196 MCV 92.8 fL 7 Unknown COMPLETE BLOOD COUNT 6393641 MCH 30.2 pg 7 Unknown COMPLETE BLOOD COUNT 8596082 MCHC 32.5 g/dL 7 Unknown COMPLETE BLOOD COUNT 6440596 PLATELET COUNT 225 10e9/L Unknown COMPLETE BLOOD COUNT 9997957 Mean Plt Volume 9.0 fL Unknown COMPLETE BLOOD COUNT 2447972 Neut Auto 45.6 % 7 Unknown COMPLETE BLOOD COUNT 6426351 Lymph Auto 37.3 % 12/22/19 17 Unknown COMPLETE BLOOD COUNT 1906619 Garden Auto 11.0 % 7 Unknown COMPLETE BLOOD COUNT 3737384 RDW 12.6 % 7 Unknown COMPLETE BLOOD COUNT 5178288 Eos Auto 5.5 % 7 Unknown COMPLETE BLOOD COUNT 7489140 Baso Auto 0.6 % 7 Unknown COMPLETE BLOOD COUNT 6828070 Neutrophil Abs 1.64 10e9/L Unknown COMPLETE BLOOD COUNT 3587935 Lymphocyte Abs 1.34 10e9/L Unknown COMPLETE BLOOD COUNT 9836099 Monocyte Abs 0.40 10e9/L 12/03 Unknown COMPLETE BLOOD COUNT 5510588 Eosinophil Abs 0.20 10e9/L Unknown COMPLETE BLOOD COUNT 2145605 RDW-SD 42.0 fL 201 7 Unknown COMPLETE BLOOD COUNT 1954140 Basophil Abs 0.02 10e9/L 12/03 Unknown THYROID STIMULATING HORMONE 92862 TSH 3.423 uIU/mL 12/21/2016 Unknown COMPREHENSIVE METABOLIC 37633 AST 23 U/L 2016 Unknown COMPREHENSIVE METABOLIC 54881 ALT 18 U/L 2016 Unknown COMPREHENSIVE METABOLIC 99770 BUN 21 mg/dL 2016 Unknown COMPREHENSIVE METABOLIC 07841 ALBUMIN 4.4 g/dL 2016 Unknown COMPREHENSIVE METABOLIC 95458 CHLORIDE 103 mmol/L 12/21 Unknown COMPREHENSIVE METABOLIC 99087 Bili Total 0.7 mg/dL 12/21 Unknown COMPREHENSIVE METABOLIC 29113 ALK PHOS 86 U/L 2016 Unknown COMPREHENSIVE METABOLIC 26475 SODIUM 141 mmol/L 12/21 Unknown COMPREHENSIVE METABOLIC 90145 CREATININE 0.75 mg/dL 12/03 Unknown COMPREHENSIVE METABOLIC 58525 CALCIUM 9.2 mg/dL 2016 Unknown COMPREHENSIVE METABOLIC 05660 POTASSIUM 3.8 mmol/L 12/21 Unknown COMPREHENSIVE METABOLIC 82155 Total Protein 7.3 g/dL Unknown COMPREHENSIVE METABOLIC 12086 Glucose 95 mg/dL 2016 Unknown COMPREHENSIVE METABOLIC 67908 Bicarbonate 32 mmol/L 12/03 Unknown COMPREHENSIVE METABOLIC 43636 AGAP 6 mmol/L 2016 Unknown LIPID GROUP 61511 Cholesterol 154 mg/dL 12/21/2016 Unkno wn LIPID GROUP 71236 Triglyceride 51 mg/dL 12/21/2016 Unkn own LIPID GROUP 31958 HDL CHOLESTEROL 61 mg/dL 12/21/2016 U nknown LIPID GROUP 94810 Chol/HDL Ratio 2.52 ratio 12/21/2016 U nknown LIPID GROUP 56350 NON-HDL Chol 93 mg/dL 12/21/2016 Unkn own LIPID GROUP 62526 LDL Cholesterol 83 mg/dL 12/21/2016 U nknown Procedures Procedure Codes Date INFLUENZA ASSAY W/OPTIC CPT-4: 44261 04/21/2019 INFLUENZA ASSAY W/OPTIC CPT-4: 69323 04/24/2017 SPECIMEN HANDLING OFFICE-LAB CPT-4: 90954 02/24/2016 THER/PROPH/DIAG INJ SC/IM CPT-4: 77006 11/30/2015 TRIAMCINOLONE ACET INJ NOS CPT-4: J3301 [...] 1: 124/72 Code: 8480-6 BMI: 35.1 Code: 98750-5 Heart Rate 1: 64 bpm Height: 5'6" Respiratory Rate: 18 bpm SpO2: 96% Tempera ture: 36.8 (C) / 98.2 (F) Weight: 221 lbs 02/13/2018 Blood Pressure 1: 138/82 Code: 8480-6 BMI: 34.5 Code: 89800-0 Heart Rate 1: 68 bpm Height: 5'7" Respiratory Rate: 18 bpm SpO2: 97% Tempera ture: 36.8 (C) / 98.2 (F) Weight: 220 lbs 04/24/2017 Blood Pressure 1: 126/78 Code: 8480-6 BMI: 35.4 Code: 72203-6 Heart Rate 1: 84 bpm Height: 5'7" Respiratory Rate: 22 bpm SpO2: 95% Tempera ture: 36.9 (C) / 98.4 (F) Weight: 226 lbs 02/24/2016 Blood Pressure 1: 128/78 Code: 8480-6 BMI: 35.6 Code: 66449-8 Heart Rate 1: 68 bpm Height: 5'7" Respiratory Rate: 20 bpm SpO2: 97% Tempera ture: 36.7 (C) / 98.1 (F) Weight: 227 lbs 11/30/2015 Blood Pressure 1: 128/78 Code: 8480-6 BMI: 36.0 Code: 20770-7 Heart Rate 1: 76 bpm Height: 5'7" Respiratory Rate: 20 bpm SpO2: 97% Tempera ture: 37.1 (C) / 98.7 (F) Weight: 230 lbs 11/10/2015 Blood Pressure 1: 136/82 Code: 8480-6 BMI: 36.0 Code: 63268-9 Heart Rate 1: 80 bpm Height: 5'7" [...] visit Encounters Encounter Performer Location Codes Date (03531) OFFICE/OUTPATIENT VISIT EST Diagnosis: Generalized anxiety disorder[ICD10: F41.1] Naya TEJEDA [employer] CPT-4: 21439 05/15/2019 ([id number]) OFFICE/OUTPATIENT VISIT EST Diagnosis: Influenza A[ICD10: J10.1] Naya MCCLELLAND [employer] CPT-4: 78151 04/21/2019 ([id number]) OFFICE/OUTPATIENT VISIT EST Diagnosis: Epigastric pain[ICD10: R10.13] Diagnosis: Gastro-esophageal reflux disease without esophagitis[ICD10: K21.9] Naya TEJEDA [employer] CPT-4: 10036 03/11/2019 ([id number]) OFFICE/OUTPATIENT VISIT EST Diagnosis: Stress reaction[ICD10: F43.0] Diagnosis: Insomnia[ICD10: G47.00] Nayaiain Camachorosy [facility] CPT-4: 60547 02/06/2019 ([id number]) PREV VISIT EST AGE 40-64 Diagnosis: Encounter for general adult medical examination without abnormal findings[ICD10: Z00.00] Diagnosis: Obstructive sleep apnea (adult) (pediatric)[ICD10: G47.33] Diagnosis: Stress reaction[ICD10: F43.0] Diagnosis: URI, ACUTE[ICD10: J06.9] Diagnosis: Insomnia[ICD10: G47.00] Naya JONES JocelinRuss [facility] CPT-4: 79748 01/02/2019 ([id number]) PREV VISIT EST AGE 40-64 Diagnosis: Encounter for general adult medical examination without abnormal findings[ICD10: Z00.00] Diagnosis: Gastro-esophageal reflux disease without esophagitis[ICD10: K21.9] Diagnosis: Obstructive sleep apnea (adult) (pediatric)[ICD10: G47.33] Diagnosis: Mixed hyperlipidemia[ICD10: E78.2] Diagnosis: Dizziness and giddiness[ICD10: R42] Naya STANLEY Teetee [facility] [employer] CPT-4: 52650 02/13/2018 OFFICE/OUTPATIENT VISIT EST Diagnosis: Acute sinusitis, unspecified[ICD10: J01.90] Diagnosis: Viral infection, unspecified[ICD10: B34.9] Jodie CEDEÑOLINE JocelinRuss [facility] CPT-4: 65098 04/24/2017 ([id number]) PREV VISIT EST AGE 40-64 Diagnosis: Encounter for general adult medical examination without abnormal findings[ICD10: Z00.00] Diagnosis: Encounter for gynecological examination (general) (routine) without abnormal findings[ICD10: Z01.419] Diagnosis: URI, ACUTE[ICD10: J06.9] Naya JONES oJcelinRuss [facility] CPT-4: 32406 02/24/2016 ([id number]) OFFICE/OUTPATIENT VISIT EST Diagnosis: Other seasonal allergic rhinitis[ICD10: J30.2] Regina SKINNERQUELINE JocelinRuss CARLOS [employer] CPT-4: 09212 11/30/2015 OFFICE/OUTPATIENT VISIT NEW Diagnosis: Mixed hyperlipidemia[ICD10: E78.2] Diagnosis: Gastro-esophageal reflux disease without esophagitis[ICD10: K21.9] Diagnosis: Allergic rhinitis due to pollen[ICD10: J30.1] Diagnosis: Obstructive sleep apnea (adult) (pediatric)[ICD10: G47.33] Naya JONES JocelniRuss CARLOS [employer] [facility] CPT-4: 80825 11/10/2015 Plan of Care Planned Activity Notes [...] : J10.1 04/21/2019 Appointment: Naya Tejeda WPtel: [address] [place], [place] [id number] ACUTE ILLNESS 04/21/2019 Patient Education: Tamiflu- [employer] Coupon [id number] https://www.ProductGram/Nolio/resources/getResource/61/[email or web address] Completed 04/21/2019 Visit Diagnosis Plan: Gastro-esophageal reflux disease without esophagitis Diet: GERD diet ICD-9 : 530.81 ICD-10 : K21.9 03/11/2019 Visit Diagnosis Plan: Epigastric pain Discussion: Baron ge omeprazole to pantoprazole 40mg po BID ICD-9 : 789.06 ICD-10 : R10.13 03/11/2019 Appointment: Naya Tejeda WPtel: [facility] [place] [facility] 03/11/2019 Patient Education: pantoprazole- [employer] Coupon [phone] [id number] https://www.ProductGram/Nolio/resources/getResource/61/[email or web address]-a4 Completed 03/11/2019 Visit Diagnosis Plan: Insomnia Discussion: Stable on t razadone ICD-9 : 780.52 ICD-10 : G47.00 02/06/2019 Visit Diagnosis Plan: Stress reaction Discussion: Incr ease escitalopram to 10mg daily Follow Up: 3 months ICD-9 : 308.9 ICD-10 : F43.0 02/06/2019 Appointment: [facility] Tejeda [facility]el[facility] [phone] [id number] [facility] 02/06/2019 Patient Education: escitalopram oxalate- [employer] Co upon [id number] https://www.[employer]/Nolio/resources/getResource/61/1n853t56-u0ra-199l-11 Completed 02/06/2019 Patient Education: trazodone- [employer] Coupon [id number] https://www.[employer]/Nolio/resources/getResource/61/m2a50hx2-z08j-3033-qx Completed 02/06/2019 Patient Education: escitalopram oxalate- [employer] Co upon [id number] https://www.[employer]/Nolio/resources/getResource/61/32ck4584-4g2u-8nql-b5 Completed 02/06/2019 Visit Diagnosis Plan: Obstructive sleep [...] J06.9 01/02/2019 Visit Diagnosis Plan: Encounter for [facility] adult medical examination without abnormal findings Discussion: Mediterranean diet Combinati on of cardio and weight bearing exercise Defers flu shot Fasting lab discussed ICD-9 : V70.9 ICD-10 : Z00.00 01/02/2019 Visit Diagnosis Plan: Insomnia Discussion: Trial of tr azadone 50mg 1-2 po q HS prn sleep ICD-9 : 780.52 ICD-10 : G47.00 01/02/2019 Appointment: Naya Tejeda WPtel: [facility] [place] Annual Well Visit 01/02/2019 Patient Education: trazodone- [employer] Coupon [id number] https://www.[employer]Gram/samplev2tel/resources/getResource/61/7d0o79e5-m96y-86od-au Completed 01/02/2019 Patient Education: escitalopram oxalate- [employer] Co upon [id number] https://www.[employer]Gram/Nolio/resources/getResource/61/9947305a-9557-053e-77 Completed 01/02/2019 Visit Diagnosis Plan: Gastro-esophageal reflux disease without esophagitis Discussion: Stable on omeprazole ICD-9 : 530.81 ICD-10 : K21.9 02/13/2018 Visit Diagnosis Plan: Encounter for gene [facility] adult medical examination without abnormal findings Discussion: [...] : R42 02/13/2018 Appointment: Naya Tejeda WPtel: [address] [place] [address] Annual Well Visit 02/13/2018 Patient Education: Patient Medication Summary Completed 06/06/2017 Care Plan: MAMMOGRAM BOTH BREASTS LOINC : 52441-4 Pending 06/06/2017 Visit Diagnosis Plan: Acute sinusitis, [...] ICD-10 : J01.90 04/24/2017 Appointment: Jodie Tran [address] [place] [address] ACUTE ILLNESS 04/24/2017 Patient Education: Patient Medication Summary Completed 04/24/2017 Patient Education: Patient Medication Summary Completed 12/08/2016 Care Plan: COMPREH[place] : 26190-3 Pending 12/08/2016 Care Plan: ASSAY THYROID STIM HORMONE Pen ding 12/08/2016 Care Plan: LIPID PANEL LOINC : 98872-5 Pending 12/08/2016 Care Plan: CBC Pending 12/08/2016 [...] for yearly 02/24/2016 Appointment: Naya Tejeda WPtel: [address] [place] [address] 02/22 confirmed~sl PAP 02/24/2016 Patient Education: Patient Medication Summary Completed 02/24/2016 Visit Plan: Injection as above Rx for al legra-d Benadryl at HS Nasal rinses, steroid nasal sprays Mucinex Vicks, humidifier, vitamin C, rest, fluids Follow up PRN 11/30/2015 Appointment: Regina Sagastume [address] [place] [address] ACUTE ILLNESS 11/30/2015 Patient Education: Patient Medication Summary Completed 11/30/2015 Patient Education: [facility] [place] 2] - Saving AutoInj - 18-64 - Dynamic Maura l ID Completed 11/30/2015 Referral: Sunil Hatch WPtel: [address] [id number] [place] Referral Appointment Confirmed 11/23/2015 Visit Plan: [...] weight loss 11/10/2015 Appointment: Naya Tejeda WPtel: [phone] [id number] [place] 11/08lm ~sl11/09 CONFIRMED~sl NEW PATIENT 11/09 Patient Education: Patient Medication Summary Completed 11/10/2015 Patient Education: [facility] [place]NOTE 2] - Saving AutoInj - 18-64 - Dynamic [...]
--- OUTSIDE RECORDS SUMMARY | 2019-09-24 10:32 | XMS REPORT | CCD ---
Author Author Nadya Tejeda D.O. Organization [facility] Address [address] [place] [address] Phone Care Team Providers Care Blue Leather Setter Name Role Phone PP Unavailable CCM Unavailable Summary Purpose Interface Exchange Insurance Providers Payer name Policy type / Coverage type Covered libertarian ID Effective Begin Date Effective End Date [employer] Commercial Insurance [id number] Unknown Family history Sister Diagnosis Age At [...] Unknown 1 11/10/2015 Employment Unknown Currently employed [employer] 11/10/[address]: 092805930 Has never smoked or chewed tobacco 11/10/[address]: 071693724 Never drinks alcohol 2015 Has the patient [...] Fill Instructions Tamiflu 75 mg capsule RxNorm: 409729 1 Capsule(s) Oral two time s a day 04/21/2019 04/26/2019 Inactive pantoprazole 40 mg tablet,delayed release RxNorm: 832556 1 Tablet(s) Oral two times a day replaces omeprazole 03/11/2019 05/10/2019 Inactive escitalopram 10 mg tablet RxNorm: 652478 1 Tablet(s) Oral QD re places 5mg dose 02/06/2019 08/05/2019 Active trazodone 50 mg tablet RxNorm: 813453 1-2 Tablet(s) Ora l QPM as needed for sleep 02/06/2019 03/07/2019 Inactive escitalopram 5 mg tablet RxNorm: 453342 1 Tablet(s) Oral QAM 201802/05/2019 Inactive trazodone 50 mg tablet RxNorm: 389001 1-2 Tablet(s) Ora l QPM as needed for sleep 01/02/2019 02/05/2019 Inactive omeprazole 20 mg capsule,delayed release RxNorm: 862018 1 Capsu le(s) PO QD 07/04/2018 12/30/2018 Inactive omeprazole 20 mg capsule,delayed release RxNorm: 697890 1 Capsu le(s) PO QD 04/03/2018 07/01/2018 Inactive omeprazole 20 mg capsule,delayed release RxNorm: 412854 1 Capsu le(s) PO QD 04/03/2018 01/01/2019 Inactive omeprazole 20 mg capsule,delayed release RxNorm: 172980 1 Capsu le(s) PO QD 12/05/2017 03/04/2018 Inactive omeprazole 20 mg capsule,delayed release RxNorm: 328926 1 Capsu le(s) PO QD 09/06/2017 04/03/2018 Inactive Augmentin 875 mg-125 mg tablet RxNorm: 300889 1 Tablet(s) PO BID 05/03/2017 Inactive omeprazole 20 mg capsule,delayed release RxNorm: 292397 1 Capsu le(s) PO QD 04/19/2017 08/16/2017 Inactive omeprazole 20 mg capsule,delayed release RxNorm: 026106 1 Capsule(s) PO QD replaces 40mg daily- due for refill 03/14/2017 04/19/2017 Inactive omeprazole 20 mg capsule,delayed release RxNorm: 253268 1 Capsule(s) PO QD replaces 40mg daily 11/30/2016 02/27/2017 Inactive omeprazole 20 mg capsule,delayed release RxNorm: 389567 1 Capsule(s) PO QD replaces 40mg daily 05/03/2016 10/29/2016 Inactive cetirizine 1 mg/mL oral solution RxNorm: 2692924 1.25 Mi lliliter(s) PO QHS for runny nose 02/24/2016 02/23/2016 Inactive Ce-D 12 Hour 60 mg-120 mg tablet,extended release RxNor m: 999431 1 Tablet(s) PO BID as needed 11/30/2015 No Stop Date Active omeprazole 20 mg capsule,delayed release RxNorm: 275407 1 Capsule(s) PO QD replaces 40mg daily 11/10/2015 03/08/2016 Inactive Ce Allergy 180 mg tablet RxNorm: 084042 1 Tablet(s) PO QD No Sta rt Date Active Aspirin Child 81 mg chewable tablet RxNorm: 861478 1 Tablet(s) PO QD No Start Date Active simvastatin 20 mg tablet RxNorm: 889609 1 Tablet(s) PO QD No Start Da te Active omeprazole 40 mg capsule,delayed release RxNorm: 872365 1 Capsu le(s) PO QD No Start Date 11/09/2015 Inactive Medication Administered No Medication Administered data Immunizations No Immunization data Results Observation Observation Code Item Item Code Result Date S [facility] Location THYROID STIMULATING HORMONE 08302 TSH 3.245 uIU/mL 12/27/2018 Unknown GFR CALC 7004262 GFR Non Afr Amr >60 mL/min 12/27/2018 Un known GFR CALC 4870081 GFR Afr Amr >60 mL/min 12/27/2018 Unknow n FREE T4 23012 T4 Free 0.88 ng/dL 12/27/2018 Unknown LIPID GROUP 20127 Cholesterol 157 mg/dL 12/27/2018 Unkno wn LIPID GROUP 42053 Triglyceride 44 mg/dL 12/27/2018 Unkn own LIPID GROUP 45565 HDL CHOLESTEROL 61 mg/dL 12/27/2018 U nknown LIPID GROUP 29994 Chol/HDL Ratio 2.57 ratio 12/27/2018 U nknown LIPID GROUP 86934 NON-HDL Chol 96 mg/dL 12/27/2018 Unkn own LIPID GROUP 68482 LDL Cholesterol 87 mg/dL 12/27/2018 U nknown COMPREHENSIVE METABOLIC 60642 AST 19 U/L 2018 Unknown COMPREHENSIVE METABOLIC 31821 ALT 13 U/L 2018 Unknown COMPREHENSIVE METABOLIC 39029 BUN 22 mg/dL 2018 Unknown COMPREHENSIVE METABOLIC 22486 ALBUMIN 4.2 g/dL 2018 Unknown COMPREHENSIVE METABOLIC 04765 CHLORIDE 103 mmol/L 12/27 Unknown COMPREHENSIVE METABOLIC 78628 Bili Total 0.5 mg/dL 12/27 Unknown COMPREHENSIVE METABOLIC 81376 ALK PHOS 101 U/L 2018 Unknown COMPREHENSIVE METABOLIC 61684 SODIUM 141 mmol/L 12/27 Unknown COMPREHENSIVE METABOLIC 34712 CREATININE 0.76 mg/dL 12/04 Unknown COMPREHENSIVE METABOLIC 35169 CALCIUM 9.3 mg/dL 2018 Unknown COMPREHENSIVE METABOLIC 68338 POTASSIUM 3.6 mmol/L 12/27 Unknown COMPREHENSIVE METABOLIC 50585 Total Protein 7.4 g/dL Unknown COMPREHENSIVE METABOLIC 27307 Glucose 86 mg/dL 2018 Unknown COMPREHENSIVE METABOLIC 23842 Bicarbonate 31 mmol/L 12/04 Unknown COMPREHENSIVE METABOLIC 35284 AGAP 7 mmol/L 2018 Unknown COMPLETE BLOOD COUNT 9974476 WBC 4.2 10e9/L 12/28/19 19 Unknown COMPLETE BLOOD COUNT 4487611 RBC 4.55 10e12/L 2018 Unknown COMPLETE BLOOD COUNT 0850303 HEMOGLOBIN 13.7 g/dL 12/28/19 19 Unknown COMPLETE BLOOD COUNT 8342993 HEMATOCRIT 42.4 % 12/28/19 19 Unknown COMPLETE BLOOD COUNT 0715502 MCV 93.2 fL 9 Unknown COMPLETE BLOOD COUNT 6011250 MCH 30.1 pg 9 Unknown COMPLETE BLOOD COUNT 2692737 MCHC 32.3 g/dL 9 Unknown COMPLETE BLOOD COUNT 8096083 PLATELET COUNT 272 10e9/L Unknown COMPLETE BLOOD COUNT 2444839 Mean Plt Volume 8.9 fL Unknown COMPLETE BLOOD COUNT 1160172 Neut Auto 50.9 % 9 Unknown COMPLETE BLOOD COUNT 3316841 Lymph Auto 35.1 % 12/28/19 19 Unknown COMPLETE BLOOD COUNT 0235851 [place] Auto 9.6 % 9 Unknown COMPLETE BLOOD COUNT 8509951 RDW 12.7 % 9 Unknown COMPLETE BLOOD COUNT 5976384 Eos Auto 4.2 % 9 Unknown COMPLETE BLOOD COUNT 6843907 Baso Auto 0.2 % 9 Unknown COMPLETE BLOOD COUNT 8604737 Neutrophil Abs 2.14 10e9/L Unknown COMPLETE BLOOD COUNT 6640526 Lymphocyte Abs 1.47 10e9/L Unknown COMPLETE BLOOD COUNT 0712415 Monocyte Abs 0.40 10e9/L 12/04 Unknown COMPLETE BLOOD COUNT 5857827 Eosinophil Abs 0.18 10e9/L Unknown COMPLETE BLOOD COUNT 0677205 RDW-SD 42.1 fL 9 Unknown COMPLETE BLOOD COUNT 0901891 Basophil Abs 0.01 10e9/L 12/04 Unknown GFR CALC 8714920 GFR Afr Amr >60 mL/min 12/21/2016 Unknow n GFR CALC 9736115 GFR Non Afr Amr >60 mL/min 12/21/2016 Un known COMPLETE BLOOD COUNT 7517190 WBC 3.6 10e9/L 12/22/19 17 Unknown COMPLETE BLOOD COUNT 1705880 RBC 4.57 10e12/L 2016 Unknown COMPLETE BLOOD COUNT 1791692 HEMOGLOBIN 13.8 g/dL 12/22/19 17 Unknown COMPLETE BLOOD COUNT 0798018 HEMATOCRIT 42.4 % 12/22/19 17 Unknown COMPLETE BLOOD COUNT 3720529 MCV 92.8 fL 7 Unknown COMPLETE BLOOD COUNT 4924723 MCH 30.2 pg 7 Unknown COMPLETE BLOOD COUNT 3539425 MCHC 32.5 g/dL 7 Unknown COMPLETE BLOOD COUNT 4376136 PLATELET COUNT 225 10e9/L Unknown COMPLETE BLOOD COUNT 9262569 Mean Plt Volume 9.0 fL Unknown COMPLETE BLOOD COUNT 6288401 Neut Auto 45.6 % 7 Unknown COMPLETE BLOOD COUNT 2923985 Lymph Auto 37.3 % 12/22/19 17 Unknown COMPLETE BLOOD COUNT 5718617 [place] Auto 11.0 % 7 Unknown COMPLETE BLOOD COUNT 9946025 RDW 12.6 % 7 Unknown COMPLETE BLOOD COUNT 6650127 Eos Auto 5.5 % 7 Unknown COMPLETE BLOOD COUNT 9105922 Baso Auto 0.6 % 7 Unknown COMPLETE BLOOD COUNT 4236692 Neutrophil Abs 1.64 10e9/L Unknown COMPLETE BLOOD COUNT 2857614 Lymphocyte Abs 1.34 10e9/L Unknown COMPLETE BLOOD COUNT 3813001 Monocyte Abs 0.40 10e9/L 12/03 Unknown COMPLETE BLOOD COUNT 1096467 Eosinophil Abs 0.20 10e9/L Unknown COMPLETE BLOOD COUNT 5855274 RDW-SD 42.0 fL 201 7 Unknown COMPLETE BLOOD COUNT 9565772 Basophil Abs 0.02 10e9/L 12/03 Unknown THYROID STIMULATING HORMONE 79635 TSH 3.423 uIU/mL 12/21/2016 Unknown COMPREHENSIVE METABOLIC 81255 AST 23 U/L 2016 Unknown COMPREHENSIVE METABOLIC 05616 ALT 18 U/L 2016 Unknown COMPREHENSIVE METABOLIC 81246 BUN 21 mg/dL 2016 Unknown COMPREHENSIVE METABOLIC 95844 ALBUMIN 4.4 g/dL 2016 Unknown COMPREHENSIVE METABOLIC 02383 CHLORIDE 103 mmol/L 12/21 Unknown COMPREHENSIVE METABOLIC 50137 Bili Total 0.7 mg/dL 12/21 Unknown COMPREHENSIVE METABOLIC 86441 ALK PHOS 86 U/L 2016 Unknown COMPREHENSIVE METABOLIC 02967 SODIUM 141 mmol/L 12/21 Unknown COMPREHENSIVE METABOLIC 52791 CREATININE 0.75 mg/dL 12/03 Unknown COMPREHENSIVE METABOLIC 64844 CALCIUM 9.2 mg/dL 2016 Unknown COMPREHENSIVE METABOLIC 06165 POTASSIUM 3.8 mmol/L 12/21 Unknown COMPREHENSIVE METABOLIC 44285 Total Protein 7.3 g/dL Unknown COMPREHENSIVE METABOLIC 91666 Glucose 95 mg/dL 2016 Unknown COMPREHENSIVE METABOLIC 77719 Bicarbonate 32 mmol/L 12/03 Unknown COMPREHENSIVE METABOLIC 69245 AGAP 6 mmol/L 2016 Unknown LIPID GROUP 94771 Cholesterol 154 mg/dL 12/21/2016 Unkno wn LIPID GROUP 67172 Triglyceride 51 mg/dL 12/21/2016 Unkn own LIPID GROUP 94270 HDL CHOLESTEROL 61 mg/dL 12/21/2016 U nknown LIPID GROUP 88382 Chol/HDL Ratio 2.52 ratio 12/21/2016 U nknown LIPID GROUP 60629 NON-HDL Chol 93 mg/dL 12/21/2016 Unkn own LIPID GROUP 35897 LDL Cholesterol 83 mg/dL 12/21/2016 U nknown Procedures Procedure Codes Date INFLUENZA ASSAY W/OPTIC CPT-4: 71896 04/21/2019 INFLUENZA ASSAY W/OPTIC CPT-4: 95782 04/24/2017 SPECIMEN HANDLING OFFICE-LAB CPT-4: 00731 02/24/2016 THER/PROPH/DIAG INJ SC/IM CPT-4: 67261 11/30/2015 TRIAMCINOLONE ACET INJ NOS CPT-4: J3301 [...] 1: 124/72 Code: 8480-6 BMI: 35.1 Code: 75304-5 Heart Rate 1: 64 bpm Height: 5'6" Respiratory Rate: 18 bpm SpO2: 96% Tempera ture: 36.8 (C) / 98.2 (F) Weight: 221 lbs 02/13/2018 Blood Pressure 1: 138/82 Code: 8480-6 BMI: 34.5 Code: 59397-3 Heart Rate 1: 68 bpm Height: 5'7" Respiratory Rate: 18 bpm SpO2: 97% Tempera ture: 36.8 (C) / 98.2 (F) Weight: 220 lbs 04/24/2017 Blood Pressure 1: 126/78 Code: 8480-6 BMI: 35.4 Code: 49932-5 Heart Rate 1: 84 bpm Height: 5'7" Respiratory Rate: 22 bpm SpO2: 95% Tempera ture: 36.9 (C) / 98.4 (F) Weight: 226 lbs 02/24/2016 Blood Pressure 1: 128/78 Code: 8480-6 BMI: 35.6 Code: 06576-8 Heart Rate 1: 68 bpm Height: 5'7" Respiratory Rate: 20 bpm SpO2: 97% Tempera ture: 36.7 (C) / 98.1 (F) Weight: 227 lbs 11/30/2015 Blood Pressure 1: 128/78 Code: 8480-6 BMI: 36.0 Code: 37450-1 Heart Rate 1: 76 bpm Height: 5'7" Respiratory Rate: 20 bpm SpO2: 97% Tempera ture: 37.1 (C) / 98.7 (F) Weight: 230 lbs 11/10/2015 Blood Pressure 1: 136/82 Code: 8480-6 BMI: 36.0 Code: 22785-0 Heart Rate 1: 80 bpm Height: 5'7" [...] visit Encounters Encounter Performer Location Codes Date (47859) OFFICE/OUTPATIENT VISIT EST Diagnosis: Generalized anxiety disorder[ICD10: F41.1] Naya TEJEDA [facility] CPT-4: 90763 05/15/2019 ([id number]) OFFICE/OUTPATIENT VISIT EST Diagnosis: Influenza A[ICD10: J10.1] Naya MCCLELLAND [facility] CPT-4: 94487 04/21/2019 ([id number]) OFFICE/OUTPATIENT VISIT EST Diagnosis: Epigastric pain[ICD10: R10.13] Diagnosis: Gastro-esophageal reflux disease without esophagitis[ICD10: K21.9] Naya TEJEDA [facility] CPT-4: 07545 03/11/2019 ([id number]) OFFICE/OUTPATIENT VISIT EST Diagnosis: Stress reaction[ICD10: F43.0] Diagnosis: Insomnia[ICD10: G47.00] Nayaiain Camachorosy [facility] CPT-4: 90592 02/06/2019 ([id number]) PREV VISIT EST AGE 40-64 Diagnosis: Encounter for general adult medical examination without abnormal findings[ICD10: Z00.00] Diagnosis: Obstructive sleep apnea (adult) (pediatric)[ICD10: G47.33] Diagnosis: Stress reaction[ICD10: F43.0] Diagnosis: URI, ACUTE[ICD10: J06.9] Diagnosis: Insomnia[ICD10: G47.00] Naya JONES JocelinRuss [facility] CPT-4: 76605 01/02/2019 ([id number]) PREV VISIT EST AGE 40-64 Diagnosis: Encounter for general adult medical examination without abnormal findings[ICD10: Z00.00] Diagnosis: Gastro-esophageal reflux disease without esophagitis[ICD10: K21.9] Diagnosis: Obstructive sleep apnea (adult) (pediatric)[ICD10: G47.33] Diagnosis: Mixed hyperlipidemia[ICD10: E78.2] Diagnosis: Dizziness and giddiness[ICD10: R42] Naya STANLEY Teetee [facility] CPT-4: 67001 02/13/2018 OFFICE/OUTPATIENT VISIT EST Diagnosis: Acute sinusitis, unspecified[ICD10: J01.90] Diagnosis: Viral infection, unspecified[ICD10: B34.9] Jodie CEDEÑOLINE [facility]elinRuss [facility] CPT-[facility]: 48249 04/24/2017 ([id number]) PREV VISIT EST AGE 40-64 Diagnosis: Encounter for general adult medical examination without abnormal findings[ICD10: Z00.00] Diagnosis: Encounter for gynecological examination (general) (routine) without abnormal findings[ICD10: Z01.419] Diagnosis: URI, ACUTE[ICD10: J06.9] Naya JONES JocelinRuss [facility] CPT-4: 56329 02/24/2016 ([id number]) OFFICE/OUTPATIENT VISIT EST Diagnosis: Other seasonal allergic rhinitis[ICD10: J30.2] Regina SKINNERQUELINE JocelinRuss CARL[facility] CPT-4: 11496 11/30/2015 OFFICE/OUTPATIENT VISIT NEW Diagnosis: Mixed hyperlipidemia[ICD10: E78.2] Diagnosis: Gastro-esophageal reflux disease without esophagitis[ICD10: K21.9] Diagnosis: Allergic rhinitis due to pollen[ICD10: J30.1] Diagnosis: Obstructive sleep apnea (adult) (pediatric)[ICD10: G47.33] Naya JONES JocelinRuss [facility] CPT-4: 61603 11/10/2015 Plan of Care Planned Activity Notes [...] 487.1 ICD-10 : J10.1 04/21/2019 Appointment: Naya Tjeeda WPtel: [address] [place], [place] [id number] ACUTE ILLNESS 04/21/2019 Patient Education: Tamiflu- [employer] Coupon [id number] [email or web address]/resources/getResource/[email or web address] Completed 04/21/2019 Visit Diagnosis Plan: Gastro-esophageal reflux disease without esophagitis Diet: GERD diet ICD-9 : 530.81 ICD-10 : K21.9 03/11/2019 Visit Diagnosis Plan: Epigastric pain Discussion: Baron ge omeprazole to pantoprazole 40mg po BID ICD-9 : 789.06 ICD-10 : R10.13 03/11/2019 Appointment: Naya Tejeda WPtel: [id number] [facility] 03/11/2019 Patient Education: pantoprazole- [employer] Coupon [phone] [id number] https://www.[email or web address]/resources/getResource/61/[email or web address] Completed 03/11/2019 Visit Diagnosis Plan: Insomnia Discussion: Stable on t razadone ICD-9 : 780.52 ICD-10 : G47.00 02/06/2019 Visit Diagnosis Plan: Stress reaction Discussion: Incr ease escitalopram to 10mg daily Follow Up: 3 months ICD-9 : 308.9 ICD-10 : F43.0 02/06/2019 Appointment: Naya Tejeda WPtel[facility] [address] [id number] [facility] 02/06/2019 Patient Education: escitalopram oxalate- [employer] Co upon [id number] https://www.[email or web address]/resources/getResource/61/[email or web address] Completed 02/06/2019 Patient Education: trazodone- [employer] Coupon [id number] https://www.[email or web address]/resources/getResource/61/i9y58fk5-j26a-8687-tr Completed 02/06/2019 Patient Education: escitalopram oxalate- [employer] Co upon [id number] https://www.[email or web address]/resources/getResource/61/[email or web address]-[email or web address] Completed 02/06/2019 Visit Diagnosis Plan: Obstructive sleep [...] J06.9 01/02/2019 Visit Diagnosis Plan: Encounter for [facility] adult medical examination without abnormal findings Discussion: Mediterranean diet Combinati on of cardio and weight bearing exercise Defers flu shot Fasting lab discussed ICD-9 : V70.9 ICD-10 : Z00.00 01/02/2019 Visit Diagnosis Plan: Insomnia Discussion: Trial of tr azadone 50mg 1-2 po q HS prn sleep ICD-9 : 780.52 ICD-10 : G47.00 01/02/2019 Appointment: Naya Tejeda WPtel: [facility] [address] Annual Well Visit 01/02/2019 Patient Education: trazodone- [employer] Coupon [id number] https://www.[email or web address]/resources/getResource/61/[email or web address]-[email or web address] Completed 01/02/2019 Patient Education: escitalopram oxalate- [employer] Co upon [id number] https://www.[email or web address]/Mod[employer]ir[employer]/resources/getResource/61/[email or web address] Completed 01/02/2019 Visit Diagnosis Plan: Gastro-esophageal reflux disease without esophagitis Discussion: Stable on omeprazole ICD-9 : 530.81 ICD-10 : K21.9 02/13/2018 Visit Diagnosis Plan: Encounter for [facility] adult medical examination without abnormal findings [...] : R42 02/13/2018 Appointment: Naya Tejeda WPtel: [address] [place] [address] Annual Well Visit 02/13/2018 Patient Education: Patient Medication Summary Completed 06/06/2017 Care Plan: MAMMOGRAM BOTH BREASTS LOINC : 12601-7 Pending 06/06/2017 Visit Diagnosis Plan: Acute sinusitis, [...] ICD-10 : J01.90 04/24/2017 Appointment: Jodie Tran [address] [place] [address] ACUTE ILLNESS 04/24/2017 Patient Education: Patient Medication Summary Completed 04/24/2017 Patient Education: Patient Medication Summary Completed 12/08/2016 Care Plan: COMPREH[place] : 92213-0 Pending 12/08/2016 Care Plan: ASSAY THYROID STIM HORMONE Pen ding 12/08/2016 Care Plan: LIPID PANEL LOINC : 87783-8 Pending 12/08/2016 Care Plan: CBC Pending 12/08/2016 [...] for yearly 02/24/2016 Appointment: Naya Tejeda WPtel: [address] [place] [address] 02/22 confirmed~sl PAP 02/24/2016 Patient Education: Patient Medication Summary Completed 02/24/2016 Visit Plan: Injection as above Rx for al legra-d Benadryl at HS Nasal rinses, steroid nasal sprays Mucinex Vicks, humidifier, vitamin C, rest, fluids Follow up PRN 11/30/2015 Appointment: Regina Sagastume [address] [place] [address] ACUTE ILLNESS 11/30/2015 Patient Education: Patient Medication Summary Completed 11/30/2015 Patient Education: [facility] - Saving AutoInj - 18-64 - Dynamic Maura l ID Completed 11/30/2015 Referral: Sunil Hatch WPtel: [address] [id number] [place] Referral Appointment Confirmed 11/23/2015 Visit Plan: [...] Appointment: Naya Tejeda WPtel: [address] [id number] [place] 11/08lm ~sl11/09 CONFIRMED~sl NEW PATIENT 11/09 Patient Education: Patient Medication Summary Completed 11/10/2015 Patient Education: [facility] - Saving AutoInj - 18-64 - Dynamic [...]
--- OUTSIDE RECORDS SUMMARY | 2019-09-24 10:32 | XMS REPORT | CCD ---
Author Author Nadya Tejeda D.O. Organization KAREN TEJEDA DO [facility] Address [address] [place] [address] Phone Care Team Providers Care Computer Numerical Control Operator Name Role Phone PP Unavailable CCM Unavailable Summary Purpose Interface Exchange Insurance Providers Payer name Policy type / Coverage type Covered democrat ID Effective Begin Date Effective End Date AETNA Commercial Insurance [id number] Unknown Family history Sister Diagnosis Age At [...] Unknown 1 11/10/2015 Employment Unknown Currently employed [employer] 11/10/[address]: 395295343 Has never smoked or chewed tobacco 11/10/[address]: 865691724 Never drinks alcohol 2015 Has the patient [...] Problems Condition Codes Effective Dates Condition Status Influenza A ICD-9: 487.1 ICD-10: J10.1 04/21/2019 [...] Fill Instructions Tamiflu 75 mg capsule RxNorm: 935170 1 Capsule(s) Oral two time s a day 04/21/2019 04/26/2019 Active pantoprazole 40 mg tablet,delayed release RxNorm: 874238 1 Tablet(s) Oral two times a day replaces omeprazole 03/11/2019 05/10/2019 Active escitalopram 10 mg tablet RxNorm: 382127 1 Tablet(s) Oral QD re places 5mg dose 02/06/2019 08/05/2019 Active trazodone 50 mg tablet RxNorm: 962772 1-2 Tablet(s) Ora l QPM as needed for sleep 02/06/2019 03/07/2019 Inactive escitalopram 5 mg tablet RxNorm: 360297 1 Tablet(s) Oral QAM 201802/05/2019 Inactive trazodone 50 mg tablet RxNorm: 597117 1-2 Tablet(s) Ora l QPM as needed for sleep 01/02/2019 02/05/2019 Inactive omeprazole 20 mg capsule,delayed release RxNorm: 186451 1 Capsu le(s) PO QD 07/04/2018 12/30/2018 Inactive omeprazole 20 mg capsule,delayed release RxNorm: 681654 1 Capsu le(s) PO QD 04/03/2018 07/01/2018 Inactive omeprazole 20 mg capsule,delayed release RxNorm: 961532 1 Capsu le(s) PO QD 04/03/2018 01/01/2019 Inactive omeprazole 20 mg capsule,delayed release RxNorm: 826282 1 Capsu le(s) PO QD 12/05/2017 03/04/2018 Inactive omeprazole 20 mg capsule,delayed release RxNorm: 622441 1 Capsu le(s) PO QD 09/06/2017 04/03/2018 Inactive Augmentin 875 mg-125 mg tablet RxNorm: 033949 1 Tablet(s) PO BID 05/03/2017 Inactive omeprazole 20 mg capsule,delayed release RxNorm: 490180 1 Capsu le(s) PO QD 04/19/2017 08/16/2017 Inactive omeprazole 20 mg capsule,delayed release RxNorm: 974620 1 Capsule(s) PO QD replaces 40mg daily- due for refill 03/14/2017 04/19/2017 Inactive omeprazole 20 mg capsule,delayed release RxNorm: 416339 1 Capsule(s) PO QD replaces 40mg daily 11/30/2016 02/27/2017 Inactive omeprazole 20 mg capsule,delayed release RxNorm: 977507 1 Capsule(s) PO QD replaces 40mg daily 05/03/2016 10/29/2016 Inactive cetirizine 1 mg/mL oral solution RxNorm: 3185095 1.25 Mi lliliter(s) PO QHS for runny nose 02/24/2016 02/23/2016 Inactive Ce-D 12 Hour 60 mg-120 mg tablet,extended release RxNor m: 535230 1 Tablet(s) PO BID as needed 11/30/2015 No Stop Date Active omeprazole 20 mg capsule,delayed release RxNorm: 170828 1 Capsule(s) PO QD replaces 40mg daily 11/10/2015 03/08/2016 Inactive Ce Allergy 180 mg tablet RxNorm: 948029 1 Tablet(s) PO QD No Sta rt Date Active Aspirin Child 81 mg chewable tablet RxNorm: 079914 1 Tablet(s) PO QD No Start Date Active simvastatin 20 mg tablet RxNorm: 982588 1 Tablet(s) PO QD No Start Da te Active omeprazole 40 mg capsule,delayed release RxNorm: 606428 1 Capsu le(s) PO QD No Start Date 11/09/2015 Inactive Medication Administered No Medication Administered data Immunizations No Immunization data Results Observation Observation Code Item Item Code Result Date S ervice Location THYROID STIMULATING HORMONE 68537 TSH 3.245 uIU/mL 12/27/2018 Unknown GFR CALC 2888403 GFR Non Afr Amr >60 mL/min 12/27/2018 Un known GFR CALC 5964710 GFR Afr Amr >60 mL/min 12/27/2018 Unknow n FREE T4 86670 T4 Free 0.88 ng/dL 12/27/2018 Unknown [facility] 94117 Cholesterol 157 mg/dL 12/27/2018 Unkno wn L[facility] GROUP 42640 Triglyceride 44 mg/dL 12/27/2018 Unkn own [facility] 69688 HDL CHOLESTEROL 61 mg/dL 12/27/2018 U nknown [facility] 85653 Chol/HDL Ratio 2.57 ratio 12/27/2018 U nknown [facility] 85725 NON-HDL Chol 96 mg/dL 12/27/2018 Unkn own [facility] 43868 LDL Cholesterol 87 mg/dL 12/27/2018 U nknown COMPREHENSIVE METABOLIC 46077 AST 19 U/L 2018 Unknown COMPREHENSIVE METABOLIC 57313 ALT 13 U/L 2018 Unknown COMPREHENSIVE METABOLIC 49473 BUN 22 mg/dL 2018 Unknown COMPREHENSIVE METABOLIC 16875 ALBUMIN 4.2 g/dL 2018 Unknown COMPREHENSIVE METABOLIC 14612 CHLORIDE 103 mmol/L 12/27 Unknown COMPREHENSIVE METABOLIC 45756 Bili Total 0.5 mg/dL 12/27 Unknown COMPREHENSIVE METABOLIC 11052 ALK PHOS 101 U/L 2018 Unknown COMPREHENSIVE METABOLIC 54759 SODIUM 141 mmol/L 12/27 Unknown COMPREHENSIVE METABOLIC 90746 CREATININE 0.76 mg/dL 12/04 Unknown COMPREHENSIVE METABOLIC 97463 CALCIUM 9.3 mg/dL 2018 Unknown COMPREHENSIVE METABOLIC 95564 POTASSIUM 3.6 mmol/L 12/27 Unknown COMPREHENSIVE METABOLIC 21443 Total Protein 7.4 g/dL Unknown COMPREHENSIVE METABOLIC 84703 Glucose 86 mg/dL 2018 Unknown COMPREHENSIVE METABOLIC 41830 Bicarbonate 31 mmol/L 12/04 Unknown COMPREHENSIVE METABOLIC 74920 AGAP 7 mmol/L 2018 Unknown COMPLETE BLOOD COUNT 9792860 WBC 4.2 10e9/L 12/28/19 19 Unknown COMPLETE BLOOD COUNT [id number] RBC 4.55 10e12/L 2018 Unknown COMPLETE BLOOD COUNT 3169417 HEMOGLOBIN 13.7 g/dL 12/28/19 19 Unknown COMPLETE BLOOD COUNT 9931135 HEMATOCRIT 42.4 % 12/28/19 19 Unknown COMPLETE BLOOD COUNT 2147685 MCV 93.2 fL 9 Unknown COMPLETE BLOOD COUNT 1571014 MCH 30.1 pg 9 Unknown COMPLETE BLOOD COUNT 7371532 MCHC 32.3 g/dL 9 Unknown COMPLETE BLOOD COUNT 4641246 PLATELET COUNT 272 10e9/L Unknown COMPLETE BLOOD COUNT 0928796 Mean Plt Volume 8.9 fL Unknown COMPLETE BLOOD COUNT 3611707 Neut Auto 50.9 % 9 Unknown COMPLETE BLOOD COUNT 9833487 Lymph Auto 35.1 % 12/28/19 19 Unknown COMPLETE BLOOD COUNT 0165464 [place] Auto 9.6 % 9 Unknown COMPLETE BLOOD COUNT 6944848 RDW 12.7 % 9 Unknown COMPLETE BLOOD COUNT 7827648 Eos Auto 4.2 % 9 Unknown COMPLETE BLOOD COUNT 7400583 Baso Auto 0.2 % 9 Unknown COMPLETE BLOOD COUNT 4252899 Neutrophil Abs 2.14 10e9/L Unknown COMPLETE BLOOD COUNT 6569561 Lymphocyte Abs 1.47 10e9/L Unknown COMPLETE BLOOD COUNT [id number] Monocyte Abs 0.40 10e9/L 12/04 Unknown COMPLETE BLOOD COUNT 8909086 Eosinophil Abs 0.18 10e9/L Unknown COMPLETE BLOOD COUNT 2302754 RDW-SD 42.1 fL 9 Unknown COMPLETE BLOOD COUNT 6733986 Basophil Abs 0.01 10e9/L 12/04 Unknown GFR CALC 3774479 GFR Non Afr Amr >60 mL/min 12/21/2016 Un known GFR CALC [id number] GFR Afr Amr >60 mL/min 12/21/2016 Unknow n COMPLETE BLOOD COUNT 1405761 WBC 3.6 10e9/L 12/22/19 17 Unknown COMPLETE BLOOD COUNT [id number] RBC 4.57 10e12/L 2016 Unknown COMPLETE BLOOD COUNT 6988943 HEMOGLOBIN 13.8 g/dL 12/22/19 17 Unknown COMPLETE BLOOD COUNT 8123637 HEMATOCRIT 42.4 % 12/22/19 17 Unknown COMPLETE BLOOD COUNT 6418376 MCV 92.8 fL 7 Unknown COMPLETE BLOOD COUNT 6459784 MCH 30.2 pg 7 Unknown COMPLETE BLOOD COUNT 6264519 MCHC 32.5 g/dL 7 Unknown COMPLETE BLOOD COUNT 7302276 PLATELET COUNT 225 10e9/L Unknown COMPLETE BLOOD COUNT 0735550 Mean Plt Volume 9.0 fL Unknown COMPLETE BLOOD COUNT 2651514 Neut Auto 45.6 % 7 Unknown COMPLETE BLOOD COUNT 8097691 Lymph Auto 37.3 % 12/22/19 17 Unknown COMPLETE BLOOD COUNT 4894947 [place] Auto 11.0 % 7 Unknown COMPLETE BLOOD COUNT 0041856 RDW 12.6 % 7 Unknown COMPLETE BLOOD COUNT 5670901 Eos Auto 5.5 % 7 Unknown COMPLETE BLOOD COUNT 6043986 Baso Auto 0.6 % 7 Unknown COMPLETE BLOOD COUNT 6110379 Neutrophil Abs 1.64 10e9/L Unknown COMPLETE BLOOD COUNT 7901983 Lymphocyte Abs 1.34 10e9/L Unknown COMPLETE BLOOD COUNT 4571279 Monocyte Abs 0.40 10e9/L 12/03 Unknown COMPLETE BLOOD COUNT 6998315 Eosinophil Abs 0.20 10e9/L Unknown COMPLETE BLOOD COUNT 9055129 RDW-SD 42.0 fL 10/19/201 7 Unknown COMPLETE BLOOD COUNT 8274500 Basophil Abs 0.02 10e9/L 12/03 Unknown THYROID STIMULATING HORMONE 29572 TSH 3.423 uIU/mL 12/21/2016 Unknown COMPREHENSIVE METABOLIC 30293 AST 23 U/L 2016 Unknown COMPREHENSIVE METABOLIC 73765 ALT 18 U/L 2016 Unknown COMPREHENSIVE METABOLIC 15103 BUN 21 mg/dL 2016 Unknown COMPREHENSIVE METABOLIC 50327 ALBUMIN 4.4 g/dL 2016 Unknown COMPREHENSIVE METABOLIC 79663 CHLORIDE 103 mmol/L 12/21 Unknown COMPREHENSIVE METABOLIC 42802 Bili Total 0.7 mg/dL 12/21 Unknown COMPREHENSIVE METABOLIC 97284 ALK PHOS 86 U/L 2016 Unknown COMPREHENSIVE METABOLIC 97456 SODIUM 141 mmol/L 12/21 Unknown COMPREHENSIVE METABOLIC 41725 CREATININE 0.75 mg/dL 12/03 Unknown COMPREHENSIVE METABOLIC 98066 CALCIUM 9.2 mg/dL 2016 Unknown COMPREHENSIVE METABOLIC 63627 POTASSIUM 3.8 mmol/L 12/21 Unknown COMPREHENSIVE METABOLIC 66594 Total Protein 7.3 g/dL Unknown COMPREHENSIVE METABOLIC 31558 Glucose 95 mg/dL 2016 Unknown COMPREHENSIVE METABOLIC 73954 Bicarbonate 32 mmol/L 12/03 Unknown COMPREHENSIVE METABOLIC 79210 AGAP 6 mmol/L 2016 Unknown LIPID GROUP 24916 Cholesterol 154 mg/dL 12/21/2016 Unkno wn LIPID GROUP 66803 Triglyceride 51 mg/dL 12/21/2016 Unkn own LIPID GROUP 56661 HDL CHOLESTEROL 61 mg/dL 12/21/2016 U nknown LIPID GROUP 51757 Chol/HDL Ratio 2.52 ratio 12/21/2016 U nknown LIPID GROUP 23863 NON-HDL Chol 93 mg/dL 12/21/2016 Unkn own LIPID GROUP 34440 LDL Cholesterol 83 mg/dL 12/21/2016 U nknown Procedures Procedure Codes Date INFLUENZA ASSAY W/OPTIC CPT-4: 42572 04/21/2019 INFLUENZA ASSAY W/OPTIC CPT-4: 75628 04/24/2017 SPECIMEN HANDLING OFFICE-LAB CPT-4: 58636 02/24/2016 THER/PROPH/DIAG INJ SC/IM CPT-4: 37938 11/30/2015 TRIAMCINOLONE ACET INJ NOS CPT-4: J3301 11/30/2015 DEXAMETHASONE SODIUM PHOS CPT-4: J1100 11/30/2015 Vital Signs Date Vital 04/21/2019 Blood Pressure 1: 128/78 Code: 8480-6 [...] 1: 124/72 Code: 8480-6 BMI: 35.1 Code: 16966-5 Heart Rate 1: 64 bpm Height: 5'6" Respiratory Rate: 18 bpm SpO2: 96% Tempera ture: 36.8 (C) / 98.2 (F) Weight: 221 lbs 02/13/2018 Blood Pressure 1: 138/82 Code: 8480-6 BMI: 34.5 Code: 94311-4 Heart Rate 1: 68 bpm Height: 5'7" Respiratory Rate: 18 bpm SpO2: 97% Tempera ture: 36.8 (C) / 98.2 (F) Weight: 220 lbs 04/24/2017 Blood Pressure 1: 126/78 Code: 8480-6 BMI: 35.4 Code: 82046-4 Heart Rate 1: 84 bpm Height: 5'7" Respiratory Rate: 22 bpm SpO2: 95% Tempera ture: 36.9 (C) / 98.4 (F) Weight: 226 lbs 02/24/2016 Blood Pressure 1: 128/78 Code: 8480-6 BMI: 35.6 Code: 20301-2 Heart Rate 1: 68 bpm Height: 5'7" Respiratory Rate: 20 bpm SpO2: 97% Tempera ture: 36.7 (C) / 98.1 (F) Weight: 227 lbs 11/30/2015 Blood Pressure 1: 128/78 Code: 8480-6 BMI: 36.0 Code: 23673-7 Heart Rate 1: 76 bpm Height: 5'7" Respiratory Rate: 20 bpm SpO2: 97% Tempera ture: 37.1 (C) / 98.7 (F) Weight: 230 lbs 11/10/2015 Blood Pressure 1: 136/82 Code: 8480-6 BMI: 36.0 Code: 61264-1 Heart Rate 1: 80 bpm Height: 5'7" Respiratory Rate: 20 bpm Temperature: 36 .6 (C) / 97.9 (F) Weight: 230 lbs Functional Status No Functional Status data Reason For Visit Reason For Visit Effective Dates Notes cough 04/21/2019 follow up 03/11/2019 ER fwup insomnia 02/06/2019 well woman exam (40-65 years) 01/02/2019 Annual Wel lness, last normal mammogram 5--19 well woman exam (40-65 years) 02/13/2018 Last nikko l mammogram --18 postnasal drip 04/24/2017 well woman exam (40-65 years) 02/24/2016 Last nikko l mammogram June 2015 sinus congestion 11/30/2015 ~generic 11/10/2015 New Patient---establ ishing visit Encounters Encounter Performer Location Codes Date ([id number]) OFFICE/OUTPATIENT VISIT EST Diagnosis: Influenza A[ICD10: J10.1] Karen [facility]CCLELLAND [facility] CPT-4: 16075 04/21/2019 ([id number]) OFFICE/OUTPATIENT VISIT EST Diagnosis: Epigastric pain[ICD10: R10.13] Diagnosis: Gastro-esophageal reflux disease without esophagitis[ICD10: K21.9] Karen TEJEDA [facility] CPT-4: 25298 03/11/2019 ([id number]) OFFICE/OUTPATIENT VISIT EST Diagnosis: Stress reaction[ICD10: F43.0] Diagnosis: Insomnia[ICD10: G47.00] Karen CAMARILLO [facility] CPT-4: 17745 02/06/2019 ([id number]) PREV VISIT EST AGE 40-64 Diagnosis: Encounter for general adult medical examination without abnormal findings[ICD10: Z00.00] Diagnosis: Obstructive sleep apnea (adult) (pediatric)[ICD10: G47.33] Diagnosis: Stress reaction[ICD10: F43.0] Diagnosis: URI, ACUTE[ICD10: J06.9] Diagnosis: Insomnia[ICD10: G47.00] Karen JONES JocelinRuss JANICE Nor1 [facility] CPT-4: 68426 01/02/2019 ([id number]) PREV VISIT EST AGE 40-64 Diagnosis: Encounter for general adult medical examination without abnormal findings[ICD10: Z00.00] Diagnosis: Gastro-esophageal reflux disease without esophagitis[ICD10: K21.9] Diagnosis: Obstructive sleep apnea (adult) (pediatric)[ICD10: G47.33] Diagnosis: Mixed hyperlipidemia[ICD10: E78.2] Diagnosis: Dizziness and giddiness[ICD10: R42] Karen STANLEY JocelinRuss JANICE [facility] CPT-4: 23119 02/13/2018 OFFICE/OUTPATIENT VISIT EST Diagnosis: Acute sinusitis, unspecified[ICD10: J01.90] Diagnosis: Viral infection, unspecified[ICD10: B34.9] Jodie Tran KAREN JocelinRuss JANICE Nor1 [facility] CPT-4: 68871 04/24/2017 ([id number]) PREV VISIT EST AGE 40-64 Diagnosis: Encounter for general adult medical examination without abnormal findings[ICD10: Z00.00] Diagnosis: Encounter for gynecological examination (general) (routine) without abnormal findings[ICD10: Z01.419] Diagnosis: URI, ACUTE[ICD10: J06.9] Karen MENDOZA [facility] Nor[facility] CPT-4: 79677 02/24/2016 ([id number]) OFFICE/OUTPATIENT VISIT EST Diagnosis: Other seasonal allergic rhinitis[ICD10: J30.2] Reginanaresh Sagastume KAREN Kingsley JANICE [facility] CPT-4: 35117 11/30/2015 OFFICE/OUTPATIENT VISIT NEW Diagnosis: Mixed hyperlipidemia[ICD10: E78.2] Diagnosis: Gastro-esophageal reflux disease without esophagitis[ICD10: K21.9] Diagnosis: Allergic rhinitis due to pollen[ICD10: J30.1] Diagnosis: Obstructive sleep apnea (adult) (pediatric)[ICD10: G47.33] Karen Ileana TEJEDA DO [facility] CPT-4: 34764 11/10/2015 Plan of Care Planned Activity Notes Codes Status Date Visit Diagnosis Plan: Influenza A Discussion: Tamiflu Supportive card Notify if worsening No work for full 5 days from symptoms and fever free at least 24hrs ICD-9 : 487.1 ICD-10 : J10.1 04/21/2019 Patient Education: Tamiflu- [employer] Coupon [id number] https://www.ReaMetrix/flo.do/resources/getResource/61/v175wg8w-2836-44f4-1l Completed 04/21/2019 Visit Diagnosis Plan: Epigastric pain Discussion: Baron ge omeprazole to pantoprazole 40mg po BID ICD-9 : 789.06 ICD-10 : R10.13 03/11/2019 Visit Diagnosis Plan: Gastro-esophageal reflux disease without esophagitis Diet: GERD diet ICD-9 : 530.81 ICD-10 : K21.9 03/11/2019 Appointment: Karen Tejeda WPtel: [address] [place] [address] FOLLOW UP 03/11/2019 Patient Education: pantoprazole- [employer] Coupon [phone] https://www.[employer]/flo.do/resources/getResource/61/37104805-41u3-2g64-o9 Completed 03/11/2019 Visit Diagnosis Plan: Stress reaction Discussion: Incr ease escitalopram to 10mg daily Follow Up: 3 months ICD-9 : 308.9 ICD-10 : F43.0 02/06/2019 Visit Diagnosis Plan: Insomnia Discussion: Stable on t razadone ICD-9 : 780.52 ICD-10 : G47.00 02/06/2019 Appointment: Karen Tejeda WPtel: [facility] [place] [address] [place] FOLLOW UP 02/06/2019 Patient Education: escitalopram oxalate- [employer] Co upon [id number] https://www.[employer]/flo.do/resources/getResource/61/5y413e92-h3dd-411l-18 Completed 02/06/2019 Patient Education: trazodone- [employer] Coupon [id number] 59 https://www.flo.do.Anomo/sampleICAgen/resources/getResource/61/v9y12hq1-e15l-7131-ki Completed 02/06/2019 Patient Education: escitalopram oxalate- [employer] Co upon [id number] https://www.[employer]/sampleICAgen/resources/getResource/61/30fj6189-8d4s-9ejw-p8 Completed 02/06/2019 Visit Diagnosis Plan: Obstructive sleep apnea (adult) (pediatric) Discussion: Retry CPAP once sleeping pills helping ICD-9 : 327.23 ICD-10 : G47.33 01/02/2019 Visit Diagnosis Plan: Insomnia Discussion: Trial of tr azadone 50mg 1-2 po q HS prn sleep ICD-9 : 780.52 ICD-10 : G47.00 01/02/2019 Visit Diagnosis Plan: [facility] medical [facility] without abnormal [...] J06.9 01/02/2019 Appointment: [facility] Te[facility]eda [facility] [phone] [facility] [facility] Visit 01/02/2019 Patient Education: trazodone- [employer] Coupon [id number] 20 https://www.[employer]/flo.do/resources/getResource/61/3t6p98b6-y44r-74wu-av Completed 01/02/2019 Patient Education: escitalopram oxalate- [employer] Co upon [id number] https://www.[employer]/sampleICAgen/resources/getResource/61/4298637j-3861-530k-44 Completed 01/02/2019 Visit Diagnosis Plan: Gastro-esophageal reflux [...] 02/13/2018 Visit Diagnosis Plan: Encounter for [facility] adult medical examination without abnormal findings Discussion: Mammo up to date Defers flu shot Mediterranean diet Recommend add weght bearing exercise Update fasting lab Had Mammogram in July Colonoscopy up to date ICD-9 : V70.9 ICD-10 : Z00.00 02/13/2018 Appointment: Karen Tejeda WPtel: [phone] [facility] Annual Well Visit 02/13/2018 Patient Education: Patient Medication Summary Completed 06/06/2017 Care Plan: MAMMOGRAM BOTH BREASTS LOINC : 09151-0 Pending 06/06/2017 Visit Diagnosis Plan: Acute sinusitis, [...] ICD-10 : J01.90 04/24/2017 Appointment: Jodie Tran [address] [place], [place] [id number] ACUTE ILLNESS 04/24/2017 Patient Education: Patient Medication Summary Completed 04/24/2017 Patient Education: Patient Medication Summary Completed 12/08/2016 Care Plan: COMPREHEN METABOL[place] : 59840-6 Pending 12/08/2016 Care Plan: ASSAY THYROID STIM HORMONE Pen ding 12/08/2016 Care Plan: LIPID PANEL LOINC : 82440-3 Pending 12/08/2016 Care Plan: CBC Pending 12/08/2016 [...] for yearly 02/24/2016 Appointment: Karen Tejeda WPtel: [address] [place] [address] 02/22 confirmed~sl PAP 02/24/2016 Patient Education: Patient Medication Summary Completed 02/24/2016 Visit Plan: Injection as above Rx for al legra-d Benadryl at HS Nasal rinses, steroid nasal sprays Mucinex Vicks, humidifier, vitamin C, rest, fluids Follow up PRN 11/30/2015 Appointment: Regina Sagastume [address] [place] [address] ACUTE ILLNESS 11/30/2015 Patient Education: Patient Medication Summary Completed 11/30/2015 Patient Education: [facility] - Saving AutoInj - 18-64 - Dynamic Maura l ID Completed 11/30/2015 Referral: Sunil Hatch WPtel: [address] [place] [address] Referral Appointment Confirmed 11/23/2015 Visit Plan: Needs [...] weight loss 11/10/2015 Appointment: Karen Tejeda WPtel: [address] [place] [address] [place] 11/08lm ~sl11/09 CONFIRMED~sl NEW PATIENT 11/09 [...]
--- OUTSIDE RECORDS SUMMARY | 2019-09-24 10:32 | XMS REPORT | CCD ---
Author Author Nadya Tejeda D.O. Organization [facility]EN TEJEDA [facility] Address [address] [place] [address] Phone Care Team Providers Care Stationary Fireman Name Role Phone PP Unavailable CCM Unavailable Summary Purpose Interface Exchange Insurance Providers Payer name Policy type / Coverage type Covered green party ID Effective Begin Date Effective End Date [employer] Commercial Insurance [id number] Unknown Family history Sister Diagnosis Age At [...] Unknown 1 11/10/2015 Employment Unknown Currently employed [employer] 11/10/[address]: 096501422 Has never smoked or chewed tobacco 11/10/[address]: 567444749 Never drinks alcohol 2015 Has the patient [...] Fill Instructions Tamiflu 75 mg capsule RxNorm: 693268 1 Capsule(s) Oral two time s a day 04/21/2019 04/26/2019 Active pantoprazole 40 mg tablet,delayed release RxNorm: 935980 1 Tablet(s) Oral two times a day replaces omeprazole 03/11/2019 05/10/2019 Active escitalopram 10 mg tablet RxNorm: 180481 1 Tablet(s) Oral QD re places 5mg dose 02/06/2019 08/05/2019 Active trazodone 50 mg tablet RxNorm: 592522 1-2 Tablet(s) Ora l QPM as needed for sleep 02/06/2019 03/07/2019 Inactive escitalopram 5 mg tablet RxNorm: 985081 1 Tablet(s) Oral QAM 201802/05/2019 Inactive trazodone 50 mg tablet RxNorm: 526493 1-2 Tablet(s) Ora l QPM as needed for sleep 01/02/2019 02/05/2019 Inactive omeprazole 20 mg capsule,delayed release RxNorm: 240614 1 Capsu le(s) PO QD 07/04/2018 12/30/2018 Inactive omeprazole 20 mg capsule,delayed release RxNorm: 772498 1 Capsu le(s) PO QD 04/03/2018 07/01/2018 Inactive omeprazole 20 mg capsule,delayed release RxNorm: 253732 1 Capsu le(s) PO QD 04/03/2018 01/01/2019 Inactive omeprazole 20 mg capsule,delayed release RxNorm: 943950 1 Capsu le(s) PO QD 12/05/2017 03/04/2018 Inactive omeprazole 20 mg capsule,delayed release RxNorm: 170839 1 Capsu le(s) PO QD 09/06/2017 04/03/2018 Inactive Augmentin 875 mg-125 mg tablet RxNorm: 694582 1 Tablet(s) PO BID 05/03/2017 Inactive omeprazole 20 mg capsule,delayed release RxNorm: 039772 1 Capsu le(s) PO QD 04/19/2017 08/16/2017 Inactive omeprazole 20 mg capsule,delayed release RxNorm: 852094 1 Capsule(s) PO QD replaces 40mg daily- due for refill 03/14/2017 04/19/2017 Inactive omeprazole 20 mg capsule,delayed release RxNorm: 047866 1 Capsule(s) PO QD replaces 40mg daily 11/30/2016 02/27/2017 Inactive omeprazole 20 mg capsule,delayed release RxNorm: 443213 1 Capsule(s) PO QD replaces 40mg daily 05/03/2016 10/29/2016 Inactive cetirizine 1 mg/mL oral solution RxNorm: 2631020 1.25 Mi lliliter(s) PO QHS for runny nose 02/24/2016 02/23/2016 Inactive Ce-D 12 Hour 60 mg-120 mg tablet,extended release RxNor m: 462446 1 Tablet(s) PO BID as needed 11/30/2015 No Stop Date Active omeprazole 20 mg capsule,delayed release RxNorm: 694911 1 Capsule(s) PO QD replaces 40mg daily 11/10/2015 03/08/2016 Inactive Ce Allergy 180 mg tablet RxNorm: 002524 1 Tablet(s) PO QD No Sta rt Date Active Aspirin Child 81 mg chewable tablet RxNorm: 957039 1 Tablet(s) PO QD No Start Date Active simvastatin 20 mg tablet RxNorm: 967421 1 Tablet(s) PO QD No Start Da te Active omeprazole 40 mg capsule,delayed release RxNorm: 232360 1 Capsu le(s) PO QD No Start Date 11/09/2015 Inactive Medication Administered No Medication Administered data Immunizations No Immunization data Results Observation Observation Code Item Item Code Result Date S ervice Location THYROID STIMULATING HORMONE 25763 TSH 3.245 uIU/mL 12/27/2018 Unknown GFR CALC 0998427 GFR Non Afr Amr >60 mL/min 12/27/2018 Un known GFR CALC 8429380 GFR Afr Amr >60 mL/min 12/27/2018 Unknow n FREE T4 87251 T4 Free 0.88 ng/dL 12/27/2018 Unknown [facility] 25325 Cholesterol 157 mg/dL 12/27/2018 Unkno wn [facility] 85074 Triglyceride 44 mg/dL 12/27/2018 Unkn own [facility] 14292 HDL CHOLESTEROL 61 mg/dL 12/27/2018 U nknown [facility] 45998 Chol/HDL Ratio 2.57 ratio 12/27/2018 U nknown [facility] 82146 NON-HDL Chol 96 mg/dL 12/27/2018 Unkn own [facility] 47600 LDL Cholesterol 87 mg/dL 12/27/2018 U nknown COMPREHENSIVE METABOLIC 96374 AST 19 U/L 2018 Unknown COMPREHENSIVE METABOLIC 85020 ALT 13 U/L 2018 Unknown COMPREHENSIVE METABOLIC 42428 BUN 22 mg/dL 2018 Unknown COMPREHENSIVE METABOLIC 08046 ALBUMIN 4.2 g/dL 2018 Unknown COMPREHENSIVE METABOLIC 24455 CHLORIDE 103 mmol/L 12/27 Unknown COMPREHENSIVE METABOLIC 01682 Bili Total 0.5 mg/dL 12/27 Unknown COMPREHENSIVE METABOLIC 53253 ALK PHOS 101 U/L 2018 Unknown COMPREHENSIVE METABOLIC 72986 SODIUM 141 mmol/L 12/27 Unknown COMPREHENSIVE METABOLIC 13861 CREATININE 0.76 mg/dL 12/04 Unknown COMPREHENSIVE METABOLIC 33461 CALCIUM 9.3 mg/dL 2018 Unknown COMPREHENSIVE METABOLIC 47902 POTASSIUM 3.6 mmol/L 12/27 Unknown COMPREHENSIVE METABOLIC 41998 Total Protein 7.4 g/dL Unknown COMPREHENSIVE METABOLIC 03574 Glucose 86 mg/dL 2018 Unknown COMPREHENSIVE METABOLIC 37180 Bicarbonate 31 mmol/L 12/04 Unknown COMPREHENSIVE METABOLIC 22658 AGAP 7 mmol/L 2018 Unknown COMPLETE BLOOD COUNT 4204527 WBC 4.2 10e9/L 12/28/19 19 Unknown COMPLETE BLOOD COUNT [id number] RBC 4.55 10e12/L 2018 Unknown COMPLETE BLOOD COUNT 1203514 HEMOGLOBIN 13.7 g/dL 12/28/19 19 Unknown COMPLETE BLOOD COUNT 5825730 HEMATOCRIT 42.4 % 12/28/19 19 Unknown COMPLETE BLOOD COUNT 1158370 MCV 93.2 fL 9 Unknown COMPLETE BLOOD COUNT 0541902 MCH 30.1 pg 9 Unknown COMPLETE BLOOD COUNT 7396656 MCHC 32.3 g/dL 9 Unknown COMPLETE BLOOD COUNT 4466711 PLATELET COUNT 272 10e9/L Unknown COMPLETE BLOOD COUNT 8979551 Mean Plt Volume 8.9 fL Unknown COMPLETE BLOOD COUNT 3189834 Neut Auto 50.9 % 9 Unknown COMPLETE BLOOD COUNT 8223491 Lymph Auto 35.1 % 12/28/19 19 Unknown COMPLETE BLOOD COUNT 0208569 Scurry Auto 9.6 % 9 Unknown COMPLETE BLOOD COUNT 2450327 RDW 12.7 % 9 Unknown COMPLETE BLOOD COUNT 0598180 Eos Auto 4.2 % 9 Unknown COMPLETE BLOOD COUNT 0808557 Baso Auto 0.2 % 9 Unknown COMPLETE BLOOD COUNT 6268176 Neutrophil Abs 2.14 10e9/L Unknown COMPLETE BLOOD COUNT 9799766 Lymphocyte Abs 1.47 10e9/L Unknown COMPLETE BLOOD COUNT 3694796 Monocyte Abs 0.40 10e9/L 12/04 Unknown COMPLETE BLOOD COUNT 5941512 Eosinophil Abs 0.18 10e9/L Unknown COMPLETE BLOOD COUNT 5876787 RDW-SD 42.1 fL 9 Unknown COMPLETE BLOOD COUNT 4195076 Basophil Abs 0.01 10e9/L 12/04 Unknown GFR CALC 2258590 GFR Non Afr Amr >60 mL/min 12/21/2016 Un known GFR CALC 4754430 GFR Afr Amr >60 mL/min 12/21/2016 Unknow n COMPLETE BLOOD COUNT 3963878 WBC 3.6 10e9/L 12/22/19 17 Unknown COMPLETE BLOOD COUNT 8407110 RBC 4.57 10e12/L 2016 Unknown COMPLETE BLOOD COUNT 1611755 HEMOGLOBIN 13.8 g/dL 12/22/19 17 Unknown COMPLETE BLOOD COUNT 2386498 HEMATOCRIT 42.4 % 12/22/19 17 Unknown COMPLETE BLOOD COUNT 0352733 MCV 92.8 fL 7 Unknown COMPLETE BLOOD COUNT 8529985 MCH 30.2 pg 7 Unknown COMPLETE BLOOD COUNT 9243497 MCHC 32.5 g/dL 7 Unknown COMPLETE BLOOD COUNT 6553915 PLATELET COUNT 225 10e9/L Unknown COMPLETE BLOOD COUNT 7630679 Mean Plt Volume 9.0 fL Unknown COMPLETE BLOOD COUNT 5539172 Neut Auto 45.6 % 7 Unknown COMPLETE BLOOD COUNT 9529889 Lymph Auto 37.3 % 12/22/19 17 Unknown COMPLETE BLOOD COUNT 4655108 Scurry Auto 11.0 % 7 Unknown COMPLETE BLOOD COUNT 4829024 RDW 12.6 % 7 Unknown COMPLETE BLOOD COUNT 5557858 Eos Auto 5.5 % 7 Unknown COMPLETE BLOOD COUNT 3102722 Baso Auto 0.6 % 7 Unknown COMPLETE BLOOD COUNT 3470840 Neutrophil Abs 1.64 10e9/L Unknown COMPLETE BLOOD COUNT 3666250 Lymphocyte Abs 1.34 10e9/L Unknown COMPLETE BLOOD COUNT 1441866 Monocyte Abs 0.40 10e9/L 12/03 Unknown COMPLETE BLOOD COUNT 2462110 Eosinophil Abs 0.20 10e9/L Unknown COMPLETE BLOOD COUNT 1085409 RDW-SD 42.0 fL 10/19/201 7 Unknown COMPLETE BLOOD COUNT 4776919 Basophil Abs 0.02 10e9/L 12/03 Unknown THYROID STIMULATING HORMONE 02135 TSH 3.423 uIU/mL 12/21/2016 Unknown COMPREHENSIVE METABOLIC 73001 AST 23 U/L 2016 Unknown COMPREHENSIVE METABOLIC 96867 ALT 18 U/L 2016 Unknown COMPREHENSIVE METABOLIC 07656 BUN 21 mg/dL 2016 Unknown COMPREHENSIVE METABOLIC 90822 ALBUMIN 4.4 g/dL 2016 Unknown COMPREHENSIVE METABOLIC 58193 CHLORIDE 103 mmol/L 12/21 Unknown COMPREHENSIVE METABOLIC 90667 Bili Total 0.7 mg/dL 12/21 Unknown COMPREHENSIVE METABOLIC 69571 ALK PHOS 86 U/L 2016 Unknown COMPREHENSIVE METABOLIC 02061 SODIUM 141 mmol/L 12/21 Unknown COMPREHENSIVE METABOLIC 84549 CREATININE 0.75 mg/dL 12/03 Unknown COMPREHENSIVE METABOLIC 53436 CALCIUM 9.2 mg/dL 2016 Unknown COMPREHENSIVE METABOLIC 49981 POTASSIUM 3.8 mmol/L 12/21 Unknown COMPREHENSIVE METABOLIC 79715 Total Protein 7.3 g/dL Unknown COMPREHENSIVE METABOLIC 25302 Glucose 95 mg/dL 2016 Unknown COMPREHENSIVE METABOLIC 37141 Bicarbonate 32 mmol/L 12/03 Unknown COMPREHENSIVE METABOLIC 74716 AGAP 6 mmol/L 2016 Unknown LIPID GROUP 36586 Cholesterol 154 mg/dL 12/21/2016 Unkno wn LIPID GROUP 74119 Triglyceride 51 mg/dL 12/21/2016 Unkn own LIPID GROUP 05444 HDL CHOLESTEROL 61 mg/dL 12/21/2016 U nknown LIPID GROUP 18607 Chol/HDL Ratio 2.52 ratio 12/21/2016 U nknown LIPID GROUP 40501 NON-HDL Chol 93 mg/dL 12/21/2016 Unkn own LIPID GROUP 39746 LDL Cholesterol 83 mg/dL 12/21/2016 U nknown Procedures Procedure Codes Date INFLUENZA ASSAY W/OPTIC CPT-4: 65794 04/21/2019 INFLUENZA ASSAY W/OPTIC CPT-4: 19439 04/24/2017 SPECIMEN HANDLING OFFICE-LAB CPT-4: 97377 02/24/2016 THER/PROPH/DIAG INJ SC/IM CPT-4: 64414 11/30/2015 TRIAMCINOLONE ACET INJ NOS CPT-4: J3301 [...] 1: 124/72 Code: 8480-6 BMI: 35.1 Code: 89107-8 Heart Rate 1: 64 bpm Height: 5'6" Respiratory Rate: 18 bpm SpO2: 96% Tempera ture: 36.8 (C) / 98.2 (F) Weight: 221 lbs 02/13/2018 Blood Pressure 1: 138/82 Code: 8480-6 BMI: 34.5 Code: 23527-0 Heart Rate 1: 68 bpm Height: 5'7" Respiratory Rate: 18 bpm SpO2: 97% Tempera ture: 36.8 (C) / 98.2 (F) Weight: 220 lbs 04/24/2017 Blood Pressure 1: 126/78 Code: 8480-6 BMI: 35.4 Code: 57433-8 Heart Rate 1: 84 bpm Height: 5'7" Respiratory Rate: 22 bpm SpO2: 95% Tempera ture: 36.9 (C) / 98.4 (F) Weight: 226 lbs 02/24/2016 Blood Pressure 1: 128/78 Code: 8480-6 BMI: 35.6 Code: 87440-1 Heart Rate 1: 68 bpm Height: 5'7" Respiratory Rate: 20 bpm SpO2: 97% Tempera ture: 36.7 (C) / 98.1 (F) Weight: 227 lbs 11/30/2015 Blood Pressure 1: 128/78 Code: 8480-6 BMI: 36.0 Code: 34405-9 Heart Rate 1: 76 bpm Height: 5'7" Respiratory Rate: 20 bpm SpO2: 97% Tempera ture: 37.1 (C) / 98.7 (F) Weight: 230 lbs 11/10/2015 Blood Pressure 1: 136/82 Code: 8480-6 BMI: 36.0 Code: 66671-5 Heart Rate 1: 80 bpm Height: 5'7" [...] visit Encounters Encounter Performer Location Codes Date ([id number]) OFFICE/OUTPATIENT VISIT EST Diagnosis: Influenza A[ICD10: J10.1] Karen MCCLELLAND [employer] CPT-4: 14299 04/21/2019 ([id number]) OFFICE/OUTPATIENT VISIT EST Diagnosis: Epigastric pain[ICD10: R10.13] Diagnosis: Gastro-esophageal reflux disease without esophagitis[ICD10: K21.9] Karen TEJEDA [employer] CPT-4: 02081 03/11/2019 ([id number]) OFFICE/OUTPATIENT VISIT EST Diagnosis: Stress reaction[ICD10: F43.0] Diagnosis: Insomnia[ICD10: G47.00] Karen CAMARILLO [employer] CPT-4: 27028 02/06/2019 ([id number]) PREV VISIT EST AGE 40-64 Diagnosis: Encounter for general adult medical examination without abnormal findings[ICD10: Z00.00] Diagnosis: Obstructive sleep apnea (adult) (pediatric)[ICD10: G47.33] Diagnosis: Stress reaction[ICD10: F43.0] Diagnosis: URI, ACUTE[ICD10: J06.9] Diagnosis: Insomnia[ICD10: G47.00] Karen JONES JocelinRuss JANICE [employer] [facility] CPT-4: 03644 01/02/2019 ([id number]) PREV VISIT EST AGE 40-64 Diagnosis: Encounter for general adult medical examination without abnormal findings[ICD10: Z00.00] Diagnosis: Gastro-esophageal reflux disease without esophagitis[ICD10: K21.9] Diagnosis: Obstructive sleep apnea (adult) (pediatric)[ICD10: G47.33] Diagnosis: Mixed hyperlipidemia[ICD10: E78.2] Diagnosis: Dizziness and giddiness[ICD10: R42] Karen STANLEY JocelinRuss JANICE [employer] CPT-4: 23811 02/13/2018 OFFICE/OUTPATIENT VISIT EST Diagnosis: Acute sinusitis, unspecified[ICD10: J01.90] Diagnosis: Viral infection, unspecified[ICD10: B34.9] Jodie Tran KAREN JocelinRuss JANICE [employer] [facility] CPT-4: 95109 04/24/2017 ([id number]) PREV VISIT EST AGE 40-64 Diagnosis: Encounter for general adult medical examination without abnormal findings[ICD10: Z00.00] Diagnosis: Encounter for gynecological examination (general) (routine) without abnormal findings[ICD10: Z01.419] Diagnosis: URI, ACUTE[ICD10: J06.9] Karen MENDOZA [facility] [employer] [facility] CPT-4: 79971 02/24/2016 ([id number]) OFFICE/OUTPATIENT VISIT EST Diagnosis: Other seasonal allergic rhinitis[ICD10: J30.2] Reginanaresh Sagastume KAREN Kingsley JANICE [employer] CPT-4: 00264 11/30/2015 OFFICE/OUTPATIENT VISIT NEW Diagnosis: Mixed hyperlipidemia[ICD10: E78.2] Diagnosis: Gastro-esophageal reflux disease without esophagitis[ICD10: K21.9] Diagnosis: Allergic rhinitis due to pollen[ICD10: J30.1] Diagnosis: Obstructive sleep apnea (adult) (pediatric)[ICD10: G47.33] Karen Ileana TEJEDA DO [facility] CPT-4: 68396 11/10/2015 Plan of Care Planned Activity Notes Codes Status Date Visit Diagnosis Plan: Influenza A Discussion: Tamiflu Supportive card Notify if worsening No work for full 5 days from symptoms and fever free at least 24hrs ICD-9 : 487.1 ICD-10 : J10.1 04/21/2019 Patient Education: Tamiflu- [employer] Coupon [id number] [email or web address]/[email or web address] [email or web address]/resources/getResource/61/[email or web address] Completed 04/21/2019 Visit Diagnosis Plan: Gastro-esophageal reflux disease without esophagitis Diet: GERD diet ICD-9 : 530.81 ICD-10 : K21.9 03/11/2019 Visit Diagnosis Plan: Epigastric pain Discussion: Baron ge omeprazole to pantoprazole 40mg po BID ICD-9 : 789.06 ICD-10 : R10.13 03/11/2019 Appointment: Karen Tejeda WPtel: [address] [place] [address] [place] FOLLOW UP 03/11/2019 Patient Education: pantoprazole- [employer] Coupon [phone] https://www.[email or web address]/resources/getResource/61/[email or web address] Completed 03/11/2019 Visit Diagnosis Plan: Insomnia Discussion: Stable on t razadone ICD-9 : 780.52 ICD-10 : G47.00 02/06/2019 Visit Diagnosis Plan: Stress reaction Discussion: Incr ease escitalopram to 10mg daily Follow Up: 3 months ICD-9 : 308.9 ICD-10 : F43.0 02/06/2019 Appointment: Karen Tejeda WPtel: [facility] [place] [address] [place] FOLLOW UP 02/06/2019 Patient Education: escitalopram oxalate- [employer] Co upon [id number] https://www.[employer]/resources/getResource/61/[email or web address]-[email or web address] Completed 02/06/2019 Patient Education: trazodone- [employer] Coupon [phone] [id number] https://www.[employer]/resources/getResource/61/r0g37ih7-j42u-9707-nn Completed 02/06/2019 Patient Education: escitalopram oxalate- [employer] Co upon [id number] https://www.[employer]/resources/getResource/61/[email or web address]-[email or web address] Completed 02/06/2019 Visit Diagnosis Plan: Obstructive sleep [...] G47.00 01/02/2019 Appointment: [facility] [address] [facility] [facility] 01/02/2019 Patient Education: trazodone- [employer] Coupon [phone] [id number] https://www.[employer]/resources/getResource/61/[email or web address]-qm Completed 01/02/2019 Patient Education: escitalopram oxalate- [employer] Co upon [id number] https://www.[employer]/resources/getResource/61/9864258o-[email or web address]-00 Completed 01/02/2019 Visit Diagnosis Plan: Encounter for gene [...] ICD-10 : R42 02/13/2018 Visit Diagnosis Plan: Gastro-esophageal reflux disease without esophagitis Discussion: Stable on omeprazole ICD-9 : 530.81 ICD-10 : K21.9 02/13/2018 Appointment: Karen Tejeda WPtel[facility] [facility] 02/13/2018 Patient Education: Patient Medication Summary Completed 06/06/2017 Care Plan: MAMMOGRAM BOTH BREASTS LOINC : 82446-4 Pending 06/06/2017 Visit Diagnosis Plan: Acute sinusitis, [...] ICD-10 : J01.90 04/24/2017 Appointment: Jodie Tran [address] [place], [place] [id number] ACUTE ILLNESS 04/24/2017 Patient Education: Patient Medication Summary Completed 04/24/2017 Patient Education: Patient Medication Summary Completed 12/08/2016 Care Plan: COMPREHEN METABOLIC [place] : 93974-3 Pending 12/08/2016 Care Plan: ASSAY THYROID STIM HORMONE Pen ding 12/08/2016 Care Plan: LIPID PANEL LOINC : 66524-8 Pending 12/08/2016 Care Plan: CBC Pending 12/08/2016 [...] for yearly 02/24/2016 Appointment: Karen Tejeda WPtel: [address] [place] [address] 02/22 confirmed~sl PAP 02/24/2016 Patient Education: Patient Medication Summary Completed 02/24/2016 Visit Plan: Injection as above Rx for al legra-d Benadryl at HS Nasal rinses, steroid nasal sprays Mucinex Vicks, humidifier, vitamin C, rest, fluids Follow up PRN 11/30/2015 Appointment: Regina Sagastume [address] [place] [address] ACUTE ILLNESS 11/30/2015 Patient Education: Patient Medication Summary Completed 11/30/2015 Patient Education: [facility] - Saving AutoInj - 18-64 - Dynamic Maura l ID Completed 11/30/2015 Referral: Sunil Hatch WPtel: [address] [place] [address] Referral Appointment Confirmed 11/23/2015 Visit Plan: Needs [...] weight loss 11/10/2015 Appointment: Karen Tejeda WPtel: [address] [place] [address] [place] 11/08lm ~sl11/09 CONFIRMED~sl NEW PATIENT 11/09 [...]
--- OUTSIDE RECORDS SUMMARY | 2019-09-24 10:33 | XMS REPORT | CCD ---
Author Author Nadya Tejeda D.O. Organization [facility] TEJEDA DO [facility] Address [address] [place] [address] Phone Care Team Providers Care Bilingual Recruiter Name Role Phone PP Unavailable CCM Unavailable Summary Purpose Interface Exchange Insurance Providers Payer name Policy type / Coverage type Covered constitution party ID Effective Begin Date Effective End Date [employer] Commercial Insurance [id number] Unknown Family history Sister Diagnosis Age At [...] Unknown 1 11/10/2015 Employment Unknown Currently employed [employer] 11/10/[address]: 600627908 Has never smoked or chewed tobacco 11/10/[address]: 932035521 Never drinks alcohol 2015 Has the patient [...] Fill Instructions Tamiflu 75 mg capsule RxNorm: 118582 1 Capsule(s) Oral two time s a day 04/21/2019 04/26/2019 Active pantoprazole 40 mg tablet,delayed release RxNorm: 748988 1 Tablet(s) Oral two times a day replaces omeprazole 03/11/2019 05/10/2019 Active escitalopram 10 mg tablet RxNorm: 362274 1 Tablet(s) Oral QD re places 5mg dose 02/06/2019 08/05/2019 Active trazodone 50 mg tablet RxNorm: 086752 1-2 Tablet(s) Ora l QPM as needed for sleep 02/06/2019 03/07/2019 Inactive escitalopram 5 mg tablet RxNorm: 379360 1 Tablet(s) Oral QAM 201802/05/2019 Inactive trazodone 50 mg tablet RxNorm: 638845 1-2 Tablet(s) Ora l QPM as needed for sleep 01/02/2019 02/05/2019 Inactive omeprazole 20 mg capsule,delayed release RxNorm: 473444 1 Capsu le(s) PO QD 07/04/2018 12/30/2018 Inactive omeprazole 20 mg capsule,delayed release RxNorm: 819418 1 Capsu le(s) PO QD 04/03/2018 07/01/2018 Inactive omeprazole 20 mg capsule,delayed release RxNorm: 857670 1 Capsu le(s) PO QD 04/03/2018 01/01/2019 Inactive omeprazole 20 mg capsule,delayed release RxNorm: 008801 1 Capsu le(s) PO QD 12/05/2017 03/04/2018 Inactive omeprazole 20 mg capsule,delayed release RxNorm: 591231 1 Capsu le(s) PO QD 09/06/2017 04/03/2018 Inactive Augmentin 875 mg-125 mg tablet RxNorm: 844148 1 Tablet(s) PO BID 05/03/2017 Inactive omeprazole 20 mg capsule,delayed release RxNorm: 006169 1 Capsu le(s) PO QD 04/19/2017 08/16/2017 Inactive omeprazole 20 mg capsule,delayed release RxNorm: 132890 1 Capsule(s) PO QD replaces 40mg daily- due for refill 03/14/2017 04/19/2017 Inactive omeprazole 20 mg capsule,delayed release RxNorm: 809729 1 Capsule(s) PO QD replaces 40mg daily 11/30/2016 02/27/2017 Inactive omeprazole 20 mg capsule,delayed release RxNorm: 236340 1 Capsule(s) PO QD replaces 40mg daily 05/03/2016 10/29/2016 Inactive cetirizine 1 mg/mL oral solution RxNorm: 3577145 1.25 Mi lliliter(s) PO QHS for runny nose 02/24/2016 02/23/2016 Inactive Ce-D 12 Hour 60 mg-120 mg tablet,extended release RxNor m: 680444 1 Tablet(s) PO BID as needed 11/30/2015 No Stop Date Active omeprazole 20 mg capsule,delayed release RxNorm: 592745 1 Capsule(s) PO QD replaces 40mg daily 11/10/2015 03/08/2016 Inactive Ce Allergy 180 mg tablet RxNorm: 857386 1 Tablet(s) PO QD No Sta rt Date Active Aspirin Child 81 mg chewable tablet RxNorm: 021694 1 Tablet(s) PO QD No Start Date Active simvastatin 20 mg tablet RxNorm: 825048 1 Tablet(s) PO QD No Start Da te Active omeprazole 40 mg capsule,delayed release RxNorm: 281521 1 Capsu le(s) PO QD No Start Date 11/09/2015 Inactive Medication Administered No Medication Administered data Immunizations No Immunization data Results Observation Observation Code Item Item Code Result Date S ervice Location THYROID STIMULATING HORMONE 71940 TSH 3.245 uIU/mL 12/27/2018 Unknown GFR CALC 5479398 GFR Non Afr Amr >60 mL/min 12/27/2018 Un known GFR CALC 7704614 GFR Afr Amr >60 mL/min 12/27/2018 Unknow n FREE T4 66870 T4 Free 0.88 ng/dL 12/27/2018 Unknown [facility] 37808 Cholesterol 157 mg/dL 12/27/2018 Unkno wn [facility] 08353 Triglyceride 44 mg/dL 12/27/2018 Unkn own [facility] 54252 HDL CHOLESTEROL 61 mg/dL 12/27/2018 U nknown [facility] 29816 Chol/HDL Ratio 2.57 ratio 12/27/2018 U nknown [facility] 10949 NON-HDL Chol 96 mg/dL 12/27/2018 Unkn own [facility] 35566 LDL Cholesterol 87 mg/dL 12/27/2018 U nknown COMPREHENSIVE METABOLIC 91174 AST 19 U/L 2018 Unknown COMPREHENSIVE METABOLIC 21041 ALT 13 U/L 2018 Unknown COMPREHENSIVE METABOLIC 14000 BUN 22 mg/dL 2018 Unknown COMPREHENSIVE METABOLIC 67590 ALBUMIN 4.2 g/dL 2018 Unknown COMPREHENSIVE METABOLIC 63287 CHLORIDE 103 mmol/L 12/27 Unknown COMPREHENSIVE METABOLIC 23066 Bili Total 0.5 mg/dL 12/27 Unknown COMPREHENSIVE METABOLIC 78944 ALK PHOS 101 U/L 2018 Unknown COMPREHENSIVE METABOLIC 81019 SODIUM 141 mmol/L 12/27 Unknown COMPREHENSIVE METABOLIC 71928 CREATININE 0.76 mg/dL 12/04 Unknown COMPREHENSIVE METABOLIC 35635 CALCIUM 9.3 mg/dL 2018 Unknown COMPREHENSIVE METABOLIC 15244 POTASSIUM 3.6 mmol/L 12/27 Unknown COMPREHENSIVE METABOLIC 54715 Total Protein 7.4 g/dL Unknown COMPREHENSIVE METABOLIC 38565 Glucose 86 mg/dL 2018 Unknown COMPREHENSIVE METABOLIC 31221 Bicarbonate 31 mmol/L 12/04 Unknown COMPREHENSIVE METABOLIC 02092 AGAP 7 mmol/L 2018 Unknown COMPLETE BLOOD COUNT 4915249 WBC 4.2 10e9/L 12/28/19 19 Unknown COMPLETE BLOOD COUNT 8766503 RBC 4.55 10e12/L 2018 Unknown COMPLETE BLOOD COUNT 2926506 HEMOGLOBIN 13.7 g/dL 12/28/19 19 Unknown COMPLETE BLOOD COUNT 8399249 HEMATOCRIT 42.4 % 12/28/19 19 Unknown COMPLETE BLOOD COUNT 4345293 MCV 93.2 fL 9 Unknown COMPLETE BLOOD COUNT 6306586 MCH 30.1 pg 9 Unknown COMPLETE BLOOD COUNT 0136583 MCHC 32.3 g/dL 9 Unknown COMPLETE BLOOD COUNT 6647846 PLATELET COUNT 272 10e9/L Unknown COMPLETE BLOOD COUNT 8920412 Mean Plt Volume 8.9 fL Unknown COMPLETE BLOOD COUNT 7515833 Neut Auto 50.9 % 9 Unknown COMPLETE BLOOD COUNT 8958510 Lymph Auto 35.1 % 12/28/19 19 Unknown COMPLETE BLOOD COUNT 8742624 Newton Auto 9.6 % 9 Unknown COMPLETE BLOOD COUNT 6269405 RDW 12.7 % 9 Unknown COMPLETE BLOOD COUNT 6862418 Eos Auto 4.2 % 9 Unknown COMPLETE BLOOD COUNT 3115534 Baso Auto 0.2 % 9 Unknown COMPLETE BLOOD COUNT 2235284 Neutrophil Abs 2.14 10e9/L Unknown COMPLETE BLOOD COUNT 0586039 Lymphocyte Abs 1.47 10e9/L Unknown COMPLETE BLOOD COUNT 7372987 Monocyte Abs 0.40 10e9/L 12/04 Unknown COMPLETE BLOOD COUNT 7607668 Eosinophil Abs 0.18 10e9/L Unknown COMPLETE BLOOD COUNT 7050972 RDW-SD 42.1 fL 9 Unknown COMPLETE BLOOD COUNT 6330793 Basophil Abs 0.01 10e9/L 12/04 Unknown GFR CALC 9344191 GFR Non Afr Amr >60 mL/min 12/21/2016 Un known GFR CALC [id number] GFR Afr Amr >60 mL/min 12/21/2016 Unknow n COMPLETE BLOOD COUNT 9573223 WBC 3.6 10e9/L 12/22/19 17 Unknown COMPLETE BLOOD COUNT 7738480 RBC 4.57 10e12/L 2016 Unknown COMPLETE BLOOD COUNT 5228356 HEMOGLOBIN 13.8 g/dL 12/22/19 17 Unknown COMPLETE BLOOD COUNT 1882104 HEMATOCRIT 42.4 % 12/22/19 17 Unknown COMPLETE BLOOD COUNT 8017018 MCV 92.8 fL 7 Unknown COMPLETE BLOOD COUNT 8395139 MCH 30.2 pg 7 Unknown COMPLETE BLOOD COUNT 1396015 MCHC 32.5 g/dL 7 Unknown COMPLETE BLOOD COUNT 4731095 PLATELET COUNT 225 10e9/L Unknown COMPLETE BLOOD COUNT 9523725 Mean Plt Volume 9.0 fL Unknown COMPLETE BLOOD COUNT 2867979 Neut Auto 45.6 % 7 Unknown COMPLETE BLOOD COUNT 4307218 Lymph Auto 37.3 % 12/22/19 17 Unknown COMPLETE BLOOD COUNT 2621236 Newton Auto 11.0 % 7 Unknown COMPLETE BLOOD COUNT 9380647 RDW 12.6 % 7 Unknown COMPLETE BLOOD COUNT 8718838 Eos Auto 5.5 % 7 Unknown COMPLETE BLOOD COUNT 6358261 Baso Auto 0.6 % 7 Unknown COMPLETE BLOOD COUNT 7964099 Neutrophil Abs 1.64 10e9/L Unknown COMPLETE BLOOD COUNT 1854068 Lymphocyte Abs 1.34 10e9/L Unknown COMPLETE BLOOD COUNT 6379737 Monocyte Abs 0.40 10e9/L 12/03 Unknown COMPLETE BLOOD COUNT 8367724 Eosinophil Abs 0.20 10e9/L Unknown COMPLETE BLOOD COUNT 7163001 RDW-SD 42.0 fL 10/19/201 7 Unknown COMPLETE BLOOD COUNT 3220899 Basophil Abs 0.02 10e9/L 12/03 Unknown THYROID STIMULATING HORMONE 98705 TSH 3.423 uIU/mL 12/21/2016 Unknown COMPREHENSIVE METABOLIC 74729 AST 23 U/L 2016 Unknown COMPREHENSIVE METABOLIC 13967 ALT 18 U/L 2016 Unknown COMPREHENSIVE METABOLIC 30786 BUN 21 mg/dL 2016 Unknown COMPREHENSIVE METABOLIC 18492 ALBUMIN 4.4 g/dL 2016 Unknown COMPREHENSIVE METABOLIC 60714 CHLORIDE 103 mmol/L 12/21 Unknown COMPREHENSIVE METABOLIC 70981 Bili Total 0.7 mg/dL 12/21 Unknown COMPREHENSIVE METABOLIC 06524 ALK PHOS 86 U/L 2016 Unknown COMPREHENSIVE METABOLIC 91977 SODIUM 141 mmol/L 12/21 Unknown COMPREHENSIVE METABOLIC 50403 CREATININE 0.75 mg/dL 12/03 Unknown COMPREHENSIVE METABOLIC 10434 CALCIUM 9.2 mg/dL 2016 Unknown COMPREHENSIVE METABOLIC 04654 POTASSIUM 3.8 mmol/L 12/21 Unknown COMPREHENSIVE METABOLIC 54251 Total Protein 7.3 g/dL Unknown COMPREHENSIVE METABOLIC 48777 Glucose 95 mg/dL 2016 Unknown COMPREHENSIVE METABOLIC 16430 Bicarbonate 32 mmol/L 12/03 Unknown COMPREHENSIVE METABOLIC 50315 AGAP 6 mmol/L 2016 Unknown LIPID GROUP 09513 Cholesterol 154 mg/dL 12/21/2016 Unkno wn L[facility] GROUP 87443 Triglyceride 51 mg/dL 12/21/2016 Unkn own L[facility] GROUP 43292 HDL CHOLESTEROL 61 mg/dL 12/21/2016 U nknown L[facility] GROUP 16312 Chol/HDL Ratio 2.52 ratio 12/21/2016 U nknown LIPID GROUP 60817 NON-HDL Chol 93 mg/dL 12/21/2016 Unkn own [facility] GROUP 60618 LDL Cholesterol 83 mg/dL 12/21/2016 U nknown Procedures Procedure Codes Date INFLUENZA ASSAY W/OPTIC CPT-4: 79380 04/21/2019 INFLUENZA ASSAY W/OPTIC CPT-4: 73642 04/24/2017 SPECIMEN HANDLING OFFICE-LAB CPT-4: 76185 02/24/2016 THER/PROPH/DIAG INJ SC/IM CPT-4: 79021 11/30/2015 TRIAMCINOLONE ACET INJ NOS CPT-4: J3301 [...] 1: 124/72 Code: 8480-6 BMI: 35.1 Code: 11831-2 Heart Rate 1: 64 bpm Height: 5'6" Respiratory Rate: 18 bpm SpO2: 96% Tempera ture: 36.8 (C) / 98.2 (F) Weight: 221 lbs 02/13/2018 Blood Pressure 1: 138/82 Code: 8480-6 BMI: 34.5 Code: 83065-9 Heart Rate 1: 68 bpm Height: 5'7" Respiratory Rate: 18 bpm SpO2: 97% Tempera ture: 36.8 (C) / 98.2 (F) Weight: 220 lbs 04/24/2017 Blood Pressure 1: 126/78 Code: 8480-6 BMI: 35.4 Code: 35816-7 Heart Rate 1: 84 bpm Height: 5'7" Respiratory Rate: 22 bpm SpO2: 95% Tempera ture: 36.9 (C) / 98.4 (F) Weight: 226 lbs 02/24/2016 Blood Pressure 1: 128/78 Code: 8480-6 BMI: 35.6 Code: 94937-1 Heart Rate 1: 68 bpm Height: 5'7" Respiratory Rate: 20 bpm SpO2: 97% Tempera ture: 36.7 (C) / 98.1 (F) Weight: 227 lbs 11/30/2015 Blood Pressure 1: 128/78 Code: 8480-6 BMI: 36.0 Code: 55661-9 Heart Rate 1: 76 bpm Height: 5'7" Respiratory Rate: 20 bpm SpO2: 97% Tempera ture: 37.1 (C) / 98.7 (F) Weight: 230 lbs 11/10/2015 Blood Pressure 1: 136/82 Code: 8480-6 BMI: 36.0 Code: 33288-2 Heart Rate 1: 80 bpm Height: 5'7" [...] visit Encounters Encounter Performer Location Codes Date ([id number]) OFFICE/OUTPATIENT VISIT EST Diagnosis: Influenza A[ICD10: J10.1] Karen MCCLELLAND [facility] CPT-4: 93635 04/21/2019 ([id number]) OFFICE/OUTPATIENT VISIT EST Diagnosis: Epigastric pain[ICD10: R10.13] Diagnosis: Gastro-esophageal reflux disease without esophagitis[ICD10: K21.9] Karen TEJEDA [facility] CPT-4: 37725 03/11/2019 ([id number]) OFFICE/OUTPATIENT VISIT EST Diagnosis: Stress reaction[ICD10: F43.0] Diagnosis: Insomnia[ICD10: G47.00] Karen CAMARILLO [facility] CPT-4: 80415 02/06/2019 ([id number]) PREV VISIT EST AGE 40-64 Diagnosis: Encounter for general adult medical examination without abnormal findings[ICD10: Z00.00] Diagnosis: Obstructive sleep apnea (adult) (pediatric)[ICD10: G47.33] Diagnosis: Stress reaction[ICD10: F43.0] Diagnosis: URI, ACUTE[ICD10: J06.9] Diagnosis: Insomnia[ICD10: G47.00] Karen JONES JocelinRuss JANICE Desigual [facility] CPT-4: 92410 01/02/2019 ([id number]) PREV VISIT EST AGE 40-64 Diagnosis: Encounter for general adult medical examination without abnormal findings[ICD10: Z00.00] Diagnosis: Gastro-esophageal reflux disease without esophagitis[ICD10: K21.9] Diagnosis: Obstructive sleep apnea (adult) (pediatric)[ICD10: G47.33] Diagnosis: Mixed hyperlipidemia[ICD10: E78.2] Diagnosis: Dizziness and giddiness[ICD10: R42] Karen STANLEY JocelinRuss JANICE [facility] CPT-4: 70513 02/13/2018 OFFICE/OUTPATIENT VISIT EST Diagnosis: Acute sinusitis, unspecified[ICD10: J01.90] Diagnosis: Viral infection, unspecified[ICD10: B34.9] Jodie Tran KAREN JocelinRuss JANICE Desigual [facility] CPT-4: 54919 04/24/2017 ([id number]) PREV VISIT EST AGE 40-64 Diagnosis: Encounter for general adult medical examination without abnormal findings[ICD10: Z00.00] Diagnosis: Encounter for gynecological examination (general) (routine) without abnormal findings[ICD10: Z01.419] Diagnosis: URI, ACUTE[ICD10: J06.9] Karen MENDOZA [facility] [place] Desigual [facility] CPT-4: 42141 02/24/2016 ([id number]) OFFICE/OUTPATIENT VISIT EST Diagnosis: Other seasonal allergic rhinitis[ICD10: J30.2] Reginanaresh Sagastume KAREN Kingsley JANICE [facility] CPT-4: 01048 11/30/2015 OFFICE/OUTPATIENT VISIT NEW Diagnosis: Mixed hyperlipidemia[ICD10: E78.2] Diagnosis: Gastro-esophageal reflux disease without esophagitis[ICD10: K21.9] Diagnosis: Allergic rhinitis due to pollen[ICD10: J30.1] Diagnosis: Obstructive sleep apnea (adult) (pediatric)[ICD10: G47.33] Karen Ileana TEJEDA DO [facility] CPT-4: 64473 11/10/2015 Plan of Care Planned Activity Notes Codes Status Date Visit Diagnosis Plan: Influenza A Discussion: Tamiflu Supportive card Notify if worsening No work for full 5 days from symptoms and fever free at least 24hrs ICD-9 : 487.1 ICD-10 : J10.1 04/21/2019 Patient Education: Tamiflu- [employer] Coupon [id number] https://www.[employer]tri[employer]/resources/getResource/61/[email or web address] Completed 04/21/2019 Visit Diagnosis Plan: Gastro-esophageal reflux disease without esophagitis Diet: GERD diet ICD-9 : 530.81 ICD-10 : K21.9 03/11/2019 Visit Diagnosis Plan: Epigastric pain Discussion: Baron ge omeprazole to pantoprazole 40mg po BID ICD-9 : 789.06 ICD-10 : R10.13 03/11/2019 Appointment: Karen Tejeda WPtel: [address] [place] [address] [place] FOLLOW UP 03/11/2019 Patient Education: pantoprazole- [employer] Coupon [phone] https://www.[employer]/resources/getResource/61/[email or web address] Completed 03/11/2019 Visit Diagnosis Plan: Insomnia Discussion: Stable on t razadone ICD-9 : 780.52 ICD-10 : G47.00 02/06/2019 Visit Diagnosis Plan: Stress reaction Discussion: Incr ease escitalopram to 10mg daily Follow Up: 3 months ICD-9 : 308.9 ICD-10 : F43.0 02/06/2019 Appointment: Karen Tejeda WPtel: [facility] [place] [address] [place] FOLLOW UP 02/06/2019 Patient Education: escitalopram oxalate- [employer] Co upon [id number] https://www.[employer]/resources/getResource/61/2q493n16-s7kj-162g-41 Completed 02/06/2019 Patient Education: trazodone- [employer] Coupon [id number] https://www.[employer]/sampleEVRGR/resources/getResource/61/e9d95cj2-b86y-0513-zc Completed 02/06/2019 Patient Education: escitalopram oxalate- [employer] Co upon [id number] https://www.[employer]/resources/getResource/61/85mk7145-3e6z-0swa-a0 Completed 02/06/2019 Visit Diagnosis Plan: Obstructive sleep [...] G47.00 01/02/2019 Appointment: Karen Tejeda [facility]el[facility] [phone] [facility] [facility] Visit 01/02/2019 Patient Education: trazodone- [employer] Coupon [id number] https://www.[employer]/resources/getResource/61/[email or web address]-m08r-53ng-zf Completed 01/02/2019 Patient Education: escitalopram oxalate- [employer] Co upon [id number] https://www.[employer]/sampleEVRGR/resources/getResource/61/1418012n-6633-005h-30 Completed 01/02/2019 Visit Diagnosis Plan: Encounter for [...] : K21.9 02/13/2018 Appointment: Karen Tejeda WPtel: [facility] [place] [facility] Well Visit 02/13/2018 Patient Education: Patient Medication Summary Completed 06/06/2017 Care Plan: MAMMOGRAM BOTH BREASTS LOINC : 29776-0 Pending 06/06/2017 Visit Diagnosis Plan: Acute sinusitis, [...] ICD-10 : J01.90 04/24/2017 Appointment: Jodie Tran [address] [place], [place] [id number] ACUTE ILLNESS 04/24/2017 Patient Education: Patient Medication Summary Completed 04/24/2017 Patient Education: Patient Medication Summary Completed 12/08/2016 Care Plan: COMPREHEN METABOLIC PANEL [place] : 03004-3 Pending 12/08/2016 Care Plan: ASSAY THYROID STIM HORMONE Pen ding 12/08/2016 Care Plan: LIPID PANEL LOINC : 62447-3 Pending 12/08/2016 Care Plan: CBC Pending 12/08/2016 [...] for yearly 02/24/2016 Appointment: Karen Tejeda WPtel: [address] [place] [address] 02/22 confirmed~sl PAP 02/24/2016 Patient Education: Patient Medication Summary Completed 02/24/2016 Visit Plan: Injection as above Rx for al legra-d Benadryl at HS Nasal rinses, steroid nasal sprays Mucinex Vicks, humidifier, vitamin C, rest, fluids Follow up PRN 11/30/2015 Appointment: Regina Sagastume [address] [place] [address] ACUTE ILLNESS 11/30/2015 Patient Education: Patient Medication Summary Completed 11/30/2015 Patient Education: [facility] - Saving AutoInj - 18-64 - Dynamic Maura l ID Completed 11/30/2015 Referral: Sunil Hatch WPtel: [address] [place] [address] Referral Appointment Confirmed 11/23/2015 Visit Plan: Needs [...] weight loss 11/10/2015 Appointment: Karen Tejeda WPtel: [address] [place] [address] [place] 11/08lm ~sl11/09 CONFIRMED~sl NEW PATIENT 11/09 [...]
--- OUTSIDE RECORDS SUMMARY | 2019-09-24 10:33 | XMS REPORT | CCD ---
Author Author Nadya Tejeda D.O. 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 Name Role Phone PP Unavailable CCM Unavailable Summary Purpose Interface Exchange Insurance Providers Payer name Policy type / Coverage type Covered republican ID Effective Begin Date Effective End Date [employer] Commercial Insurance [id number] Unknown Family history Sister Diagnosis Age At [...] Unknown 1 11/10/2015 Employment Unknown Currently employed [employer] 11/10/[address]: 416695705 Has never smoked or chewed tobacco 11/10/[address]: 962680394 Never drinks alcohol 2015 Has the patient [...] Instructions pantoprazole 40 mg tablet,delayed release RxNorm: 813000 1 Tablet(s) Oral two times a day replaces omeprazole 03/11/2019 05/10/2019 Active escitalopram 10 mg tablet RxNorm: 032324 1 Tablet(s) Oral QD re places 5mg dose 02/06/2019 08/05/2019 Active trazodone 50 mg tablet RxNorm: 967194 1-2 Tablet(s) Ora l QPM as needed for sleep 02/06/2019 03/07/2019 Inactive escitalopram 5 mg tablet RxNorm: 638809 1 Tablet(s) Oral QAM 201802/05/2019 Inactive trazodone 50 mg tablet RxNorm: 549142 1-2 Tablet(s) Ora l QPM as needed for sleep 01/02/2019 02/05/2019 Inactive omeprazole 20 mg capsule,delayed release RxNorm: 293094 1 Capsu le(s) PO QD 07/04/2018 12/30/2018 Inactive omeprazole 20 mg capsule,delayed release RxNorm: 051950 1 Capsu le(s) PO QD 04/03/2018 07/01/2018 Inactive omeprazole 20 mg capsule,delayed release RxNorm: 006742 1 Capsu le(s) PO QD 04/03/2018 01/01/2019 Inactive omeprazole 20 mg capsule,delayed release RxNorm: 325334 1 Capsu le(s) PO QD 12/05/2017 03/04/2018 Inactive omeprazole 20 mg capsule,delayed release RxNorm: 521698 1 Capsu le(s) PO QD 09/06/2017 04/03/2018 Inactive Augmentin 875 mg-125 mg tablet RxNorm: 906452 1 Tablet(s) PO BID 05/03/2017 Inactive omeprazole 20 mg capsule,delayed release RxNorm: 401230 1 Capsu le(s) PO QD 04/19/2017 08/16/2017 Inactive omeprazole 20 mg capsule,delayed release RxNorm: 491616 1 Capsule(s) PO QD replaces 40mg daily- due for refill 03/14/2017 04/19/2017 Inactive omeprazole 20 mg capsule,delayed release RxNorm: 346238 1 Capsule(s) PO QD replaces 40mg daily 11/30/2016 02/27/2017 Inactive omeprazole 20 mg capsule,delayed release RxNorm: 242558 1 Capsule(s) PO QD replaces 40mg daily 05/03/2016 10/29/2016 Inactive cetirizine 1 mg/mL oral solution RxNorm: 9698911 1.25 Mi lliliter(s) PO QHS for runny nose 02/24/2016 02/23/2016 Inactive Mary-D 12 Hour 60 mg-120 mg tablet,extended release RxNor m: 124677 1 Tablet(s) PO BID as needed 11/30/2015 No Stop Date Active omeprazole 20 mg capsule,delayed release RxNorm: 477700 1 Capsule(s) PO QD replaces 40mg daily 11/10/2015 03/08/2016 Inactive Mary Allergy 180 mg tablet RxNorm: 550059 1 Tablet(s) PO QD No Sta rt Date Active Aspirin Child 81 mg chewable tablet RxNorm: 088242 1 Tablet(s) PO QD No Start Date Active simvastatin 20 mg tablet RxNorm: 469910 1 Tablet(s) PO QD No Start Da te Active omeprazole 40 mg capsule,delayed release RxNorm: 098553 1 Capsu le(s) PO QD No Start Date 11/09/2015 Inactive Medication Administered No Medication Administered data Immunizations No Immunization data Results Observation Observation Code Item Item Code Result Date S ervice Location THYROID STIMULATING HORMONE 13353 TSH 3.245 uIU/mL 12/27/2018 Unknown GFR CALC 0099544 GFR Non Afr Amr >60 mL/min 12/27/2018 Un known GFR CALC [id number] GFR Afr Amr >60 mL/min 12/27/2018 Unknow n FREE T4 55943 T4 Free 0.88 ng/dL 12/27/2018 Unknown [facility] 66528 Cholesterol 157 mg/dL 12/27/2018 Unkno wn [facility] 99375 Triglyceride 44 mg/dL 12/27/2018 Unkn own [facility] 98648 HDL CHOLESTEROL 61 mg/dL 12/27/2018 U nknown [facility] 27591 Chol/HDL Ratio 2.57 ratio 12/27/2018 U nknown [facility] 52277 NON-HDL Chol 96 mg/dL 12/27/2018 Unkn own [facility] 98595 LDL Cholesterol 87 mg/dL 12/27/2018 U nknown COMPREHENSIVE METABOLIC 15340 AST 19 U/L 2018 Unknown COMPREHENSIVE METABOLIC 41383 ALT 13 U/L 2018 Unknown COMPREHENSIVE METABOLIC 67891 BUN 22 mg/dL 2018 Unknown COMPREHENSIVE METABOLIC 43295 ALBUMIN 4.2 g/dL 2018 Unknown COMPREHENSIVE METABOLIC 72666 CHLORIDE 103 mmol/L 12/27 Unknown COMPREHENSIVE METABOLIC 18759 Bili Total 0.5 mg/dL 12/27 Unknown COMPREHENSIVE METABOLIC 15957 ALK PHOS 101 U/L 2018 Unknown COMPREHENSIVE METABOLIC 58215 SODIUM 141 mmol/L 12/27 Unknown COMPREHENSIVE METABOLIC 58816 CREATININE 0.76 mg/dL 12/04 Unknown COMPREHENSIVE METABOLIC 38254 CALCIUM 9.3 mg/dL 2018 Unknown COMPREHENSIVE METABOLIC 85626 POTASSIUM 3.6 mmol/L 12/27 Unknown COMPREHENSIVE METABOLIC 86125 Total Protein 7.4 g/dL Unknown COMPREHENSIVE METABOLIC 20225 Glucose 86 mg/dL 2018 Unknown COMPREHENSIVE METABOLIC 48727 Bicarbonate 31 mmol/L 12/04 Unknown COMPREHENSIVE METABOLIC 70309 AGAP 7 mmol/L 2018 Unknown COMPLETE BLOOD COUNT [id number] WBC 4.2 10e9/L 12/28/19 19 Unknown COMPLETE BLOOD COUNT [id number] RBC 4.55 10e12/L 2018 Unknown COMPLETE BLOOD COUNT [id number] HEMOGLOBIN 13.7 g/dL 12/28/19 19 Unknown COMPLETE BLOOD COUNT 4298660 HEMATOCRIT 42.4 % 12/28/19 19 Unknown COMPLETE BLOOD COUNT 3859054 MCV 93.2 fL 9 Unknown COMPLETE BLOOD COUNT 8421815 MCH 30.1 pg 9 Unknown COMPLETE BLOOD COUNT 1238146 MCHC 32.3 g/dL 9 Unknown COMPLETE BLOOD COUNT 0143762 PLATELET COUNT 272 10e9/L Unknown COMPLETE BLOOD COUNT 7844154 Mean Plt Volume 8.9 fL Unknown COMPLETE BLOOD COUNT 1497805 Neut Auto 50.9 % 9 Unknown COMPLETE BLOOD COUNT 4509135 Lymph Auto 35.1 % 12/28/19 19 Unknown COMPLETE BLOOD COUNT 0969764 Josephine Auto 9.6 % 9 Unknown COMPLETE BLOOD COUNT 1662184 RDW 12.7 % 9 Unknown COMPLETE BLOOD COUNT 3898959 Eos Auto 4.2 % 9 Unknown COMPLETE BLOOD COUNT 4557589 Baso Auto 0.2 % 9 Unknown COMPLETE BLOOD COUNT 7327109 Neutrophil Abs 2.14 10e9/L Unknown COMPLETE BLOOD COUNT 0544676 Lymphocyte Abs 1.47 10e9/L Unknown COMPLETE BLOOD COUNT [id number] Monocyte Abs 0.40 10e9/L 12/04 Unknown COMPLETE BLOOD COUNT 2368867 Eosinophil Abs 0.18 10e9/L Unknown COMPLETE BLOOD COUNT 7934006 RDW-SD 42.1 fL 9 Unknown COMPLETE BLOOD COUNT [id number] Basophil Abs 0.01 10e9/L 12/04 Unknown GFR CALC 2149824 GFR Non Afr Amr >60 mL/min 12/21/2016 Un known GFR CALC 6559129 GFR Afr Amr >60 mL/min 12/21/2016 Unknow n COMPLETE BLOOD COUNT 7900410 WBC 3.6 10e9/L 12/22/19 17 Unknown COMPLETE BLOOD COUNT 9908649 RBC 4.57 10e12/L 2016 Unknown COMPLETE BLOOD COUNT 1385424 HEMOGLOBIN 13.8 g/dL 12/22/19 17 Unknown COMPLETE BLOOD COUNT 6901118 HEMATOCRIT 42.4 % 12/22/19 17 Unknown COMPLETE BLOOD COUNT 4656944 MCV 92.8 fL 7 Unknown COMPLETE BLOOD COUNT 2652060 MCH 30.2 pg 7 Unknown COMPLETE BLOOD COUNT 6260296 MCHC 32.5 g/dL 7 Unknown COMPLETE BLOOD COUNT 0353317 PLATELET COUNT 225 10e9/L Unknown COMPLETE BLOOD COUNT 6053113 Mean Plt Volume 9.0 fL Unknown COMPLETE BLOOD COUNT 5740715 Neut Auto 45.6 % 7 Unknown COMPLETE BLOOD COUNT 6125650 Lymph Auto 37.3 % 12/22/19 17 Unknown COMPLETE BLOOD COUNT 5844461 Josephine Auto 11.0 % 7 Unknown COMPLETE BLOOD COUNT 8279292 RDW 12.6 % 7 Unknown COMPLETE BLOOD COUNT 0078767 Eos Auto 5.5 % 7 Unknown COMPLETE BLOOD COUNT 0487754 Baso Auto 0.6 % 7 Unknown COMPLETE BLOOD COUNT 9410757 Neutrophil Abs 1.64 10e9/L Unknown COMPLETE BLOOD COUNT 5854061 Lymphocyte Abs 1.34 10e9/L Unknown COMPLETE BLOOD COUNT 8712970 Monocyte Abs 0.40 10e9/L 12/03 Unknown COMPLETE BLOOD COUNT 8250956 Eosinophil Abs 0.20 10e9/L Unknown COMPLETE BLOOD COUNT 4874536 RDW-SD 42.0 fL 7 Unknown COMPLETE BLOOD COUNT 3906932 Basophil Abs 0.02 10e9/L 12/03 Unknown THYROID STIMULATING HORMONE 80571 TSH 3.423 uIU/mL 12/21/2016 Unknown COMPREHENSIVE METABOLIC 23797 AST 23 U/L 2016 Unknown COMPREHENSIVE METABOLIC 03825 ALT 18 U/L 2016 Unknown COMPREHENSIVE METABOLIC 18047 BUN 21 mg/dL 2016 Unknown COMPREHENSIVE METABOLIC 61287 ALBUMIN 4.4 g/dL 2016 Unknown COMPREHENSIVE METABOLIC 66017 CHLORIDE 103 mmol/L 12/21 Unknown COMPREHENSIVE METABOLIC 66210 Bili Total 0.7 mg/dL 12/21 Unknown COMPREHENSIVE METABOLIC 44163 ALK PHOS 86 U/L 2016 Unknown COMPREHENSIVE METABOLIC 05314 SODIUM 141 mmol/L 12/21 Unknown COMPREHENSIVE METABOLIC 23772 CREATININE 0.75 mg/dL 12/03 Unknown COMPREHENSIVE METABOLIC 29539 CALCIUM 9.2 mg/dL 2016 Unknown COMPREHENSIVE METABOLIC 45296 POTASSIUM 3.8 mmol/L 12/21 Unknown COMPREHENSIVE METABOLIC 99793 Total Protein 7.3 g/dL Unknown COMPREHENSIVE METABOLIC 00065 Glucose 95 mg/dL 2016 Unknown COMPREHENSIVE METABOLIC 21175 Bicarbonate 32 mmol/L 12/03 Unknown COMPREHENSIVE METABOLIC 78469 AGAP 6 mmol/L 2016 Unknown LIPID GROUP 47045 Cholesterol 154 mg/dL 12/21/2016 Unkno wn LIPID GROUP 06228 Triglyceride 51 mg/dL 12/21/2016 Unkn own LIPID GROUP 72020 HDL CHOLESTEROL 61 mg/dL 12/21/2016 U nknown LIPID GROUP 94049 Chol/HDL Ratio 2.52 ratio 12/21/2016 U nknown LIPID GROUP 83919 NON-HDL Chol 93 mg/dL 12/21/2016 Unkn own LIPID GROUP 07688 LDL Cholesterol 83 mg/dL 12/21/2016 U nknown Procedures Procedure Codes Date INFLUENZA ASSAY W/OPTIC CPT-4: 29640 04/24/2017 SPECIMEN HANDLING OFFICE-LAB CPT-4: 94664 02/24/2016 THER/PROPH/DIAG INJ SC/IM CPT-4: 47320 11/30/2015 TRIAMCINOLONE ACET INJ NOS CPT-4: J3301 11/30/2015 DEXAMETHASONE SODIUM PHOS CPT-4: J1100 11/30/2015 Vital Signs Date Vital 03/11/2019 Blood Pressure 1: 130/68 Code: 8480-6 [...] 1: 124/72 Code: 8480-6 BMI: 35.1 Code: 24700-8 Heart Rate 1: 64 bpm Height: 5'6" Respiratory Rate: 18 bpm SpO2: 96% Tempera ture: 36.8 (C) / 98.2 (F) Weight: 221 lbs 02/13/2018 Blood Pressure 1: 138/82 Code: 8480-6 BMI: 34.5 Code: 38655-8 Heart Rate 1: 68 bpm Height: 5'7" Respiratory Rate: 18 bpm SpO2: 97% Tempera ture: 36.8 (C) / 98.2 (F) Weight: 220 lbs 04/24/2017 Blood Pressure 1: 126/78 Code: 8480-6 BMI: 35.4 Code: 55515-5 Heart Rate 1: 84 bpm Height: 5'7" Respiratory Rate: 22 bpm SpO2: 95% Tempera ture: 36.9 (C) / 98.4 (F) Weight: 226 lbs 02/24/2016 Blood Pressure 1: 128/78 Code: 8480-6 BMI: 35.6 Code: 59820-8 Heart Rate 1: 68 bpm Height: 5'7" Respiratory Rate: 20 bpm SpO2: 97% Tempera ture: 36.7 (C) / 98.1 (F) Weight: 227 lbs 11/30/2015 Blood Pressure 1: 128/78 Code: 8480-6 BMI: 36.0 Code: 97291-3 Heart Rate 1: 76 bpm Height: 5'7" Respiratory Rate: 20 bpm SpO2: 97% Tempera ture: 37.1 (C) / 98.7 (F) Weight: 230 lbs 11/10/2015 Blood Pressure 1: 136/82 Code: 8480-6 BMI: 36.0 Code: 18846-0 Heart Rate 1: 80 bpm Height: 5'7" Respiratory Rate: 20 bpm Temperature: 36 .6 (C) / 97.9 (F) Weight: 230 lbs Functional Status No Functional Status data Reason For Visit Reason For Visit Effective Dates Notes follow up 03/11/2019 ER fwup insomnia 02/06/2019 well woman exam (40-65 years) 01/02/2019 Annual Wel lness, last normal mammogram 5-7-19 well woman exam (40-65 years) 02/13/2018 Last nikko l mammogram 5-3-18 postnasal drip 04/24/2017 well woman exam (40-65 years) 02/24/2016 Last nikko l mammogram June 2015 sinus congestion 11/30/2015 ~generic 11/10/2015 New Patient---establ ishing visit Encounters Encounter Performer Location Codes Date (75417) OFFICE/OUTPATIENT VISIT EST Diagnosis: Epigastric pain[ICD10: R10.13] Diagnosis: Gastro-esophageal reflux disease without esophagitis[ICD10: K21.9] Karen JONES [employer] CPT-4: 06696 03/11/2019 ([id number]) OFFICE/OUTPATIENT VISIT EST Diagnosis: Stress reaction[ICD10: F43.0] Diagnosis: Insomnia[ICD10: G47.00] Karen JONES [employer] CPT-4: 25578 02/06/2019 ([id number]) PREV VISIT EST AGE 40-64 Diagnosis: Encounter for general adult medical examination without abnormal findings[ICD10: Z00.00] Diagnosis: Obstructive sleep apnea (adult) (pediatric)[ICD10: G47.33] Diagnosis: Stress reaction[ICD10: F43.0] Diagnosis: URI, ACUTE[ICD10: J06.9] Diagnosis: Insomnia[ICD10: G47.00] Karen JONES [employer] CPT-4: 05287 01/02/2019 ([id number]) PREV VISIT EST AGE 40-64 Diagnosis: Encounter for general adult medical examination without abnormal findings[ICD10: Z00.00] Diagnosis: Gastro-esophageal reflux disease without esophagitis[ICD10: K21.9] Diagnosis: Obstructive sleep apnea (adult) (pediatric)[ICD10: G47.33] Diagnosis: Mixed hyperlipidemia[ICD10: E78.2] Diagnosis: Dizziness and giddiness[ICD10: R42] Karen STANLEY [employer] CPT-4: 41144 02/13/2018 OFFICE/OUTPATIENT VISIT EST Diagnosis: Acute sinusitis, unspecified[ICD10: J01.90] Diagnosis: Viral infection, unspecified[ICD10: B34.9] Jodie TEJEDA [facility] CPT-4: 69009 04/24/2017 ([id number]) PREV VISIT EST AGE 40-64 Diagnosis: Encounter for general adult medical examination without abnormal findings[ICD10: Z00.00] Diagnosis: Encounter for gynecological examination (general) (routine) without abnormal findings[ICD10: Z01.419] Diagnosis: URI, ACUTE[ICD10: J06.9] Karen CEDEÑOLINE Teetee GODOY [facility] CPT-4: 49139 02/24/2016 ([id number]) OFFICE/OUTPATIENT VISIT EST Diagnosis: Other seasonal allergic rhinitis[ICD10: J30.2] Regina CEDEÑOLINE Teetee [facility] CPT-4: 13150 11/30/2015 OFFICE/OUTPATIENT VISIT NEW Diagnosis: Mixed hyperlipidemia[ICD10: E78.2] Diagnosis: Gastro-esophageal reflux disease without esophagitis[ICD10: K21.9] Diagnosis: Allergic rhinitis due to pollen[ICD10: J30.1] Diagnosis: Obstructive sleep apnea (adult) (pediatric)[ICD10: G47.33] Karen [facility] CPT-4: 32557 11/10/2015 Plan of Care Planned Activity Notes Codes Status Date Visit Diagnosis Plan: Epigastric pain Discussion: Baron ge omeprazole to pantoprazole 40mg po BID ICD-9 : 789.06 ICD-10 : R10.13 03/11/2019 Visit Diagnosis Plan: Gastro-esophageal reflux disease without esophagitis Diet: GERD diet ICD-9 : 530.81 ICD-10 : K21.9 03/11/2019 Patient Education: pantoprazole- [employer] Coupon [id number] [id number] https://www.[employer]/resources/getResource/61/[email or web address]-w1 Completed 03/11/2019 Visit Diagnosis Plan: Insomnia Discussion: Stable on t razadone ICD-9 : 780.52 ICD-10 : G47.00 02/06/2019 Visit Diagnosis Plan: Stress reaction Discussion: Incr ease escitalopram to 10mg daily Follow Up: 3 months ICD-9 : 308.9 ICD-10 : F43.0 02/06/2019 Appointment: Karen Tejeda WPtel: [id number] FOLLOW UP 02/06/2019 Patient Education: escitalopram oxalate- [employer] Co upon [id number] https://www.[employer]Party/resources/getResource/61/2v660x84-y1mb-664c-07 Completed 02/06/2019 Patient Education: trazodone- [employer] Coupon [id number] https://www.[employer]/[place]/resources/getResource/61/a2p25dk8-d03o-7638-ed Completed 02/06/2019 Patient Education: escitalopram oxalate- [employer] Co upon [id number] https://www.[employer]/resources/getResource/61/35he7750-2i4g-6vzg-v8 Completed 02/06/2019 Visit Diagnosis Plan: Obstructive sleep apnea (adult) (pediatric) Discussion: Retry CPAP once sleeping pills helping ICD-9 : 327.23 ICD-10 : G47.33 01/02/2019 Visit Diagnosis Plan: Encounter for [facility] adult medical examination without abnormal findings Discussion: Mediterranean diet Combinati on of cardio and weight bearing exercise Defers flu shot Fasting lab discussed ICD-9 : V70.9 ICD-10 : Z00.00 01/02/2019 Visit Diagnosis Plan: Stress reaction Discussion: [place] pro 5mg po q AM Follow Up: 1 months ICD-9 : 308.9 ICD-10 : F43.0 01/02/2019 Visit Diagnosis Plan: URI, ACUTE Discussion: Supportiv e care Restart mary daily ICD-9 : 465.9 ICD-10 : J06.9 01/02/2019 Visit Diagnosis Plan: Insomnia Discussion: Trial of tr azadone 50mg 1-2 po q HS prn sleep ICD-9 : 780.52 ICD-10 : G47.00 01/02/2019 Appointment: Karen Tejead [facility]el[facility] [phone] [id number] [facility] Visit 01/02/2019 Patient Education: trazodone- [employer] Coupon [id number] https://www.[employer]/resources/getResource/61/2e0e37x8-v05h-65cj-nt Completed 01/02/2019 Patient Education: escitalopram oxalate- [employer] Co upon [id number] https://www.[employer]/resources/getResource/61/1956038w-6155-249n-53 Completed 01/02/2019 Visit Diagnosis Plan: Gastro-esophageal reflux disease without esophagitis Discussion: Stable on omeprazole ICD-9 : 530.81 ICD-10 : K21.9 02/13/2018 Visit Diagnosis Plan: Encounter for [facility] adult medical examination without abnormal findings Discussion: Mammo up to date Defers flu shot Mediterranean diet Recommend add weght bearing exercise Update fasting lab Had Mammogram in July Colonoscopy up to date ICD-9 : V70.9 ICD-10 : Z00.00 02/13/2018 Visit Diagnosis Plan: Dizziness and giddiness Discussi on: Discussed may be BP or BS related Will await lab results ICD-9 : 780.4 ICD-10 : R42 02/13/2018 Visit Diagnosis Plan: Obstructive sleep apnea (adult) (pediatric) Discussion: Discussed importance of using this routinely ICD-9 : 327.23 ICD-10 : G47.33 02/13/2018 Appointment: Karen Tejeda WPtel: [facility] [facility] Well Visit 02/13/2018 Patient Education: Patient Medication Summary Completed 06/06/2017 Care Plan: MAMMOGRAM BOTH BREASTS LOINC : 84280-0 Pending 06/06/2017 Visit Diagnosis Plan: Acute sinusitis, [...] : J01.90 04/24/2017 Appointment: Jodie Tran [address] ACUTE ILLNESS 04/24/2017 Patient Education: Patient Medication Summary Completed 04/24/2017 Patient Education: Patient Medication Summary Completed 12/08/2016 Care Plan: COMPREHEN METABOL[place] : 66150-4 Pending 12/08/2016 Care Plan: ASSAY THYROID STIM HORMONE Pen ding 12/08/2016 Care Plan: LIPID PANEL LOINC : 67787-1 Pending 12/08/2016 Care Plan: CBC Pending 12/08/2016 [...] for yearly 02/24/2016 Appointment: Karen Tejeda WPtel: [phone] [place] [address] 02/22 confirmed~sl PAP 02/24/2016 Patient Education: Patient Medication Summary Completed 02/24/2016 Visit Plan: Injection as above Rx for al legra-d Benadryl at HS Nasal rinses, steroid nasal sprays Mucinex Vicks, humidifier, vitamin C, rest, fluids Follow up PRN 11/30/2015 Appointment: Regina Sagastume [phone] ACUTE ILLNESS 11/30/2015 Patient Education: Patient Medication Summary Completed 11/30/2015 Patient Education: [facility] - Saving AutoInj - 18-64 - Dynamic Maura l ID Completed 11/30/2015 Referral: Sunil Hatch WPtel: [phone] [address] [place] Referral Appointment Confirmed 11/23/2015 Visit Plan: [...] weight loss 11/10/2015 Appointment: Karen Tejeda WPtel: [phone] [id number] [place] 11/08lm ~sl11/09 CONFIRMED~sl NEW PATIENT 11/09 Patient Education: Patient Medication Summary Completed 11/10/2015 Patient Education: [facility] - Saving AutoInj - 18-64 - [...]
--- OUTSIDE RECORDS SUMMARY | 2019-09-24 10:33 | XMS REPORT | CCD ---
Author Author Nadya Tejeda D.O. Organization [facility] Address [address] [place] [address] Phone Care Team Providers Care Rn Immunology Name Role Phone PP Unavailable CCM Unavailable Summary Purpose Interface Exchange Insurance Providers Payer name Policy type / Coverage type Covered constitution party ID Effective Begin Date Effective End Date [employer] Commercial Insurance [id number] Unknown Family history Sister Diagnosis Age At [...] Unknown 1 11/10/2015 Employment Unknown Currently employed [employer] 11/10/[address]: 112623656 Has never smoked or chewed tobacco 11/10/[address]: 597897145 Never drinks alcohol 2015 Has the patient [...] Instructions pantoprazole 40 mg tablet,delayed release RxNorm: 357130 1 Tablet(s) Oral two times a day replaces omeprazole 03/11/2019 05/10/2019 Active escitalopram 10 mg tablet RxNorm: 157223 1 Tablet(s) Oral QD re places 5mg dose 02/06/2019 08/05/2019 Active trazodone 50 mg tablet RxNorm: 758761 1-2 Tablet(s) Ora l QPM as needed for sleep 02/06/2019 03/07/2019 Inactive escitalopram 5 mg tablet RxNorm: 412890 1 Tablet(s) Oral QAM 201802/05/2019 Inactive trazodone 50 mg tablet RxNorm: 143460 1-2 Tablet(s) Ora l QPM as needed for sleep 01/02/2019 02/05/2019 Inactive omeprazole 20 mg capsule,delayed release RxNorm: 049158 1 Capsu le(s) PO QD 07/04/2018 12/30/2018 Inactive omeprazole 20 mg capsule,delayed release RxNorm: 392024 1 Capsu le(s) PO QD 04/03/2018 07/01/2018 Inactive omeprazole 20 mg capsule,delayed release RxNorm: 918746 1 Capsu le(s) PO QD 04/03/2018 01/01/2019 Inactive omeprazole 20 mg capsule,delayed release RxNorm: 435277 1 Capsu le(s) PO QD 12/05/2017 03/04/2018 Inactive omeprazole 20 mg capsule,delayed release RxNorm: 188479 1 Capsu le(s) PO QD 09/06/2017 04/03/2018 Inactive Augmentin 875 mg-125 mg tablet RxNorm: 867697 1 Tablet(s) PO BID 05/03/2017 Inactive omeprazole 20 mg capsule,delayed release RxNorm: 232889 1 Capsu le(s) PO QD 04/19/2017 08/16/2017 Inactive omeprazole 20 mg capsule,delayed release RxNorm: 015502 1 Capsule(s) PO QD replaces 40mg daily- due for refill 03/14/2017 04/19/2017 Inactive omeprazole 20 mg capsule,delayed release RxNorm: 347088 1 Capsule(s) PO QD replaces 40mg daily 11/30/2016 02/27/2017 Inactive omeprazole 20 mg capsule,delayed release RxNorm: 935169 1 Capsule(s) PO QD replaces 40mg daily 05/03/2016 10/29/2016 Inactive cetirizine 1 mg/mL oral solution RxNorm: 4424118 1.25 Mi lliliter(s) PO QHS for runny nose 02/24/2016 02/23/2016 Inactive Mary-D 12 Hour 60 mg-120 mg tablet,extended release RxNor m: 116554 1 Tablet(s) PO BID as needed 11/30/2015 No Stop Date Active omeprazole 20 mg capsule,delayed release RxNorm: 894420 1 Capsule(s) PO QD replaces 40mg daily 11/10/2015 03/08/2016 Inactive Mary Allergy 180 mg tablet RxNorm: 101037 1 Tablet(s) PO QD No Sta rt Date Active Aspirin Child 81 mg chewable tablet RxNorm: 657178 1 Tablet(s) PO QD No Start Date Active simvastatin 20 mg tablet RxNorm: 884794 1 Tablet(s) PO QD No Start Da te Active omeprazole 40 mg capsule,delayed release RxNorm: 937190 1 Capsu le(s) PO QD No Start Date 11/09/2015 Inactive Medication Administered No Medication Administered data Immunizations No Immunization data Results Observation Observation Code Item Item Code Result Date S ervice Location THYROID STIMULATING HORMONE 08113 TSH 3.245 uIU/mL 12/27/2018 Unknown GFR CALC 1495477 GFR Non Afr Amr >60 mL/min 12/27/2018 Un known GFR CALC [id number] GFR Afr Amr >60 mL/min 12/27/2018 Unknow n FREE T4 22440 T4 Free 0.88 ng/dL 12/27/2018 Unknown [facility] 12371 Cholesterol 157 mg/dL 12/27/2018 Unkno wn [facility] 04093 Triglyceride 44 mg/dL 12/27/2018 Unkn own [facility] 81873 HDL CHOLESTEROL 61 mg/dL 12/27/2018 U nknown [facility] 52702 Chol/HDL Ratio 2.57 ratio 12/27/2018 U nknown [facility] 21921 NON-HDL Chol 96 mg/dL 12/27/2018 Unkn own [facility] 75583 LDL Cholesterol 87 mg/dL 12/27/2018 U nknown COMPREHENSIVE METABOLIC 61660 AST 19 U/L 2018 Unknown COMPREHENSIVE METABOLIC 82048 ALT 13 U/L 2018 Unknown COMPREHENSIVE METABOLIC 83716 BUN 22 mg/dL 2018 Unknown COMPREHENSIVE METABOLIC 31449 ALBUMIN 4.2 g/dL 2018 Unknown COMPREHENSIVE METABOLIC 64799 CHLORIDE 103 mmol/L 12/27 Unknown COMPREHENSIVE METABOLIC 23318 Bili Total 0.5 mg/dL 12/27 Unknown COMPREHENSIVE METABOLIC 42487 ALK PHOS 101 U/L 2018 Unknown COMPREHENSIVE METABOLIC 34229 SODIUM 141 mmol/L 12/27 Unknown COMPREHENSIVE METABOLIC 98349 CREATININE 0.76 mg/dL 12/04 Unknown COMPREHENSIVE METABOLIC 58163 CALCIUM 9.3 mg/dL 2018 Unknown COMPREHENSIVE METABOLIC 74245 POTASSIUM 3.6 mmol/L 12/27 Unknown COMPREHENSIVE METABOLIC 05280 Total Protein 7.4 g/dL Unknown COMPREHENSIVE METABOLIC 42677 Glucose 86 mg/dL 2018 Unknown COMPREHENSIVE METABOLIC 15547 Bicarbonate 31 mmol/L 12/04 Unknown COMPREHENSIVE METABOLIC 14404 AGAP 7 mmol/L 2018 Unknown COMPLETE BLOOD COUNT 1148141 WBC 4.2 10e9/L 12/28/19 19 Unknown COMPLETE BLOOD COUNT 1466024 RBC 4.55 10e12/L 2018 Unknown COMPLETE BLOOD COUNT 4247640 HEMOGLOBIN 13.7 g/dL 12/28/19 19 Unknown COMPLETE BLOOD COUNT 0103617 HEMATOCRIT 42.4 % 12/28/19 19 Unknown COMPLETE BLOOD COUNT [id number] MCV 93.2 fL 9 Unknown COMPLETE BLOOD COUNT 1046539 MCH 30.1 pg 9 Unknown COMPLETE BLOOD COUNT 8416843 MCHC 32.3 g/dL 9 Unknown COMPLETE BLOOD COUNT 9990376 PLATELET COUNT 272 10e9/L Unknown COMPLETE BLOOD COUNT 2435199 Mean Plt Volume 8.9 fL Unknown COMPLETE BLOOD COUNT 5838448 Neut Auto 50.9 % 9 Unknown COMPLETE BLOOD COUNT 4488186 Lymph Auto 35.1 % 12/28/19 19 Unknown COMPLETE BLOOD COUNT 6723606 [place] Auto 9.6 % 9 Unknown COMPLETE BLOOD COUNT 3588302 RDW 12.7 % 9 Unknown COMPLETE BLOOD COUNT 2462759 Eos Auto 4.2 % 9 Unknown COMPLETE BLOOD COUNT 2362846 Baso Auto 0.2 % 9 Unknown COMPLETE BLOOD COUNT 5362909 Neutrophil Abs 2.14 10e9/L Unknown COMPLETE BLOOD COUNT [id number] Lymphocyte Abs 1.47 10e9/L Unknown COMPLETE BLOOD COUNT 5532789 Monocyte Abs 0.40 10e9/L 12/04 Unknown COMPLETE BLOOD COUNT 6480666 Eosinophil Abs 0.18 10e9/L Unknown COMPLETE BLOOD COUNT 5771353 RDW-SD 42.1 fL 9 Unknown COMPLETE BLOOD COUNT 6430018 Basophil Abs 0.01 10e9/L 12/04 Unknown GFR CALC 4888564 GFR Non Afr Amr >60 mL/min 12/21/2016 Un known GFR CALC 1935793 GFR Afr Amr >60 mL/min 12/21/2016 Unknow n COMPLETE BLOOD COUNT 5671599 WBC 3.6 10e9/L 12/22/19 17 Unknown COMPLETE BLOOD COUNT 2463996 RBC 4.57 10e12/L 2016 Unknown COMPLETE BLOOD COUNT [id number] HEMOGLOBIN 13.8 g/dL 12/22/19 17 Unknown COMPLETE BLOOD COUNT 5394795 HEMATOCRIT 42.4 % 12/22/19 17 Unknown COMPLETE BLOOD COUNT 0622836 MCV 92.8 fL 7 Unknown COMPLETE BLOOD COUNT 6711397 MCH 30.2 pg 7 Unknown COMPLETE BLOOD COUNT 1717134 MCHC 32.5 g/dL 7 Unknown COMPLETE BLOOD COUNT 4956826 PLATELET COUNT 225 10e9/L Unknown COMPLETE BLOOD COUNT 2283585 Mean Plt Volume 9.0 fL Unknown COMPLETE BLOOD COUNT 0038866 Neut Auto 45.6 % 7 Unknown COMPLETE BLOOD COUNT 1600301 Lymph Auto 37.3 % 12/22/19 17 Unknown COMPLETE BLOOD COUNT 0158852 [place] Auto 11.0 % 7 Unknown COMPLETE BLOOD COUNT 2036227 RDW 12.6 % 7 Unknown COMPLETE BLOOD COUNT 2354278 Eos Auto 5.5 % 7 Unknown COMPLETE BLOOD COUNT 4438049 Baso Auto 0.6 % 7 Unknown COMPLETE BLOOD COUNT 1106031 Neutrophil Abs 1.64 10e9/L Unknown COMPLETE BLOOD COUNT 7992888 Lymphocyte Abs 1.34 10e9/L Unknown COMPLETE BLOOD COUNT 6183037 Monocyte Abs 0.40 10e9/L 12/03 Unknown COMPLETE BLOOD COUNT 9746652 Eosinophil Abs 0.20 10e9/L Unknown COMPLETE BLOOD COUNT 0193904 RDW-SD 42.0 fL 7 Unknown COMPLETE BLOOD COUNT 8078561 Basophil Abs 0.02 10e9/L 12/03 Unknown THYROID STIMULATING HORMONE 76550 TSH 3.423 uIU/mL 12/21/2016 Unknown COMPREHENSIVE METABOLIC 19661 AST 23 U/L 2016 Unknown COMPREHENSIVE METABOLIC 93905 ALT 18 U/L 2016 Unknown COMPREHENSIVE METABOLIC 61803 BUN 21 mg/dL 2016 Unknown COMPREHENSIVE METABOLIC 33791 ALBUMIN 4.4 g/dL 2016 Unknown COMPREHENSIVE METABOLIC 44562 CHLORIDE 103 mmol/L 12/21 Unknown COMPREHENSIVE METABOLIC 87684 Bili Total 0.7 mg/dL 12/21 Unknown COMPREHENSIVE METABOLIC 91919 ALK PHOS 86 U/L 2016 Unknown COMPREHENSIVE METABOLIC 07733 SODIUM 141 mmol/L 12/21 Unknown COMPREHENSIVE METABOLIC 90989 CREATININE 0.75 mg/dL 12/03 Unknown COMPREHENSIVE METABOLIC 09420 CALCIUM 9.2 mg/dL 2016 Unknown COMPREHENSIVE METABOLIC 84417 POTASSIUM 3.8 mmol/L 12/21 Unknown COMPREHENSIVE METABOLIC 20921 Total Protein 7.3 g/dL Unknown COMPREHENSIVE METABOLIC 08165 Glucose 95 mg/dL 2016 Unknown COMPREHENSIVE METABOLIC 81936 Bicarbonate 32 mmol/L 12/03 Unknown COMPREHENSIVE METABOLIC 33884 AGAP 6 mmol/L 2016 Unknown LIPID GROUP 48946 Cholesterol 154 mg/dL 12/21/2016 Unkno wn LIPID GROUP 02911 Triglyceride 51 mg/dL 12/21/2016 Unkn own LIPID GROUP 93808 HDL CHOLESTEROL 61 mg/dL 12/21/2016 U nknown LIPID GROUP 78512 Chol/HDL Ratio 2.52 ratio 12/21/2016 U nknown LIPID GROUP 21930 NON-HDL Chol 93 mg/dL 12/21/2016 Unkn own LIPID GROUP 09768 LDL Cholesterol 83 mg/dL 12/21/2016 U nknown Procedures Procedure Codes Date INFLUENZA ASSAY W/OPTIC CPT-4: 10825 04/24/2017 SPECIMEN HANDLING OFFICE-LAB CPT-4: 40257 02/24/2016 THER/PROPH/DIAG INJ SC/IM CPT-4: 07591 11/30/2015 TRIAMCINOLONE ACET INJ NOS CPT-4: J3301 [...] 1: 124/72 Code: 8480-6 BMI: 35.1 Code: 11039-0 Heart Rate 1: 64 bpm Height: 5'6" Respiratory Rate: 18 bpm SpO2: 96% Tempera ture: 36.8 (C) / 98.2 (F) Weight: 221 lbs 02/13/2018 Blood Pressure 1: 138/82 Code: 8480-6 BMI: 34.5 Code: 40574-2 Heart Rate 1: 68 bpm Height: 5'7" Respiratory Rate: 18 bpm SpO2: 97% Tempera ture: 36.8 (C) / 98.2 (F) Weight: 220 lbs 04/24/2017 Blood Pressure 1: 126/78 Code: 8480-6 BMI: 35.4 Code: 44080-8 Heart Rate 1: 84 bpm Height: 5'7" Respiratory Rate: 22 bpm SpO2: 95% Tempera ture: 36.9 (C) / 98.4 (F) Weight: 226 lbs 02/24/2016 Blood Pressure 1: 128/78 Code: 8480-6 BMI: 35.6 Code: 70190-0 Heart Rate 1: 68 bpm Height: 5'7" Respiratory Rate: 20 bpm SpO2: 97% Tempera ture: 36.7 (C) / 98.1 (F) Weight: 227 lbs 11/30/2015 Blood Pressure 1: 128/78 Code: 8480-6 BMI: 36.0 Code: 81097-4 Heart Rate 1: 76 bpm Height: 5'7" Respiratory Rate: 20 bpm SpO2: 97% Tempera ture: 37.1 (C) / 98.7 (F) Weight: 230 lbs 11/10/2015 Blood Pressure 1: 136/82 Code: 8480-6 BMI: 36.0 Code: 74892-7 Heart Rate 1: 80 bpm Height: 5'7" [...] visit Encounters Encounter Performer Location Codes Date ([id number]) OFFICE/OUTPATIENT VISIT EST Diagnosis: Epigastric pain[ICD10: R10.13] Diagnosis: Gastro-esophageal reflux disease without esophagitis[ICD10: K21.9] Karen JONES [employer] CPT-4: 11487 03/11/2019 ([id number]) OFFICE/OUTPATIENT VISIT EST Diagnosis: Stress reaction[ICD10: F43.0] Diagnosis: Insomnia[ICD10: G47.00] Karen JONES [employer] CPT-4: 22496 02/06/2019 ([id number]) PREV VISIT EST AGE 40-64 Diagnosis: Encounter for general adult medical examination without abnormal findings[ICD10: Z00.00] Diagnosis: Obstructive sleep apnea (adult) (pediatric)[ICD10: G47.33] Diagnosis: Stress reaction[ICD10: F43.0] Diagnosis: URI, ACUTE[ICD10: J06.9] Diagnosis: Insomnia[ICD10: G47.00] Karen JONES [employer] CPT-4: 13034 01/02/2019 ([id number]) PREV VISIT EST AGE 40-64 Diagnosis: Encounter for general adult medical examination without abnormal findings[ICD10: Z00.00] Diagnosis: Gastro-esophageal reflux disease without esophagitis[ICD10: K21.9] Diagnosis: Obstructive sleep apnea (adult) (pediatric)[ICD10: G47.33] Diagnosis: Mixed hyperlipidemia[ICD10: E78.2] Diagnosis: Dizziness and giddiness[ICD10: R42] Karen STANLEY [employer] CPT-4: 94709 02/13/2018 OFFICE/OUTPATIENT VISIT EST Diagnosis: Acute sinusitis, unspecified[ICD10: J01.90] Diagnosis: Viral infection, unspecified[ICD10: B34.9] Jodie TEJEDA [facility] CPT-4: 72222 04/24/2017 ([id number]) PREV VISIT EST AGE 40-64 Diagnosis: Encounter for general adult medical examination without abnormal findings[ICD10: Z00.00] Diagnosis: Encounter for gynecological examination (general) (routine) without abnormal findings[ICD10: Z01.419] Diagnosis: URI, ACUTE[ICD10: J06.9] Karen CEDEÑOLINE Teetee GODOY [facility] CPT-4: 90145 02/24/2016 ([id number]) OFFICE/OUTPATIENT VISIT EST Diagnosis: Other seasonal allergic rhinitis[ICD10: J30.2] Regina CEDEÑOLINE [facility] C[facility]: 50214 11/30/2015 OFFICE/OUTPATIENT VISIT NEW Diagnosis: Mixed hyperlipidemia[ICD10: E78.2] Diagnosis: Gastro-esophageal reflux disease without esophagitis[ICD10: K21.9] Diagnosis: Allergic rhinitis due to pollen[ICD10: J30.1] Diagnosis: Obstructive sleep apnea (adult) (pediatric)[ICD10: G47.33] [facility] CPT-[facility]: 36804 11/10/2015 Plan of Care Planned Activity Notes Codes Status Date Visit Diagnosis Plan: Epigastric pain Discussion: Baron ge omeprazole to pantoprazole 40mg po BID ICD-9 : 789.06 ICD-10 : R10.13 03/11/2019 Visit Diagnosis Plan: Gastro-esophageal reflux disease without esophagitis Diet: GERD diet ICD-9 : 530.81 ICD-10 : K21.9 03/11/2019 Patient Education: pantoprazole- [employer] Coupon [phone] [email or web address] Completed 03/11/2019 Visit Diagnosis Plan: Insomnia Discussion: Stable on t razadone ICD-9 : 780.52 ICD-10 : G47.00 02/06/2019 Visit Diagnosis Plan: Stress reaction Discussion: Incr ease escitalopram to 10mg daily Follow Up: 3 months ICD-9 : 308.9 ICD-10 : F43.0 02/06/2019 [facility]ointment: [id number] 02/06/2019 Patient Education: escitalopram oxalate- [employer] Co upon [id number] [email or web address]/[email or web address]/resources/getResource/61/[email or web address]-[email or web address] Completed 02/06/2019 Patient Education: trazodone- [employer] Coupon [id number] https://[email or web address]/resources/getResource/61/o1k38pq9-[email or web address]-0731-ae Completed 02/06/2019 Patient Education: escitalopram oxalate- [employer] Co upon [id number] https://[email or web address]/resources/getResource/61/[email or web address]-[email or web address] Completed 02/06/2019 Visit Diagnosis Plan: Obstructive sleep apnea (adult) (pediatric) Discussion: Retry CPAP once sleeping pills helping ICD-9 : 327.23 ICD-10 : G47.33 01/02/2019 Visit Diagnosis Plan: Encounter for [facility] adult medical examination without abnormal findings Discussion: Mediterranean diet Combinati on of cardio and weight bearing exercise Defers flu shot Fasting lab discussed ICD-9 : V70.9 ICD-10 : Z00.00 01/02/2019 Visit Diagnosis Plan: Stress reaction Discussion: [place] pro 5mg po q AM Follow Up: 1 months ICD-9 : 308.9 ICD-10 : F43.0 01/02/2019 Visit Diagnosis Plan: URI, ACUTE Discussion: Supportiv e care Restart mary daily ICD-9 : 465.9 ICD-10 : J06.9 01/02/2019 Visit Diagnosis Plan: Insomnia Discussion: Trial of tr azadone 50mg 1-2 po q HS prn sleep ICD-9 : 780.52 ICD-10 : G47.00 01/02/2019 Appointment: [facility]eda [facility]el[phone] [facility] Visit 01/02/2019 Patient Education: trazodone- [employer] Coupon [id number] https://www.[email or web address]/[email or web address]/resources/getResource/61/[email or web address]-rm Completed 01/02/2019 Patient Education: escitalopram oxalate- [employer] Co upon [id number] https://www.[email or web address]/[email or web address]/resources/getResource/61/2847686g-[email or web address]-93 Completed 01/02/2019 Visit Diagnosis Plan: Gastro-esophageal reflux disease without esophagitis Discussion: Stable on omeprazole ICD-9 : 530.81 ICD-10 : K21.9 02/13/2018 Visit Diagnosis Plan: Encounter for [facility] adult medical examination without abnormal findings [...] : G47.33 02/13/2018 Appointment: Karen Tejeda WPtel: [facility] [facility] Well Visit 02/13/2018 Patient Education: Patient Medication Summary Completed 06/06/2017 Care Plan: MAMMOGRAM BOTH BREASTS LOINC : 65201-0 Pending 06/06/2017 Visit Diagnosis Plan: Acute sinusitis, [...] : J01.90 04/24/2017 Appointment: Jodie Tran [address] ACUTE ILLNESS 04/24/2017 Patient Education: Patient Medication Summary Completed 04/24/2017 Patient Education: Patient Medication Summary Completed 12/08/2016 Care Plan: COMPREHEN METABOLIC PANEL [place] : 93069-0 Pending 12/08/2016 Care Plan: ASSAY THYROID STIM HORMONE Pen ding 12/08/2016 Care Plan: LIPID PANEL LOINC : 92733-1 Pending 12/08/2016 Care Plan: CBC Pending 12/08/2016 [...] for yearly 02/24/2016 Appointment: Karen Tejeda WPtel: [address] [place] [address] 02/22 confirmed~sl PAP 02/24/2016 Patient Education: Patient Medication Summary Completed 02/24/2016 Visit Plan: Injection as above Rx for al legra-d Benadryl at HS Nasal rinses, steroid nasal sprays Mucinex Vicks, humidifier, vitamin C, rest, fluids Follow up PRN 11/30/2015 Appointment: Regina Sagastume [address] ACUTE ILLNESS 11/30/2015 Patient Education: Patient Medication Summary Completed 11/30/2015 Patient Education: [facility] - Saving AutoInj - 18-64 - Dynamic Maura l ID Completed 11/30/2015 Referral: Sunil Hatch WPtel: [phone] [address] [place] Referral Appointment Confirmed 11/23/2015 Visit Plan: [...]
--- OUTSIDE RECORDS SUMMARY | 2019-09-24 10:33 | XMS REPORT | CCD ---
Author Author Nadya Tejeda D.O. 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 Name Role Phone PP Unavailable CCM Unavailable Summary Purpose Interface Exchange Insurance Providers Payer name Policy type / Coverage type Covered alliance party ID Effective Begin Date Effective End Date [employer] Commercial Insurance [id number] Unknown Family history Sister Diagnosis Age At [...] Unknown 1 11/10/2015 Employment Unknown Currently employed [employer] 11/10/[address]: 656401802 Has never smoked or chewed tobacco 11/10/[address]: 216594570 Never drinks alcohol 2015 Has the patient [...] Instructions pantoprazole 40 mg tablet,delayed release RxNorm: 467943 1 Tablet(s) Oral two times a day replaces omeprazole 03/11/2019 05/10/2019 Active escitalopram 10 mg tablet RxNorm: 767710 1 Tablet(s) Oral QD re places 5mg dose 02/06/2019 08/05/2019 Active trazodone 50 mg tablet RxNorm: 226154 1-2 Tablet(s) Ora l QPM as needed for sleep 02/06/2019 03/07/2019 Inactive escitalopram 5 mg tablet RxNorm: 765752 1 Tablet(s) Oral QAM 201802/05/2019 Inactive trazodone 50 mg tablet RxNorm: 792001 1-2 Tablet(s) Ora l QPM as needed for sleep 01/02/2019 02/05/2019 Inactive omeprazole 20 mg capsule,delayed release RxNorm: 745985 1 Capsu le(s) PO QD 07/04/2018 12/30/2018 Inactive omeprazole 20 mg capsule,delayed release RxNorm: 569850 1 Capsu le(s) PO QD 04/03/2018 07/01/2018 Inactive omeprazole 20 mg capsule,delayed release RxNorm: 693596 1 Capsu le(s) PO QD 04/03/2018 01/01/2019 Inactive omeprazole 20 mg capsule,delayed release RxNorm: 588611 1 Capsu le(s) PO QD 12/05/2017 03/04/2018 Inactive omeprazole 20 mg capsule,delayed release RxNorm: 667525 1 Capsu le(s) PO QD 09/06/2017 04/03/2018 Inactive Augmentin 875 mg-125 mg tablet RxNorm: 710751 1 Tablet(s) PO BID 05/03/2017 Inactive omeprazole 20 mg capsule,delayed release RxNorm: 748566 1 Capsu le(s) PO QD 04/19/2017 08/16/2017 Inactive omeprazole 20 mg capsule,delayed release RxNorm: 464858 1 Capsule(s) PO QD replaces 40mg daily- due for refill 03/14/2017 04/19/2017 Inactive omeprazole 20 mg capsule,delayed release RxNorm: 275675 1 Capsule(s) PO QD replaces 40mg daily 11/30/2016 02/27/2017 Inactive omeprazole 20 mg capsule,delayed release RxNorm: 340776 1 Capsule(s) PO QD replaces 40mg daily 05/03/2016 10/29/2016 Inactive cetirizine 1 mg/mL oral solution RxNorm: 5137303 1.25 Mi lliliter(s) PO QHS for runny nose 02/24/2016 02/23/2016 Inactive Mary-D 12 Hour 60 mg-120 mg tablet,extended release RxNor m: 345013 1 Tablet(s) PO BID as needed 11/30/2015 No Stop Date Active omeprazole 20 mg capsule,delayed release RxNorm: 276361 1 Capsule(s) PO QD replaces 40mg daily 11/10/2015 03/08/2016 Inactive Mary Allergy 180 mg tablet RxNorm: 995242 1 Tablet(s) PO QD No Sta rt Date Active Aspirin Child 81 mg chewable tablet RxNorm: 819218 1 Tablet(s) PO QD No Start Date Active simvastatin 20 mg tablet RxNorm: 785638 1 Tablet(s) PO QD No Start Da te Active omeprazole 40 mg capsule,delayed release RxNorm: 596429 1 Capsu le(s) PO QD No Start Date 11/09/2015 Inactive Medication Administered No Medication Administered data Immunizations No Immunization data Results Observation Observation Code Item Item Code Result Date S ervice Location THYROID STIMULATING HORMONE 38133 TSH 3.245 uIU/mL 12/27/2018 Unknown GFR CALC 7173362 GFR Non Afr Amr >60 mL/min 12/27/2018 Un known GFR CALC 3436942 GFR Afr Amr >60 mL/min 12/27/2018 Unknow n FREE T4 29897 T4 Free 0.88 ng/dL 12/27/2018 Unknown LIPID GROUP 65170 Cholesterol 157 mg/dL 12/27/2018 Unkno wn LIPID GROUP 34358 Triglyceride 44 mg/dL 12/27/2018 Unkn own [facility] GROUP 04304 HDL CHOLESTEROL 61 mg/dL 12/27/2018 U nknown LIP[facility] GROUP 24712 Chol/HDL Ratio 2.57 ratio 12/27/2018 U nknown L[facility] GROUP 54592 NON-HDL Chol 96 mg/dL 12/27/2018 Unkn own [facility] GROUP 16636 LDL Cholesterol 87 mg/dL 12/27/2018 U nknown COMPREHENSIVE METABOLIC 08144 AST 19 U/L 2018 Unknown COMPREHENSIVE METABOLIC 84341 ALT 13 U/L 2018 Unknown COMPREHENSIVE METABOLIC 70786 BUN 22 mg/dL 2018 Unknown COMPREHENSIVE METABOLIC 86529 ALBUMIN 4.2 g/dL 2018 Unknown COMPREHENSIVE METABOLIC 48778 CHLORIDE 103 mmol/L 12/27 Unknown COMPREHENSIVE METABOLIC 10931 Bili Total 0.5 mg/dL 12/27 Unknown COMPREHENSIVE METABOLIC 33667 ALK PHOS 101 U/L 2018 Unknown COMPREHENSIVE METABOLIC 41544 SODIUM 141 mmol/L 12/27 Unknown COMPREHENSIVE METABOLIC 43206 CREATININE 0.76 mg/dL 12/04 Unknown COMPREHENSIVE METABOLIC 84127 CALCIUM 9.3 mg/dL 2018 Unknown COMPREHENSIVE METABOLIC 10549 POTASSIUM 3.6 mmol/L 12/27 Unknown COMPREHENSIVE METABOLIC 58880 Total Protein 7.4 g/dL Unknown COMPREHENSIVE METABOLIC 75250 Glucose 86 mg/dL 2018 Unknown COMPREHENSIVE METABOLIC 07575 Bicarbonate 31 mmol/L 12/04 Unknown COMPREHENSIVE METABOLIC 84262 AGAP 7 mmol/L 2018 Unknown COMPLETE BLOOD COUNT 6646975 WBC 4.2 10e9/L 12/28/19 19 Unknown COMPLETE BLOOD COUNT [id number] RBC 4.55 10e12/L 2018 Unknown COMPLETE BLOOD COUNT 2053536 HEMOGLOBIN 13.7 g/dL 12/28/19 19 Unknown COMPLETE BLOOD COUNT [id number] HEMATOCRIT 42.4 % 12/28/19 19 Unknown COMPLETE BLOOD COUNT 6703954 MCV 93.2 fL 9 Unknown COMPLETE BLOOD COUNT [id number] MCH 30.1 pg 9 Unknown COMPLETE BLOOD COUNT 4252569 MCHC 32.3 g/dL 9 Unknown COMPLETE BLOOD COUNT 9668454 PLATELET COUNT 272 10e9/L Unknown COMPLETE BLOOD COUNT 4253727 Mean Plt Volume 8.9 fL Unknown COMPLETE BLOOD COUNT 1152718 Neut Auto 50.9 % 9 Unknown COMPLETE BLOOD COUNT 6307046 Lymph Auto 35.1 % 12/28/19 19 Unknown COMPLETE BLOOD COUNT 0034735 Evans Auto 9.6 % 9 Unknown COMPLETE BLOOD COUNT 9267080 RDW 12.7 % 9 Unknown COMPLETE BLOOD COUNT 0884941 Eos Auto 4.2 % 9 Unknown COMPLETE BLOOD COUNT 9066624 Baso Auto 0.2 % 9 Unknown COMPLETE BLOOD COUNT 9711752 Neutrophil Abs 2.14 10e9/L Unknown COMPLETE BLOOD COUNT [id number] Lymphocyte Abs 1.47 10e9/L Unknown COMPLETE BLOOD COUNT 3362779 Monocyte Abs 0.40 10e9/L 12/04 Unknown COMPLETE BLOOD COUNT 9523981 Eosinophil Abs 0.18 10e9/L Unknown COMPLETE BLOOD COUNT 5552212 RDW-SD 42.1 fL 9 Unknown COMPLETE BLOOD COUNT 4276382 Basophil Abs 0.01 10e9/L 12/04 Unknown GFR CALC [id number] GFR Non Afr Amr >60 mL/min 12/21/2016 Un known GFR CALC 6564537 GFR Afr Amr >60 mL/min 12/21/2016 Unknow n COMPLETE BLOOD COUNT 6103148 WBC 3.6 10e9/L 12/22/19 17 Unknown COMPLETE BLOOD COUNT 0734998 RBC 4.57 10e12/L 2016 Unknown COMPLETE BLOOD COUNT 5428774 HEMOGLOBIN 13.8 g/dL 12/22/19 17 Unknown COMPLETE BLOOD COUNT 0546653 HEMATOCRIT 42.4 % 12/22/19 17 Unknown COMPLETE BLOOD COUNT 4150288 MCV 92.8 fL 7 Unknown COMPLETE BLOOD COUNT 2787844 MCH 30.2 pg 7 Unknown COMPLETE BLOOD COUNT 6899934 MCHC 32.5 g/dL 7 Unknown COMPLETE BLOOD COUNT 4629644 PLATELET COUNT 225 10e9/L Unknown COMPLETE BLOOD COUNT 5226789 Mean Plt Volume 9.0 fL Unknown COMPLETE BLOOD COUNT 8642156 Neut Auto 45.6 % 7 Unknown COMPLETE BLOOD COUNT 0611245 Lymph Auto 37.3 % 12/22/19 17 Unknown COMPLETE BLOOD COUNT 5023689 Evans Auto 11.0 % 7 Unknown COMPLETE BLOOD COUNT 3571099 RDW 12.6 % 7 Unknown COMPLETE BLOOD COUNT 5471262 Eos Auto 5.5 % 7 Unknown COMPLETE BLOOD COUNT 7655079 Baso Auto 0.6 % 7 Unknown COMPLETE BLOOD COUNT 0061117 Neutrophil Abs 1.64 10e9/L Unknown COMPLETE BLOOD COUNT 1090085 Lymphocyte Abs 1.34 10e9/L Unknown COMPLETE BLOOD COUNT 4429768 Monocyte Abs 0.40 10e9/L 12/03 Unknown COMPLETE BLOOD COUNT 1734059 Eosinophil Abs 0.20 10e9/L Unknown COMPLETE BLOOD COUNT 1168717 RDW-SD 42.0 fL 7 Unknown COMPLETE BLOOD COUNT 9435073 Basophil Abs 0.02 10e9/L 12/03 Unknown THYROID STIMULATING HORMONE 36001 TSH 3.423 uIU/mL 12/21/2016 Unknown COMPREHENSIVE METABOLIC 04899 AST 23 U/L 2016 Unknown COMPREHENSIVE METABOLIC 39453 ALT 18 U/L 2016 Unknown COMPREHENSIVE METABOLIC 01708 BUN 21 mg/dL 2016 Unknown COMPREHENSIVE METABOLIC 32641 ALBUMIN 4.4 g/dL 2016 Unknown COMPREHENSIVE METABOLIC 77605 CHLORIDE 103 mmol/L 12/21 Unknown COMPREHENSIVE METABOLIC 09517 Bili Total 0.7 mg/dL 12/21 Unknown COMPREHENSIVE METABOLIC 70453 ALK PHOS 86 U/L 2016 Unknown COMPREHENSIVE METABOLIC 76159 SODIUM 141 mmol/L 12/21 Unknown COMPREHENSIVE METABOLIC 48455 CREATININE 0.75 mg/dL 12/03 Unknown COMPREHENSIVE METABOLIC 18004 CALCIUM 9.2 mg/dL 2016 Unknown COMPREHENSIVE METABOLIC 94391 POTASSIUM 3.8 mmol/L 12/21 Unknown COMPREHENSIVE METABOLIC 27218 Total Protein 7.3 g/dL Unknown COMPREHENSIVE METABOLIC 51057 Glucose 95 mg/dL 2016 Unknown COMPREHENSIVE METABOLIC 43274 Bicarbonate 32 mmol/L 12/03 Unknown COMPREHENSIVE METABOLIC 88741 AGAP 6 mmol/L 2016 Unknown LIPID GROUP 72858 Cholesterol 154 mg/dL 12/21/2016 Unkno wn LIPID GROUP 04062 Triglyceride 51 mg/dL 12/21/2016 Unkn own LIPID GROUP 82689 HDL CHOLESTEROL 61 mg/dL 12/21/2016 U nknown LIPID GROUP 64997 Chol/HDL Ratio 2.52 ratio 12/21/2016 U nknown LIPID GROUP 40577 NON-HDL Chol 93 mg/dL 12/21/2016 Unkn own LIPID GROUP 87315 LDL Cholesterol 83 mg/dL 12/21/2016 U nknown Procedures Procedure Codes Date INFLUENZA ASSAY W/OPTIC CPT-4: 46265 04/24/2017 SPECIMEN HANDLING OFFICE-LAB CPT-4: 27035 02/24/2016 THER/PROPH/DIAG INJ SC/IM CPT-4: 51761 11/30/2015 TRIAMCINOLONE ACET INJ NOS CPT-4: J3301 [...] 1: 124/72 Code: 8480-6 BMI: 35.1 Code: 16350-6 Heart Rate 1: 64 bpm Height: 5'6" Respiratory Rate: 18 bpm SpO2: 96% Tempera ture: 36.8 (C) / 98.2 (F) Weight: 221 lbs 02/13/2018 Blood Pressure 1: 138/82 Code: 8480-6 BMI: 34.5 Code: 89430-8 Heart Rate 1: 68 bpm Height: 5'7" Respiratory Rate: 18 bpm SpO2: 97% Tempera ture: 36.8 (C) / 98.2 (F) Weight: 220 lbs 04/24/2017 Blood Pressure 1: 126/78 Code: 8480-6 BMI: 35.4 Code: 97705-5 Heart Rate 1: 84 bpm Height: 5'7" Respiratory Rate: 22 bpm SpO2: 95% Tempera ture: 36.9 (C) / 98.4 (F) Weight: 226 lbs 02/24/2016 Blood Pressure 1: 128/78 Code: 8480-6 BMI: 35.6 Code: 72230-1 Heart Rate 1: 68 bpm Height: 5'7" Respiratory Rate: 20 bpm SpO2: 97% Tempera ture: 36.7 (C) / 98.1 (F) Weight: 227 lbs 11/30/2015 Blood Pressure 1: 128/78 Code: 8480-6 BMI: 36.0 Code: 69065-7 Heart Rate 1: 76 bpm Height: 5'7" Respiratory Rate: 20 bpm SpO2: 97% Tempera ture: 37.1 (C) / 98.7 (F) Weight: 230 lbs 11/10/2015 Blood Pressure 1: 136/82 Code: 8480-6 BMI: 36.0 Code: 93054-6 Heart Rate 1: 80 bpm Height: 5'7" [...] visit Encounters Encounter Performer Location Codes Date (80707) OFFICE/OUTPATIENT VISIT EST Diagnosis: Epigastric pain[ICD10: R10.13] Diagnosis: Gastro-esophageal reflux disease without esophagitis[ICD10: K21.9] Karen JONES [facility] CPT-4: 74038 03/11/2019 ([id number]) OFFICE/OUTPATIENT VISIT EST Diagnosis: Stress reaction[ICD10: F43.0] Diagnosis: Insomnia[ICD10: G47.00] Karen JONES [facility] [place] CPT-4: 79090 02/06/2019 ([id number]) PREV VISIT EST AGE 40-64 Diagnosis: Encounter for general adult medical examination without abnormal findings[ICD10: Z00.00] Diagnosis: Obstructive sleep apnea (adult) (pediatric)[ICD10: G47.33] Diagnosis: Stress reaction[ICD10: F43.0] Diagnosis: URI, ACUTE[ICD10: J06.9] Diagnosis: Insomnia[ICD10: G47.00] Karen JONES [facility] [place] CPT-4: 81995 01/02/2019 ([id number]) PREV VISIT EST AGE 40-64 Diagnosis: Encounter for general adult medical examination without abnormal findings[ICD10: Z00.00] Diagnosis: Gastro-esophageal reflux disease without esophagitis[ICD10: K21.9] Diagnosis: Obstructive sleep apnea (adult) (pediatric)[ICD10: G47.33] Diagnosis: Mixed hyperlipidemia[ICD10: E78.2] Diagnosis: Dizziness and giddiness[ICD10: R42] Karen STANLEY [employer] CPT-4: 80265 02/13/2018 OFFICE/OUTPATIENT VISIT EST Diagnosis: Acute sinusitis, unspecified[ICD10: J01.90] Diagnosis: Viral infection, unspecified[ICD10: B34.9] Jodie TEJEDA [facility] CPT-4: 30771 04/24/2017 ([id number]) PREV VISIT EST AGE 40-64 Diagnosis: Encounter for general adult medical examination without abnormal findings[ICD10: Z00.00] Diagnosis: Encounter for gynecological examination (general) (routine) without abnormal findings[ICD10: Z01.419] Diagnosis: URI, ACUTE[ICD10: J06.9] Karen CEDEÑOLINE Teetee GOD[facility] CPT-4: 48601 02/24/2016 ([id number]) OFFICE/OUTPATIENT VISIT EST Diagnosis: Other seasonal allergic rhinitis[ICD10: J30.2] Regina [facility]EDEÑOL[facility] CPT[facility]: 17610 11/30/2015 OFFICE/OUTPATIENT VISIT NEW Diagnosis: Mixed hyperlipidemia[ICD10: E78.2] Diagnosis: Gastro-esophageal reflux disease without esophagitis[ICD10: K21.9] Diagnosis: Allergic rhinitis due to pollen[ICD10: J30.1] Diagnosis: Obstructive sleep apnea (adult) (pediatric)[ICD10: G47.33] [facility]: 56231 11/10/2015 Plan of Care Planned Activity Notes Codes Status Date Visit Diagnosis Plan: Epigastric pain Discussion: Baron ge omeprazole to pantoprazole 40mg po BID ICD-9 : 789.06 ICD-10 : R10.13 03/11/2019 Visit Diagnosis Plan: Gastro-esophageal reflux disease without esophagitis Diet: GERD diet ICD-9 : 530.81 ICD-10 : K21.9 03/11/2019 Patient Education: pantoprazole- [employer] Coupon [phone] https://www.[employer]/Ketchuppp/resources/getResource/61/[email or web address]-g7 Completed 03/11/2019 Visit Diagnosis Plan: Insomnia Discussion: Stable on t razadone ICD-9 : 780.52 ICD-10 : G47.00 02/06/2019 Visit Diagnosis Plan: Stress reaction Discussion: Incr ease escitalopram to 10mg daily Follow Up: 3 months ICD-9 : 308.9 ICD-10 : F43.0 02/06/2019 Appointment: Karen Tejeda [facility]el[id number] FOLLOW UP 02/06/2019 Patient Education: escitalopram oxalate- [employer] Co upon [id number] https://www.[employer]/sampleeTech Money/resources/getResource/61/1s315k23-s9ib-237g-94 Completed 02/06/2019 Patient Education: trazodone- [employer] Coupon [id number] https://www.[employer]/Ketch[place]p/resources/getResource/61/l8m99au9-y74r-2310-lf Completed 02/06/2019 Patient Education: escitalopram oxalate- [employer] Co upon [id number] https://www.[employer]p/resources/getResource/61/20qa1556-9u1f-0fyi-l7 Completed 02/06/2019 Visit Diagnosis Plan: Obstructive sleep apnea (adult) (pediatric) Discussion: Retry CPAP once sleeping pills helping ICD-9 : 327.23 ICD-10 : G47.33 01/02/2019 Visit Diagnosis Plan: Encounter for [facility] adult medical examination without abnormal findings Discussion: Mediterranean diet Combinati on of cardio and weight bearing exercise Defers flu shot Fasting lab discussed ICD-9 : V70.9 ICD-10 : Z00.00 01/02/2019 Visit Diagnosis Plan: Stress reaction Discussion: [place] pro 5mg po q AM Follow Up: 1 months ICD-9 : 308.9 ICD-10 : F43.0 01/02/2019 Visit Diagnosis Plan: URI, ACUTE Discussion: Supportiv e care Restart mary daily ICD-9 : 465.9 ICD-10 : J06.9 01/02/2019 Visit Diagnosis Plan: Insomnia Discussion: Trial of tr azadone 50mg 1-2 po q HS prn sleep ICD-9 : 780.52 ICD-10 : G47.00 01/02/2019 Appointment: [facility]eda [id number] [facility] 01/02/2019 Patient Education: trazodone- [employer] Coupon [id number] https://www.[employer]etch[employer]p/resources/getResource/61/6j0i76a0-d33i-64bv-ak Completed 01/02/2019 Patient Education: escitalopram oxalate- [employer] Co upon [id number] https://www.[employer]p/resources/getResource/61/7154803t-1902-359x-23 Completed 01/02/2019 Visit Diagnosis Plan: Gastro-esophageal reflux disease without esophagitis Discussion: Stable on omeprazole ICD-9 : 530.81 ICD-10 : K21.9 02/13/2018 Visit Diagnosis Plan: Encounter for [facility] adult medical examination without abnormal findings [...] : G47.33 02/13/2018 Appointment: Karen Tejeda WPtel[facility] [facility] 02/13/2018 Patient Education: Patient Medication Summary Completed 06/06/2017 Care Plan: MAMMOGRAM BOTH BREASTS LOINC : 47915-5 Pending 06/06/2017 Visit Diagnosis Plan: Acute sinusitis, [...] : J01.90 04/24/2017 Appointment: Jodie Tran [address] ACUTE ILLNESS 04/24/2017 Patient Education: Patient Medication Summary Completed 04/24/2017 Patient Education: Patient Medication Summary Completed 12/08/2016 Care Plan: COMPREHEN METABOLIC [place] : 48682-2 Pending 12/08/2016 Care Plan: ASSAY THYROID STIM HORMONE Pen ding 12/08/2016 Care Plan: LIPID PANEL LOINC : 84044-2 Pending 12/08/2016 Care Plan: CBC Pending 12/08/2016 [...] for yearly 02/24/2016 Appointment: Karen Tejeda WPtel: [address] [place] [address] 02/22 confirmed~sl PAP 02/24/2016 Patient Education: Patient Medication Summary Completed 02/24/2016 Visit Plan: Injection as above Rx for al legra-d Benadryl at HS Nasal rinses, steroid nasal sprays Mucinex Vicks, humidifier, vitamin C, rest, fluids Follow up PRN 11/30/2015 Appointment: Regina Sagastume [address] ACUTE ILLNESS 11/30/2015 Patient Education: Patient Medication Summary Completed 11/30/2015 Patient Education: [facility] [place] Saving AutoInj - 18-64 - Dynamic Maura l ID Completed 11/30/2015 Referral: Sunil Hatch WPtel: [phone] [address] [place] Referral Appointment Confirmed 11/23/2015 Visit Plan: [...] Patient Medication Summary Completed 11/10/2015 Patient Education: [facility] [place] Saving AutoInj - 18-64 - [...]
--- OUTSIDE RECORDS SUMMARY | 2019-09-24 10:33 | XMS REPORT | CCD ---
Author Author Nadya Tejeda D.O. 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 Name Role Phone PP Unavailable CCM Unavailable Summary Purpose Interface Exchange Insurance Providers Payer name Policy type / Coverage type Covered democrat ID Effective Begin Date Effective End Date [employer] Commercial Insurance [id number] Unknown Family history Sister Diagnosis Age At [...] Unknown 1 11/10/2015 Employment Unknown Currently employed [employer] 11/10/[address]: 887651813 Has never smoked or chewed tobacco 11/10/[address]: 205920701 Never drinks alcohol 2015 Has the patient [...] Instructions pantoprazole 40 mg tablet,delayed release RxNorm: 374417 1 Tablet(s) Oral two times a day replaces omeprazole 03/11/2019 05/10/2019 Active escitalopram 10 mg tablet RxNorm: 118193 1 Tablet(s) Oral QD re places 5mg dose 02/06/2019 08/05/2019 Active trazodone 50 mg tablet RxNorm: 018890 1-2 Tablet(s) Ora l QPM as needed for sleep 02/06/2019 03/07/2019 Inactive escitalopram 5 mg tablet RxNorm: 694560 1 Tablet(s) Oral QAM 201802/05/2019 Inactive trazodone 50 mg tablet RxNorm: 424511 1-2 Tablet(s) Ora l QPM as needed for sleep 01/02/2019 02/05/2019 Inactive omeprazole 20 mg capsule,delayed release RxNorm: 314515 1 Capsu le(s) PO QD 07/04/2018 12/30/2018 Inactive omeprazole 20 mg capsule,delayed release RxNorm: 508508 1 Capsu le(s) PO QD 04/03/2018 07/01/2018 Inactive omeprazole 20 mg capsule,delayed release RxNorm: 142064 1 Capsu le(s) PO QD 04/03/2018 01/01/2019 Inactive omeprazole 20 mg capsule,delayed release RxNorm: 088481 1 Capsu le(s) PO QD 12/05/2017 03/04/2018 Inactive omeprazole 20 mg capsule,delayed release RxNorm: 566829 1 Capsu le(s) PO QD 09/06/2017 04/03/2018 Inactive Augmentin 875 mg-125 mg tablet RxNorm: 954925 1 Tablet(s) PO BID 05/03/2017 Inactive omeprazole 20 mg capsule,delayed release RxNorm: 580115 1 Capsu le(s) PO QD 04/19/2017 08/16/2017 Inactive omeprazole 20 mg capsule,delayed release RxNorm: 536502 1 Capsule(s) PO QD replaces 40mg daily- due for refill 03/14/2017 04/19/2017 Inactive omeprazole 20 mg capsule,delayed release RxNorm: 730741 1 Capsule(s) PO QD replaces 40mg daily 11/30/2016 02/27/2017 Inactive omeprazole 20 mg capsule,delayed release RxNorm: 091429 1 Capsule(s) PO QD replaces 40mg daily 05/03/2016 10/29/2016 Inactive cetirizine 1 mg/mL oral solution RxNorm: 8706212 1.25 Mi lliliter(s) PO QHS for runny nose 02/24/2016 02/23/2016 Inactive Mary-D 12 Hour 60 mg-120 mg tablet,extended release RxNor m: 606885 1 Tablet(s) PO BID as needed 11/30/2015 No Stop Date Active omeprazole 20 mg capsule,delayed release RxNorm: 748543 1 Capsule(s) PO QD replaces 40mg daily 11/10/2015 03/08/2016 Inactive Mary Allergy 180 mg tablet RxNorm: 593430 1 Tablet(s) PO QD No Sta rt Date Active Aspirin Child 81 mg chewable tablet RxNorm: 635716 1 Tablet(s) PO QD No Start Date Active simvastatin 20 mg tablet RxNorm: 365379 1 Tablet(s) PO QD No Start Da te Active omeprazole 40 mg capsule,delayed release RxNorm: 172317 1 Capsu le(s) PO QD No Start Date 11/09/2015 Inactive Medication Administered No Medication Administered data Immunizations No Immunization data Results Observation Observation Code Item Item Code Result Date S ervice Location THYROID STIMULATING HORMONE 15253 TSH 3.245 uIU/mL 12/27/2018 Unknown GFR CALC 8216884 GFR Non Afr Amr >60 mL/min 12/27/2018 Un known GFR CALC [id number] GFR Afr Amr >60 mL/min 12/27/2018 Unknow n FREE T4 05427 T4 Free 0.88 ng/dL 12/27/2018 Unknown [facility] 34041 Cholesterol 157 mg/dL 12/27/2018 Unkno wn [facility] 60559 Triglyceride 44 mg/dL 12/27/2018 Unkn own [facility] 37983 HDL CHOLESTEROL 61 mg/dL 12/27/2018 U nknown [facility] 53854 Chol/HDL Ratio 2.57 ratio 12/27/2018 U nknown [facility] 30735 NON-HDL Chol 96 mg/dL 12/27/2018 Unkn own [facility] 05212 LDL Cholesterol 87 mg/dL 12/27/2018 U nknown COMPREHENSIVE METABOLIC 82246 AST 19 U/L 2018 Unknown COMPREHENSIVE METABOLIC 15080 ALT 13 U/L 2018 Unknown COMPREHENSIVE METABOLIC 45163 BUN 22 mg/dL 2018 Unknown COMPREHENSIVE METABOLIC 51235 ALBUMIN 4.2 g/dL 2018 Unknown COMPREHENSIVE METABOLIC 70178 CHLORIDE 103 mmol/L 12/27 Unknown COMPREHENSIVE METABOLIC 02663 Bili Total 0.5 mg/dL 12/27 Unknown COMPREHENSIVE METABOLIC 74451 ALK PHOS 101 U/L 2018 Unknown COMPREHENSIVE METABOLIC 50961 SODIUM 141 mmol/L 12/27 Unknown COMPREHENSIVE METABOLIC 28510 CREATININE 0.76 mg/dL 12/04 Unknown COMPREHENSIVE METABOLIC 70141 CALCIUM 9.3 mg/dL 2018 Unknown COMPREHENSIVE METABOLIC 87725 POTASSIUM 3.6 mmol/L 12/27 Unknown COMPREHENSIVE METABOLIC 32293 Total Protein 7.4 g/dL Unknown COMPREHENSIVE METABOLIC 18990 Glucose 86 mg/dL 2018 Unknown COMPREHENSIVE METABOLIC 89677 Bicarbonate 31 mmol/L 12/04 Unknown COMPREHENSIVE METABOLIC 31943 AGAP 7 mmol/L 2018 Unknown COMPLETE BLOOD COUNT 1745479 WBC 4.2 10e9/L 12/28/19 19 Unknown COMPLETE BLOOD COUNT [id number] RBC 4.55 10e12/L 2018 Unknown COMPLETE BLOOD COUNT 4348164 HEMOGLOBIN 13.7 g/dL 12/28/19 19 Unknown COMPLETE BLOOD COUNT 3893531 HEMATOCRIT 42.4 % 12/28/19 19 Unknown COMPLETE BLOOD COUNT [id number] MCV 93.2 fL 9 Unknown COMPLETE BLOOD COUNT 4249660 MCH 30.1 pg 9 Unknown COMPLETE BLOOD COUNT 1542121 MCHC 32.3 g/dL 9 Unknown COMPLETE BLOOD COUNT 7189742 PLATELET COUNT 272 10e9/L Unknown COMPLETE BLOOD COUNT 0771932 Mean Plt Volume 8.9 fL Unknown COMPLETE BLOOD COUNT 7505844 Neut Auto 50.9 % 9 Unknown COMPLETE BLOOD COUNT [id number] Lymph Auto 35.1 % 12/28/19 19 Unknown COMPLETE BLOOD COUNT 9969707 Hudson Auto 9.6 % 9 Unknown COMPLETE BLOOD COUNT 2580987 RDW 12.7 % 9 Unknown COMPLETE BLOOD COUNT 3169998 Eos Auto 4.2 % 9 Unknown COMPLETE BLOOD COUNT 2007693 Baso Auto 0.2 % 9 Unknown COMPLETE BLOOD COUNT 1719939 Neutrophil Abs 2.14 10e9/L Unknown COMPLETE BLOOD COUNT 5183415 Lymphocyte Abs 1.47 10e9/L Unknown COMPLETE BLOOD COUNT 8749892 Monocyte Abs 0.40 10e9/L 12/04 Unknown COMPLETE BLOOD COUNT 8692103 Eosinophil Abs 0.18 10e9/L Unknown COMPLETE BLOOD COUNT 0803788 RDW-SD 42.1 fL 9 Unknown COMPLETE BLOOD COUNT 1240250 Basophil Abs 0.01 10e9/L 12/04 Unknown GFR CALC [id number] GFR Non Afr Amr >60 mL/min 12/21/2016 Un known GFR CALC 1102971 GFR Afr Amr >60 mL/min 12/21/2016 Unknow n COMPLETE BLOOD COUNT 9371399 WBC 3.6 10e9/L 12/22/19 17 Unknown COMPLETE BLOOD COUNT 1448882 RBC 4.57 10e12/L 2016 Unknown COMPLETE BLOOD COUNT 7577262 HEMOGLOBIN 13.8 g/dL 12/22/19 17 Unknown COMPLETE BLOOD COUNT 6731608 HEMATOCRIT 42.4 % 12/22/19 17 Unknown COMPLETE BLOOD COUNT 7942191 MCV 92.8 fL 7 Unknown COMPLETE BLOOD COUNT 6518430 MCH 30.2 pg 7 Unknown COMPLETE BLOOD COUNT 9042460 MCHC 32.5 g/dL 7 Unknown COMPLETE BLOOD COUNT 6352792 PLATELET COUNT 225 10e9/L Unknown COMPLETE BLOOD COUNT 7238555 Mean Plt Volume 9.0 fL Unknown COMPLETE BLOOD COUNT 6630636 Neut Auto 45.6 % 7 Unknown COMPLETE BLOOD COUNT 6211219 Lymph Auto 37.3 % 12/22/19 17 Unknown COMPLETE BLOOD COUNT 4407566 Hudson Auto 11.0 % 7 Unknown COMPLETE BLOOD COUNT 7153894 RDW 12.6 % 7 Unknown COMPLETE BLOOD COUNT 1052691 Eos Auto 5.5 % 7 Unknown COMPLETE BLOOD COUNT 6592788 Baso Auto 0.6 % 7 Unknown COMPLETE BLOOD COUNT 4870725 Neutrophil Abs 1.64 10e9/L Unknown COMPLETE BLOOD COUNT 1150264 Lymphocyte Abs 1.34 10e9/L Unknown COMPLETE BLOOD COUNT 6841820 Monocyte Abs 0.40 10e9/L 12/03 Unknown COMPLETE BLOOD COUNT 7864660 Eosinophil Abs 0.20 10e9/L Unknown COMPLETE BLOOD COUNT 5317270 RDW-SD 42.0 fL 7 Unknown COMPLETE BLOOD COUNT [id number] Basophil Abs 0.02 10e9/L 12/03 Unknown THYROID STIMULATING HORMONE 64686 TSH 3.423 uIU/mL 12/21/2016 Unknown COMPREHENSIVE METABOLIC 76057 AST 23 U/L 2016 Unknown COMPREHENSIVE METABOLIC 56253 ALT 18 U/L 2016 Unknown COMPREHENSIVE METABOLIC 15464 BUN 21 mg/dL 2016 Unknown COMPREHENSIVE METABOLIC 66757 ALBUMIN 4.4 g/dL 2016 Unknown COMPREHENSIVE METABOLIC 04268 CHLORIDE 103 mmol/L 12/21 Unknown COMPREHENSIVE METABOLIC 95857 Bili Total 0.7 mg/dL 12/21 Unknown COMPREHENSIVE METABOLIC 63224 ALK PHOS 86 U/L 2016 Unknown COMPREHENSIVE METABOLIC 22759 SODIUM 141 mmol/L 12/21 Unknown COMPREHENSIVE METABOLIC 87729 CREATININE 0.75 mg/dL 12/03 Unknown COMPREHENSIVE METABOLIC 21176 CALCIUM 9.2 mg/dL 2016 Unknown COMPREHENSIVE METABOLIC 43170 POTASSIUM 3.8 mmol/L 12/21 Unknown COMPREHENSIVE METABOLIC 05474 Total Protein 7.3 g/dL Unknown COMPREHENSIVE METABOLIC 90026 Glucose 95 mg/dL 2016 Unknown COMPREHENSIVE METABOLIC 96788 Bicarbonate 32 mmol/L 12/03 Unknown COMPREHENSIVE METABOLIC 80260 AGAP 6 mmol/L 2016 Unknown [facility] GROUP 14132 Cholesterol 154 mg/dL 12/21/2016 Unkno wn [facility] GROUP 89439 Triglyceride 51 mg/dL 12/21/2016 Unkn own L[facility] GROUP 90935 HDL CHOLESTEROL 61 mg/dL 12/21/2016 U nknown L[facility] GROUP 91980 Chol/HDL Ratio 2.52 ratio 12/21/2016 U nknown [facility] 23860 NON-HDL Chol 93 mg/dL 12/21/2016 Unkn own [facility] 09322 LDL Cholesterol 83 mg/dL 12/21/2016 U nknown Procedures Procedure Codes Date INFLUENZA ASSAY W/OPTIC CPT-4: 57822 04/24/2017 SPECIMEN HANDLING OFFICE-LAB CPT-4: 35277 02/24/2016 THER/PROPH/DIAG INJ SC/IM CPT-4: 44116 11/30/2015 TRIAMCINOLONE ACET INJ NOS CPT-4: J3301 [...] 1: 124/72 Code: 8480-6 BMI: 35.1 Code: 87862-2 Heart Rate 1: 64 bpm Height: 5'6" Respiratory Rate: 18 bpm SpO2: 96% Tempera ture: 36.8 (C) / 98.2 (F) Weight: 221 lbs 02/13/2018 Blood Pressure 1: 138/82 Code: 8480-6 BMI: 34.5 Code: 70958-4 Heart Rate 1: 68 bpm Height: 5'7" Respiratory Rate: 18 bpm SpO2: 97% Tempera ture: 36.8 (C) / 98.2 (F) Weight: 220 lbs 04/24/2017 Blood Pressure 1: 126/78 Code: 8480-6 BMI: 35.4 Code: 99674-5 Heart Rate 1: 84 bpm Height: 5'7" Respiratory Rate: 22 bpm SpO2: 95% Tempera ture: 36.9 (C) / 98.4 (F) Weight: 226 lbs 02/24/2016 Blood Pressure 1: 128/78 Code: 8480-6 BMI: 35.6 Code: 83481-2 Heart Rate 1: 68 bpm Height: 5'7" Respiratory Rate: 20 bpm SpO2: 97% Tempera ture: 36.7 (C) / 98.1 (F) Weight: 227 lbs 11/30/2015 Blood Pressure 1: 128/78 Code: 8480-6 BMI: 36.0 Code: 25351-5 Heart Rate 1: 76 bpm Height: 5'7" Respiratory Rate: 20 bpm SpO2: 97% Tempera ture: 37.1 (C) / 98.7 (F) Weight: 230 lbs 11/10/2015 Blood Pressure 1: 136/82 Code: 8480-6 BMI: 36.0 Code: 81298-5 Heart Rate 1: 80 bpm Height: 5'7" [...] visit Encounters Encounter Performer Location Codes Date (70912) OFFICE/OUTPATIENT VISIT EST Diagnosis: Epigastric pain[ICD10: R10.13] Diagnosis: Gastro-esophageal reflux disease without esophagitis[ICD10: K21.9] Karen JONES [employer] CPT-4: 09140 03/11/2019 ([id number]) OFFICE/OUTPATIENT VISIT EST Diagnosis: Stress reaction[ICD10: F43.0] Diagnosis: Insomnia[ICD10: G47.00] Karen JONES [employer] [facility] CPT-4: 26782 02/06/2019 ([id number]) PREV VISIT EST AGE 40-64 Diagnosis: Encounter for general adult medical examination without abnormal findings[ICD10: Z00.00] Diagnosis: Obstructive sleep apnea (adult) (pediatric)[ICD10: G47.33] Diagnosis: Stress reaction[ICD10: F43.0] Diagnosis: URI, ACUTE[ICD10: J06.9] Diagnosis: Insomnia[ICD10: G47.00] Karen JONES [employer] [facility] CPT-4: 56175 01/02/2019 ([id number]) PREV VISIT EST AGE 40-64 Diagnosis: Encounter for general adult medical examination without abnormal findings[ICD10: Z00.00] Diagnosis: Gastro-esophageal reflux disease without esophagitis[ICD10: K21.9] Diagnosis: Obstructive sleep apnea (adult) (pediatric)[ICD10: G47.33] Diagnosis: Mixed hyperlipidemia[ICD10: E78.2] Diagnosis: Dizziness and giddiness[ICD10: R42] Karen STANLEY [employer] CPT-4: 59018 02/13/2018 OFFICE/OUTPATIENT VISIT EST Diagnosis: Acute sinusitis, unspecified[ICD10: J01.90] Diagnosis: Viral infection, unspecified[ICD10: B34.9] Jodie TEJEDA [facility] CPT-4: 66822 04/24/2017 ([id number]) PREV VISIT EST AGE 40-64 Diagnosis: Encounter for general adult medical examination without abnormal findings[ICD10: Z00.00] Diagnosis: Encounter for gynecological examination (general) (routine) without abnormal findings[ICD10: Z01.419] Diagnosis: URI, ACUTE[ICD10: J06.9] Karen CEDEÑOLINE [employer] [facility] CPT-4: 90409 02/24/2016 ([id number]) OFFICE/OUTPATIENT VISIT EST Diagnosis: Other seasonal allergic rhinitis[ICD10: J30.2] Rgeina [facility]EDEÑOLINE [facility] CPT-[facility]: 08123 11/30/2015 OFFICE/OUTPATIENT VISIT NEW Diagnosis: Mixed hyperlipidemia[ICD10: E78.2] Diagnosis: Gastro-esophageal reflux disease without esophagitis[ICD10: K21.9] Diagnosis: Allergic rhinitis due to pollen[ICD10: J30.1] Diagnosis: Obstructive sleep apnea (adult) (pediatric)[ICD10: G47.33] [facility]: 08256 11/10/2015 Plan of Care Planned Activity Notes Codes Status Date Visit Diagnosis Plan: Epigastric pain Discussion: Baron ge omeprazole to pantoprazole 40mg po BID ICD-9 : 789.06 ICD-10 : R10.13 03/11/2019 Visit Diagnosis Plan: Gastro-esophageal reflux disease without esophagitis Diet: GERD diet ICD-9 : 530.81 ICD-10 : K21.9 03/11/2019 Patient Education: pantoprazole- [employer] Coupon [phone] [id number] https://www.[employer]/resources/getResource/61/[email or web address]-e0 Completed 03/11/2019 Visit Diagnosis Plan: Insomnia Discussion: Stable on t razadone ICD-9 : 780.52 ICD-10 : G47.00 02/06/2019 Visit Diagnosis Plan: Stress reaction Discussion: Incr ease escitalopram to 10mg daily Follow Up: 3 months ICD-9 : 308.9 ICD-10 : F43.0 02/06/2019 Appointment: Karen Tejeda WPtel: [phone] [id number] FOLLOW UP 02/06/2019 Patient Education: escitalopram oxalate- [employer] Co upon [id number] https://www.[employer]/sample[employer]able [employer]/resources/getResource/61/6j191r14-i5nl-884m-88 Completed 02/06/2019 Patient Education: trazodone- [employer] Coupon [id number] 59 https://www.[employer]/resources/getResource/61/x2q09yb1-a51z-2970-bs Completed 02/06/2019 Patient Education: escitalopram oxalate- [employer] Co upon [id number] https://www.[employer]/resources/getResource/61/88gs0210-2a0s-2mwq-v3 Completed 02/06/2019 Visit Diagnosis Plan: Obstructive sleep apnea (adult) (pediatric) Discussion: Retry CPAP once sleeping pills helping ICD-9 : 327.23 ICD-10 : G47.33 01/02/2019 Visit Diagnosis Plan: Encounter for [facility] adult medical examination without abnormal findings Discussion: Mediterranean diet Combinati on of cardio and weight bearing exercise Defers flu shot Fasting lab discussed ICD-9 : V70.9 ICD-10 : Z00.00 01/02/2019 Visit Diagnosis Plan: Stress reaction Discussion: [place] pro 5mg po q AM Follow Up: 1 months ICD-9 : 308.9 ICD-10 : F43.0 01/02/2019 Visit Diagnosis Plan: URI, ACUTE Discussion: Supportiv e care Restart mary daily ICD-9 : 465.9 ICD-10 : J06.9 01/02/2019 Visit Diagnosis Plan: Insomnia Discussion: Trial of tr azadone 50mg 1-2 po q HS prn sleep ICD-9 : 780.52 ICD-10 : G47.00 01/02/2019 Appointment: [facility]eda [facility]el[facility] [phone] [id number] [facility] 01/02/2019 Patient Education: trazodone- [employer] Coupon [id number] https://www.[employer]/resources/getResource/61/0b8n07c5-s97u-54jn-kq Completed 01/02/2019 Patient Education: escitalopram oxalate- [employer] Co upon [id number] https://www.[employer]il[employer]/resources/getResource/61/9081523v-5395-441b-72 Completed 01/02/2019 Visit Diagnosis Plan: Gastro-esophageal reflux disease without esophagitis Discussion: Stable on omeprazole ICD-9 : 530.81 ICD-10 : K21.9 02/13/2018 Visit Diagnosis Plan: Encounter for [facility] adult medical examination without abnormal [...] G47.33 02/13/2018 Appointment: Karen Tejeda WPtel: [id number] [facility] Visit 02/13/2018 Patient Education: Patient Medication Summary Completed 06/06/2017 Care Plan: MAMMOGRAM BOTH BREASTS LOINC : 07600-5 Pending 06/06/2017 Visit Diagnosis Plan: Acute sinusitis, [...] J01.90 04/24/2017 Appointment: Jodie Tran [address] ACUTE ILLNESS 04/24/2017 Patient Education: Patient Medication Summary Completed 04/24/2017 Patient Education: Patient Medication Summary Completed 12/08/2016 Care Plan: COMPREHEN METABOLIC [place]EL [place] : 02195-6 Pending 12/08/2016 Care Plan: ASSAY THYROID STIM HORMONE Pen ding 12/08/2016 Care Plan: LIPID PANEL LOINC : 07946-7 Pending 12/08/2016 Care Plan: CBC Pending 12/08/2016 [...] for yearly 02/24/2016 Appointment: Karen Tejeda WPtel: [phone] [place] [address] 02/22 confirmed~sl PAP 02/24/2016 Patient Education: Patient Medication Summary Completed 02/24/2016 Visit Plan: Injection as above Rx for al legra-d Benadryl at HS Nasal rinses, steroid nasal sprays Mucinex Vicks, humidifier, vitamin C, rest, fluids Follow up PRN 11/30/2015 Appointment: Regina Sagastume [address] ACUTE ILLNESS 11/30/2015 Patient Education: Patient Medication Summary Completed 11/30/2015 Patient Education: [facility] - Saving AutoInj - 18-64 - Dynamic Maura l ID Completed 11/30/2015 Referral: Sunil Hatch WPtel: [phone] [address] [place] Referral Appointment Confirmed 11/23/2015 Visit Plan: [...] Medication Summary Completed 11/10/2015 Patient Education: [facility] - Saving AutoInj - [...]
--- OUTSIDE RECORDS SUMMARY | 2019-09-24 10:34 | XMS REPORT | CCD ---
Author Author Nadya Tejeda D.O. 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 Unknown Has never used illegal drugs 016 Allergies, Adverse Reactions, Alerts Substance Reaction Codes Entered Date Inactivated Date Status * NO KNOWN FOOD WEN RGIES Unknown 11/10/2015 No Inactive Date Active * NO KNOWN ENVIRONME NTAL ALLERGIES Unknown 11/10/2015 No Inactive Date Active * NO KNOWN DRUG WEN RGIES Unknown 11/10/2015 No Inactive Date Active Past Medical History Illness Codes Condition Status Onset Date Resolved Date Encounter for screen ing mammogram for malignant neoplasm of breast ICD-9: V76.12 ICD-10: Z12.31 Active 06/08/2016 Unknown Dizziness and giddiness ICD-9: 780.4 ICD-10: R42 Active 02/13/2018 Unknown Encounter for genera l adult medical examination without abnormal findings ICD-9: V70.9 ICD-10: Z00.00 Active 02/23/2016 Unknown Gastro-esophageal re flux disease without esophagitis ICD-9: 530.81 ICD-10: K21.9 Active 11/09/2015 Unknown Mixed hyperlipidemia ICD-9: 272.4 ICD-10: E78.2 Active 11/09/2015 Unknown Obstructive sleep ap hoa (adult) (pediatric) ICD-9: 327.23 ICD-10: G47.33 Active 11/09/2015 Unknown Acute sinusitis, uns pecified ICD-9: 461.9 ICD-10: J01.90 Active 04/24/2017 Unknown Viral infection, uns pecified ICD-9: 079.99 ICD-10: B34.9 Active 04/24/2017 Unknown Encounter for gyneco logical examination (general) (routine) without abnormal findings ICD-9: V72.31 ICD-10: Z01.419 Active 02/23/2016 Unknown URI, ACUTE ICD-9: 465.9 ICD-10: J06.9 Active 02/23/2016 Unknown Other seasonal aller gic rhinitis ICD-9: 477.9 ICD-10: J30.2 Active 11/29/2015 Unknown Allergic rhinitis du e to pollen ICD-9: 477.9 ICD-10: J30.1 Active 11/09/2015 Unknown Problems Condition Codes Effectiv e Dates Condition Status Encounter for screen ing mammogram for malignant neoplasm of breast ICD-9: V76.12 ICD-10: Z12.31 06/08/2016 Active Dizziness and giddiness ICD-9: 780.4 ICD-10: R42 02/13/2018 Active Encounter for genera l adult medical examination without abnormal findings ICD-9: V70.9 ICD-10: Z00.00 02/23/2016 Active Gastro-esophageal re flux disease without esophagitis ICD-9: 530.81 ICD-10: K21.9 11/09/2015 Active Mixed hyperlipidemia ICD-9: 272.4 ICD-10: E78.2 11/09/2015 Active Obstructive sleep ap hoa (adult) (pediatric) ICD-9: 327.23 ICD-10: G47.33 11/09/2015 Active Acute sinusitis, uns pecified ICD-9: 461.9 ICD-10: J01.90 04/24/2017 Active Viral infection, uns pecified ICD-9: 079.99 ICD-10: B34.9 04/24/2017 Active Encounter for gyneco logical examination (general) (routine) without abnormal findings ICD-9: V72.31 ICD-10: Z01.419 02/23/2016 Active URI, ACUTE ICD-9: 465.9 ICD-10: J06.9 02/23/2016 Active Other seasonal aller gic rhinitis ICD-9: 477.9 ICD-10: J30.2 11/29/2015 Active Allergic rhinitis du e to pollen ICD-9: 477.9 ICD-10: J30.1 11/09/2015 Active Medications Medication Codes Instruc tions Start Date Stop Date Sta tus Fill Instructions omeprazole 20 mg cap rashawn,delayed release RxNorm: 340950 1 Capsule(s) PO QD 07/04/2018 12/30/2018 Ac tive omeprazole 20 mg cap rashawn,delayed release RxNorm: 420041 1 Capsule(s) PO QD 04/03/2018 07/01/2018 In active omeprazole 20 mg cap rashawn,delayed release RxNorm: 469829 1 Capsule(s) PO QD 04/03/2018 07/01/2018 In active omeprazole 20 mg cap rashawn,delayed release RxNorm: 284158 1 Capsule(s) PO QD 12/05/2017 03/04/2018 In active omeprazole 20 mg cap rashawn,delayed release RxNorm: 495008 1 Capsule(s) PO QD 09/06/2017 04/03/2018 In active Augmentin 875 mg-125 mg tablet RxNorm: 674146 1 Tablet(s) PO BID 04/24/2017 05/03/2017 Inactive omeprazole 20 mg cap rashawn,delayed release RxNorm: 109981 1 Capsule(s) PO QD 04/19/2017 08/16/2017 In active omeprazole 20 mg cap rashawn,delayed release RxNorm: 751414 1 Capsule(s) PO QD re places 40mg daily- due for refill 03/14/2017 04/19/2017 Inactive omeprazole 20 mg cap rashawn,delayed release RxNorm: 594487 1 Capsule(s) PO QD re places 40mg daily 11/30/2016 02/27/2017 Inactive omeprazole 20 mg cap rashawn,delayed release RxNorm: 391082 1 Capsule(s) PO QD re places 40mg daily 05/03/2016 10/29/2016 Inactive cetirizine 1 mg/mL o ral solution RxNorm: 8822491 1.25 Milliliter(s) P O QHS for runny nose 02/24/2016 02/23/2016 Inactive Ce-D 12 Hour 60 mg-120 mg tablet,extended release RxNorm: 964591 1 Tablet(s) PO BID as needed 11/30/2015 No Stop Date Active omeprazole 20 mg cap rashawn,delayed release RxNorm: 021144 1 Capsule(s) PO QD re places 40mg daily 11/10/2015 03/08/2016 Inactive Ce Allergy 180 mg tablet RxNorm: 604759 1 Tablet(s) PO QD No Start Date Active Aspirin Child 81 mg chewable tablet RxNorm: 031090 1 Tablet(s) PO QD No Start Date Active simvastatin 20 mg ta blet RxNorm: 896119 1 Tablet(s) PO QD No Start Date Active omeprazole 40 mg cap rashawn,delayed release RxNorm: 208125 1 Capsule(s) PO QD No Start Date 11/09/2015 Inactive Medication Administered No Medication Administered data Immunizations No Immunization data Assessments Condition Codes Effectiv e Dates Encounter for screening mammogram for ma lignant neoplasm of breast ICD-10: Z12.31 ICD-9: V76.12 06/03/2018 Dizziness and giddiness ICD-10: R42 ICD-9: 780.4 02/13/2018 Encounter for general adult medical exam ination without abnormal findings ICD-10: Z00.00 ICD-9: V70.9 02/13/2018 Obstructive sleep apnea (adult) (pediatric) ICD-10: G47.33 ICD-9: 327.23 02/13/2018 Gastro-esophageal reflux disease without esophagitis ICD-10: K21.9 ICD-9: 530.81 02/13/2018 Mixed hyperlipidemia ICD-10: E78.2 ICD-9: 272.4 02/13/2018 Acute sinusitis, unspecified ICD-10: J01.90 ICD-9: 461.9 04/24/2017 Viral infection, unspecified ICD-10: B34.9 ICD-9: 079.99 04/24/2017 URI, ACUTE ICD-10: J06.9 ICD-9: 465.9 02/24/2016 Encounter for gynecological examination (general) (routine) without abnormal findings ICD-10: Z01.419 ICD-9: V72.31 02/24/2016 Other seasonal allergic rhinitis ICD -10: J30.2 ICD-9: 477.9 11/30/2015 Allergic rhinitis due to pollen ICD- 10: J30.1 ICD-9: 477.9 11/10/2015 Reason For Visit Reason For Visit Effective Dates Notes well woman exam (40-65 years) 02/13/2018 Last normal mammogram -18 postnasal drip 04/24/2017 well woman exam (40-65 years) 02/24/2016 Last normal mammogram June 2015 sinus congestion 11/30/2015 ~generic 11/10/2015 New Patient---establishing visit Results Observation Observation Code Item Item Code Result Date GFR CALC 0287113 GFR Non Afr Amr >60 mL/min 12/21/2016 GFR CALC 2668342 GFR Afr Amr >60 mL/min 12/21/2016 COMPLETE BLOOD COUNT [id number] WBC 3.6 10e9/L 12/21/2016 COMPLETE BLOOD COUNT 5773411 RBC 4.57 10e12/L 7 COMPLETE BLOOD COUNT 3922928 HEMOGLOBIN 13.8 g/dL 12/21/2016 COMPLETE BLOOD COUNT 1454895 HEMATOCRIT 42.4 % 12/21/2016 COMPLETE BLOOD COUNT 7931534 MCV 92.8 fL 12/21/2016 COMPLETE BLOOD COUNT 2182153 MCH 30.2 pg 12/21/2016 COMPLETE BLOOD COUNT 8759203 MCHC 32.5 g/dL 12/21/2016 COMPLETE BLOOD COUNT 0254033 PLATELET COUNT 225 10e9/L 12/21/2016 COMPLETE BLOOD COUNT 4318124 Mean Plt Volume 9.0 fL 12/21/2016 COMPLETE BLOOD COUNT 4857095 Neut Auto 45.6 % 12/21/2016 COMPLETE BLOOD COUNT 0979277 Lymph Auto 37.3 % 12/21/2016 COMPLETE BLOOD COUNT 2418530 [place] Auto 11.0 % 12/21/2016 COMPLETE BLOOD COUNT 7922047 RDW 12.6 % 12/21/2016 COMPLETE BLOOD COUNT 2523016 Eos Auto 5.5 % 12/21/2016 COMPLETE BLOOD COUNT 0124537 Baso Auto 0.6 % 12/21/2016 COMPLETE BLOOD COUNT 8818165 Neutrophil Abs 1.64 10e9/L 12/21/2016 COMPLETE BLOOD COUNT 2884231 Lymphocyte Abs 1.34 10e9/L 12/21/2016 COMPLETE BLOOD COUNT [id number] Monocyte Abs 0.40 10e9/L 12/21/2016 COMPLETE BLOOD COUNT 2882370 Eosinophil Abs 0.20 10e9/L 12/21/2016 COMPLETE BLOOD COUNT 7571410 RDW-SD 42.0 fL 12/21/2016 COMPLETE BLOOD COUNT 8442997 Basophil Abs 0.02 10e9/L 12/21/2016 THYROID STIMULATING HORMONE 90830 TSH 3.423 uIU/mL 7 COMPREHENSIVE METABOLIC 25750 AST 23 U/L 12/21/2016 COMPREHENSIVE METABOLIC 36242 ALT 18 U/L 12/21/2016 COMPREHENSIVE METABOLIC 12974 BUN 21 mg/dL 12/21/2016 COMPREHENSIVE METABOLIC 68767 ALBUMIN 4.4 g/dL 12/21/2016 COMPREHENSIVE METABOLIC 20921 CHLORIDE 103 mmol/L 12/21/2016 COMPREHENSIVE METABOLIC 83474 Bili Total 0.7 mg/dL 12/21/2016 COMPREHENSIVE METABOLIC 77249 ALK PHOS 86 U/L 12/21/2016 COMPREHENSIVE METABOLIC 26039 SODIUM 141 mmol/L 12/21/2016 COMPREHENSIVE METABOLIC 47530 CREATININE 0.75 mg/dL 12/21/2016 COMPREHENSIVE METABOLIC 19139 CALCIUM 9.2 mg/dL 12/21/2016 COMPREHENSIVE METABOLIC 32234 POTASSIUM 3.8 mmol/L 12/21/2016 COMPREHENSIVE METABOLIC 13327 Total Protein 7.3 g/dL 12/21/2016 COMPREHENSIVE METABOLIC 67033 Glucose 95 mg/dL 12/21/2016 COMPREHENSIVE METABOLIC 98024 Bicarbonate 32 mmol/L 12/21/2016 COMPREHENSIVE METABOLIC 30355 AGAP 6 mmol/L 12/21/2016 LIPID GROUP 64369 Choles terol 154 mg/dL 12/21/2016 LIPID GROUP 16213 Trigly ceride 51 mg/dL 12/21/2016 LIPID GROUP 38919 HDL CH OLESTEROL 61 mg/dL 12/21/2016 LIPID GROUP 87750 Chol/H DL Ratio 2.52 ratio 12/21/2016 LIPID GROUP 15368 NON-HD L Chol 93 mg/dL 12/21/2016 LIPID GROUP 47393 LDL Ch olesterol 83 mg/dL 12/21/2016 Review of Systems System Result Effective Dates Constitutional fatigue 1 04/16/2017 Constitutional insomnia 02/13/2018 Cardiovascular No arrhythmia 02/13/2018 Cardiovascular No chest pain/pressure 02/13/2018 Cardiovascular No edema 02/13/2018 Cardiovascular No exercise intolerance 02/13/2018 Cardiovascular No orthopnea 02/13/2018 Cardiovascular No palpitations 02/13/2018 Respiratory No asthma Respiratory No cough 02/2018 Respiratory No dyspnea 1 04/16/2017 Respiratory No pleuritic pain 02/13/2018 Respiratory No productive sputum 02/13/2018 Respiratory No wheezing 02/13/2018 Gastrointestinal No hemorrhoids 02/13/2018 Gastrointestinal No hepatitis 02/13/2018 Gastrointestinal No abdominal pain 02/13/2018 Gastrointestinal No constipation 02/13/2018 Gastrointestinal No diarrhea 02/13/2018 Gastrointestinal No gastroesophageal reflu x 02/13/2018 Gastrointestinal No melena 02/13/2018 Gastrointestinal No nausea 02/13/2018 Gastrointestinal No vomiting 02/13/2018 Genitourinary/Nephrology No dysuria 02/13/2018 Genitourinary/Nephrology No nocturia 02/13/2018 Genitourinary/Nephrology No urinary incontinence 02/13/2018 Musculoskeletal No muscle weakness 02/13/2018 Musculoskeletal No myalgias 02/13/2018 Musculoskeletal No stiffness 02/13/2018 Musculoskeletal No swelling 02/13/2018 Dermatologic No rash 02/2018 Dermatologic No scar 02/2018 Neurologic No dizziness 02/13/2018 Neurologic No headache 1 04/16/2017 Neurologic No neck pain 02/13/2018 Neurologic No syncope Psychiatric stress 02/13 Endocrine No goiter 02/02 Endocrine No hyperglycemia 02/13/2018 Endocrine No hypoglycemia 02/13/2018 Endocrine hyperlipidemia 02/13/2018 Respiratory apneic events 02/13/2018 Ears/Nose/Throat/Neck No hearing loss 02/13/2018 Ears/Nose/Throat/Neck No nasal discharge 02/13/2018 Ears/Nose/Throat/Neck No sinus congestion 02/13/2018 Ears/Nose/Throat/Neck No sore throat 02/13/2018 Ears/Nose/Throat/Neck postnasal drip 04/24/2017 Ears/Nose/Throat/Neck No oral pain 04/24/2017 Ears/Nose/Throat/Neck sinus congestion 04/24/2017 Ears/Nose/Throat/Neck sinusitis 04/24/2017 Ears/Nose/Throat/Neck No sore throat 04/24/2017 Constitutional No fever 04/24/2017 Constitutional fatigue 0 04/24/2017 Constitutional No chills 04/24/2017 Respiratory cough 2017 Respiratory chest congestion 04/24/2017 Respiratory No chest tightness 04/24/2017 Dermatologic No rash Musculoskeletal myalgias 04/24/2017 Gastrointestinal No constipation 04/24/2017 Gastrointestinal No abdominal pain 04/24/2017 Gastrointestinal No diarrhea 04/24/2017 Gastrointestinal No vomiting 04/24/2017 Gastrointestinal No nausea 04/24/2017 Constitutional fever Ears/Nose/Throat/Neck nasal discharge 02/24/2016 Respiratory cough 2015 Constitutional No night sweats 11/30/2015 Constitutional No chills 11/30/2015 Constitutional fatigue 0 11/30/2015 Constitutional No fever 11/30/2015 Eyes No eye discharge Eyes No eye pain 016 Eyes No vision change Ears/Nose/Throat/Neck No dizziness 11/30/2015 Ears/Nose/Throat/Neck eustachian tub e dysfunction 11/30/2015 Ears/Nose/Throat/Neck headache 11/30/2015 Ears/Nose/Throat/Neck nasal discharge 11/30/2015 Ears/Nose/Throat/Neck postnasal drip 11/30/2015 Ears/Nose/Throat/Neck sinus congestion 11/30/2015 Ears/Nose/Throat/Neck sore throat 11/30/2015 Cardiovascular No chest pain/pressure 11/30/2015 Cardiovascular No dyspnea 11/30/2015 Cardiovascular No orthopnea 11/30/2015 Cardiovascular No palpitations 11/30/2015 Cardiovascular No syncope 11/30/2015 Respiratory No chest tightness 11/30/2015 Respiratory cough 2015 Respiratory No dyspnea 0 11/30/2015 Respiratory No wheezing 11/30/2015 Gastrointestinal No diarrhea 11/30/2015 Gastrointestinal No nausea 11/30/2015 Gastrointestinal No vomiting 11/30/2015 Hematologic/Lymphatic No lymph node enlargement/mass 11/30/2015 Ears/Nose/Throat/Neck No facial pain 11/30/2015 Ears/Nose/Throat/Neck nasal allergies 11/30/2015 Ears/Nose/Throat/Neck otalgia 11/30/2015 Ears/Nose/Throat/Neck No otorrhea 11/30/2015 Ears/Nose/Throat/Neck No sinusitis 11/30/2015 Respiratory No chest congestion 11/30/2015 Dermatologic No rash Dermatologic No scar Constitutional No night sweats 11/10/2015 Constitutional No fatigue 11/10/2015 Constitutional No fever 11/10/2015 Constitutional No insomnia 11/10/2015 Constitutional No weight loss 11/10/2015 Eyes No eye pain 016 Eyes No photophobia 09/2015 Eyes No vision change Eyes No visual disturbance 11/10/2015 Ears/Nose/Throat/Neck No hearing loss 11/10/2015 Ears/Nose/Throat/Neck No nasal discharge 11/10/2015 Ears/Nose/Throat/Neck No sinus congestion 11/10/2015 Ears/Nose/Throat/Neck No sore throat 11/10/2015 Cardiovascular No arrhythmia 11/10/2015 Cardiovascular No chest pain/pressure 11/10/2015 Cardiovascular No edema 11/10/2015 Cardiovascular No exercise intolerance 11/10/2015 Cardiovascular No orthopnea 11/10/2015 Cardiovascular No palpitations 11/10/2015 Respiratory No asthma Respiratory No cough 09/2015 Respiratory No dyspnea 0 11/10/2015 Respiratory No pleuritic pain 11/10/2015 Respiratory No productive sputum 11/10/2015 Respiratory No wheezing 11/10/2015 Gastrointestinal No hemorrhoids 11/10/2015 Gastrointestinal No hepatitis 11/10/2015 Gastrointestinal No abdominal pain 11/10/2015 Gastrointestinal No constipation 11/10/2015 Gastrointestinal No diarrhea 11/10/2015 Gastrointestinal No gastroesophageal reflu x 11/10/2015 Gastrointestinal No melena 11/10/2015 Gastrointestinal No nausea 11/10/2015 Gastrointestinal No vomiting 11/10/2015 Genitourinary/Nephrology No dysuria 11/10/2015 Genitourinary/Nephrology No nocturia 11/10/2015 Genitourinary/Nephrology No urinary incontinence 11/10/2015 Musculoskeletal No muscle weakness 11/10/2015 Musculoskeletal No myalgias 11/10/2015 Musculoskeletal No stiffness 11/10/2015 Musculoskeletal No swelling 11/10/2015 Dermatologic No rash 09/2015 Dermatologic No scar 09/2015 Neurologic No dizziness 11/10/2015 Neurologic No headache 0 11/10/2015 Neurologic No neck pain 11/10/2015 Neurologic No syncope Psychiatric No anxiety 0 11/10/2015 Psychiatric No depression 11/10/2015 Endocrine No goiter 09/2015 Endocrine No hyperglycemia 11/10/2015 Endocrine No hypoglycemia 11/10/2015 Hematologic/Lymphatic No abnormal ec chymoses 11/10/2015 Hematologic/Lymphatic No petechiae 11/10/2015 Hematologic/Lymphatic No abnormal bl eeding and bruising 11/10/2015 Hematologic/Lymphatic No anemia 11/10/2015 Hematologic/Lymphatic No lymph node enlargement/mass 11/10/2015 Allergy/Immunology No food allergy 11/10/2015 Endocrine hyperlipidemia 11/10/2015 Physical Exam Exam Name System Name It em Name Status Result Effective Dates Notes Full Exam - General Constitutional general appearance Overall: well nourished 02/13/2018 None Full Exam - General Constitutional general appearance Overall: well developed 02/13/2018 None Full Exam - General Constitutional general appearance Overall: in no acute distress 02/13/2018 None Full Exam - General Neurologic mental status Overall: alert 8 None Full Exam - General Neurologic mental status Overall: oriented 02/13/2018 None Full Exam - General Psychiatric mood and affect Overall: normal mood and affect 02/13/2018 None Full Exam - General Respiratory auscultation Overall: breath sounds clear bilater ally 02/13/2018 None Full Exam - General Cardiovascular auscultation of heart Overall: regular rate 02/13/2018 None Full Exam - General Cardiovascular auscultation of heart Overall: normal heart sounds 02/13/2018 None Full Exam - General Cardiovascular auscultation of heart S4 (atrial gallop): present 02/13/2018 None Full Exam - General Neck inspection of neck Overall: normal size 02/13/2018 None Full Exam - General Neck inspection of neck Overall: no masses 02/13/2018 None Full Exam - General Ears/Nose/Throat otoscopic exam Overall: external auditory canals clear 02/13/2018 None Full Exam - General Ears/Nose/Throat otoscopic exam Overall: tympanic membranes clear 02/13/2018 None Full Exam - General Ears/Nose/Throat internal nose Overall: bilateral nasal cavities clear 02/13/2018 None Full Exam - General Ears/Nose/Throat oral cavity/pharynx/larynx Overall: oral mucosa clear 02/13/2018 None Full Exam - General Cardiovascular extremities Overall: no clubbing 02/13/2018 None Full Exam - General Cardiovascular extremities Overall: No cyanosis 02/13/2018 None Full Exam - General Cardiovascular extremities Edema present: non-pitting 02/13/2018 None Full Exam - General Abdomen abdominal exam Overall: no masses 02/13/2018 None Full Exam - General Abdomen abdominal exam Overall: no tenderness 02/13/2018 None Full Exam - General Abdomen abdominal exam Overall: normal bowel sounds 02/13/2018 None Full Exam - General Abdomen abdominal exam Overall: soft 02/13/2018 None Full Exam - General Musculoskeletal gait and station Overall: normal gait 02/13/2018 None Full Exam - General Musculoskeletal gait and station Overall: normal station 02/13/2018 None Full Exam - General Constitutional general appearance Overall: well nourished 04/24/2017 None Full Exam - General Constitutional general appearance Overall: in no acute distress 04/24/2017 None Full Exam - General Respiratory respiratory effort/rhythm Overall: no retractions 04/24/2017 None Full Exam - General Respiratory respiratory effort/rhythm Overall: normal rate 04/24/2017 None Full Exam - General Respiratory auscultation Overall: breath sounds clear bilater ally 04/24/2017 None Full Exam - General Ears/Nose/Throat otoscopic exam Overall: external auditory canals clear 04/24/2017 None Full Exam - General Ears/Nose/Throat otoscopic exam Overall: tympanic membranes clear 04/24/2017 None Full Exam - General Ears/Nose/Throat oral cavity/pharynx/larynx Oropharynx: postnasal drainage 04/24/2017 None Full Exam - General Ears/Nose/Throat internal nose Turbinates: erythema 04/24/2017 None Full Exam - General Ears/Nose/Throat internal nose Turbinates: bilateral edema 04/24/2017 None Full Exam - General Ears/Nose/Throat internal nose Drainage: cloudy 04/24/2017 None Full Exam - General Ears/Nose/Throat internal nose Sinus tenderness: left frontal 04/24/2017 None Full Exam - General Ears/Nose/Throat internal nose Sinus tenderness: right frontal 04/24/2017 None Full Exam - General Ears/Nose/Throat internal nose Sinus tenderness: left maxillary 04/24/2017 None Full Exam - General Ears/Nose/Throat internal nose Sinus tenderness: right maxillary 04/24/2017 None Full Exam - General Cardiovascular auscultation of heart Overall: regular rate 04/24/2017 None Full Exam - General Cardiovascular auscultation of heart Overall: no murmurs 04/24/2017 None Full Exam - General Lymphatic neck nodes Overall: anterior cervical chain edwige ign 04/24/2017 None Full Exam - General Lymphatic neck nodes Overall: posterior cervical chain be nign 04/24/2017 None Full Exam - General Neurologic mental status Overall: alert 8 None Full Exam - General Neurologic mental status Overall: oriented 04/24/2017 None Full Exam - General Constitutional general appearance Overall: well nourished 02/24/2016 None Full Exam - General Constitutional general appearance Overall: well developed 02/24/2016 None Full Exam - General Constitutional general appearance Overall: in no acute distress 02/24/2016 None Full Exam - General Ears/Nose/Throat otoscopic exam Overall: external auditory canals clear 02/24/2016 None Full Exam - General Ears/Nose/Throat otoscopic exam Overall: tympanic membranes clear 02/24/2016 None Full Exam - General Ears/Nose/Throat internal nose Drainage: clear 02/24/2016 None Full Exam - General Ears/Nose/Throat oral cavity/pharynx/larynx Oropharynx: erythema 02/24/2016 None Full Exam - General Respiratory auscultation Overall: breath sounds clear bilater ally 02/24/2016 None Full Exam - General Neurologic mental status Overall: alert 6 None Full Exam - General Neurologic mental status Overall: oriented 02/24/2016 None Full Exam - General Psychiatric mood and affect Overall: normal mood and affect 02/24/2016 None Full Exam - General Cardiovascular auscultation of heart Overall: regular rate 02/24/2016 None Full Exam - General Cardiovascular auscultation of heart Overall: normal heart sounds 02/24/2016 None Full Exam - General Cardiovascular auscultation of heart S3 (ventricular gallop): present 02/24/2016 None Full Exam - General Neck inspection of neck Overall: normal size 02/24/2016 None Full Exam - General Neck inspection of neck Overall: no masses 02/24/2016 None Full Exam - General Cardiovascular extremities Overall: No cyanosis 02/24/2016 None Full Exam - General Cardiovascular extremities Overall: no clubbing 02/24/2016 None Full Exam - General Cardiovascular extremities Edema present: non-pitting 02/24/2016 None Full Exam - General Abdomen abdominal exam Overall: no masses 02/24/2016 None Full Exam - General Abdomen abdominal exam Overall: no tenderness 02/24/2016 None Full Exam - General Abdomen abdominal exam Overall: normal bowel sounds 02/24/2016 None Full Exam - General Abdomen abdominal exam Overall: soft 02/24/2016 None Full Exam - General Chest/Breast breast and axillae palpation Overall: breasts non- tender 02/24/2016 None Full Exam - General Chest/Breast breast and axillae palpation Overall: no masses 02/24/2016 None Full Exam - General Chest/Breast breast and axillae palpation Overall: axillae non- tender 02/24/2016 None Full Exam - General Chest/Breast breast and axillae palpation Overall: no nipple discharge 02/24/2016 None Full Exam - General Genitourinary uterus Overall: normal size 02/24/2016 None Full Exam - General Genitourinary cervix Overall: no discharge 02/24/2016 None Full Exam - General Genitourinary labia and vagina Overall: normal hair distribution 02/24/2016 None Full Exam - General Genitourinary labia and vagina Overall: no lesions 02/24/2016 None Full Exam - General Genitourinary adnexa/parametria Overall: no tenderness 02/24/2016 None Full Exam - General Genitourinary labia and vagina Vagina: erythematous 02/24/2016 None Full Exam - General Constitutional general appearance Overall: well nourished 11/30/2015 None Full Exam - General Constitutional general appearance Overall: well developed 11/30/2015 None Full Exam - General Constitutional general appearance Overall: in no acute distress 11/30/2015 None Full Exam - General Constitutional general appearance Nourishment: well nourished 11/30/2015 None Full Exam - General Constitutional general appearance Evidence of Distress: in no acute distress 11/30/2015 None Full Exam - General Eyes conjunctiva/eyelids Overall: conjunctiva clear 11/30/2015 None Full Exam - General Eyes conjunctiva/eyelids Overall: cornea clear 11/30/2015 None Full Exam - General Eyes conjunctiva/eyelids Overall: eyelids normal 11/30/2015 None Full Exam - General Eyes pupils and irises Overall: pupils equal, round, reacti ve to light and accomodation 11/30/2015 None Full Exam - General Ears/Nose/Throat external ear Overall: normal appearance 11/30/2015 None Full Exam - General Ears/Nose/Throat external nose Overall: benign appearance 11/30/2015 None Full Exam - General Ears/Nose/Throat otoscopic exam Overall: external auditory canals clear 11/30/2015 None Full Exam - General Ears/Nose/Throat otoscopic exam Left tympanic membrane: air- fluid level 11/30/2015 None Full Exam - General Ears/Nose/Throat otoscopic exam Right tympanic membrane: air- fluid level 11/30/2015 None Full Exam - General Ears/Nose/Throat internal nose Left nasal cavity: mucosal edema 11/30/2015 None Full Exam - General Ears/Nose/Throat internal nose Right nasal cavity: mucosal edema 11/30/2015 None Full Exam - General Ears/Nose/Throat lips/teeth/gingiva Overall: benign lips 11/30/2015 None Full Exam - General Ears/Nose/Throat lips/teeth/gingiva Overall: normal dentition 11/30/2015 None Full Exam - General Ears/Nose/Throat oral cavity/pharynx/larynx Oropharynx: a normal exam 11/30/2015 None Full Exam - General Respiratory auscultation Overall: breath sounds clear bilater ally 11/30/2015 None Full Exam - General Cardiovascular auscultation of heart Overall: regular rate 11/30/2015 None Full Exam - General Cardiovascular auscultation of heart Overall: normal heart sounds 11/30/2015 None Full Exam - General Cardiovascular auscultation of heart Overall: no murmurs 11/30/2015 None Full Exam - General Lymphatic neck nodes Overall: anterior cervical chain edwige ign 11/30/2015 None Full Exam - General Lymphatic neck nodes Overall: posterior cervical chain be nign 11/30/2015 None Full Exam - General Integument inspection of skin Overall: no rash, lesions 11/30/2015 None Full Exam - General Psychiatric mood and affect Overall: normal mood and affect 11/30/2015 None Full Exam - General Ears/Nose/Throat otoscopic exam Otorrhea: absent 11/30/2015 None Full Exam - General Ears/Nose/Throat otoscopic exam Perforation: absent 11/30/2015 None Full Exam - General Ears/Nose/Throat internal nose Overall: no sinus tenderness 11/30/2015 None Full Exam - General Ears/Nose/Throat internal nose Drainage: clear 11/30/2015 None Full Exam - General Ears/Nose/Throat internal nose Drainage: bilateral 11/30/2015 None Full Exam - General Ears/Nose/Throat oral cavity/pharynx/larynx Overall: oral mucosa clear 11/30/2015 None Full Exam - General Constitutional general appearance Overall: well nourished 11/10/2015 None Full Exam - General Constitutional general appearance Overall: well developed 11/10/2015 None Full Exam - General Constitutional general appearance Overall: in no acute distress 11/10/2015 None Full Exam - General Neurologic mental status Overall: alert 6 None Full Exam - General Neurologic mental status Overall: oriented 11/10/2015 None Full Exam - General Psychiatric mood and affect Overall: normal mood and affect 11/10/2015 None Full Exam - General Respiratory auscultation Overall: breath sounds clear bilater ally 11/10/2015 None Full Exam - General Cardiovascular auscultation of heart Overall: regular rate 11/10/2015 None Full Exam - General Cardiovascular auscultation of heart Overall: normal heart sounds 11/10/2015 None Full Exam - General Cardiovascular auscultation of heart Overall: no murmurs 11/10/2015 None Full Exam - General Neck inspection of neck Overall: normal size 11/10/2015 None Full Exam - General Neck inspection of neck Overall: no masses 11/10/2015 None Full Exam - General Cardiovascular extremities Overall: no clubbing 11/10/2015 None Full Exam - General Cardiovascular extremities Overall: No cyanosis 11/10/2015 None Full Exam - General Cardiovascular extremities Edema present: non-pitting 11/10/2015 None Full Exam - General Abdomen abdominal exam Overall: no masses 11/10/2015 None Full Exam - General Abdomen abdominal exam Overall: normal bowel sounds 11/10/2015 None Full Exam - General Abdomen abdominal exam Overall: no tenderness 11/10/2015 None Full Exam - General Abdomen abdominal exam Overall: soft 11/10/2015 None Full Exam - General Ears/Nose/Throat otoscopic exam Overall: external auditory canals clear 11/10/2015 None Full Exam - General Ears/Nose/Throat otoscopic exam Overall: tympanic membranes clear 11/10/2015 None Full Exam - General Ears/Nose/Throat internal nose Turbinates: hypertrophy 11/10/2015 None Full Exam - General Ears/Nose/Throat oral cavity/pharynx/larynx Overall: oral mucosa clear 11/10/2015 None Full Exam - General Musculoskeletal left lower extremity Inspection - left ankle: swelling diffusely 11/10/[address] Procedures Procedure Codes Date INFLUENZA ASSAY W/OPTIC CPT-4: 68508 04/24/2017 SPECIMEN HANDLING OF FICE-LAB CPT-4: 83778 02/24/2016 THER/PROPH/DIAG INJ SC/IM CPT-4: 44505 11/30/2015 TRIAMCINOLONE ACET I [place] NOS CPT-4: J3301 11/30/2015 DEXAMETHASONE SODIUM PHOS CPT-4: J1100 11/30/2015 Vital Signs Date Vital 02/13/2018 Blood Pressure 1: 138/82 Code: 8480-6 BMI: 34.5 Code: 49170-9 Heart Rate 1: 68 bpm Height: 5'7" Respiratory Rate: 18 bpm SpO2: 97% Temperature: 36.8 (C ) / 98.2 (F) Weight: 220 lbs 04/24/2017 Blood Pressure 1: 126/78 Code: 8480-6 BMI: 35.4 Code: 75836-3 Heart Rate 1: 84 bpm Height: 5'7" Respiratory Rate: 22 bpm SpO2: 95% Temperature: 36.9 (C ) / 98.4 (F) Weight: 226 lbs 02/24/2016 Blood Pressure 1: 128/78 Code: 8480-6 BMI: 35.6 Code: 08714-0 Heart Rate 1: 68 bpm Height: 5'7" Respiratory Rate: 20 bpm SpO2: 97% Temperature: 36.7 (C ) / 98.1 (F) Weight: 227 lbs 11/30/2015 Blood Pressure 1: 128/78 Code: 8480-6 BMI: 36.0 Code: 51958-9 Heart Rate 1: 76 bpm Height: 5'7" Respiratory Rate: 20 bpm SpO2: 97% Temperature: 37.1 (C ) / 98.7 (F) Weight: 230 lbs 11/10/2015 Blood Pressure 1: 136/82 Code: 8480-6 BMI: 36.0 Code: 97154-7 Heart Rate 1: 80 bpm Height: 5'7" Respiratory Rate: 20 bpm Temperature: 36.6 (C ) / 97.9 (F) Weight: 230 lbs Functional Status No Functional Status data History of Present Illness Symptom Name Status Resu lt Effective Date Notes well woman exam (40-65 years) Pap Smear last normal performed on 02-24-1602/13/2018 None well woman exam (40-65 years) Contro l post menopausal 02/13/2018 None dyspepsia Quality heartb urn 02/13/2018 None dyspepsia Quality burning 02/13/2018 None dyspepsia Onset and Resolution ongoing. 02/13/2018 Using omeprazole 20mg funmilayo ly dizziness Quality imbala nce 02/13/2018 None dizziness Quality lighth eadedness 02/13/2018 None dizziness Quality interm ittent 02/13/2018 None postnasal drip Quality a cute 04/24/2017 None postnasal drip Quality i ntermittent 04/24/2017 None postnasal drip Quality w orsening 04/24/2017 None postnasal drip Onset and Resolution ongoing 04/24/2017 None postnasal drip Onset of Symptom 3-4 days ago 04/24/2017 None nasal discharge Location in both nares 04/24/2017 None nasal discharge Quality acute 04/24/2017 None nasal discharge Quality intermittent 04/24/2017 None nasal discharge Quality thick 04/24/2017 None nasal discharge Quality worsening 04/24/2017 None nasal discharge Quality yellow 04/24/2017 None nasal discharge Onset and Resolution ongoing 04/24/2017 None nasal discharge Onset of Symptom 3-4 days ago 04/24/2017 None cough Location in the th roat 04/24/2017 None cough Quality acute 04/24/2017 None cough Quality dry 04/24/2017 None cough Quality hacking 04/24/2017 None cough Onset and Resolution ongoing 04/24/2017 None cough Onset and Resolution gradual in onset 04/24/2017 None cough Onset of Symptom 3 -4 days ago 04/24/2017 None chills Quality acute 04/24/2017 None chills Quality intermitt ent 04/24/2017 None chills Quality worsening 04/24/2017 None chills Onset and Resolution gradual in onset 04/24/2017 None chills Onset of Symptom 3-4 days ago 04/24/2017 None myalgias Location diffus anitha 04/24/2017 None myalgias Quality acute 04/24/2017 None myalgias Quality aching 04/24/2017 None myalgias Onset and Resolution gradual in onset 04/24/2017 None myalgias Onset of Symptom 3-4 days ago 04/24/2017 None well woman exam (40-65 years) Pap Smear 4+ years ago 02/24/2016 None well woman exam (40-65 years) Pap Smear normal results 02/24/2016 None well woman exam (40-65 years) Contro l menopause 02/24/2016 None cough Quality hacking 02/24/2016 None cough Onset and Resolution ongoing 02/24/2016 None cough Location in the th roat 02/24/2016 None cough Onset of Symptom 5 days ago 02/24/2016 None nasal discharge Location in both nares 02/24/2016 None nasal discharge Quality thin 02/24/2016 None nasal discharge Quality clear 02/24/2016 None nasal discharge Onset of Symptom 5 days ago 02/24/2016 None cough Quality dry 02/24/2016 None cough Onset and Resolution sudden in onset 02/24/2016 None fever Temperature 100 de grees 02/24/2016 None fever Length of Episodes _ days 02/24/2016 None sinus congestion Quality acute 11/30/2015 None sinus congestion Quality fullness 11/30/2015 None sinus congestion Quality pain 11/30/2015 None sinus congestion Quality pressure 11/30/2015 None sinus congestion Location on both sides 11/30/2015 None sinus congestion Onset of Symptom 3 days ago 11/30/2015 None otalgia Location on both sides 11/30/2015 None otalgia Quality acute 11/30/2015 None otalgia Quality Pressure 11/30/2015 None otalgia Onset and Resolution gradual in onset 11/30/2015 None otalgia Onset of Symptom 2-3 days ago 11/30/2015 None sore throat Location dif fusely 11/30/2015 None sore throat Quality acute 11/30/2015 None sore throat Quality achi ng 11/30/2015 None sore throat Onset and Resolution gradual in onset 11/30/2015 None sore throat Onset of Symptom 2-3 days ago 11/30/2015 None postnasal drip Quality a cute 11/30/2015 None postnasal drip Quality p urulent 11/30/2015 None postnasal drip Onset and Resolution gradual in onset 11/30/2015 None postnasal drip Onset of Symptom 2-3 days ago 11/30/2015 None cough Location in the th roat 11/30/2015 None cough Quality acute 11/30/2015 None cough Quality hacking 11/30/2015 None cough Onset and Resolution gradual in onset 11/30/2015 None cough Onset of Symptom 2 -3 days ago 11/30/2015 None sinus pain Location diff usely 11/30/2015 None sinus pain Quality acute 11/30/2015 None sinus pain Quality fulln ess 11/30/2015 None sinus pain Onset and Resolution gradual in onset 11/30/2015 None sinus pain Onset of Symptom 2-3 days ago 11/30/2015 None cough Quality productive 11/30/2015 None nasal discharge Location in both nares 11/30/2015 None nasal discharge Quality acute 11/30/2015 None nasal discharge Quality green 11/30/2015 None nasal discharge Quality thick 11/30/2015 None nasal discharge Quality worsening 11/30/2015 None nasal discharge Onset of Symptom _ days ago 11/30/2015 None hyperlipidemia Quality c hronic 11/10/2015 None hyperlipidemia Alleviating Factors medication 11/10/2015 Currently taking Simvastatin 20mg daily gastroesophageal reflux Quality regurgitation of acid 11/10/2015 None gastroesophageal reflux Quality stable 11/10/2015 None gastroesophageal reflux Alleviating Factor s proton pump inhibitor. 11/10/2015 Currently on Omeprazole 40mg daily nasal allergies Location in both nares 11/10/2015 None nasal allergies Onset and Resolution ongoing 11/10/2015 None nasal allergies Onset of Symptom during adulthood 11/10/2015 None nasal allergies Severity moderate 11/10/2015 None menstrual irregularity Quality amenorrhea 11/10/2015 about 5 years ago apneic events Onset of Symptom during adulthood 11/10/2015 None apne[address] events Quality st able 11/10/2015 None Advance Directives No Advance Directive data Encounters Encounter Performer Loca tion Codes Date (34205) PREV VISIT E ST AGE 40-64 Diagnosis: Encounter for general adult medical examination without abnormal findings[ICD10: Z00.00] Diagnosis: Gastro-esophageal reflux disease without esophagitis[ICD10: K21.9] Diagnosis: Obstructive sleep apnea (adult) (pediatric)[ICD10: G47.33] Diagnosis: Mixed hyperlipidemia[ICD10: E78.2] Diagnosis: Dizziness and giddiness[ICD10: R42] Naya BEARD CPT-4: 14193 02/13/2018 OFFICE/OUTPATIENT SIT EST Diagnosis: Acute sinusitis, unspecified[ICD10: J01.90] Diagnosis: Viral infection, unspecified[ICD10: B34.9] Jodie Tran NAYA JocelinRuss JANICE CAMARILLO [employer] CPT-4: 31035 04/24/2017 ([id number]) PREV VISIT E ST AGE 40-64 Diagnosis: Encounter for general adult medical examination without abnormal findings[ICD10: Z00.00] Diagnosis: Encounter for gynecological examination (general) (routine) without abnormal findings[ICD10: Z01.419] Diagnosis: URI, ACUTE[ICD10: J06.9] Naya Ileana NAYA JocelinRuss [email or web address] CPT-4: 63260 02/24/2016 ([id number]) OFFICE/OUTPA TIENT VISIT EST Diagnosis: Other seasonal allergic rhinitis[ICD10: J30.2] Regina Sagastume NAYA JocelinRuss [email or web address] CPT-4: 17684 11/30/2015 OFFICE/OUTPATIENT SIT NEW Diagnosis: Mixed hyperlipidemia[ICD10: E78.2] Diagnosis: Gastro-esophageal reflux disease without esophagitis[ICD10: K21.9] Diagnosis: Allergic rhinitis due to pollen[ICD10: J30.1] Diagnosis: Obstructive sleep apnea (adult) (pediatric)[ICD10: G47.33] Naya Ileana CEDEÑOLINE JocelinRuss [email or web address] CPT-4: 26864 11/10/2015 Plan of Care Planned Activity Notes C odes Status Date Visit Diagnosis Plan: Gastro-esophageal reflux disease without esophagitis Discussion: Stable on omeprazole ICD-9 : 530.81 ICD-10 : K21.9 02/13/2018 Visit Diagnosis Plan: Obstructive sleep apnea (adult) (pediatric) Discussion: Discussed importance of usin g this routinely ICD-9 : 327.23 ICD-10 : G47.33 02/13/2018 Visit Diagnosis Plan: Encounter for gene ral adult medical examination without abnormal findings Discussion: Mammo up to date Defers flu shot Mediterranean diet Recommend add weght bearing exercise Update fasting lab Had Mammogram in July Colonoscopy up to date ICD-9 : V70.9 ICD-10 : Z00.00 02/13/2018 Visit Diagnosis Plan: Dizziness and giddiness Discussion: Discussed may be BP or BS related Will await lab results ICD-9 : 780.4 ICD-10 : R42 02/13/2018 Appointment: [facility] Tej[facility]el[facility] [phone] [facility] [facility] 02/13/2018 Patient Education: Patient Medication Summary Completed 06/06/2017 Care Plan: MAMMOGRAM BOTH BREASTS LOINC : 35891-5 Pending 06/06/2017 Visit Diagnosis Plan: Acute sinusitis, unspecified Discussion: augmentin for symptom relief. instructed to use humidifier at home, hot steam from shower for relief and tylenol/ibuprofen for pain or fever. saline up nares often. take probiotic or consume yogurt to reduce risk of yeast infection. call or rtc if new or worsening symptoms. take ce d to assist with drainage production. ICD-9 : 461.9 ICD-10 : J01.90 04/24/2017 Appointment: Jodie Tran [address] [place] [address] ACUTE ILLNESS 04/24/2017 Patient Education: Patient Medication Summary Completed 04/24/2017 Patient Education: Patient Medication Summary Completed 12/08/2016 Care Plan: COMPREHEN METABOLIC PANEL LOINC : 99563-1 Pending 12/08/2016 Care Plan: ASSAY THYROID STIM HORMONE Pending 12/08/2016 Care Plan: LIPID PANEL LOINC : 36984-7 Pending 12/08/2016 Care Plan: CBC Pending 12/08/2016 Patient Education: Patient Medication Summary Completed 06/08/2016 Care Plan: MAMMOGRAM SCREENING LOINC : 91732-9 Pending 06/08/2016 Visit Plan: Supportive care. Rest, Fluids, Tylenol/Motrin prn fever or bodyaches. Notify if worsening symptoms. Pap done Due for Mammogram in June Obtain fasting lab from December Fwup prn and 1 year for yearly 02/24/2016 Appointment: Naya Tejeda WPtel: [phone] [facility] 02/22 confirmed~sl PAP 02/24/2016 Patient Education: Patient Medication Summary Completed 02/24/2016 Visit Plan: Injection as above Rx f or ce-d Benadryl at HS Nasal rinses, steroid nasal sprays Mucinex Vicks, humidifier, vitamin C, rest, fluids Follow up PRN 11/30/2015 Visit Plan: Injection as above Rx f or ce-d Benadryl at HS Nasal rinses, steroid nasal sprays Mucinex Vicks, humidifier, vitamin C, rest, fluids Follow up PRN 11/30/2015 Visit Plan: Injection as above Rx f or ce-d Benadryl at HS Nasal rinses, steroid nasal sprays Mucinex Vicks, humidifier, vitamin C, rest, fluids Follow up PRN 11/30/2015 Appointment: Mitesh Regina [phone] ACUTE ILLNESS 11/30/2015 Patient Education: Patient Medication Summary Completed 11/30/2015 Patient Education: [facility] - [employer] - 18-64 - Dynamic Portal ID Completed 11/30/2015 Referral: Sunil Hatch WPtel: [phone] [facility] Referral Appointment Confirmed 11/23/2015 Visit Plan: Needs pap Mammogram is up-to-date Due for fasting lab in December Colonoscopy referral to Dr. Hatch Decrease omeprazole to 40mg alternating with 20mg every other day for 1month then decrease to 20mg daily --notify if reflux symptoms increase with decreased dose Return in February for Pap smear Fwup with Dr. Leiva and Dr. Hess in December as scheduled Discused diet/exercise weight loss 11/10/2015 Appointment: Naya Tejeda WPtel: [phone] [place], [place] [id number] 11/08lm ~sl9/07 CONFIRMED~sl NEW PATIENT 11/10/2015 Patient Education: Patient Medication Summary Completed 11/10/2015 Patient Education: [facility] - [facility] [employer] - 18-64 - Dynamic Portal ID Completed 11/10/2015 Instructions Comment . Needs pap Mammogram is up-to-date Due for fasting lab in December Colonoscopy referral to Dr. Hatch Decrease omeprazole to 40mg alternating with 20mg every other day for 1month then decrease to 20mg daily--notify if reflux symptoms increase with decreased dose Return in February for Pap smear Fwup with Dr. Leiva and Dr. Hess in December as scheduled Discused diet/exercise weight loss . Supportive care. Rest, Fluids, Tylenol/Motrin prn fever or bodyaches. Notify if worsening symptoms. Pap done Due for Mammogram in June Obtain fasting lab from December Fwup prn and 1 year for yearly . Injection as above Rx for ce-d Benadryl at HS Nasal rinses, steroid nasal sprays Mucinex Vicks, humidifier, vitamin C, rest, fluids Follow up PRN . Injection as above Rx for ce-d Benadryl at HS Nasal rinses, steroid nasal sprays Mucinex Vicks, humidifier, vitamin C, rest, fluids Follow up PRN . Injection as above Rx for ce-d Benadryl at HS Nasal rinses, steroid nasal sprays Mucinex Vicks, humidifier, vitamin C, rest, fluids Follow up PRN
[2019-09-24] MEDS ORDERED: LIDOCAINE JELLY 2% 6 ML SYRINGE ONE (10:42)
[2019-09-24 11:10] VITALS: BP 146/76
--- NOTE | 2019-09-24 11:11 | Progress Note-Post Operative ---
Post-Operative Progess Note Surgeon (s)/Rivet Tapping Machine Operator (s) Surgeon FÁITMA VEE MD Rivet Tapping Machine Operator: none Pre-Operative Diagnosis GERD, dysphagia Post-Operative Diagnosis reflux esophagitis(stage 2), small-mod HH(2.5cm), moderate gastritis. Procedure & Operative Findings Date of Procedure 09/24/19 Procedure Performed/Findings EGD with bx. Anesthesia Type mac Estimated Blood Loss Estimated blood loss (mL): minimal Specimens/Packing Specimens Removed ge jxn, antrum. FÁTIMA VEE MD Sep 24, 2019 11:11
[2019-09-24] MEDS ORDERED: SUCR1TAB36 PO (11:30)
[2019-09-24 11:40] VITALS: BP 142/72
[2019-09-24 11:58] VITALS: BP 142/72
--- NOTE | 2019-09-24 14:18 | Anesthesia-General Post-Op ---
MAC Patient Condition Mental Status/LOC: Same as Preop Cardiovascular: Satisfactory Nausea/Vomiting: Absent Respiratory: Satisfactory Pain: Controlled Complications: Absent Post Op Complications Complications None Follow Up Care/Instructions Patient Instructions None needed. Anesthesiology Discharge Order Discharge Order Patient is doing well, no complaints, stable vital signs, no apparent adverse anesthesia problems. No complications reported per nursing. AMANDA STRAUSS DIRECTOR CPG Sep 24, 2019 14:18
--- NOTE | 2019-09-24 15:41 | OPERATIVE REPORT ---
DATE OF SERVICE: 09/24/2019 ATTENDING PRIMARY CARE PHYSICIAN: Naya Tejeda DO. PREOPERATIVE DIAGNOSIS: Gastroesophageal reflux disease. POSTOPERATIVE DIAGNOSES: Reflux esophagitis stage II, small to moderate size hiatal hernia approximately 2.5 cm in size and moderate gastritis. PROCEDURES PERFORMED: EGD with biopsy. SURGEON: Fátima Vee MD ANESTHESIA: Monitored anesthesia care. ESTIMATED BLOOD LOSS: Minimal. FINDINGS: Same as postoperative diagnosis. DISPOSITION: The patient tolerated the procedure well. DESCRIPTION OF PROCEDURE: The patient was brought to the endoscopy suite and laid in the left lateral decubitus position. After adequate IV pain and sedative medications and monitored anesthesia care, the mouthpiece was applied. The endoscope was placed in the mouth, visualizing the pharynx and hypopharyngeal region. Vocal cords, epiglottis and vallecula identified and appeared to be normal. The endoscope was gently intubated and the esophageal opening and the esophagus insufflated. The endoscope was then advanced to the first, second and third portion of the esophagus at the level of GE junction and a reflux esophagitis stage II identified. There were no ulcers or strictures identified in this region. A biopsy was taken with forceps with visualization of good hemostasis. The GE junction was also intrathoracic consistent with a hiatal hernia. There were no strictures identified. The endoscope was then advanced in the stomach and endoscope retroflexed visualizing a small to moderate size hiatal hernia approximately 2.5 cm in size. This appears to be the root of her symptomatology. She did have a moderate gastritis as well as multiple very small polyps of the body of the stomach consistent with a chronic PPI acid account development representative use. A biopsy was taken of the antrum to rule out H. pylori with visualization of good hemostasis. Endoscope was then advanced to the pylorus and the first and second portion of the duodenum, which appeared normal with no distal obstructions. The endoscope was then slowly withdrawn while taking a second look and suctioning of residual air with no additional findings. The patient tolerated the procedure well. We will recommend the necessary lifestyle and diet accommodation for the reflux esophagitis as well as the hiatal hernia and gastritis, which would encompass small and more frequent meals, avoiding eating at night as well as head elevation while lying supine. She also needs to avoid caffeinated beverages, spicy, greasy and acidic foods. Any regularly scheduled diet and exercise regimen for weight loss and maintenance would also be extremely beneficial. Because she is symptomatic, we will have her continue with her Protonix and Pepcid, but also add Carafate one-gram q.i.d. for two weeks, then on a p.r.n. basis. Job ID: [id number] DocumentID: [id number] Dictated Date: 09/24/2019 11:02:22 Section Chief Date: 09/24/2019 15:40:24 Dictated By: FÁTIMA VEE MD
== END 2019-09-24 12:00 | disposition home or self-care (01) ==
LOC: ENDO 09:31
PROVIDERS: ATTEND Surgery
DX: K21.0 Gastro-esophageal reflux disease with esophagitis (principal); K29.50 Unspecified chronic gastritis without bleeding; K44.9 Diaphragmatic hernia without obstruction or gangrene; G47.33 Obstructive sleep apnea (adult) (pediatric); I27.20 Pulmonary hypertension, unspecified; E78.00 Pure hypercholesterolemia, unspecified; M06.9 Rheumatoid arthritis, unspecified; Z79.82 Long term (current) use of aspirin; Z79.899 Other long term (current) drug therapy; Z90.49 Acquired absence of other specified parts of digestive tract

== ENCOUNTER 2019-12-15 08:00 | Outpatient (RCR) | payer OTHER ==
[~2019-12-15 08:00] MED LIST changes: +ASPI-1238 PO; -ASPI-983 PO; -PANT40TA3 PO; +PANT40TA52 PO; +SUCR1TAB36 PO
== END 2020-03-14 | disposition home or self-care (01) ==
LOC: CARD 08:00
PROVIDERS: ATTEND Physician Assistant
DX: E78.5 Hyperlipidemia, unspecified (principal); G47.33 Obstructive sleep apnea (adult) (pediatric); R00.2 Palpitations; R07.89 Other chest pain; Z20.828 Contact with and (suspected) exposure to other viral communicable diseases
CPT/HCPCS: 93225; 93226

== ENCOUNTER → 2020-08-12 | Outpatient (CLI) | payer OTHER ==
[~2020-08-12] MED LIST changes: +ESCI-2 PO; -ESCI10TA55 PO
--- NOTE | 2020-08-12 12:20 | Diagnostic Imaging Report ---
Digital mammogram INDICATION: Bilateral screening This study was compared to the prior exams of 08/12/2019, 07/08/2018 and 07/05/2017. At this time there are no current complaints. The current study was also evaluated with a Computer Aided Detection (CAD) system. FINDINGS: The fibroglandular tissue in both breasts is heterogeneously dense. This does limit the sensitivity of this exam. Overall, there does not appear to have been any significant change when compared to the prior study. No primary or secondary sign of malignancy is noted. IMPRESSION: There is no radiographic evidence for malignancy. ACR BI-RADS Category 1: Negative. Result letter will be mailed to the patient. Note: At least 10% of breast cancer is not imaged by mammography. Dictated by: Dictated on workstation # [id number]
== END ==
LOC: RAD 07:45
PROVIDERS: ATTEND Family Medicine
DX: Z12.31 Encounter for screening mammogram for malignant neoplasm of breast (principal)
CPT/HCPCS: 77063; 77067

== ENCOUNTER → 2021-08-15 | Outpatient (CLI) | payer OTHER ==
--- NOTE | 2021-08-15 10:41 | Diagnostic Imaging Report ---
INDICATION: Routine screening. COMPARISON: 08/12/2020 and 08/12/2019. TECHNIQUE: 2D and 3D bilateral screening mammography was performed with CAD. FINDINGS: Both breasts are heterogeneously dense, limiting the sensitivity of mammography. The parenchymal pattern appears stable. No mass or malignant-appearing microcalcifications are seen. The axillae are unremarkable. IMPRESSION: No mammographic features suspicious for malignancy are identified. ACR BI-RADS Category 1: Negative. Result letter will be mailed to the patient. Note: At least 10% of breast cancer is not imaged by mammography. Dictated by: Dictated on workstation # [id number]
== END ==
LOC: RAD 07:32
PROVIDERS: ATTEND Family Medicine
DX: Z12.31 Encounter for screening mammogram for malignant neoplasm of breast (principal)
CPT/HCPCS: 77063; 77067

== ENCOUNTER → 2022-09-07 | Outpatient (CLI) | payer BC, OTHER ==
--- NOTE | 2022-09-07 11:39 | Diagnostic Imaging Report ---
Indication: Routine screening. Comparison is made with prior mammogram from 08/15/2021 and 08/12/2020. 2-D and 3-D bilateral screening mammography was performed with CAD. The current study was also evaluated with a Computer Aided Detection (CAD) system. Scattered fibroglandular densities are identified bilaterally. The parenchymal pattern is stable. No mass or malignant-appearing microcalcifications are seen. Axillae are unremarkable. IMPRESSION: BI-RADS Category 1 No mammographic features suspicious for malignancy are identified. ACR BI-RADS Category 1: Negative. Result letter will be mailed to the patient. Note: At least 10% of breast cancer is not imaged by mammography. Dictated by: Dictated on workstation # [id number]
== END ==
LOC: RAD 10:32
PROVIDERS: ATTEND Family Medicine
DX: Z12.31 Encounter for screening mammogram for malignant neoplasm of breast (principal)
CPT/HCPCS: 77063; 77067

== ENCOUNTER 2022-10-30 08:39 | Outpatient (CLI) | payer BC | END 2022-10-30 09:05 | LOC: SLEEP 08:39 | PROVIDERS: ATTEND Internal Medicine Critical Care Medicine | DX: G47.33 Obstructive sleep apnea (adult) (pediatric) (principal) | CPT/HCPCS: G0399 ==